=== PATIENT | female | born 1940 | race American Indian/Alaskan Native ===

== ENCOUNTER 2018-03-19 13:23 | Emergency (ER) | payer MEDICARE ==
[2018-03-19] MEDS ORDERED: APRESOLINE IV ONE ×2 (13:47→15:49)
--- NOTE | 2018-03-19 14:28 | Cat Scan Report ---
CT HEAD WITHOUT CONTRAST: HISTORY: Altered mental status. TECHNIQUE: Sequential CT images without contrast. FINDINGS: Images obtained show bilateral prominence of the sulci and ventricles. There are no abnormal intra- or extra-axial blood or fluid collections. There are no focal masses or evidence of mass effect. The tidwell white matter differentiation appears within normal limits. Regions of periventricular decreased attenuation are consistent with microangiopathic ischemic disease. The posterior fossa structures including the fourth ventricle, cerebellum, and brainstem appear normal. IMPRESSION: Evidence of atrophy and microangiopathic ischemic disease. No acute intracranial process noted.
[2018-03-19 15:05] LABS: Basophils # (Auto) 0.1 K/mm3 (0.0-0.1); Basophils % (Auto) 0.7 % (0.0-1.8); Eosinophils # (Auto) 0.5 K/mm3 (0.0-0.4); Eosinophils % (Auto) 5.7 % (0.0-4.3); Hematocrit 34.3 % (30.3-42.9); Hemoglobin 10.9 gm/dl (10.1-14.3); Lymphocytes # (Auto) 1.2 K/mm3 (1.2-5.4); Mean Corpuscular HGB Conc 32 % (30-34); Mean Corpuscular Hemoglobin 28 pg (28-32); Mean Corpuscular Volume 88 fl (79-97); Monocytes # (Auto) 0.5 K/mm3 (0.0-0.8); Platelet Count 127 K/mm3 (140-440); Red Blood Count 3.89 M/mm3 (3.65-5.03); Red Cell Distribution Width 15.3 % (13.2-15.2)
[2018-03-19 15:24] LABS: Albumin 3.9 g/dL (3.9-5); Calcium 9.1 mg/dL (8.4-10.2)
[2018-03-19 17:28] LABS: Bilirubin,Urine NEG (Negative); Blood,Urine NEG (Negative); Color,Urine Yellow (Yellow); Urobilinogen,Urine < 2.0 mg/dL (<2.0)
[2018-03-19] MEDS ORDERED: NORVASC PO ONE (18:02)
[2018-03-19] MEDS ORDERED: APRESOLINE PO ONE (18:02)
[2018-03-19] MEDS ORDERED: COREG PO ONE (18:03)
--- NOTE | 2018-03-19 18:10 | Emergency Department Report ---
ED Altered Mental Status HPI - General Chief Complaint: Altered Mental Status Stated Complaint: AMS Time Seen by Provider: 03/19/18 13:45 Source: patient, EMS Mode of arrival: Stretcher Limitations: No Limitations - History of Present Illness Initial Comments: Ms. Briceno is 77 yo female who presents with altered mental status. She has hx of CVA, HTN, DM. She also has hx of dementia. She requires 24 hour care. Her grandson noticed that she was dazed and drooling. Her daughter is now here at bedside. She appears to be at baseline. Patient appeared "out of it". She did not take her BP meds today. Patient denies any concerns. She feels okay. MD Complaint: altered mental status -: Gradual Severity: mild Consistency of Symptoms: waxing and waning Context: other (hx of CVA and dementia) - Related Data Home Medications Medication Instructions Recorded Confirmed Last Taken Levothyroxine [Synthroid] 25 mcg PO QAM 08/27/14 08/19/17 11/05/14 Rosuvastatin (Nf) [Crestor] 10 mg PO HS 08/27/14 08/19/17 11/04/14 NIFEdipine [NIFEdipine ER] 60 mg PO DAILY 11/05/14 08/19/17 11/05/14 Sertraline [Zoloft] 50 mg PO QDAY 11/05/14 08/19/17 11/05/14 Insulin NPH Hum/Reg Insulin Hm 5 unit SQ QAM 08/19/17 08/19/17 Unknown [HumuLIN 70-30 Vial] Insulin NPH Hum/Reg Insulin Hm 10 unit SQ QHS 08/19/17 08/19/17 Unknown [HumuLIN 70-30 Vial] Terazosin [Hytrin] 5 mg PO QHS 08/19/17 08/19/17 Unknown Previous Rx's Medication Instructions Recorded Last Taken Type Carvedilol [Coreg] 25 mg PO Q12HR #60 tablet 09/01/14 11/05/14 Rx hydrALAZINE [Apresoline TAB] 100 mg PO TID #90 tab 09/01/14 11/05/14 Rx Aspirin [Aspirin BABY CHEW TAB] 81 mg PO QDAY tab.chew 08/21/17 Unknown Rx Ciprofloxacin HCl [Ciprofloxacin 250 mg PO BID #10 tablet 08/21/17 Unknown Rx TAB] Furosemide [Lasix TAB] 40 mg PO QDAY #30 tablet 08/21/17 Unknown Rx Potassium Chloride 10 meq PO QDAY #30 capsule.er 08/21/17 Unknown Rx Allergies Allergy/AdvReac Type Severity Reaction Status Date / Time No Known Allergies Allergy Verified 08/27/14 06:14 ED Review of Systems ROS: Stated complaint: AMS Other details as noted in HPI Comment: Unobtainable due to pts medical conditions ED Past Medical Hx - Past Medical History Hx Hypertension: Yes Hx CVA: Yes (2011) Hx Heart Attack/AMI: Yes Hx Congestive Heart Failure: Yes Hx Diabetes: Yes Additional medical history: bronchitis - Social History Smoking Status: Never Smoker Substance Use Type: None - Medications Home Medications: Home Medications Medication Instructions Recorded Confirmed Last Taken Type Levothyroxine [Synthroid] 25 mcg PO QAM 08/27/14 08/19/17 11/05/14 History Rosuvastatin (Nf) [Crestor] 10 mg PO HS 08/27/14 08/19/17 11/04/14 History Carvedilol [Coreg] 25 mg PO Q12HR #60 tablet 09/01/14 08/19/17 11/05/14 Rx hydrALAZINE [Apresoline TAB] 100 mg PO TID #90 tab 09/01/14 08/19/17 11/05/14 Rx NIFEdipine [NIFEdipine ER] 60 mg PO DAILY 11/05/14 08/19/17 11/05/14 History Sertraline [Zoloft] 50 mg PO QDAY 11/05/14 08/19/17 11/05/14 History Insulin NPH Hum/Reg Insulin Hm 5 unit SQ QAM 08/19/17 08/19/17 Unknown History [HumuLIN 70-30 Vial] Insulin NPH Hum/Reg Insulin Hm 10 unit SQ QHS 08/19/17 08/19/17 Unknown History [HumuLIN 70-30 Vial] Terazosin [Hytrin] 5 mg PO QHS 08/19/17 08/19/17 Unknown History Aspirin [Aspirin BABY CHEW TAB] 81 mg PO QDAY tab.chew 08/21/17 Unknown Rx Ciprofloxacin HCl [Ciprofloxacin 250 mg PO BID #10 tablet 08/21/17 Unknown Rx TAB] Furosemide [Lasix TAB] 40 mg PO QDAY #30 tablet 08/21/17 Unknown Rx Potassium Chloride 10 meq PO QDAY #30 capsule.er 08/21/17 Unknown Rx ED Physical Exam - General Limitations: No Limitations General appearance: alert, in no apparent distress - Head Head exam: Present: atraumatic, normocephalic - Eye Eye exam: Present: normal appearance, PERRL - ENT ENT exam: Present: mucous membranes moist - Neck Neck exam: Present: normal inspection. Absent: tenderness, meningismus - Respiratory Respiratory exam: Present: normal lung sounds bilaterally. Absent: respiratory distress, wheezes, rales, rhonchi - Cardiovascular Cardiovascular Exam: Present: regular rate, normal rhythm, normal heart sounds. Absent: systolic murmur, diastolic murmur, rubs, gallop - GI/Abdominal GI/Abdominal exam: Present: soft, normal bowel sounds. Absent: distended, tenderness, guarding, rebound - Extremities Exam Extremities exam: Present: normal inspection - Neurological Exam Neurological exam: Present: alert. Absent: motor sensory deficit - Psychiatric Psychiatric exam: Present: flat affect - Skin Skin exam: Present: warm, dry, intact, normal color. Absent: rash ED Course Vital Signs 03/19/18 03/19/18 03/19/18 13:18 13:25 13:30 Temperature 97.9 F Pulse Rate 52 L 46 L Respiratory 16 11 L Rate Blood Pressure 192/69 196/69 O2 Sat by Pulse 98 98 97 Oximetry 03/19/18 03/19/18 03/19/18 14:20 14:30 14:46 Temperature Pulse Rate 58 L 59 L 59 L Respiratory 13 14 Rate Blood Pressure 194/72 191/74 191/74 O2 Sat by Pulse 96 92 95 Oximetry 03/19/18 03/19/18 15:00 15:59 Temperature Pulse Rate 61 67 Respiratory 15 Rate Blood Pressure 192/90 185/79 O2 Sat by Pulse 96 Oximetry - Lab Data Result diagrams: 03/19/18 14:53 03/19/18 14:53 Lab Results 03/19/18 03/19/18 03/19/18 Range/Units 14:53 14:53 16:08 WBC 9.5 (4.5-11.0) K/mm3 RBC 3.89 (3.65-5.03) M/mm3 Hgb 10.9 (10.1-14.3) gm/dl Hct 34.3 (30.3-42.9) % MCV 88 (79-97) fl MCH 28 (28-32) pg MCHC 32 (30-34) % RDW 15.3 H (13.2-15.2) % Plt Count 127 L (140-440) K/mm3 Lymph % (Auto) 13.0 L (13.4-35.0) % Howard % (Auto) 5.0 (0.0-7.3) % Eos % (Auto) 5.7 H (0.0-4.3) % Baso % (Auto) 0.7 (0.0-1.8) % Lymph # 1.2 (1.2-5.4) K/mm3 Howard # 0.5 (0.0-0.8) K/mm3 Eos # 0.5 H (0.0-0.4) K/mm3 Baso # 0.1 (0.0-0.1) K/mm3 Seg Neutrophils % 75.6 H (40.0-70.0) % Seg Neutrophils # 7.2 (1.8-7.7) K/mm3 Sodium 139 (137-145) mmol/L Potassium 4.4 (3.6-5.0) mmol/L Chloride 102.7 (98-107) mmol/L Carbon Dioxide 24 (22-30) mmol/L Anion Gap 17 mmol/L BUN 40 H (7-17) mg/dL Creatinine 1.6 H (0.7-1.2) mg/dL Estimated GFR 38 ml/min BUN/Creatinine Ratio 25 % Glucose 206 H (65-100) mg/dL Calcium 9.1 (8.4-10.2) mg/dL Total Bilirubin 0.30 (0.1-1.2) mg/dL AST 26 (5-40) units/L ALT 11 (7-56) units/L Alkaline Phosphatase 56 (35-129) units/L Troponin T 0.094 H (0.00-0.029) ng/mL Total Protein 8.6 H (6.3-8.2) g/dL Albumin 3.9 (3.9-5) g/dL Albumin/Globulin Ratio 0.8 % Urine Color Yellow (Yellow) Urine Turbidity Clear (Clear) Urine pH 5.0 (5.0-7.0) Ur Specific [place] 1.012 (1.003-1.030) Urine Protein 100 mg/dl (Negative) mg/dL Urine Glucose (UA) Neg (Negative) mg/dL Urine Ketones Neg (Negative) mg/dL Urine Blood Neg (Negative) Urine Nitrite Neg (Negative) Urine Bilirubin Neg (Negative) Urine Urobilinogen < 2.0 (<2.0) mg/dL Ur Leukocyte Esterase Neg (Negative) Urine WBC (Auto) 1.0 (0.0-6.0) /HPF Urine RBC (Auto) 2.0 (0.0-6.0) /HPF Interpretation: no acute changes 03/19/18 18:30 EKG obtained at 1338 Sinus bradycardia rate of 55 beats a minute left axis deviation no ST elevation or signs of ischemia EKG unchanged from 08/18/2017 first-degree AV block - Radiology Data Radiology results: report reviewed CT head showed microvascular changes chronic ischemic changes, portable chest x- ray no acute process. - Medical Decision Making Ms. Briceno presents with reported altered mental status, Daughter states she is at baseline. She did have markedly elevated blood pressure without taking her medications today. She has severe blood pressure. She takes Hydralazine 100 mg QID, Nifedipine 60 mg ER, and carvedilol 25 mg. No indication of CVA, UTI or polypharmacy. Patient is taking only 7 medications. I do not see a reversible cause of presentation that requires hospital admission. dc'd home with reassurance. CT head, CXR, EKG labs including CBC chemistry urine obtained. CKD at baseline for patient. I do not suspect ACS without EKG changes Critical care attestation.: If time is entered above; I have spent that time in minutes in the direct care of this critically ill patient, excluding procedure time. ED Disposition Clinical Impression: Hypertensive urgency, Delirium Disposition: DC- TO HOME OR SELFCARE Is pt being admited?: No Does the pt Need Aspirin: No Condition: Stable Instructions: Altered Mental Status (ED) Referrals: PRIMARY CAREMD [Primary Care Provider] - 3-5 Days Time of Disposition: 18:34
--- NOTE | 2018-03-19 18:25 | XRay Report ---
FINAL REPORT EXAM: XR CHEST 1V AP HISTORY: AMS in ct TECHNIQUE: AP portable view of the chest PRIORS: CXR 08/18/2017 FINDINGS: Lines, tubes, and devices: N/A Lungs and pleura: Trachea is normal in position. Perihilar vascular prominence is again noted. This may be baseline for the patient. Cardiomediastinal silhouette: Cardiac silhouette is prominent in view of the projection. Other: Bony structures are intact. IMPRESSION: Perihilar vascular prominence is again noted bilaterally. This may be baseline for the patient.
[2018-03-19] MEDS ORDERED: ZOFRAN IV ONE (19:03)
[2018-03-19 21:11] VITALS: BP 180/80
== END 2018-03-19 20:30 | disposition home or self-care (01) ==
LOC: ED 13:23
DX: I16.0 Hypertensive urgency (principal); R41.0 Disorientation, unspecified; I10 Essential (primary) hypertension; I50.9 Heart failure, unspecified; E11.9 Type 2 diabetes mellitus without complications; I21.9 Acute myocardial infarction, unspecified; Z86.73 Personal history of transient ischemic attack (TIA), and cerebral infarction without residual deficits; Z79.4 Long term (current) use of insulin
CPT/HCPCS: 36415; 70450; 71045; 80053; 81001; 84484; 85025; 93005; 93010; 96374; 96375; 96376; 99285; J0360; J2405

== ENCOUNTER 2019-06-24 12:39 | Emergency (ER) | payer MEDICARE ==
[2019-06-24] MEDS ORDERED: cloNIDine 0.2 MG TAB PO ONE (15:53)
[2019-06-24 16:55] VITALS: BP 210/83
--- NOTE | 2019-06-24 17:29 | Emergency Department Report ---
ED General Adult HPI - General Chief complaint: High BP Stated complaint: HBP Time Seen by Provider: 06/24/19 15:43 Source: patient, family Mode of arrival: Wheelchair Limitations: No Limitations - History of Present Illness Initial comments: 78 yo F presents to ED with elevated blood pressure. Pt has history of hypertension, CVA with left sided deficits. Daughter states she is compliant with her medications. Daughter states pt has been having some nasal congestion over the last few days. States she bought Afrin from the pharmacy on yesterday. Pt used Afrin today. Daughter states pt had a regularly scheduled appointment with her PCP today and her BP was high at the office. [facility] PCP did not make any changes to her medications. Pt went home. At home, daughter checked her BP again and it read "ERROR" so she brought her to the hospital. Pt reports only mild dizziness. Denies MENA, chest pain, SOB, new weakness or numbness. Daughter states pt is at her baseline, no neuro changes. -: This morning Severity scale (0 -10): 0 Consistency: constant Improves with: none Worsens with: none Associated Symptoms: denies: chest pain, headaches, nausea/vomiting, seizure, shortness of breath - Related Data Home Medications Medication Instructions Recorded Confirmed Last Taken Levothyroxine [Synthroid] 25 mcg PO QAM 08/27/14 03/20/18 03/20/18 Sertraline [Zoloft] 50 mg PO QDAY 11/05/14 03/20/18 03/20/18 Terazosin (Nf) [Hytrin (Nf)] 5 mg PO QHS 08/19/17 03/20/18 Unknown Previous Rx's Medication Instructions Recorded Last Taken Type carvediloL [Coreg] 25 mg PO Q12HR #60 tablet 09/01/14 03/20/18 Rx hydrALAZINE [Apresoline TAB] 100 mg PO TID #90 tab 09/01/14 03/20/18 Rx Aspirin [Aspirin BABY CHEW TAB] 81 mg PO QDAY tab.chew 08/21/17 Unknown Rx AtorvaSTATin [Lipitor] 40 mg PO QHS #30 tab 03/27/18 Unknown Rx Clopidogrel [Plavix] 75 mg PO QDAY #30 tablet 03/27/18 Unknown Rx Hypromellose [Isopto Tears 0.5%] 2 drops OU Q4H PRN bottle 03/27/18 Unknown Rx ISOSORBIDE MONOnitrate [Imdur ER] 30 mg PO QDAY #30 tablet 03/27/18 Unknown Rx Polyethylene Glycol 3350 [Miralax 17 gm PO QDAY PRN #30 powd.pack 03/27/18 Unknown Rx 3350] Potassium Chloride [K-Dur] 20 meq PO BID #30 tablet 03/27/18 Unknown Rx amLODIPine 10 mg PO DAILY #30 tablet 03/27/18 Unknown Rx Allergies Allergy/AdvReac Type Severity Reaction Status Date / Time No Known Allergies Allergy Verified 08/27/14 06:14 ED Review of Systems ROS: Stated complaint: HBP Other details as noted in HPI Comment: All other systems reviewed and negative Constitutional: denies: chills, fever ENT: congestion Respiratory: denies: cough, shortness of breath Cardiovascular: denies: chest pain Gastrointestinal: denies: abdominal pain, nausea, vomiting Neurological: denies: headache, weakness, numbness ED Past Medical Hx - Past Medical History Previous Medical History?: Yes Hx Hypertension: Yes Hx CVA: Yes (2011) Hx Heart Attack/AMI: Yes Hx Congestive Heart Failure: Yes Hx Diabetes: Yes Additional medical history: bronchitis - Social History Smoking Status: Never Smoker Substance Use Type: None - Medications Home Medications: Home Medications Medication Instructions Recorded Confirmed Last Taken Type Levothyroxine [Synthroid] 25 mcg PO QAM 08/27/14 03/20/18 03/20/18 History carvediloL [Coreg] 25 mg PO Q12HR #60 tablet 09/01/14 03/20/18 03/20/18 Rx hydrALAZINE [Apresoline TAB] 100 mg PO TID #90 tab 09/01/14 03/20/18 03/20/18 Rx Sertraline [Zoloft] 50 mg PO QDAY 11/05/14 03/20/18 03/20/18 History Terazosin (Nf) [Hytrin (Nf)] 5 mg PO QHS 08/19/17 03/20/18 Unknown History Aspirin [Aspirin BABY CHEW TAB] 81 mg PO QDAY tab.chew 08/21/17 03/20/18 Unknown Rx AtorvaSTATin [Lipitor] 40 mg PO QHS #30 tab 03/27/18 Unknown Rx Clopidogrel [Plavix] 75 mg PO QDAY #30 tablet 03/27/18 Unknown Rx Hypromellose [Isopto Tears 0.5%] 2 drops OU Q4H PRN bottle 03/27/18 Unknown Rx ISOSORBIDE MONOnitrate [Imdur ER] 30 mg PO QDAY #30 tablet 03/27/18 Unknown Rx Polyethylene Glycol 3350 [Miralax 17 gm PO QDAY PRN #30 powd.pack 03/27/18 Unknown Rx 3350] Potassium Chloride [K-Dur] 20 meq PO BID #30 tablet 03/27/18 Unknown Rx amLODIPine 10 mg PO DAILY #30 tablet 03/27/18 Unknown Rx ED Physical Exam - General Limitations: No Limitations General appearance: alert, in no apparent distress - Head Head exam: Present: atraumatic, normocephalic - Eye Eye exam: Present: normal appearance, EOMI - ENT ENT exam: Present: mucous membranes moist - Neck Neck exam: Present: normal inspection - Respiratory Respiratory exam: Present: normal lung sounds bilaterally. Absent: respiratory distress - Cardiovascular Cardiovascular Exam: Present: regular rate, normal rhythm - GI/Abdominal GI/Abdominal exam: Present: soft. Absent: distended, tenderness - Extremities Exam Extremities exam: Present: normal inspection - Neurological Exam Neurological exam: Present: alert, other (at baseline per daughter; baseline left-sided weakness) - Psychiatric Psychiatric exam: Present: normal affect, normal mood - Skin Skin exam: Present: warm, dry, intact, normal color ED Course Vital Signs 06/24/19 06/24/19 06/24/19 12:42 14:58 15:16 Temperature 97.5 F L Pulse Rate 62 62 62 Respiratory 16 16 Rate Blood Pressure 224/83 Blood Pressure 251/96 240/90 [Right] O2 Sat by Pulse 96 98 97 Oximetry 06/24/19 06/24/19 16:04 16:54 Temperature Pulse Rate 62 63 Respiratory Rate Blood Pressure 213/72 Blood Pressure 210/83 [Right] O2 Sat by Pulse Oximetry ED Medical Decision Making - Medical Decision Making 78-year-old female with history of hypertension, presents to ED with elevated blood pressure. It is likely elevated due to patient's Afrin use today. Patient reported mild dizziness, however denies any headache, chest pain, shortness of breath, new neuro deficits. Daughter states patient is her baseline. Patient was seen earlier today at her PCPs office and blood pressure was elevated at that time. Clonidine given here in the ED due to patient's history of CVA in the past. Blood pressure did respond to the clonidine. Daughter instructed to only give patient her hydralazine tonight, and then restart her medications as scheduled in the morning, so as to avoid any hypotensive episodes. Daughter advised to discontinue the Afrin. Return precautions given. - Differential Diagnosis uncontrolled HTN, medication adverse effect Critical care attestation.: If time is entered above; I have spent that time in minutes in the direct care of this critically ill patient, excluding procedure time. ED Disposition Clinical Impression: Uncontrolled hypertension Disposition: DC-01 TO HOME OR SELFCARE Is pt being admited?: No Condition: Stable Instructions: Hypertension (ED) Referrals: PRIMARY CARE, [Primary Care Provider] - 3-5 Days Time of Disposition: 17:31
== END 2019-06-24 17:55 | disposition home or self-care (01) ==
LOC: ED 12:39
DX: I11.0 Hypertensive heart disease with heart failure (principal); I50.9 Heart failure, unspecified; E11.9 Type 2 diabetes mellitus without complications; Z79.899 Other long term (current) drug therapy; Z86.73 Personal history of transient ischemic attack (TIA), and cerebral infarction without residual deficits

== ENCOUNTER 2020-06-11 13:10 | Inpatient (IN) | payer MEDICARE ==
--- NOTE | 2020-06-11 14:15 | Emergency Department Report ---
ED General Adult HPI - General Chief complaint: Dyspnea/Respdistress Stated complaint: TEDDY PUI?: Yes Time Seen by Provider: 06/11/20 13:56 Source: patient, family, EMS ( EMS documentation not available at time of chart dictation ), RN notes reviewed, old records reviewed Mode of arrival: Stretcher Limitations: Physical Limitation, Other (Patient is demented) - History of Present Illness Initial comments: The patient was evaluated in the emergency department for symptoms described in the history of present illness. He/she was evaluated in the context of the global COVID-19 pandemic, which necessitated consideration that the patient might be at risk for infection with the virus that causes COVID-19. Institutional protocols and algorithms that pertain to the evaluation of patients at risk for COVID-19 are in a state of rapid change based on information released by regulatory bodies including the CDC and federal and [facility] organizations. These policies and algorithms were followed during the patient's care in the emergency department. Please note that these policies, procedures and recommendations changed on a rapid basis. Primary CARE doctor: Dr. Sánchez Johnson Nephrology: Dr. Serrato Cardiology: Dr. Gilbert Past medical history: Dementia, stroke with dysarthria, heart failure with preserved ejection fraction, hypertension, renal insufficiency, pulmonary hypertension. The patient is a pleasant 79-year-old female. She is brought to the hospital with her daughter. Her daughter provides most of the history. Complaint is for cough, shortness of breath, lower extremity swelling, malaise and fatigue. No fever, no loss of taste or smell, no nausea, vomiting or diarrhea, no urinary symptoms, no travel, surgery, immobilization, no hematemesis or bright red blood per rectum. Symptoms constant for the past few weeks, getting worse, and do not have relieving factors. Her daughter indicates no changes in medications. Specifically, no exposure to Covid positive individuals. Patient herself is pleasant cooperative, and makes no specific complaints. -: Gradual, week(s) Severity scale (0 -10): 0 Consistency: constant Improves with: rest Worsens with: movement - Related Data Home Medications Medication Instructions Recorded Confirmed Last Taken Levothyroxine [Synthroid] 25 mcg PO QAM 08/27/14 03/20/18 03/20/18 Sertraline [Zoloft] 50 mg PO QDAY 11/05/14 03/20/18 03/20/18 Terazosin (Nf) [Hytrin (Nf)] 5 mg PO QHS 08/19/17 03/20/18 Unknown Previous Rx's Medication Instructions Recorded Last Taken Type carvediloL [Coreg] 25 mg PO Q12HR #60 tablet 09/01/14 03/20/18 Rx hydrALAZINE [Apresoline TAB] 100 mg PO TID #90 tab 09/01/14 03/20/18 Rx Aspirin [Aspirin BABY CHEW TAB] 81 mg PO QDAY tab.chew 08/21/17 Unknown Rx AtorvaSTATin [Lipitor] 40 mg PO QHS #30 tab 03/27/18 Unknown Rx Clopidogrel [Plavix] 75 mg PO QDAY #30 tablet 03/27/18 Unknown Rx Hypromellose [Isopto Tears 0.5%] 2 drops OU Q4H PRN bottle 03/27/18 Unknown Rx ISOSORBIDE MONOnitrate [Imdur ER] 30 mg PO QDAY #30 tablet 03/27/18 Unknown Rx Potassium Chloride [K-Dur] 20 meq PO BID #30 tablet 03/27/18 Unknown Rx amLODIPine 10 mg PO DAILY #30 tablet 03/27/18 Unknown Rx polyethylene glycoL 3350 [Miralax 17 gm PO QDAY PRN #30 powd.pack 03/27/18 Unknown Rx 3350] Allergies Allergy/AdvReac Type Severity Reaction Status Date / Time No Known Allergies Allergy Verified 08/27/14 06:14 ED Review of Systems ROS: Stated complaint: TEDDY Other details as noted in HPI Constitutional: malaise, weakness Eyes: denies: eye discharge ENT: congestion Respiratory: cough, shortness of breath, SOB with exertion, SOB at rest, wheezing Cardiovascular: edema. denies: chest pain Gastrointestinal: denies: nausea, vomiting, hematemesis, melena, hematochezia Genitourinary: denies: dysuria Musculoskeletal: denies: back pain Neurological: weakness Hematological/Lymphatic: denies: easy bleeding ED Past Medical Hx - Past Medical History Hx Hypertension: Yes Hx CVA: Yes (2011) Hx Heart Attack/AMI: Yes Hx Congestive Heart Failure: Yes Hx Diabetes: Yes Additional medical history: bronchitis - Social History Smoking Status: Never Smoker - Medications Home Medications: Home Medications Medication Instructions Recorded Confirmed Last Taken Type Levothyroxine [Synthroid] 25 mcg PO QAM 08/27/14 03/20/18 03/20/18 History carvediloL [Coreg] 25 mg PO Q12HR #60 tablet 09/01/14 03/20/18 03/20/18 Rx hydrALAZINE [Apresoline TAB] 100 mg PO TID #90 tab 09/01/14 03/20/18 03/20/18 Rx Sertraline [Zoloft] 50 mg PO QDAY 11/05/14 03/20/18 03/20/18 History Terazosin (Nf) [Hytrin (Nf)] 5 mg PO QHS 08/19/17 03/20/18 Unknown History Aspirin [Aspirin BABY CHEW TAB] 81 mg PO QDAY tab.chew 08/21/17 03/20/18 Unknown Rx AtorvaSTATin [Lipitor] 40 mg PO QHS #30 tab 03/27/18 Unknown Rx Clopidogrel [Plavix] 75 mg PO QDAY #30 tablet 03/27/18 Unknown Rx Hypromellose [Isopto Tears 0.5%] 2 drops OU Q4H PRN bottle 03/27/18 Unknown Rx ISOSORBIDE MONOnitrate [Imdur ER] 30 mg PO QDAY #30 tablet 03/27/18 Unknown Rx Potassium Chloride [K-Dur] 20 meq PO BID #30 tablet 03/27/18 Unknown Rx amLODIPine 10 mg PO DAILY #30 tablet 03/27/18 Unknown Rx polyethylene glycoL 3350 [Miralax 17 gm PO QDAY PRN #30 powd.pack 03/27/18 Unknown Rx 3350] ED Physical Exam - General Limitations: Physical Limitation, Other (Patient demented) General appearance: in no apparent distress, obese - Head Head exam: Present: atraumatic, normocephalic - Eye Eye exam: Present: normal appearance, EOMI. Absent: nystagmus - ENT ENT exam: Present: normal exam, normal orophraynx, mucous membranes moist, normal external ear exam - Neck Neck exam: Present: normal inspection, full ROM. Absent: tenderness, meningismus - Respiratory Respiratory exam: Present: rales, rhonchi, accessory muscle use. Absent: respiratory distress, wheezes, stridor - Cardiovascular Cardiovascular Exam: Present: regular rate, normal rhythm, normal heart sounds. Absent: bradycardia, tachycardia, irregular rhythm, systolic murmur, diastolic murmur, rubs, gallop - GI/Abdominal GI/Abdominal exam: Present: soft, normal bowel sounds. Absent: distended, tenderness, rigid - Extremities Exam Extremities exam: Present: normal inspection, full ROM, pedal edema (2+ edema in the bilateral lower extremities), other (2+ pulses noted in the bilateral upper and lower extremities. There is no palpable cord. negative Homans sign. Muscular compartments are soft. The pelvis is stable.). Absent: calf tenderness - Back Exam Back exam: Present: normal inspection, full ROM. Absent: tenderness, CVA ten derness (R), CVA tenderness (L), paraspinal tenderness, vertebral tenderness - Neurological Exam Neurological exam: Present: alert (Awake and alert to name. Follows commands. Moves 4 extremities. No obvious facial droop. Chronic dementia.), other (No facial droop. Tongue midline. Extraocular movements intact bilaterally. Facial sensation intact to light touch in V1, V2, V3 distribution bilaterally. 5 and a 5 strength in 4 extremities. Sensation intact to light touch in 4 extremities.) - Psychiatric Psychiatric exam: Present: normal mood - Skin Skin exam: Present: warm, dry, intact, normal color. Absent: rash ED Course Vital Signs 06/11/20 13:46 Temperature 98.6 F Pulse Rate 74 Respiratory 16 Rate Blood Pressure 211/85 [Left] O2 Sat by Pulse 98 Oximetry ED Medical Decision Making - Lab Data Result diagrams: 06/11/20 14:41 06/11/20 14:41 Vital Signs 06/11/20 13:46 Temperature 98.6 F Pulse Rate 74 Respiratory 16 Rate Blood Pressure 211/85 [Left] O2 Sat by Pulse 98 Oximetry Lab Results 06/11/20 06/11/20 06/11/20 Range/Units 14:41 14:41 14:41 WBC 6.7 (4.5-11.0) K/mm3 RBC 3.51 L (3.65-5.03) M/mm3 Hgb 9.9 L (10.1-14.3) gm/dl Hct 32.3 (30.3-42.9) % MCV 92 (79-97) fl MCH 28 (28-32) pg MCHC 31 (30-34) % RDW 17.6 H (13.2-15.2) % Plt Count 138 L (140-440) K/mm3 Lymph % (Auto) 10.3 L (13.4-35.0) % [place] % (Auto) 6.3 (0.0-7.3) % Eos % (Auto) 3.2 (0.0-4.3) % Baso % (Auto) 1.4 (0.0-1.8) % Lymph # (Auto) 0.7 L (1.2-5.4) K/mm3 [place] # (Auto) 0.4 (0.0-0.8) K/mm3 Eos # (Auto) 0.2 (0.0-0.4) K/mm3 Baso # (Auto) 0.1 (0.0-0.1) K/mm3 Seg Neutrophils % 78.8 H (40.0-70.0) % Seg Neutrophils # 5.3 (1.8-7.7) K/mm3 PT 14.7 (12.2-14.9) Sec. INR 1.15 H (0.87-1.13) Sodium 144 (137-145) mmol/L Potassium 4.7 (3.6-5.0) mmol/L Chloride 106.8 (98-107) mmol/L Carbon Dioxide 29 (22-30) mmol/L Anion Gap 13 mmol/L BUN 58 H (7-17) mg/dL Creatinine 2.6 H (0.6-1.2) mg/dL Estimated GFR 22 ml/min BUN/Creatinine Ratio 22 % Glucose 140 H (65-100) mg/dL Calcium 8.8 (8.4-10.2) mg/dL Magnesium 2.20 (1.7-2.3) mg/dL Total Bilirubin 0.20 (0.1-1.2) mg/dL AST 17 (5-40) units/L ALT 8 (7-56) units/L Alkaline Phosphatase 86 (35-129) units/L Total Creatine Kinase 60 (30-135) units/L Troponin T 0.103 H* (0.00-0.029) ng/mL NT-Pro-B Natriuret Pep 8655 H (0-900) pg/mL Total Protein 7.4 (6.3-8.2) g/dL Albumin 3.0 L (3.9-5) g/dL Albumin/Globulin Ratio 0.7 % Triglycerides 89 (2-149) mg/dL Cholesterol 157 (50-199) mg/dL LDL Cholesterol Direct 71 (50-130) mg/dL HDL Cholesterol 75 H (40-59) mg/dL Cholesterol/HDL Ratio 2.09 % - EKG Data -: EKG Interpreted by Me - EKG Data 06/11/20 16:27 EKG #1 shows a sinus rhythm, 68 bpm, with a left axis deviation, poor R wave progression, and a marked first-degree AV block. This EKG is abnormal. The EKG is not a STEMI. Q waves noted in the inferior leads, poor R wave progression. The EKG appears to be unchanged from prior EKG from February 2018. EKG #1 and 2 are not consistent with STEMI. - Radiology Data Radiology results: pending, report reviewed, image reviewed CHEST 1 VIEW 06/11/2020 2:36 PM INDICATION / CLINICAL INFORMATION: Dyspnea. COMPARISON: Chest one view from 03/20/2018. FINDINGS: SUPPORT DEVICES: None. HEART / MEDIASTINUM: Stable. LUNGS / PLEURA: There are generalized bilateral pulmonary opacities without a pleural effusion or pneumothorax. ADDITIONAL FINDINGS: The bones are unchanged. No significant additional findings. IMPRESSION: Nonspecific bilateral pulmonary opacities could represent edema or pneumonia. Continued radiographic follow-up to resolution is recommended. Signer Name: Milton Jonas MD Signed: 06/11/2020 1:54 PM Workstation Name: [id number] - Medical Decision Making Differential diagnosis, including but not limited to: Pneumonia, congestive heart failure, cardiorenal syndrome, fluid overload, renal insufficiency Assessment and plan: 79-year-old female, who as per review of systems with family, has no DVT or pulmonary embolism risk factors, find her to be low risk by Wells criteria, with probable congestive heart failure, and cardiorenal syndrome. Patient has been admitted to this hospital in the past for similar symptoms. Laboratory studies today show chronic elevated troponin, likely a type II troponin leak, morphologically unchanged EKG, chronic renal insufficiency, worse than baseline, x-ray of the chest suggest congestive heart failure, pulmonary vascular congestion, and elevated proBNP. Patient has been staying at home, self isolating, and self quarantining. As per her daughter, no exposure to Covid positive individuals. I think COVID-19 is very unlikely in this patient. However, given current Covid pandemic, based off of hypoxia, and chest x-ray findings, start patient on isolation, initiate high-dose Lasix therapy, aspirin, antibiotic therapy, and steroids. Contacted the patient's primary rn manager, Dr. Gilbert, discussed patient's history, physical, pertinent laboratory studies, his group will be pleased to follow in consultation, and he agrees with the aforementioned plan of care. Discussed this with the patient's daughter, who is amenable to hospitalization. Hospital physician, Dr. Gabriela Matos to admit In the ER, patient appears pleasant, calm and cooperative, and she does not appear to be in significant distress, although she does have some difficulty with her respirations We will support her with medical intervention, and supplemental oxygen. Critical Care Time: Yes Critical care time in (mins) excluding proc time.: 35 Critical care attestation.: If time is entered above; I have spent that time in minutes in the direct care of this critically ill patient, excluding procedure time. ED Disposition Clinical Impression: Pulmonary edema, Hypoxia, CHF (congestive heart failure), Pulmonary hypertension, Acute on chronic renal insufficiency, Hypertension Disposition: OP ADMIT IP TO THIS HOSP Is pt being admited?: Yes Does the pt Need Aspirin: Yes Condition: Fair Instructions: Pulmonary Edema (ED), Hypertension (ED)
--- NOTE | 2020-06-11 14:58 | XRay Report ---
CHEST 1 VIEW 06/11/2020 2:36 PM INDICATION / CLINICAL INFORMATION: Dyspnea. COMPARISON: Chest one view from 03/20/2018. FINDINGS: SUPPORT DEVICES: None. HEART / MEDIASTINUM: Stable. LUNGS / PLEURA: There are generalized bilateral pulmonary opacities without a pleural effusion or pne umothorax. ADDITIONAL FINDINGS: The bones are unchanged. No significant additional findings. IMPRESSION: Nonspecific bilateral pulmonary opacities could represent edema or pneumonia. Continued radiographic follow-up to resolution is recommended. Signer Name: Milton Jonas MD Signed: 06/11/2020 2:54 PM Workstation Name: [id number]
[2020-06-11 15:29] LABS: Basophils # (Auto) 0.1 K/mm3 (0.0-0.1); Basophils % (Auto) 1.4 % (0.0-1.8); Eosinophils # (Auto) 0.2 K/mm3 (0.0-0.4); Eosinophils % (Auto) 3.2 % (0.0-4.3); Hematocrit 32.3 % (30.3-42.9); Hemoglobin 9.9 gm/dl (10.1-14.3); Lymphocytes # (Auto) 0.7 K/mm3 (1.2-5.4); Lymphocytes % (Auto) 10.3 % (13.4-35.0); Mean Corpuscular HGB Conc 31 % (30-34); Mean Corpuscular Volume 92 fl (79-97); Monocytes # (Auto) 0.4 K/mm3 (0.0-0.8); Monocytes % (Auto) 6.3 % (0.0-7.3); Platelet Count 138 K/mm3 (140-440); Red Blood Count 3.51 M/mm3 (3.65-5.03); Red Cell Distribution Width 17.6 % (13.2-15.2)
[2020-06-11 15:35] LABS: Calcium 8.8 mg/dL (8.4-10.2)
[2020-06-11 15:40] LABS: INR 1.15 (0.87-1.13)
[2020-06-11 15:52] LABS: Chol/HDL Ratio 2.09 %
[2020-06-11] MEDS ORDERED: FUROSEMIDE 40 MG/4 ML INJ IV ONE (15:58)
[2020-06-11] MEDS ORDERED: ASPIRIN 81 MG TAB CHEW PO ONE (15:58)
[2020-06-11] MEDS ORDERED: cefTRIAXone/NS 1 GM/50 ML 1 GM/50 ML BAG IV ONE ×2 (15:58→17:37)
[2020-06-11] MEDS ORDERED: dexAMETHasone 4 MG/ML VIAL IV ONE (15:58)
[2020-06-11] MEDS ORDERED: hydrALAZINE 20 MG/1 ML INJ IV ONE (15:59)
[2020-06-11] MEDS ORDERED: AZITHROMYCIN 500 MG in SODIUM CHLORIDE 0.9% 250ML 250 ML IV ONE (17:00)
[2020-06-11] MEDS ORDERED: FUROSEMIDE 40 MG/4 ML INJ ONE (17:37)
[2020-06-11] MEDS ORDERED: dexAMETHasone 4 MG/ML VIAL ONE (17:37)
[2020-06-11] MEDS ORDERED: ASPIRIN 81 MG TAB CHEW ONE (17:37)
[2020-06-11] MEDS ORDERED: cloNIDine TTS 0.3 MG/24 HR PATCH TD SCH (22:00)
--- NOTE | 2020-06-11 23:04 | History and Physical Report ---
History of Present Illness Date of examination: 06/11/20 Date of admission: 06/11/20 16:55 Chief complaint: Shortness of breath for 1 week History of present illness: 79-year-old -[place] female with history of hypertension, hyperlipidemia, coronary artery disease and congestive heart failure brought in by the heart daughter for increasing shortness of breath and orthopnea for 1 week. Daughter provides most of the history. Patient has shortness of breath on minimal exertion and orthopnea. Patient [facility] with [facility] for cardiology problems. No chest pain. Exacerbated by exertion and relieved with rest. No fever or chills. No exposure to Covid virus. - Past Medical History --Hypertension: Yes --CVA: Yes (2011) --Heart Attack/AMI: Yes --Congestive Heart Failure: Yes --Diabetes: Yes Additional medical history: bronchitis - Social History Smoking Status: Never Smoker --Surgical history unknown -- Family history Htn - Medications Home Medications: Home Medications Medication Instructions Recorded Confirmed Last Taken Type Levothyroxine [Synthroid] 25 mcg PO QAM 08/27/14 03/20/18 03/20/18 History carvediloL [Coreg] 25 mg PO Q12HR #60 tablet 09/01/14 03/20/18 03/20/18 Rx hydrALAZINE [Apresoline TAB] 100 mg PO TID #90 tab 09/01/14 03/20/18 03/20/18 Rx Sertraline [Zoloft] 50 mg PO QDAY 11/05/14 03/20/18 03/20/18 History Terazosin (Nf) [Hytrin (Nf)] 5 mg PO QHS 08/19/17 03/20/18 Unknown History Aspirin [Aspirin BABY CHEW TAB] 81 mg PO QDAY tab.chew 08/21/17 03/20/18 Unkno wn Rx AtorvaSTATin [Lipitor] 40 mg PO QHS #30 tab 03/27/18 Unknown Rx Clopidogrel [Plavix] 75 mg PO QDAY #30 tablet 03/27/18 Unknown Rx Hypromellose [Isopto Tears 0.5%] 2 drops OU Q4H PRN bottle 03/27/18 Unknown Rx ISOSORBIDE MONOnitrate [Imdur ER] 30 mg PO QDAY #30 tablet 03/27/18 Unknown Rx Potassium Chloride [K-Dur] 20 meq PO BID #30 tablet 03/27/18 Unknown Rx amLODIPine 10 mg PO DAILY #30 tablet 03/27/18 Unknown Rx polyethylene glycoL 3350 [Miralax 17 gm PO QDAY PRN #30 powd.pack 03/27/18 Unknown Rx 3350] Review of Systems ROS: Stated complaint: TEDDY Other details as noted in HPI Constitutional: malaise, weakness Eyes: denies: eye discharge ENT: congestion Respiratory: cough, shortness of breath, SOB with exertion, SOB at rest, wheezing Cardiovascular: edema. denies: chest pain Gastrointestinal: denies: nausea, vomiting, hematemesis, melena, hematochezia Genitourinary: denies: dysuria Musculoskeletal: denies: back pain Neurological: weakness Hematological/Lymphatic: denies: easy bleeding Medications and Allergies Allergies Allergy/AdvReac Type Severity Reaction Status Date / Time No Known Allergies Allergy Verified 08/27/14 06:14 Home Medications Medication Instructions Recorded Confirmed Last Taken Type Levothyroxine [Synthroid] 25 mcg PO QAM 08/27/14 06/11/20 03/20/18 History hydrALAZINE [Apresoline TAB] 100 mg PO TID #90 tab 09/01/14 06/11/20 03/20/18 Rx Sertraline [Zoloft] 50 mg PO QDAY 11/05/14 06/11/20 03/20/18 History Terazosin (Nf) [Hytrin (Nf)] 5 mg PO QHS 08/19/17 06/11/20 Unknown History Aspirin [Aspirin BABY CHEW TAB] 81 mg PO QDAY tab.chew 08/21/17 06/11/20 Unknown Rx AtorvaSTATin [Lipitor] 40 mg PO QHS #30 tab 03/27/18 06/11/20 Unknown Rx Clopidogrel [Plavix] 75 mg PO QDAY #30 tablet 03/27/18 06/11/20 Unknown Rx Hypromellose [Isopto Tears 0.5%] 2 drops OU Q4H PRN bottle 03/27/18 06/11/20 Unknown Rx ISOSORBIDE MONOnitrate [Imdur ER] 30 mg PO QDAY #30 tablet 03/27/18 06/11/20 Unknown Rx amLODIPine 10 mg PO DAILY #30 tablet 03/27/18 06/11/20 Unknown Rx Ergocalciferol (Vitamin D2) 50,000 unit PO QDAY 06/11/20 06/11/20 Unknown History [Vitamin D2] Ferrous Sulfate [Feosol] 325 mg PO QDAY 06/11/20 06/11/20 Unknown History carvediloL [Coreg] 6.25 mg PO Q12HR 06/11/20 06/11/20 Unknown History Active Meds: Active Medications Clonidine HCl (Catapres-Tts Patch) 0.3 mg TD Farr JULIETTE Last Admin: 06/11/20 22:28 Dose: 0.3 mg Documented by: Labetalol HCl (Labetalol) 20 mg IV Q3H PRN PRN Reason: Blood Pressure Exam - Constitutional Vitals: Temp Pulse Resp BP Pulse Ox 97.4 F L 57 L 16 195/88 90 06/11/20 21:47 06/11/20 20:20 06/11/20 21:47 06/11/20 21:47 06/11/20 20:20 General appearance: Present: no acute distress, well-nourished - EENT Eyes: Present: PERRL ENT: hearing intact, clear oral mucosa - Neck Neck: Present: supple, normal ROM - Respiratory Respiratory effort: normal Respiratory: bilateral: CTA - Cardiovascular Heart rate: 78 Rhythm: regular Heart Sounds: Present: S1 & S2. Absent: rub, click - Extremities Extremities: pulses symmetrical, No edema Peripheral Pulses: within normal limits - Abdominal General gastrointestinal: Present: soft, non-tender, non-distended, normal bowel sounds Female genitourinary: Present: normal - Integumentary Integumentary: Present: clear, warm, dry - Musculoskeletal Musculoskeletal: gait normal, strength equal bilaterally - Psychiatric Psychiatric: appropriate mood/affect, intact judgment & insight - Neurologic Neurologic: CNII-XII intact, moves all extremities HEART Score - HEART Score History: Moderately suspicious Age: > 65 Risk factors: > 3 risk factors or hx of atherosclerotic disease Troponin: Troponin T 0.103 ng/mL (0.00-0.029) H* 06/11/20 14:41 Troponin: < normal limit - Critical Actions Critical Actions: 4-6 pts:12-16.6% risk of adverse cardiac event. Should be admitted Results - Labs CBC & Chem 7: 06/12/20 02:35 06/12/20 02:35 Labs: Laboratory Last Values WBC 6.7 K/mm3 (4.5-11.0) 06/11/20 14:41 RBC 3.51 M/mm3 (3.65-5.03) L 06/11/20 14:41 Hgb 9.9 gm/dl (10.1-14.3) L 06/11/20 14:41 Hct 32.3 % (30.3-42.9) 06/11/20 14:41 MCV 92 fl (79-97) 06/11/20 14:41 MCH 28 pg (28-32) 06/11/20 14:41 MCHC 31 % (30-34) 06/11/20 14:41 RDW 17.6 % (13.2-15.2) H 06/11/20 14:41 Plt Count 138 K/mm3 (140-440) L 06/11/20 14:41 Lymph % (Auto) 10.3 % (13.4-35.0) L 06/11/20 14:41 [place] % (Auto) 6.3 % (0.0-7.3) 06/11/20 14:41 Eos % (Auto) 3.2 % (0.0-4.3) 06/11/20 14:41 Baso % (Auto) 1.4 % (0.0-1.8) 06/11/20 14:41 Lymph # (Auto) 0.7 K/mm3 (1.2-5.4) L 06/11/20 14:41 [place] # (Auto) 0.4 K/mm3 (0.0-0.8) 06/11/20 14:41 Eos # (Auto) 0.2 K/mm3 (0.0-0.4) 06/11/20 14:41 Baso # (Auto) 0.1 K/mm3 (0.0-0.1) 06/11/20 14:41 Seg Neutrophils % 78.8 % (40.0-70.0) H 06/11/20 14:41 Seg Neutrophils # 5.3 K/mm3 (1.8-7.7) 06/11/20 14:41 PT 14.7 Sec. (12.2-14.9) 06/11/20 14:41 INR 1.15 (0.87-1.13) H 06/11/20 14:41 Sodium 144 mmol/L (137-145) 06/11/20 14:41 Potassium 4.7 mmol/L (3.6-5.0) 06/11/20 14:41 Chloride 106.8 mmol/L (98-107) 06/11/20 14:41 Carbon Dioxide 29 mmol/L (22-30) 06/11/20 14:41 Anion Gap 13 mmol/L 06/11/20 14:41 BUN 58 mg/dL (7-17) H 06/11/20 14:41 Creatinine 2.6 mg/dL (0.6-1.2) H 06/11/20 14:41 Estimated GFR 22 ml/min 06/11/20 14:41 BUN/Creatinine Ratio 22 % 06/11/20 14:41 Glucose 140 mg/dL (65-100) H 06/11/20 14:41 POC Glucose 140 mg/dL (70-105) H 06/11/20 21:46 Lactic Acid 0.50 mmol/L (0.7-2.0) L 06/11/20 16:11 Calcium 8.8 mg/dL (8.4-10.2) 06/11/20 14:41 Magnesium 2.20 mg/dL (1.7-2.3) 06/11/20 14:41 Total Bilirubin 0.20 mg/dL (0.1-1.2) 06/11/20 14:41 AST 17 units/L (5-40) 06/11/20 14:41 ALT 8 units/L (7-56) 06/11/20 14:41 Alkaline Phosphatase 86 units/L (35-129) 06/11/20 14:41 Total Creatine Kinase 60 units/L (30-135) 06/11/20 14:41 Troponin T 0.103 ng/mL (0.00-0.029) H* 06/11/20 14:41 NT-Pro-B Natriuret Pep 8655 pg/mL (0-900) H 06/11/20 14:41 Total Protein 7.4 g/dL (6.3-8.2) 06/11/20 14:41 Albumin 3.0 g/dL (3.9-5) L 06/11/20 14:41 Albumin/Globulin Ratio 0.7 % 06/11/20 14:41 Triglycerides 89 mg/dL (2-149) 06/11/20 14:41 Cholesterol 157 mg/dL (50-199) 06/11/20 14:41 LDL Cholesterol Direct 71 mg/dL (50-130) 06/11/20 14:41 HDL Cholesterol 75 mg/dL (40-59) H 06/11/20 14:41 Cholesterol/HDL Ratio 2.09 % 06/11/20 14:41 Short CBC 06/11/20 06/12/20 Range/Units 14:41 02:35 WBC 6.7 4.5 (4.5-11.0) K/mm3 Hgb 9.9 L 10.7 (10.1-14.3) gm/dl Hct 32.3 34.0 (30.3-42.9) % Plt Count 138 L 156 (140-440) K/mm3 BMP 06/11/20 06/12/20 14:41 02:35 Sodium 144 143 Potassium 4.7 4.9 Chloride 106.8 104.0 Carbon Dioxide 29 25 BUN 58 H 58 H Creatinine 2.6 H 2.5 H Glucose 140 H 214 H Calcium 8.8 9.1 Cardiac Enzymes 06/11/20 06/12/20 06/12/20 Range/Units 14:41 02:35 05:43 Total Creatine Kinase 60 (30-135) units/L Troponin T 0.103 H* 0.111 H* 0.105 H* (0.00-0.029) ng/mL Liver Function 06/11/20 06/12/20 Range/Units 14:41 02:35 Total Bilirubin 0.20 0.30 (0.1-1.2) mg/dL AST 17 20 (5-40) units/L ALT 8 9 (7-56) units/L Alkaline Phosphatase 86 97 (35-129) units/L Albumin 3.0 L 3.2 L (3.9-5) g/dL Microbiology: Microbiology 06/11/20 16:11 Peripheral/Venous Blood Culture - Preliminary Culture in Progress 06/11/20 16:11 Peripheral/Venous Blood Culture - Preliminary Culture in Progress - Imaging and Cardiology EKG: report reviewed (Sinus rhythm no acute ST-T wave changes) Imaging and Cardiology: chest x-ray Bilateral pulmonary opacities could represent edema or pneumonia Lopez/IV: IV Catheter Type [Right INT / Saline Lock Forearm] Assessment and Plan Advance Directives: Yes (Full code) VTE prophylaxis?: Chemical Plan of care discussed with patient/family: Yes - Patient Problems (1) Acute exacerbation of CHF (congestive heart failure) Current Visit: Yes Status: Acute Qualifiers: Heart failure type: combined systolic and diastolic Qualified Code(s): I50.43 - Acute on chronic combined systolic (congestive) and diastolic (congestive) heart failure Plan to address problem: Patient's history consistent with CHF BNP is elevated in the mid 8000s IV Lasix 40 mg every 12 Echocardiogram for ejection fraction and valvular function Cardiology consult requested Daily weight Daily intake output (2) Elevated troponin Current Visit: Yes Status: Acute Plan to address problem: Possible NSTEMI type II Will defer to cardiology regarding stress test versus left heart catheterization IV heparin was not started (3) HTN (hypertension) Current Visit: Yes Status: Chronic Qualifiers: Hypertension type: essential hypertension Plan to address problem: Continue antihypertensives and adjust medications as necessary (4) Coronary artery disease Current Visit: Yes Status: Chronic Qualifiers: Coronary Disease-Associated Artery/Lesion type: [place] artery [place] vs. transplanted heart: [place] heart Plan to address problem: Continue isosorbide mono nitrate and aspirin (5) CKD (chronic kidney disease) Current Visit: Yes Status: Chronic Qualifiers: Chronic kidney disease stage: stage 4 (severe) Qualified Code(s): N18.4 - Chronic kidney disease, stage 4 (severe) Plan to address problem: Nephrology consult requested (6) DVT prophylaxis Current Visit: Yes Status: Acute Plan to address problem: On heparin and GI prophylaxis
[2020-06-11] MEDS ORDERED: HYPROMELLOSE 0.5% OPHTH SOLN 15 ML OU PRN (23:06)
[2020-06-11] MEDS ORDERED: HYDROmorphone 1 MG/1 ML INJ IV PRN (23:07)
[2020-06-11] MEDS ORDERED: ONDANSETRON 4 MG/2 ML INJ IV PRN (23:07)
[2020-06-11] MEDS ORDERED: ACETAMINOPHEN 325 MG TAB PO PRN (23:07)
[2020-06-11] MEDS: carvediloL 6.25 MG TAB PO SCH (23:59)
[2020-06-12 03:23] LABS: Hemoglobin 10.7 gm/dl (10.1-14.3); Mean Corpuscular HGB Conc 32 % (30-34); Mean Corpuscular Volume 89 fl (79-97); Platelet Count 156 K/mm3 (140-440); Red Blood Count 3.81 M/mm3 (3.65-5.03); Red Cell Distribution Width 17.5 % (13.2-15.2)
[2020-06-12 03:41] LABS: Albumin 3.2 g/dL (3.9-5); Calcium 9.1 mg/dL (8.4-10.2)
[2020-06-12] MEDS ORDERED: NITROGLYCERIN 0.4 MG TAB SUBL SL PRN (04:00)
[2020-06-12] MEDS: LEVOTHYROXINE 25 MCG TAB PO SCH (05:52)
[2020-06-12] MEDS ORDERED: FUROSEMIDE 40 MG/4 ML INJ IV SCH (06:00)
[2020-06-12 06:40] LABS: Anisocytosis 1+; Basophils % (Manual) 0 % (0.0-1.8); Eosinophils % (Manual) 0 % (0.0-4.3); Target Cells Few; Total Cells Counted 100
[2020-06-12 06:41] LABS: Hypochromasia Few; Platelet Estimate Consistent w Auto
[2020-06-12] MEDS ORDERED: hydrALAZINE 100 MG TAB PO SCH (08:00)
[2020-06-12] MEDS: amLODIPine 10 MG TAB PO SCH ×2 (08:37→18:16)
[2020-06-12] MEDS: ASPIRIN 81 MG TAB CHEW PO SCH ×2 (08:38→18:08)
[2020-06-12] MEDS: SERTRALINE 50 MG TAB PO SCH ×2 (08:38→18:15)
[2020-06-12] MEDS: carvediloL 6.25 MG TAB PO SCH ×2 (08:38→18:09)
[2020-06-12] MEDS: FERROUS SULFATE 325 MG TAB PO SCH ×2 (08:38→18:15)
[2020-06-12] MEDS: POTASSIUM CHLORIDE ER 20 MEQ TAB PO SCH ×2 (08:39→18:16)
[2020-06-12] MEDS: CLOPIDOGREL 75 MG TAB PO SCH ×2 (08:39→18:15)
[2020-06-12] MEDS ORDERED: PRAZOSIN 1 MG CAP PO SCH (10:00)
[2020-06-12] MEDS ORDERED: ERGOCALCIFEROL (VIT D2) 50,000 UNIT CAP PO SCH (10:00)
--- NOTE | 2020-06-12 10:00 | Consultation ---
History of Present Illness Consult date: 06/12/20 Consult reason: congestive heart failure History of present illness: This is a 79-year old history of chronic kidney disease, hypertension and prior CVA, who was brought to this hospital with shortness of breath, hypoxic respiratory failure and severe, uncontrolled hypertension. Systolic BP as high as 221. Laboratory studies shows a creatinine of 2.6 and chronically elevated troponin measurements. Chest x-ray reports bilateral pulmonary opacities versus interstitial edema. COVID 19 test result is pending. Patient is known to [facility] and is followed on a routine basis. She has a cardiac history of heart failure with preserved ejection fraction and pulmonary hypertension. Her latest echocardiogram done 2 years ago, showed moderate pulmonary hypertension, RVSP 50 mmHg. Normal left ventricular systolic function, ejection fraction 55-60%. Past History Past Medical History: heart failure, hypertension, renal failure, stroke Medications and Allergies Allergies Allergy/AdvReac Type Severity Reaction Status Date / Time No Known Allergies Allergy Verified 08/27/14 06:14 Home Medications Medication Instructions Recorded Confirmed Last Taken Type Levothyroxine [Synthroid] 25 mcg PO QAM 08/27/14 06/11/20 03/20/18 History hydrALAZINE [Apresoline TAB] 100 mg PO TID #90 tab 09/01/14 06/11/20 03/20/18 Rx Sertraline [Zoloft] 50 mg PO QDAY 11/05/14 06/11/20 03/20/18 History Terazosin (Nf) [Hytrin (Nf)] 5 mg PO QHS 08/19/17 06/11/20 Unknown History Aspirin [Aspirin BABY CHEW TAB] 81 mg PO QDAY tab.chew 08/21/17 06/11/20 Unknown Rx AtorvaSTATin [Lipitor] 40 mg PO QHS #30 tab 03/27/18 06/11/20 Unknown Rx Clopidogrel [Plavix] 75 mg PO QDAY #30 tablet 03/27/18 06/11/20 Unknown Rx Hypromellose [Isopto Tears 0.5%] 2 drops OU Q4H PRN bottle 03/27/18 06/11/20 Unknown Rx ISOSORBIDE MONOnitrate [Imdur ER] 30 mg PO QDAY #30 tablet 03/27/18 06/11/20 Unknown Rx amLODIPine 10 mg PO DAILY #30 tablet 03/27/18 06/11/20 Unknown Rx Ergocalciferol (Vitamin D2) 50,000 unit PO QDAY 06/11/20 06/11/20 Unknown History [Vitamin D2] Ferrous Sulfate [Feosol] 325 mg PO QDAY 06/11/20 06/11/20 Unknown History carvediloL [Coreg] 6.25 mg PO Q12HR 06/11/20 06/11/20 Unknown History Active Meds: Active Medications Acetaminophen (Tylenol) 650 mg PO Q4H PRN PRN Reason: Pain MILD(1-3)/Fever >100.5/MENA Amlodipine Besylate (Amlodipine) 10 mg PO DAILY [facility] Last Admin: 06/12/20 08:37 Dose: 10 mg Documented by: Artificial Tears (Isopto Tears 0.5%) 2 drops OU Q4H PRN PRN Reason: Dry Eye(s) Aspirin (Baby Aspirin) 81 mg PO QDAY [facility] Last Admin: 06/12/20 08:38 Dose: 81 mg Documented by: Atorvastatin Calcium (Lipitor) 40 mg PO QHS [facility] Carvedilol (Coreg) 6.25 mg PO Q12HR [facility] Last Admin: 06/12/20 08:38 Dose: 6.25 mg Documented by: Clonidine HCl (Catapres-Tts Patch) 0.3 mg TD Farr [facility] Last Admin: 06/11/20 22:28 Dose: 0.3 mg Documented by: Clopidogrel Bisulfate (Plavix) 75 mg PO QDAY [facility] Last Admin: 06/12/20 08:39 Dose: 75 mg Documented by: Ergocalciferol (Vitamin D2) 50,000 unit PO QDAY [facility] Ferrous Sulfate (Feosol) 325 mg PO QDAY [facility] Last Admin: 06/12/20 08:38 Dose: 325 mg Documented by: Furosemide (Lasix) 40 mg IV 0600,1800 [facility] Last Admin: 06/12/20 05:52 Dose: 40 mg Documented by: Hydralazine HCl (Apresoline) 100 mg PO TID [facility] Last Admin: 06/12/20 08:38 Dose: 100 mg Documented by: Hydromorphone HCl (Dilaudid) 0.5 mg IV Q3H PRN PRN Reason: Pain , Severe (7-10) Isosorbide Mononitrate (Imdur) 30 mg PO QDAY [facility] Last Admin: 06/12/20 08:38 Dose: 30 mg Documented by: Labetalol HCl (Labetalol) 20 mg IV Q3H PRN PRN Reason: Blood Pressure Last Admin: 06/12/20 04:18 Dose: 20 mg Documented by: Levothyroxine Sodium (Synthroid) 25 mcg PO QAM@0600 [facility] Last Admin: 06/12/20 05:52 Dose: 25 mcg Documented by: Nitroglycerin (Nitrostat) 0.4 mg SL .Q5MIN PRN PRN Reason: Chest Pain Last Admin: 06/12/20 04:39 Dose: 0.4 mg Documented by: Ondansetron HCl (Zofran) 4 mg IV Q8H PRN PRN Reason: Nausea And Vomiting Oxycodone/Acetaminophen (Percocet 5/325) 1 tab PO Q6H PRN PRN Reason: Pain, Moderate (4-6) Potassium Chloride (K-Dur) 20 meq PO Q12HR [facility] Last Admin: 06/12/20 08:39 Dose: 20 meq Documented by: Prazosin HCl (Prazosin) 2 mg PO BID [facility] Sertraline HCl (Zoloft) 50 mg PO QDAY [facility] Last Admin: 06/12/20 08:38 Dose: 50 mg Documented by: Sodium Chloride (Sodium Chloride Flush Syringe 10 Ml) 10 ml IV BID [facility] Last Admin: 06/12/20 08:39 Dose: 10 ml Documented by: Sodium Chloride (Sodium Chloride Flush Syringe 10 Ml) 10 ml IV PRN PRN PRN Reason: LINE FLUSH Review of Systems Cardiovascular: edema, shortness of breath, no chest pain, no orthopnea, no palpitations, no rapid/irregular heart beat Respiratory: no cough, no wheezing Physical Examination Vital Signs Pulse Resp BP Pulse Ox 71 17 203/78 96 06/11/20 13:45 06/11/20 13:45 06/11/20 13:45 06/11/20 13:45 General appearance: no acute distress HEENT: Positive: PERRL Cardiac: Positive: Reg Rate and Rhythm Lungs: Positive: Decreased Breath Sounds Neuro: Positive: Weakness Extremities: Present: +1 Edema Results 06/12/20 02:35 06/12/20 02:35 Cardiac Enzymes 06/11/20 06/12/20 Range/Units 14:41 02:35 AST 17 20 (5-40) units/L Coagulation 06/11/20 Range/Units 14:41 PT 14.7 (12.2-14.9) Sec. INR 1.15 H (0.87-1.13) Lipids 06/11/20 Range/Units 14:41 Triglycerides 89 (2-149) mg/dL Cholesterol 157 (50-199) mg/dL HDL Cholesterol 75 H (40-59) mg/dL Cholesterol/HDL Ratio 2.09 % CBC 06/11/20 06/12/20 Range/Units 14:41 02:35 WBC 6.7 4.5 (4.5-11.0) K/mm3 RBC 3.51 L 3.81 (3.65-5.03) M/mm3 Hgb 9.9 L 10.7 (10.1-14.3) gm/dl Hct 32.3 34.0 (30.3-42.9) % Plt Count 138 L 156 (140-440) K/mm3 Lymph # (Auto) 0.7 L (1.2-5.4) K/mm3 Garza # (Auto) 0.4 (0.0-0.8) K/mm3 Eos # (Auto) 0.2 (0.0-0.4) K/mm3 Baso # (Auto) 0.1 (0.0-0.1) K/mm3 Comprehensive Metabolic Panel 06/11/20 06/12/20 Range/Units 14:41 02:35 Sodium 144 143 (137-145) mmol/L Potassium 4.7 4.9 (3.6-5.0) mmol/L Chloride 106.8 104.0 (98-107) mmol/L Carbon Dioxide 29 25 (22-30) mmol/L BUN 58 H 58 H (7-17) mg/dL Creatinine 2.6 H 2.5 H (0.6-1.2) mg/dL Glucose 140 H 214 H (65-100) mg/dL Calcium 8.8 9.1 (8.4-10.2) mg/dL AST 17 20 (5-40) units/L ALT 8 9 (7-56) units/L Alkaline Phosphatase 86 97 (35-129) units/L Total Protein 7.4 8.3 H (6.3-8.2) g/dL Albumin 3.0 L 3.2 L (3.9-5) g/dL Assessment and Plan Volume overload Heart failure with a preserved ejection fraction Pulmonary hypertension, moderate Chronic renal disease Hypertension Prior CVA
--- NOTE | 2020-06-12 11:38 | Progress Note ---
Assessment and Plan Assessment and plan: --COVID-19 test negative --Persistent bradycardia; Hold AV yoav blocking agents Rhythm strip shows first-degree AV block Intermittently second-degree type I AV block Cardiology following, heart rate in 50s Closely monitor -- Acute on chronic diastolic CHF (congestive heart failure) Current Visit: Yes Status: Acute Plan to address problem: IV diuretics, beta-blockers, input output monitoring heart rate ranges between. Low-sodium diet, fluid restriction Echocardiogram for LV function ejection fraction Cardiology following --Nonspecific elevated troponin; NSTEMI probably type II Current Visit: Yes Status: Acute Plan to address problem: Possible NSTEMI type II, due to CHF and chronic kidney disease Follow echocardiogram, cardiology evaluation recommendation Possible stress test versus heart cath if needed -- HTN (hypertension) Current Visit: Yes Status: Chronic Plan to address problem: Moderate control ,continue current antihypertensives And as needed hydralazine --History of coronary artery disease Current Visit: Yes Status: Chronic Continue isosorbide mono nitrate and aspirin Cardiology following CKD (chronic kidney disease) Current Visit: Yes Status: Chronic Plan to address problem: Nephrology consult requested Monitor renal function, avoid nephrotoxins -- DVT prophylaxis Current Visit: Yes Status: Acute Plan to address problem: On heparin and GI prophylaxis Closely monitor the patient and adjust management as needed Plan of care reviewed with the patient and the nurse Cardiology evaluation and recommendations noted and appreciated History Interval history: I have seen and examined the patient at the bedside this morning Patient's chart and medications reviewed Patient feels slightly better And remains bradycardic heart rate in 50s Vital signs reviewed Hospitalist Physical - Constitutional Vitals: Temp Pulse Resp BP Pulse Ox 97.4 F L 57 L 20 188/81 100 06/12/20 04:11 06/12/20 10:40 06/12/20 08:20 06/12/20 10:40 06/12/20 08:20 General appearance: Present: no acute distress, well-nourished - EENT Eyes: Present: PERRL, EOM intact - Neck Neck: Present: supple, normal ROM - Respiratory Respiratory effort: normal Respiratory: bilateral: diminished, negative: rales, rhonchi, wheezing - Cardiovascular Rhythm: regular Heart Sounds: Present: S1 & S2 (Bradycardia) - Extremities Extremities: no ischemia, No edema - Abdominal General gastrointestinal: soft, non-tender, non-distended, normal bowel sounds - Integumentary Integumentary: Present: clear, warm - Psychiatric Psychiatric: other (Confused at times) - Neurologic Neurologic: moves all extremities HEART Score - HEART Score Age: > 65 Risk factors: > 3 risk factors or hx of atherosclerotic disease Troponin: Troponin T 0.105 ng/mL (0.00-0.029) H* 06/12/20 05:43 Troponin: < normal limit - Critical Actions Critical Actions: 4-6 pts:12-16.6% risk of adverse cardiac event. Should be a dmitted Results - Labs CBC & Chem 7: 06/12/20 02:35 06/13/20 05:19 Labs: Laboratory Last Values WBC 4.5 K/mm3 (4.5-11.0) 06/12/20 02:35 RBC 3.81 M/mm3 (3.65-5.03) 06/12/20 02:35 Hgb 10.7 gm/dl (10.1-14.3) 06/12/20 02:35 Hct 34.0 % (30.3-42.9) 06/12/20 02:35 MCV 89 fl (79-97) 06/12/20 02:35 MCH 28 pg (28-32) 06/12/20 02:35 MCHC 32 % (30-34) 06/12/20 02:35 RDW 17.5 % (13.2-15.2) H 06/12/20 02:35 Plt Count 156 K/mm3 (140-440) 06/12/20 02:35 Lymph % (Auto) 10.3 % (13.4-35.0) L 06/11/20 14:41 [place] % (Auto) 6.3 % (0.0-7.3) 06/11/20 14:41 Eos % (Auto) 3.2 % (0.0-4.3) 06/11/20 14:41 Baso % (Auto) 1.4 % (0.0-1.8) 06/11/20 14:41 Lymph # (Auto) 0.7 K/mm3 (1.2-5.4) L 06/11/20 14:41 [place] # (Auto) 0.4 K/mm3 (0.0-0.8) 06/11/20 14:41 Eos # (Auto) 0.2 K/mm3 (0.0-0.4) 06/11/20 14:41 Baso # (Auto) 0.1 K/mm3 (0.0-0.1) 06/11/20 14:41 Add Manual Diff Complete 06/12/20 02:35 Total Counted 100 06/12/20 02:35 Seg Neutrophils % Sales Office Administrator 06/12/20 02:35 Seg Neuts % (Manual) 92.0 % (40.0-70.0) H 06/12/20 02:35 Band Neutrophils % 0 % 06/12/20 02:35 Lymphocytes % (Manual) 6.0 % (13.4-35.0) L 06/12/20 02:35 Reactive Lymphs % (Man) 0 % 06/12/20 02:35 Monocytes % (Manual) 2.0 % (0.0-7.3) 06/12/20 02:35 Eosinophils % (Manual) 0 % (0.0-4.3) 06/12/20 02:35 Basophils % (Manual) 0 % (0.0-1.8) 06/12/20 02:35 Metamyelocytes % 0 % 06/12/20 02:35 Myelocytes % 0 % 06/12/20 02:35 Promyelocytes % 0 % 06/12/20 02:35 Blast Cells % 0 % 06/12/20 02:35 Nucleated RBC % Not Reportable 06/12/20 02:35 Seg Neutrophils # 5.3 K/mm3 (1.8-7.7) 06/11/20 14:41 Seg Neutrophils # Man 4.1 K/mm3 (1.8-7.7) 06/12/20 02:35 Band Neutrophils # 0.0 K/mm3 06/12/20 02:35 Lymphocytes # (Manual) 0.3 K/mm3 (1.2-5.4) L 06/12/20 02:35 Abs React Lymphs (Man) 0.0 K/mm3 06/12/20 02:35 Monocytes # (Manual) 0.1 K/mm3 (0.0-0.8) 06/12/20 02:35 Eosinophils # (Manual) 0.0 K/mm3 (0.0-0.4) 06/12/20 02:35 Basophils # (Manual) 0.0 K/mm3 (0.0-0.1) 06/12/20 02:35 Metamyelocytes # 0.0 K/mm3 06/12/20 02:35 Myelocytes # 0.0 K/mm3 06/12/20 02:35 Promyelocytes # 0.0 K/mm3 06/12/20 02:35 Blast Cells # 0.0 K/mm3 06/12/20 02:35 WBC Morphology Not Reportable 06/12/20 02:35 Hypersegmented Neuts Not Reportable 06/12/20 02:35 Hyposegmented Neuts Not Reportable 06/12/20 02:35 Hypogranular Neuts Not Reportable 06/12/20 02:35 Smudge Cells Not Reportable 06/12/20 02:35 Toxic Granulation Not Reportable 06/12/20 02:35 Toxic Vacuolation Not Reportable 06/12/20 02:35 Dohle Bodies Not Reportable 06/12/20 02:35 Pelger-Huet Anomaly Not Reportable 06/12/20 02:35 Chanda Rods Not Reportable 06/12/20 02:35 Platelet Estimate Consistent w auto 06/12/20 02:35 Clumped Platelets Not Reportable 06/12/20 02:35 Plt Clumps, EDTA Not Reportable 06/12/20 02:35 Large Platelets Not Reportable 06/12/20 02:35 Giant Platelets Not Reportable 06/12/20 02:35 Platelet Satelliting Not Reportable 06/12/20 02:35 Plt Morphology Comment Not Reportable 06/12/20 02:35 RBC Morphology Not Reportable 06/12/20 02:35 Dimorphic RBCs Not Reportable 06/12/20 02:35 Polychromasia Not Reportable 06/12/20 02:35 Hypochromasia Few 06/12/20 02:35 Poikilocytosis Not Reportable 06/12/20 02:35 Anisocytosis 1+ 06/12/20 02:35 Microcytosis Not Reportable 06/12/20 02:35 Macrocytosis Not Reportable 06/12/20 02:35 Spherocytes Not Reportable 06/12/20 02:35 Pappenheimer Bodies Not Reportable 06/12/20 02:35 Sickle Cells Not Reportable 06/12/20 02:35 Target Cells Few 06/12/20 02:35 Tear Drop Cells Not Reportable 06/12/20 02:35 Ovalocytes Not Reportable 06/12/20 02:35 Helmet Cells Not Reportable 06/12/20 02:35 [place] Bodies Not Reportable 06/12/20 02:35 [place] Rings Not Reportable 06/12/20 02:35 [place] Cells Not Reportable 06/12/20 02:35 Bite Cells Not Reportable 06/12/20 02:35 Crenated Cell Not Reportable 06/12/20 02:35 Elliptocytes Not Reportable 06/12/20 02:35 Acanthocytes (Spur) Not Reportable 06/12/20 02:35 Rouleaux Not Reportable 06/12/20 02:35 Hemoglobin C Crystals Not Reportable 06/12/20 02:35 Schistocytes Not Reportable 06/12/20 02:35 Malaria parasites Not Reportable 06/12/20 02:35 Sulaiman Bodies Not Reportable 06/12/20 02:35 Hem Pathologist Commnt No 06/12/20 02:35 PT 14.7 Sec. (12.2-14.9) 06/11/20 14:41 INR 1.15 (0.87-1.13) H 06/11/20 14:41 Sodium 143 mmol/L (137-145) 06/12/20 02:35 Potassium 4.9 mmol/L (3.6-5.0) 06/12/20 02:35 Chloride 104.0 mmol/L (98-107) 06/12/20 02:35 Carbon Dioxide 25 mmol/L (22-30) 06/12/20 02:35 Anion Gap 19 mmol/L 06/12/20 02:35 BUN 58 mg/dL (7-17) H 06/12/20 02:35 Creatinine 2.5 mg/dL (0.6-1.2) H 06/12/20 02:35 Estimated GFR 23 ml/min 06/12/20 02:35 BUN/Creatinine Ratio 23 % 06/12/20 02:35 Glucose 214 mg/dL (65-100) H 06/12/20 02:35 POC Glucose 140 mg/dL (70-105) H 06/11/20 21:46 Hemoglobin A1c 6.0 % (4-6) 06/12/20 02:35 Lactic Acid 0.50 mmol/L (0.7-2.0) L 06/11/20 16:11 Calcium 9.1 mg/dL (8.4-10.2) 06/12/20 02:35 Magnesium 2.20 mg/dL (1.7-2.3) 06/11/20 14:41 Total Bilirubin 0.30 mg/dL (0.1-1.2) 06/12/20 02:35 AST 20 units/L (5-40) 06/12/20 02:35 ALT 9 units/L (7-56) 06/12/20 02:35 Alkaline Phosphatase 97 units/L (35-129) 06/12/20 02:35 Total Creatine Kinase 60 units/L (30-135) 06/11/20 14:41 Troponin T 0.105 ng/mL (0.00-0.029) H* 06/12/20 05:43 NT-Pro-B Natriuret Pep 8655 pg/mL (0-900) H 06/11/20 14:41 Total Protein 8.3 g/dL (6.3-8.2) H 06/12/20 02:35 Albumin 3.2 g/dL (3.9-5) L 06/12/20 02:35 Albumin/Globulin Ratio 0.6 % 06/12/20 02:35 Triglycerides 89 mg/dL (2-149) 06/11/20 14:41 Cholesterol 157 mg/dL (50-199) 06/11/20 14:41 LDL Cholesterol Direct 71 mg/dL (50-130) 06/11/20 14:41 HDL Cholesterol 75 mg/dL (40-59) H 06/11/20 14:41 Cholesterol/HDL Ratio 2.09 % 06/11/20 14:41 Microbiology: Microbiology 06/11/20 16:11 Peripheral/Venous Blood Culture - Preliminary Culture in Progress 06/11/20 16:11 Peripheral/Venous Blood Culture - Preliminary Culture in Progress Lopez/IV: Voiding Method External Female Catheter IV Catheter Type [Right INT / Saline Lock Forearm] Active Medications - Current Medications Current Medications: Generic Name Dose Route Start Last Admin Trade Name Freq PRN Reason Stop Dose Admin Acetaminophen 650 mg 06/11/20 23:07 Tylenol PO Q4H PRN Pain MILD(1-3)/Fever >100.5/MENA Amlodipine Besylate 10 mg 06/12/20 10:00 06/12/20 08:37 Amlodipine PO 10 mg DAILY [facility] Administration Artificial Tears 2 drops 06/11/20 23:06 Isopto Tears 0.5% OU Q4H PRN Dry Eye(s) Aspirin 81 mg 06/12/20 10:00 06/12/20 08:38 Baby Aspirin PO 81 mg QDAY [facility] Administration Atorvastatin Calcium 40 mg 06/12/20 22:00 Lipitor PO QHS [facility] Carvedilol 6.25 mg 06/11/20 23:45 06/12/20 08:38 Coreg PO 6.25 mg Q12HR [facility] Administration Clonidine HCl 0.3 mg 06/11/20 22:00 06/11/20 22:28 Catapres-Tts Patch TD 0.3 mg Farr [facility] Administration Clopidogrel Bisulfate 75 mg 06/12/20 10:00 06/12/20 08:39 Plavix PO 75 mg QDAY [facility] Administration Ergocalciferol 50,000 unit 06/12/20 10:00 Vitamin D2 PO QDAY [facility] Ferrous Sulfate 325 mg 06/12/20 10:00 06/12/20 08:38 Feosol PO 325 mg QDAY [facility] Administration Furosemide 40 mg 06/12/20 06:00 06/12/20 05:52 Lasix IV 40 mg 0600,1800 [facility] Administration Hydralazine HCl 100 mg 06/12/20 08:00 06/12/20 08:38 Apresoline PO 100 mg TID [facility] Administration Hydromorphone HCl 0.5 mg 06/11/20 23:07 Dilaudid IV Q3H PRN Pain , Severe (7-10) Isosorbide Mononitrate 30 mg 06/12/20 10:00 06/12/20 08:38 Imdur PO 30 mg QDAY [facility] Administration Labetalol HCl 20 mg 06/11/20 21:17 06/12/20 10:40 Labetalol IV 20 mg Q3H PRN Administration Blood Pressure Levothyroxine Sodium 25 mcg 06/12/20 06:00 06/12/20 05:52 Synthroid PO 25 mcg QAM@0600 [facility] Administration Nitroglycerin 0.4 mg 06/12/20 04:00 06/12/20 04:39 Nitrostat SL 0.4 mg .Q5MIN PRN Administration Chest Pain Ondansetron HCl 4 mg 06/11/20 23:07 Zofran IV Q8H PRN Nausea And Vomiting Oxycodone/Acetaminophen 1 tab 06/11/20 23:07 Percocet 5/325 PO Q6H PRN Pain, Moderate (4-6) Potassium Chloride 20 meq 06/12/20 10:00 06/12/20 08:39 K-Dur PO 20 meq Q12HR [facility] Administration Prazosin HCl 2 mg 06/12/20 10:00 Prazosin PO BID [facility] Sertraline HCl 50 mg 06/12/20 10:00 06/12/20 08:38 Zoloft PO 50 mg QDAY [facility] Administration Sodium Chloride 10 ml 06/11/20 23:45 06/12/20 08:39 Sodium Chloride Flush Syringe 10 Ml IV 10 ml BID [facility] Administration Sodium Chloride 10 ml 06/11/20 23:07 Sodium Chloride Flush Syringe 10 Ml IV PRN PRN LINE FLUSH
[2020-06-12] MEDS: NIFEdipine XL 60 MG TAB PO SCH ×2 (12:14→21:20)
[2020-06-12] MEDS: DOXAZOSIN 1 MG TAB PO SCH ×2 (12:22→21:56)
--- NOTE | 2020-06-12 12:47 | Consultation ---
History of Present Illness - Reason for Consult Consult date: 06/12/20 chronic renal failure - History of Present Illness This is a 79 year old female who presented to the hospital for management of shortness of breath for 1 week. Patient has altered mental status and does not communicate. Information is being obtained from the chart and staff. Patient has history of Hypertension, CVA, CAD, CHF and Hyperlipidemia. Patient's serum creatinine noted to be elevated at 2.6 on admission. Review of medical records shows patient's baseline serum creatinine is 2.2-2.6 in 2018. We are being consulted for management of this patient's CKD. Past History Past Medical History: heart failure, hypertension, renal failure, stroke Medications and Allergies Allergies Allergy/AdvReac Type Severity Reaction Status Date / Time No Known Allergies Allergy Verified 08/27/14 06:14 Home Medications Medication Instructions Recorded Confirmed Last Taken Type Levothyroxine [Synthroid] 25 mcg PO QAM 08/27/14 06/11/20 03/20/18 History hydrALAZINE [Apresoline TAB] 100 mg PO TID #90 tab 09/01/14 06/11/20 03/20/18 Rx Sertraline [Zoloft] 50 mg PO QDAY 11/05/14 06/11/20 03/20/18 History Terazosin (Nf) [Hytrin (Nf)] 5 mg PO QHS 08/19/17 06/11/20 Unknown History Aspirin [Aspirin BABY CHEW TAB] 81 mg PO QDAY tab.chew 08/21/17 06/11/20 Unknown Rx AtorvaSTATin [Lipitor] 40 mg PO QHS #30 tab 03/27/18 06/11/20 Unknown Rx Clopidogrel [Plavix] 75 mg PO QDAY #30 tablet 03/27/18 06/11/20 Unknown Rx Hypromellose [Isopto Tears 0.5%] 2 drops OU Q4H PRN bottle 03/27/18 06/11/20 Unknown Rx ISOSORBIDE MONOnitrate [Imdur ER] 30 mg PO QDAY #30 tablet 03/27/18 06/11/20 Unknown Rx amLODIPine 10 mg PO DAILY #30 tablet 03/27/18 06/11/20 Unknown Rx Ergocalciferol (Vitamin D2) 50,000 unit PO QDAY 06/11/20 06/11/20 Unknown History [Vitamin D2] Ferrous Sulfate [Feosol] 325 mg PO QDAY 06/11/20 06/11/20 Unknown History carvediloL [Coreg] 6.25 mg PO Q12HR 06/11/20 06/11/20 Unknown History Active Meds: Active Medications Acetaminophen (Tylenol) 650 mg PO Q4H PRN PRN Reason: Pain MILD(1-3)/Fever >100.5/MENA Artificial Tears (Isopto Tears 0.5%) 2 drops OU Q4H PRN PRN Reason: Dry Eye(s) Aspirin (Baby Aspirin) 81 mg PO QDAY [facility] Last Admin: 06/12/20 08:38 Dose: 81 mg Documented by: Atorvastatin Calcium (Lipitor) 40 mg PO QHS [facility] Carvedilol (Coreg) 6.25 mg PO Q12HR [facility] Last Admin: 06/12/20 08:38 Dose: 6.25 mg Documented by: Clonidine HCl (Catapres-Tts Patch) 0.3 mg TD Farr [facility] Last Admin: 06/11/20 22:28 Dose: 0.3 mg Documented by: Clopidogrel Bisulfate (Plavix) 75 mg PO QDAY [facility] Last Admin: 06/12/20 08:39 Dose: 75 mg Documented by: Doxazosin Mesylate (Cardura) 2 mg PO BID [facility] Last Admin: 06/12/20 12:22 Dose: 2 mg Documented by: Ergocalciferol (Vitamin D2) 50,000 unit PO QDAY [facility] Last Admin: 06/12/20 12:09 Dose: 50,000 unit Documented by: Ferrous Sulfate (Feosol) 325 mg PO QDAY [facility] Last Admin: 06/12/20 08:38 Dose: 325 mg Documented by: Furosemide (Lasix) 60 mg IV 0600,1800 [facility] Hydromorphone HCl (Dilaudid) 0.5 mg IV Q3H PRN PRN Reason: Pain , Severe (7-10) Isosorbide Mononitrate (Imdur) 30 mg PO QDAY [facility] Last Admin: 06/12/20 08:38 Dose: 30 mg Documented by: Labetalol HCl (Labetalol) 20 mg IV Q3H PRN PRN Reason: Blood Pressure Last Admin: 06/12/20 10:40 Dose: 20 mg Documented by: Levothyroxine Sodium (Synthroid) 25 mcg PO QAM@0600 [facility] Last Admin: 06/12/20 05:52 Dose: 25 mcg Documented by: Nifedipine (Procardia Xl) 60 mg PO Q12HR [facility] Last Admin: 06/12/20 12:14 Dose: 60 mg Documented by: Nitroglycerin (Nitrostat) 0.4 mg SL .Q5MIN PRN PRN Reason: Chest Pain Last Admin: 06/12/20 04:39 Dose: 0.4 mg Documented by: Ondansetron HCl (Zofran) 4 mg IV Q8H PRN PRN Reason: Nausea And Vomiting Oxycodone/Acetaminophen (Percocet 5/325) 1 tab PO Q6H PRN PRN Reason: Pain, Moderate (4-6) Potassium Chloride (K-Dur) 20 meq PO Q12HR [facility] Last Admin: 06/12/20 08:39 Dose: 20 meq Documented by: Sertraline HCl (Zoloft) 50 mg PO QDAY [facility] Last Admin: 06/12/20 08:38 Dose: 50 mg Documented by: Sodium Chloride (Sodium Chloride Flush Syringe 10 Ml) 10 ml IV BID [facility] Last Admin: 06/12/20 08:39 Dose: 10 ml Documented by: Sodium Chloride (Sodium Chloride Flush Syringe 10 Ml) 10 ml IV PRN PRN PRN Reason: LINE FLUSH Review of Systems ROS unobtainable: due to mental status Exam - Vital Signs Vital signs: Vital Signs Pulse Resp BP Pulse Ox 71 17 203/78 96 06/11/20 13:45 06/11/20 13:45 06/11/20 13:45 06/11/20 13:45 - General Appearance General appearance: other (Non-communicative) EENT: ATNC, hearing intact Neck: Present: neck supple Respiratory: Decreased Breath Sounds Heart: S1S2 Gastrointestinal: Present: normoactive bowel sounds Integumentary: warm and dry Neurologic: confused, other (Non-communicative at present) Musculoskeletal: Present: joint swelling, other (has 1+ edema to BLE) Results - Lab Results 06/12/20 02:35 06/12/20 02:35 Most recent lab results Calcium 9.1 mg/dL (8.4-10.2) 06/12/20 02:35 Magnesium 2.20 mg/dL (1.7-2.3) 11/22/20 14:41 Assessment and Plan CKD (chronic kidney disease) -Renal labs reviewed. Serum creatinine 2.5 today, yesterday's was 2.6 -Review of medical records shows baseline serum creatinine in 2018 was 2.2.-2.6. -No IVF given CHF -On Lasix 60 mg IV BID, monitor renal function on Lasix -Obtain renal ultrasound -Obtain urine lytes and protein labs -Obtain daily weights -Monitor I/O's daily -Avoid nephrotoxic agents -Continue to monitor renal function closely Acute exacerbation of CHF -On IV Lasix 60 mg every 12 hours -Echocardiogram-pending -Cardiology onboard Hypertension -Continue antihypertensives and adjust medications as necessary -Monitor blood pressures
[2020-06-12 13:59] LABS: Bacteria,Urine 1+ /HPF (Negative); Bilirubin,Urine NEG (Negative); Blood,Urine NEG (Negative); Color,Urine Straw (Yellow); Urobilinogen,Urine < 2.0 mg/dL (<2.0)
[2020-06-12 15:06] LABS: Creatinine,Urine 22.7 mg/dL (0.1-20.0); Protein/Creatinine Ratio,Urine 6.3
[2020-06-12] MEDS ORDERED: FUROSEMIDE 20 MG/2 ML INJ IV SCH (18:00)
--- NOTE | 2020-06-12 18:11 | Event Note ---
Date: 06/12/20 Were called to see patient because of intermittent bradycardia seen on telemetry monitoring. Patient has no symptoms. Review of the telemetry strips show mostly a sinus rhythm with first-degree AV block and cycles of second-degree Mobitz type I Wenckebach AV block. We will hold carvedilol, hold labetalol, and check thyroid function test. Continue telemetry monitoring.
[2020-06-12] MEDS: FUROSEMIDE 100 MG/10 ML INJ IV SCH (18:14)
[2020-06-12] MEDS ORDERED: NON-FORMULARY EACH (Terazosin (Nf) 5 MG) PO SCH (22:00)
[2020-06-13] MEDS ORDERED: DEXTROSE 50% IN WATER (25GM) 50 ML SYRINGE IV PRN (05:23)
[2020-06-13] MEDS: LEVOTHYROXINE 25 MCG TAB PO SCH (05:50)
[2020-06-13] MEDS: FUROSEMIDE 100 MG/10 ML INJ IV SCH ×2 (05:50→21:02)
[2020-06-13 06:27] LABS: Calcium 8.6 mg/dL (8.4-10.2)
--- NOTE | 2020-06-13 07:58 | Progress Note ---
Assessment and Plan CKD (chronic kidney disease) -increased creatinine since yesterday, likely due to diuresis, no UOP recorded -Review of medical records shows baseline serum creatinine in 2018 was 2.2.-2.6. -No IVF given CHF -Obtain renal ultrasound-pending -proteinuria noted, will check paraprotein work up -Obtain daily weights -Monitor I/O's daily -Avoid nephrotoxic agents -Continue to monitor renal function closely Acute exacerbation of CHF -On IV Lasix 60 mg every 12 hours -Echocardiogram-pending -Cardiology onboard Hypertension -Continue antihypertensives and adjust medications as necessary -Monitor blood pressures Subjective Date of service: 06/13/20 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 Interval history: had bradycardia episode last night but was asymptomatic Objective - Vital Signs Vital signs: Vital Signs - 12hr 06/12/20 06/12/20 06/13/20 21:40 21:50 04:25 Temperature 98.8 F 97.8 F Pulse Rate 58 L 69 Respiratory 16 16 16 Rate Blood Pressure 145/51 165/63 Blood Pressure 145/51 [Left] O2 Sat by Pulse 96 94 Oximetry - Lab 06/12/20 02:35 06/13/20 05:19 Most recent lab results Calcium 8.6 mg/dL (8.4-10.2) 06/13/20 05:19 Phosphorus 3.60 mg/dL (2.5-4.5) 06/13/20 05:19 Magnesium 2.20 mg/dL (1.7-2.3) 06/12/20 22:19 Urine Creatinine 22.7 mg/dL (0.1-20.0) H 06/12/20 Unknown Urine Sodium 121 mmol/L 06/12/20 Unknown Urine Total Protein 143 mg/dL (5-11.8) H 06/12/20 Unknown Medications & Allergies - Medications Allergies/Adverse Reactions: Allergies No Known Allergies Allergy (Verified 08/27/14 06:14) Home Medications: Home Medications Medication Instructions Recorded Confirmed Last Taken Type Levothyroxine [Synthroid] 25 mcg PO QAM 08/27/14 06/11/20 03/20/18 History hydrALAZINE [Apresoline TAB] 100 mg PO TID #90 tab 09/01/14 06/11/20 03/20/18 Rx Sertraline [Zoloft] 50 mg PO QDAY 11/05/14 06/11/20 03/20/18 History Terazosin (Nf) [Hytrin (Nf)] 5 mg PO QHS 08/19/17 06/11/20 Unknown History Aspirin [Aspirin BABY CHEW TAB] 81 mg PO QDAY tab.chew 08/21/17 06/11/20 Unknown Rx AtorvaSTATin [Lipitor] 40 mg PO QHS #30 tab 03/27/18 06/11/20 Unknown Rx Clopidogrel [Plavix] 75 mg PO QDAY #30 tablet 03/27/18 06/11/20 Unknown Rx Hypromellose [Isopto Tears 0.5%] 2 drops OU Q4H PRN bottle 03/27/18 06/11/20 Unknown Rx ISOSORBIDE MONOnitrate [Imdur ER] 30 mg PO QDAY #30 tablet 03/27/18 06/11/20 Unknown Rx amLODIPine 10 mg PO DAILY #30 tablet 03/27/18 06/11/20 Unknown Rx Ergocalciferol (Vitamin D2) 50,000 unit PO QDAY 06/11/20 06/11/20 Unknown History [Vitamin D2] Ferrous Sulfate [Feosol] 325 mg PO QDAY 06/11/20 06/11/20 Unknown History carvediloL [Coreg] 6.25 mg PO Q12HR 06/11/20 06/11/20 Unknown History Active Medications: Generic Name Dose Route Start Last Admin Trade Name Freq PRN Reason Stop Dose Admin Acetaminophen 650 mg 06/11/20 23:07 Tylenol PO Q4H PRN Pain MILD(1-3)/Fever >100.5/MENA Artificial Tears 2 drops 06/11/20 23:06 Isopto Tears 0.5% OU Q4H PRN Dry Eye(s) Aspirin 81 mg 06/12/20 10:00 06/12/20 18:08 Baby Aspirin PO Not Given QDAY JULIETTE Atorvastatin Calcium 40 mg 06/12/20 22:00 06/12/20 21:20 Lipitor PO 40 mg QHS JULIETTE Administration Clonidine HCl 0.3 mg 06/11/20 22:00 06/11/20 22:28 Catapres-Tts Patch TD 0.3 mg Farr JULIETTE Administration Clopidogrel Bisulfate 75 mg 06/12/20 10:00 06/12/20 18:15 Plavix PO Not Given QDAY JULIETTE Dextrose 50 ml 06/13/20 05:23 D50w (25gm) Syringe IV Q30MIN PRN Hypoglycemia Protocol Doxazosin Mesylate 2 mg 06/12/20 12:00 06/12/20 21:56 Cardura PO 2 mg BID [facility] Administration Ergocalciferol 50,000 unit 06/19/20 10:00 Vitamin D2 PO Mo [facility] Ferrous Sulfate 325 mg 06/12/20 10:00 06/12/20 18:15 Feosol PO Not Given QDAY [facility] Furosemide 60 mg 06/12/20 18:00 06/13/20 05:50 Lasix IV 60 mg 0600,1800 [facility] Administration Hydromorphone HCl 0.5 mg 06/11/20 23:07 Dilaudid IV Q3H PRN Pain , Severe (7-10) Insulin Human Lispro 0 unit 06/13/20 07:30 Humalog SUB-Q ACHS [facility] Protocol Isosorbide Mononitrate 30 mg 06/12/20 10:00 06/12/20 18:15 Imdur PO Not Given QDAY [facility] Levothyroxine Sodium 25 mcg 06/12/20 06:00 06/13/20 05:50 Synthroid PO 25 mcg QAM@0600 [facility] Administration Nifedipine 60 mg 06/12/20 12:00 06/12/20 21:20 Procardia Xl PO 60 mg Q12HR [facility] Administration Nitroglycerin 0.4 mg 06/12/20 04:00 06/12/20 04:39 Nitrostat SL 0.4 mg .Q5MIN PRN Administration Chest Pain Ondansetron HCl 4 mg 06/11/20 23:07 Zofran IV Q8H PRN Nausea And Vomiting Oxycodone/Acetaminophen 1 tab 06/11/20 23:07 Percocet 5/325 PO Q6H PRN Pain, Moderate (4-6) Sertraline HCl 50 mg 06/12/20 10:00 06/12/20 18:15 Zoloft PO Not Given QDAY [facility] Sodium Chloride 10 ml 06/11/20 23:45 06/12/20 21:56 Sodium Chloride Flush Syringe 10 Ml IV 10 ml BID [facility]ETTE Administration Sodium Chloride 10 ml 06/11/20 23:07 Sodium Chloride Flush Syringe 10 Ml IV PRN PRN LINE FLUSH
--- NOTE | 2020-06-13 09:19 | Progress Note ---
Assessment and Plan Assessment and plan: --COVID-19 test negative -- Acute on chronic diastolic CHF (congestive heart failure) Current Visit: Yes Status: Acute Plan to address problem: Bilateral edema on chest x-ray due to acute on chronic diastolic CHF Continue IV diuretics, beta-blockers, input output monitoring Low-sodium diet, fluid restriction Echocardiogram for LV function ejection fraction Cardiology following --Nonspecific elevated troponin; Current Visit: Yes Status: Acute Plan to address problem: Due to NSTEMI type II, in the setting of chronic kidney disease Follow echocardiogram, cardiology evaluation recommendation Possible stress test versus heart cath if needed -- HTN (hypertension) Current Visit: Yes Status: Chronic Plan to address problem: Moderate control ,continue current antihypertensives And as needed hydralazine --History of coronary artery disease Current Visit: Yes Status: Chronic Continue isosorbide mono nitrate and aspirin Cardiology following Acute on CKD 4 (chronic kidney disease) Current Visit: Yes Status: Chronic Plan to address problem: Due to vasomotor nephropathy,nephrology following Monitor renal function, avoid nephrotoxins -- DVT prophylaxis Current Visit: Yes Status: Acute Plan to address problem: On heparin and GI prophylaxis Closely monitor the patient and adjust management as needed Plan of care reviewed with the patient and the nurse Cardiology consult noted and appreciated Brief history 79-year-old -[place] female with history of hypertension, hyperlipidemia, coronary artery disease and congestive heart failure Was admitted through emergency room with worsening shortness of breath and acute exacerbation of chronic diastolic congestive heart failure , uncontrolled blood pressures as well as bradycardia .patient was noted to have positive troponins non-ST elevation NH probably type II . Cardiology was consulted medications optimized , patient has generalized weakness and bradycardia , PT OT evaluating the patient . COVID-19 test is negative, Possible discharge when medically stable and cleared by cardiology History Interval history: I have seen and examined the patient at the bedside Patient's chart and medications reviewed Patient is slightly confused, remains bradycardic Heart rate in 50s and 60s, cardiology following Vital signs noted Hospitalist Physical - Constitutional Vitals: Temp Pulse Resp BP Pulse Ox 97.8 F 69 16 165/63 94 06/13/20 04:25 06/13/20 04:25 06/13/20 04:25 06/13/20 04:25 06/13/20 04:25 General appearance: Present: no acute distress, well-nourished - EENT Eyes: Present: PERRL, EOM intact - Neck Neck: Present: supple, normal ROM - Respiratory Respiratory effort: normal Respiratory: bilateral: diminished, negative: rales, rhonchi, wheezing - Cardiovascular Rhythm: regular Heart Sounds: Present: S1 & S2 (Bradycardia) - Extremities Extremities: no ischemia, No edema - Abdominal General gastrointestinal: soft, non-tender, non-distended, normal bowel sounds - Integumentary Integumentary: Present: clear, warm - Psychiatric Psychiatric: cooperative, other (Confused at times) - Neurologic Neurologic: moves all extremities HEART Score - HEART Score Age: > 65 Risk factors: > 3 risk factors or hx of atherosclerotic disease Troponin: Troponin T 0.125 ng/mL (0.00-0.029) H* 06/12/20 14:48 Troponin: < normal limit - Critical Actions Critical Actions: 4-6 pts:12-16.6% risk of adverse cardiac event. Should be admitted Results - Labs CBC & Chem 7: 06/12/20 02:35 06/13/20 05:19 Labs: Laboratory Last Values WBC 4.5 K/mm3 (4.5-11.0) 06/12/20 02:35 RBC 3.81 M/mm3 (3.65-5.03) 06/12/20 02:35 Hgb 10.7 gm/dl (10.1-14.3) 06/12/20 02:35 Hct 34.0 % (30.3-42.9) 06/12/20 02:35 MCV 89 fl (79-97) 06/12/20 02:35 MCH 28 pg (28-32) 06/12/20 02:35 MCHC 32 % (30-34) 06/12/20 02:35 RDW 17.5 % (13.2-15.2) H 06/12/20 02:35 Plt Count 156 K/mm3 (140-440) 06/12/20 02:35 Lymph % (Auto) 10.3 % (13.4-35.0) L 06/11/20 14:41 [place] % (Auto) 6.3 % (0.0-7.3) 06/11/20 14:41 Eos % (Auto) 3.2 % (0.0-4.3) 06/11/20 14:41 Baso % (Auto) 1.4 % (0.0-1.8) 06/11/20 14:41 Lymph # (Auto) 0.7 K/mm3 (1.2-5.4) L 06/11/20 14:41 [place] # (Auto) 0.4 K/mm3 (0.0-0.8) 06/11/20 14:41 Eos # (Auto) 0.2 K/mm3 (0.0-0.4) 06/11/20 14:41 Baso # (Auto) 0.1 K/mm3 (0.0-0.1) 06/11/20 14:41 Add Manual Diff Complete 06/12/20 02:35 Total Counted 100 06/12/20 02:35 Seg Neutrophils % Screw Supervisor 06/12/20 02:35 Seg Neuts % (Manual) 92.0 % (40.0-70.0) H 06/12/20 02:35 Band Neutrophils % 0 % 06/12/20 02:35 Lymphocytes % (Manual) 6.0 % (13.4-35.0) L 06/12/20 02:35 Reactive Lymphs % (Man) 0 % 06/12/20 02:35 Monocytes % (Manual) 2.0 % (0.0-7.3) 06/12/20 02:35 Eosinophils % (Manual) 0 % (0.0-4.3) 06/12/20 02:35 Basophils % (Manual) 0 % (0.0-1.8) 06/12/20 02:35 Metamyelocytes % 0 % 06/12/20 02:35 Myelocytes % 0 % 06/12/20 02:35 Promyelocytes % 0 % 06/12/20 02:35 Blast Cells % 0 % 06/12/20 02:35 Nucleated RBC % Not Reportable 06/12/20 02:35 Seg Neutrophils # 5.3 K/mm3 (1.8-7.7) 06/11/20 14:41 Seg Neutrophils # Man 4.1 K/mm3 (1.8-7.7) 06/12/20 02:35 Band Neutrophils # 0.0 K/mm3 06/12/20 02:35 Lymphocytes # (Manual) 0.3 K/mm3 (1.2-5.4) L 06/12/20 02:35 Abs React Lymphs (Man) 0.0 K/mm3 06/12/20 02:35 Monocytes # (Manual) 0.1 K/mm3 (0.0-0.8) 06/12/20 02:35 Eosinophils # (Manual) 0.0 K/mm3 (0.0-0.4) 06/12/20 02:35 Basophils # (Manual) 0.0 K/mm3 (0.0-0.1) 06/12/20 02:35 Metamyelocytes # 0.0 K/mm3 06/12/20 02:35 Myelocytes # 0.0 K/mm3 06/12/20 02:35 Promyelocytes # 0.0 K/mm3 06/12/20 02:35 Blast Cells # 0.0 K/mm3 06/12/20 02:35 WBC Morphology Not Reportable 06/12/20 02:35 Hypersegmented Neuts Not Reportable 06/12/20 02:35 Hyposegmented Neuts Not Reportable 06/12/20 02:35 Hypogranular Neuts Not Reportable 06/12/20 02:35 Smudge Cells Not Reportable 06/12/20 02:35 Toxic Granulation Not Reportable 06/12/20 02:35 Toxic Vacuolation Not Reportable 06/12/20 02:35 Dohle Bodies Not Reportable 06/12/20 02:35 Pelger-Huet Anomaly Not Reportable 06/12/20 02:35 Chanda Rods Not Reportable 06/12/20 02:35 Platelet Estimate Consistent w auto 06/12/20 02:35 Clumped Platelets Not Reportable 06/12/20 02:35 Plt Clumps, EDTA Not Reportable 06/12/20 02:35 Large Platelets Not Reportable 06/12/20 02:35 Giant Platelets Not Reportable 06/12/20 02:35 Platelet Satelliting Not Reportable 06/12/20 02:35 Plt Morphology Comment Not Reportable 06/12/20 02:35 RBC Morphology Not Reportable 06/12/20 02:35 Dimorphic RBCs Not Reportable 06/12/20 02:35 Polychromasia Not Reportable 06/12/20 02:35 Hypochromasia Few 06/12/20 02:35 Poikilocytosis Not Reportable 06/12/20 02:35 Anisocytosis 1+ 06/12/20 02:35 Microcytosis Not Reportable 06/12/20 02:35 Macrocytosis Not Reportable 06/12/20 02:35 Spherocytes Not Reportable 06/12/20 02:35 Pappenheimer Bodies Not Reportable 06/12/20 02:35 Sickle Cells Not Reportable 06/12/20 02:35 Target Cells Few 06/12/20 02:35 Tear Drop Cells Not Reportable 06/12/20 02:35 Ovalocytes Not Reportable 06/12/20 02:35 Helmet Cells Not Reportable 06/12/20 02:35 [place] Bodies Not Reportable 06/12/20 02:35 [place] Rings Not Reportable 06/12/20 02:35 Bacilio Cells Not Reportable 06/12/20 02:35 Bite Cells Not Reportable 06/12/20 02:35 Crenated Cell Not Reportable 06/12/20 02:35 Elliptocytes Not Reportable 06/12/20 02:35 Acanthocytes (Spur) Not Reportable 06/12/20 02:35 Rouleaux Not Reportable 06/12/20 02:35 Hemoglobin C Crystals Not Reportable 06/12/20 02:35 Schistocytes Not Reportable 06/12/20 02:35 Malaria parasites Not Reportable 06/12/20 02:35 Sulaiman Bodies Not Reportable 06/12/20 02:35 Hem Pathologist Commnt No 06/12/20 02:35 PT 14.7 Sec. (12.2-14.9) 06/11/20 14:41 INR 1.15 (0.87-1.13) H 06/11/20 14:41 Sodium 141 mmol/L (137-145) 06/13/20 05:19 Potassium 5.2 mmol/L (3.6-5.0) H 06/13/20 05:19 Chloride 102.5 mmol/L (98-107) 06/13/20 05:19 Carbon Dioxide 27 mmol/L (22-30) 06/13/20 05:19 Anion Gap 17 mmol/L 06/13/20 05:19 BUN 66 mg/dL (7-17) H 06/13/20 05:19 Creatinine 2.8 mg/dL (0.6-1.2) H 06/13/20 05:19 Estimated GFR 20 ml/min 06/13/20 05:19 BUN/Creatinine Ratio 24 % 06/13/20 05:19 Glucose 162 mg/dL (65-100) H 06/13/20 05:19 POC Glucose 132 mg/dL (70-105) H 06/13/20 07:47 Hemoglobin A1c 6.0 % (4-6) 06/12/20 02:35 Lactic Acid 0.50 mmol/L (0.7-2.0) L 06/11/20 16:11 Calcium 8.6 mg/dL (8.4-10.2) 06/13/20 05:19 Phosphorus 3.60 mg/dL (2.5-4.5) 06/13/20 05:19 Magnesium 2.20 mg/dL (1.7-2.3) 06/12/20 22:19 Total Bilirubin 0.30 mg/dL (0.1-1.2) 06/12/20 02:35 AST 20 units/L (5-40) 06/12/20 02:35 ALT 9 units/L (7-56) 06/12/20 02:35 Alkaline Phosphatase 97 units/L (35-129) 06/12/20 02:35 Total Creatine Kinase 60 units/L (30-135) 06/11/20 14:41 Troponin T 0.125 ng/mL (0.00-0.029) H* 06/12/20 14:48 NT-Pro-B Natriuret Pep 8655 pg/mL (0-900) H 06/11/20 14:41 Total Protein 8.3 g/dL (6.3-8.2) H 06/12/20 02:35 Albumin 3.2 g/dL (3.9-5) L 06/12/20 02:35 Albumin/Globulin Ratio 0.6 % 06/12/20 02:35 Triglycerides 89 mg/dL (2-149) 06/11/20 14:41 Cholesterol 157 mg/dL (50-199) 06/11/20 14:41 LDL Cholesterol Direct 71 mg/dL (50-130) 06/11/20 14:41 HDL Cholesterol 75 mg/dL (40-59) H 06/11/20 14:41 Cholesterol/HDL Ratio 2.09 % 06/11/20 14:41 TSH 3.490 mlU/mL (0.270-4.200) 06/12/20 14:48 Urine Color Straw (Yellow) 06/12/20 12:47 Urine Turbidity Clear (Clear) 06/12/20 12:47 Urine pH 6.0 (5.0-7.0) 06/12/20 12:47 Ur Specific [place] 1.009 (1.003-1.030) 06/12/20 12:47 Urine Protein 100 mg/dl mg/dL (Negative) 06/12/20 12:47 Urine Glucose (UA) Neg mg/dL (Negative) 06/12/20 12:47 Urine Ketones Neg mg/dL (Negative) 06/12/20 12:47 Urine Blood Neg (Negative) 06/12/20 12:47 Urine Nitrite Neg (Negative) 06/12/20 12:47 Urine Bilirubin Neg (Negative) 06/12/20 12:47 Urine Urobilinogen < 2.0 mg/dL (<2.0) 06/12/20 12:47 Ur Leukocyte Esterase Neg (Negative) 06/12/20 12:47 Urine WBC (Auto) 3.0 /HPF (0.0-6.0) 06/12/20 12:47 Urine RBC (Auto) 2.0 /HPF (0.0-6.0) 06/12/20 12:47 U Epithel Cells (Auto) 2.0 /HPF (0-13.0) 06/12/20 12:47 Urine Bacteria (Auto) 1+ /HPF (Negative) 06/12/20 12:47 Urine Eosinophils None seen (None Seen) 06/12/20 Unknown Urine Creatinine 22.7 mg/dL (0.1-20.0) H 06/12/20 Unknown Protein/Creatinin Ratio 6.30 06/12/20 Unknown Urine Sodium 121 mmol/L 06/12/20 Unknown Urine Total Protein 143 mg/dL (5-11.8) H 06/12/20 Unknown Coronavirus (PCR) Negative (Negative) 06/12/20 Unknown Microbiology: Microbiology 06/11/20 16:11 Peripheral/Venous Blood Culture - Preliminary NO GROWTH AFTER 24 HOURS 06/11/20 16:11 Peripheral/Venous Blood Culture - Preliminary NO GROWTH AFTER 24 HOURS Lopez/IV: Voiding Method External Female Catheter IV Catheter Type [Right INT / Saline Lock Forearm] Active Medications - Current Medications Current Medications: Generic Name Dose Route Start Last Admin Trade Name Freq PRN Reason Stop Dose Admin Acetaminophen 650 mg 06/11/20 23:07 Tylenol PO Q4H PRN Pain MILD(1-3)/Fever >100.5/MENA Artificial Tears 2 drops 06/11/20 23:06 Isopto Tears 0.5% OU Q4H PRN Dry Eye(s) Aspirin 81 mg 06/12/20 10:00 06/12/20 18:08 Baby Aspirin PO Not Given QDAY [facility] Atorvastatin Calcium 40 mg 06/12/20 22:00 06/12/20 21:20 Lipitor PO 40 mg QHS JULIETTE Administration Clonidine HCl 0.3 mg 06/11/20 22:00 06/11/20 22:28 Catapres-Tts Patch TD 0.3 mg Farr [facility] Administration Clopidogrel Bisulfate 75 mg 06/12/20 10:00 06/12/20 18:15 Plavix PO Not Given QDAY [facility] Dextrose 50 ml 06/13/20 05:23 D50w (25gm) Syringe IV Q30MIN PRN Hypoglycemia Protocol Doxazosin Mesylate 2 mg 06/12/20 12:00 06/12/20 21:56 Cardura PO 2 mg BID [facility] Administration Ergocalciferol 50,000 unit 06/19/20 10:00 Vitamin D2 PO Mo [facility] Ferrous Sulfate 325 mg 06/12/20 10:00 06/12/20 18:15 Feosol PO Not Given QDAY [facility] Furosemide 60 mg 06/12/20 18:00 06/13/20 05:50 Lasix IV 60 mg 0600,1800 [facility] Administration Hydromorphone HCl 0.5 mg 06/11/20 23:07 Dilaudid IV Q3H PRN Pain , Severe (7-10) Insulin Human Lispro 0 unit 06/13/20 07:30 Humalog SUB-Q ACHS [facility] Protocol Isosorbide Mononitrate 30 mg 06/12/20 10:00 06/12/20 18:15 Imdur PO Not Given QDAY [facility] Levothyroxine Sodium 25 mcg 06/12/20 06:00 06/13/20 05:50 Synthroid PO 25 mcg QAM@0600 [facility] Administration Nifedipine 60 mg 06/12/20 12:00 06/12/20 21:20 Procardia Xl PO 60 mg Q12HR JULIETTE Administration Nitroglycerin 0.4 mg 06/12/20 04:00 06/12/20 04:39 Nitrostat SL 0.4 mg .Q5MIN PRN Administration Chest Pain Ondansetron HCl 4 mg 06/11/20 23:07 Zofran IV Q8H PRN Nausea And Vomiting Oxycodone/Acetaminophen 1 tab 06/11/20 23:07 Percocet 5/325 PO Q6H PRN Pain, Moderate (4-6) Sertraline HCl 50 mg 06/12/20 10:00 06/12/20 18:15 Zoloft PO Not Given QDAY JULIETTE Sodium Chloride 10 ml 06/11/20 23:45 06/12/20 21:56 Sodium Chloride Flush Syringe 10 Ml IV 10 ml BID JULIETTE Administration Sodium Chloride 10 ml 06/11/20 23:07 Sodium Chloride Flush Syringe 10 Ml IV PRN PRN LINE FLUSH Nutrition/Malnutrition Assess - Dietary Evaluation Nutrition/Malnutrition Findings: Nutrition Notes Start: 06/12/20 14:11 Freq: Status: Active Protocol: Document 06/12/20 14:11 LM (Rec: 06/12/20 14:27 LM [id number]) Nutrition Notes Need for Assessment generated from: MD Order,sales relationship manager,MST Initial or Follow up Assessment Current Diagnosis CKD(stage I-IV),Coronary Artery Disease,Diabetes, Hypertension,Heart Failure, Hyperlipidemia Current Diet pureed with thin liq Labs/Tests BUN 58 Cr 2.5 BG 214 Pertinent Medications K-dur Feosol Lasix Height 5 ft Weight 61.4 kg [place] Body Weight (kg) 45.45 BMI 26.4 Weight Status Overweight Subjective/Other Information MD consult for malutrition and ONS. RN screen for MST and difficulty chewing. Pt is noncommunicative. Pt started on pureed diet per [employer] recommendations. Burn Absent Trauma Absent Difficulty In Swallowing Minimum of two criteria No physical signs of malnutrition #1 Nutrition Diagnosis Predicted suboptimal energy intake Etiology AMS As Evidenced by Signs and Symptoms Pt requiring pureed diet Is patient on ventilator? No Is Patient Ambulatory and/or Out of Bed No REE-([facility]-confined to bed) [phone] Calculation Used for Recommendations [facility] Additional Notes Protein: 49-55g (0.8-0.9g/kg) Fluid: 1ml/kcal Nutrition Intervention Change Diet Order: Continue pureed Add Supplement/Snack (indicate name/kcal Nepro daily /protein ) Provides kCal: 425 Provides Protein (gm) 19 Goal #1 Meet at least 75% of energy and protein needs Anticipated Discharge Needs: unable to determine at this time Follow-Up By: 06/14/20 Additional Comments F/U for PO/ONS intakes
[2020-06-13] MEDS: CLOPIDOGREL 75 MG TAB PO SCH (09:33)
[2020-06-13] MEDS: ASPIRIN 81 MG TAB CHEW PO SCH (09:33)
[2020-06-13] MEDS: NIFEdipine XL 60 MG TAB PO SCH ×2 (09:33→21:03)
[2020-06-13] MEDS: INSULIN LISPRO 100 UNIT/ML VIAL 3 mL SUB-Q SCH ×4 (09:33→22:25)
[2020-06-13] MEDS: SERTRALINE 50 MG TAB PO SCH (09:33)
[2020-06-13] MEDS: FERROUS SULFATE 325 MG TAB PO SCH (09:33)
[2020-06-13] MEDS: DOXAZOSIN 1 MG TAB PO SCH ×2 (09:38→21:03)
--- NOTE | 2020-06-13 10:03 | Progress Note ---
Assessment and Plan Volume overload Heart failure with a preserved ejection fraction COVID 19 test is negative Intermittent bradycardia seen on telemetry monitoring 06/12 telemetry strips show mostly a sinus rhythm with first-degree AV block and cycles of second-degree Mobitz type I Wenckebach AV block. Carvedilol, Norvasc and Labetalol were discontinued TSH is 3.4 Pulmonary hypertension, moderate Chronic renal disease Hypertension Prior CVA Subjective Date of service: 06/13/20 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 Interval history: Patient is resting in bed comfortably. No distress noted. Sinus rhythm with first degree AV block on telemetry. Objective Vital Signs Temp Pulse Resp BP BP Pulse Ox 06/13/20 04:25 97.8 F 69 16 165/63 94 06/12/20 21:50 98.8 F 58 L 16 145/51 96 06/12/20 21:40 16 145/51 06/12/20 16:00 100 06/12/20 14:10 98.4 F 58 L 20 139/62 100 06/12/20 12:22 180/80 06/12/20 10:40 57 L 188/81 - Physical Examination General: No Apparent Distress HEENT: Positive: PERRL Neck: Positive: neck supple Cardiac: Positive: Reg Rate and Rhythm Lungs: Positive: Decreased Breath Sounds Neuro: Positive: Weakness Extremities: Present: +1 Edema - Labs and Meds Comprehensive Metabolic Panel 06/12/20 06/13/20 Range/Units 22:19 05:19 Sodium 141 (137-145) mmol/L Potassium 5.4 H 5.2 H (3.6-5.0) mmol/L Chloride 102.5 (98-107) mmol/L Carbon Dioxide 27 (22-30) mmol/L BUN 66 H (7-17) mg/dL Creatinine 2.8 H (0.6-1.2) mg/dL Glucose 162 H (65-100) mg/dL Calcium 8.6 (8.4-10.2) mg/dL
--- NOTE | 2020-06-13 11:32 | Ultrasound Report ---
ULTRASOUND RENAL INDICATION / CLINICAL INFORMATION: renal failure. COMPARISON: None available. FINDINGS: RIGHT KIDNEY: Length = 9.5 cm. [normal > 9 cm] - Parenchymal Thickness = 1.1 cm. [normal > 1.5 cm] - Echogenicity: Increased - Hydronephrosis: None. - Cyst or mass: No significant abnormality. - Stones: None seen. LEFT KIDNEY: Length = 10.0 cm. [normal > 9 cm] - Parenchymal Thickness = 1.0 cm. [normal > 1.5 cm] - Echogenicity: Increased - Hydronephrosis: None. - Cyst or mass: No significant abnormality. - Stones: None seen. URINARY BLADDER: No significant abnormality. FREE FLUID: None. ADDITIONAL FINDINGS: None. IMPRESSION: Echogenic kidneys consistent with nonspecific renal parenchymal disease. No obstructive uropathy. Signer Name: Vinay Brennan Jr, MD Signed: 06/13/2020 11:27 AM Workstation Name: [id number]
[2020-06-14] MEDS: LEVOTHYROXINE 25 MCG TAB PO SCH (06:35)
[2020-06-14] MEDS: FUROSEMIDE 100 MG/10 ML INJ IV SCH (06:35)
[2020-06-14] MEDS ORDERED: cloNIDine 0.2 MG TAB PO STA (06:52)
[2020-06-14 06:53] LABS: BUN/Creatinine Ratio 23; Blood Urea Nitrogen 67 mg/dL (7-17); Calcium 9.6 mg/dL (8.4-10.2); Hemolysis Index 1
[2020-06-14] MEDS: INSULIN LISPRO 100 UNIT/ML VIAL 3 mL SUB-Q SCH ×4 (08:12→22:16)
--- NOTE | 2020-06-14 10:01 | Progress Note ---
Assessment and Plan CKD (chronic kidney disease) -Renal labs reviewed. Serum creatinine 2.9 today, yesterday's was 2.8 -Review of medical records shows baseline serum creatinine in 2018 was 2.2.-2.6. -Rising serum creatinine likely due to diuresis with Lasix -On Lasix 60 mg IV BID, will decrease to 20 mg IV BID today -Renal ultrasound-No obstruction noted -Urine lytes- shows 6 grams of protein -UPEP and SPEP- pending -Obtain daily weights -Monitor I/O's daily -Avoid nephrotoxic agents -Continue to monitor renal function closely Acute exacerbation of CHF -On IV Lasix -Echocardiogram-EF 55-60% -Cardiology onboard Hypertension -Continue antihypertensives and adjust medications as necessary -Monitor blood pressures Subjective Date of service: 06/14/20 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 Non-communicative. Objective - Vital Signs Vital signs: Vital Signs - 12hr 06/14/20 06/14/20 04:59 07:02 Temperature 97.6 F Pulse Rate 72 72 Respiratory 20 Rate Blood Pressure 203/85 203/85 O2 Sat by Pulse 99 Oximetry - General Appearance General appearance: chronically ill EENT: ATNC Neck: no JVD, supple, other (has enlarged tongue with protrusion) Respiratory: Present: Decreased Breath Sounds Cardiology: S1S2 Gastrointestinal: normoactive bowel sounds Integumentary: warm and dry Neurologic: other (Resting. Opens eyes to verbal stimuli. Does not follow commands.) Musculoskeletal: joint swelling - Lab 06/12/20 02:35 06/14/20 05:48 Most recent lab results Calcium 9.6 mg/dL (8.4-10.2) 06/14/20 05:48 Phosphorus 3.60 mg/dL (2.5-4.5) 06/13/20 05:19 Magnesium 2.20 mg/dL (1.7-2.3) 06/12/20 22:19 Urine Creatinine 22.7 mg/dL (0.1-20.0) H 06/12/20 Unknown Urine Sodium 121 mmol/L 06/12/20 Unknown Urine Total Protein 143 mg/dL (5-11.8) H 06/12/20 Unknown Medications & Allergies - Medications Allergies/Adverse Reactions: Allergies No Known Allergies Allergy (Verified 02/07/15 06:14) Home Medications: Home Medications Medication Instructions Recorded Confirmed Last Taken Type Levothyroxine [Synthroid] 25 mcg PO QAM 08/27/14 06/11/20 03/20/18 History hydrALAZINE [Apresoline TAB] 100 mg PO TID #90 tab 09/01/14 06/11/20 03/20/18 Rx Sertraline [Zoloft] 50 mg PO QDAY 11/05/14 06/11/20 03/20/18 History Terazosin (Nf) [Hytrin (Nf)] 5 mg PO QHS 08/19/17 06/11/20 Unknown History Aspirin [Aspirin BABY CHEW TAB] 81 mg PO QDAY tab.chew 08/21/17 06/11/20 Unknown Rx AtorvaSTATin [Lipitor] 40 mg PO QHS #30 tab 03/27/18 06/11/20 Unknown Rx Clopidogrel [Plavix] 75 mg PO QDAY #30 tablet 03/27/18 06/11/20 Unknown Rx Hypromellose [Isopto Tears 0.5%] 2 drops OU Q4H PRN bottle 03/27/18 06/11/20 Unknown Rx ISOSORBIDE MONOnitrate [Imdur ER] 30 mg PO QDAY #30 tablet 03/27/18 06/11/20 Unknown Rx amLODIPine 10 mg PO DAILY #30 tablet 03/27/18 06/11/20 Unknown Rx Ergocalciferol (Vitamin D2) 50,000 unit PO QDAY 06/11/20 06/11/20 Unknown History [Vitamin D2] Ferrous Sulfate [Feosol] 325 mg PO QDAY 06/11/20 06/11/20 Unknown History carvediloL [Coreg] 6.25 mg PO Q12HR 06/11/20 06/11/20 Unknown History Active Medications: Generic Name Dose Route Start Last Admin Trade Name Freq PRN Reason Stop Dose Admin Acetaminophen 650 mg 06/11/20 23:07 Tylenol PO Q4H PRN Pain MILD(1-3)/Fever >100.5/MENA Artificial Tears 2 drops 06/11/20 23:06 Isopto Tears 0.5% OU Q4H PRN Dry Eye(s) Aspirin 81 mg 06/12/20 10:00 06/13/20 09:33 Baby Aspirin PO 81 mg QDAY JULIETTE Administration Atorvastatin Calcium 40 mg 06/12/20 22:00 06/13/20 21:03 Lipitor PO 40 mg QHS JULIETTE Administration Clonidine HCl 0.3 mg 06/11/20 22:00 06/11/20 22:28 Catapres-Tts Patch TD 0.3 mg Farr JULIETTE Administration Clopidogrel Bisulfate 75 mg 06/12/20 10:00 06/13/20 09:33 Plavix PO 75 mg QDAY JULIETTE Administration Dextrose 50 ml 06/13/20 05:23 D50w (25gm) Syringe IV Q30MIN PRN Hypoglycemia Protocol Doxazosin Mesylate 2 mg 06/12/20 12:00 06/13/20 21:03 Cardura PO 2 mg BID [facility] Administration Ergocalciferol 50,000 unit 06/19/20 10:00 Vitamin D2 PO Mo [facility] Ferrous Sulfate 325 mg 06/12/20 10:00 06/13/20 09:33 Feosol PO 325 mg QDAY [facility] Administration Furosemide 60 mg 06/12/20 18:00 06/14/20 06:35 Lasix IV 60 mg 0600,1800 [facility] Administration Hydromorphone HCl 0.5 mg 06/11/20 23:07 Dilaudid IV Q3H PRN Pain , Severe (7-10) Insulin Human Lispro 0 unit 06/13/20 07:30 06/14/20 08:12 Humalog SUB-Q Not Given ACHS [facility] Protocol Isosorbide Mononitrate 30 mg 06/12/20 10:00 06/13/20 09:33 Imdur PO 30 mg QDAY [facility] Administration Levothyroxine Sodium 25 mcg 06/12/20 06:00 06/14/20 06:35 Synthroid PO 25 mcg QAM@0600 [facility] Administration Nifedipine 60 mg 06/12/20 12:00 06/13/20 21:03 Procardia Xl PO 60 mg Q12HR [facility] Administration Nitroglycerin 0.4 mg 06/12/20 04:00 06/12/20 04:39 Nitrostat SL 0.4 mg .Q5MIN PRN Administration Chest Pain Ondansetron HCl 4 mg 06/11/20 23:07 Zofran IV Q8H PRN Nausea And Vomiting Oxycodone/Acetaminophen 1 tab 06/11/20 23:07 Percocet 5/325 PO Q6H PRN Pain, Moderate (4-6) Sertraline HCl 50 mg 06/12/20 10:00 06/13/20 09:33 Zoloft PO 50 mg QDAY JULIETTE Administration Sodium Chloride 10 ml 06/11/20 23:45 06/13/20 21:03 Sodium Chloride Flush Syringe 10 Ml IV Not Given BID JULIETTE Sodium Chloride 10 ml 06/11/20 23:07 Sodium Chloride Flush Syringe 10 Ml IV PRN PRN LINE FLUSH
[2020-06-14] MEDS: FERROUS SULFATE 325 MG TAB PO SCH (11:13)
[2020-06-14] MEDS: DOXAZOSIN 1 MG TAB PO SCH ×2 (11:13→22:40)
[2020-06-14] MEDS: NIFEdipine XL 60 MG TAB PO SCH (11:13)
[2020-06-14] MEDS: ASPIRIN 81 MG TAB CHEW PO SCH (11:13)
[2020-06-14] MEDS: SERTRALINE 50 MG TAB PO SCH (11:14)
[2020-06-14] MEDS: CLOPIDOGREL 75 MG TAB PO SCH (11:14)
--- NOTE | 2020-06-14 11:53 | Progress Note ---
Assessment and Plan Assessment and plan: -- Acute on chronic diastolic CHF (congestive heart failure) Bilateral edema on chest x-ray due to acute on chronic diastolic CHF Continue IV diuretics, beta-blockers, input output monitoring Low-sodium diet, fluid restriction Echocardiogram for LV function ejection fraction Cardiology following --Nonspecific elevated troponin; Due to NSTEMI type II, in the setting of chronic kidney disease Possible stress test versus heart cath if needed -- HTN (hypertension) Moderate control ,continue current antihypertensives And as needed hydralazine --History of coronary artery disease Continue isosorbide mono nitrate and aspirin Cardiology following 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 Echocardiogram revealed EF of 55 to 60%. Continue IV Lasix per nephrology and cardiology. Baseline creatinine in 2018 was 2.22.6. Renal ultrasound revealed no obstruction. UPEP and SPEP pending. Patient still exhibiting accelerated hypertension. Increase Procardia to 90 mg twice daily. History Interval history: No new issues overnight. Hospitalist Physical - Constitutional Vitals: Temp Pulse Resp BP Pulse Ox 97.6 F 59 L 20 187/70 99 06/14/20 04:59 06/14/20 11:13 06/14/20 04:59 06/14/20 11:13 06/14/20 04:59 General appearance: Present: no acute distress, well-nourished - EENT Eyes: Present: PERRL, EOM intact ENT: hearing intact, clear oral mucosa, dentition normal - Neck Neck: Present: supple, normal ROM - Respiratory Respiratory effort: normal Respiratory: bilateral: CTA - Cardiovascular Rhythm: regular Heart Sounds: Present: S1 & S2. Absent: gallop, rub - Extremities Extremities: no ischemia, No edema, Full ROM - Abdominal General gastrointestinal: soft, non-tender, non-distended, normal bowel sounds - Integumentary Integumentary: Present: clear, warm, dry - Neurologic Neurologic: CNII-XII intact, moves all extremities HEART Score - HEART Score Age: > 65 Risk factors: > 3 risk factors or hx of atherosclerotic disease Troponin: Troponin T 0.125 ng/mL (0.00-0.029) H* 06/12/20 14:48 Troponin: < normal limit - Critical Actions Critical Actions: 4-6 pts:12-16.6% risk of adverse cardiac event. Should be admitted Results - Labs CBC & Chem 7: 06/12/20 02:35 06/14/20 05:48 Labs: Laboratory Last Values WBC 4.5 K/mm3 (4.5-11.0) 06/12/20 02:35 RBC 3.81 M/mm3 (3.65-5.03) 06/12/20 02:35 Hgb 10.7 gm/dl (10.1-14.3) 06/12/20 02:35 Hct 34.0 % (30.3-42.9) 06/12/20 02:35 MCV 89 fl (79-97) 06/12/20 02:35 MCH 28 pg (28-32) 06/12/20 02:35 MCHC 32 % (30-34) 06/12/20 02:35 RDW 17.5 % (13.2-15.2) H 06/12/20 02:35 Plt Count 156 K/mm3 (140-440) 06/12/20 02:35 Lymph % (Auto) 10.3 % (13.4-35.0) L 06/11/20 14:41 Haakon % (Auto) 6.3 % (0.0-7.3) 06/11/20 14:41 Eos % (Auto) 3.2 % (0.0-4.3) 06/11/20 14:41 Baso % (Auto) 1.4 % (0.0-1.8) 06/11/20 14:41 Lymph # (Auto) 0.7 K/mm3 (1.2-5.4) L 06/11/20 14:41 Haakon # (Auto) 0.4 K/mm3 (0.0-0.8) 06/11/20 14:41 Eos # (Auto) 0.2 K/mm3 (0.0-0.4) 06/11/20 14:41 Baso # (Auto) 0.1 K/mm3 (0.0-0.1) 06/11/20 14:41 Add Manual Diff Complete 06/12/20 02:35 Total Counted 100 06/12/20 02:35 Seg Neutrophils % Laser Beam Color Scanner Operator 06/12/20 02:35 Seg Neuts % (Manual) 92.0 % (40.0-70.0) H 06/12/20 02:35 Band Neutrophils % 0 % 06/12/20 02:35 Lymphocytes % (Manual) 6.0 % (13.4-35.0) L 06/12/20 02:35 Reactive Lymphs % (Man) 0 % 06/12/20 02:35 Monocytes % (Manual) 2.0 % (0.0-7.3) 06/12/20 02:35 Eosinophils % (Manual) 0 % (0.0-4.3) 06/12/20 02:35 Basophils % (Manual) 0 % (0.0-1.8) 06/12/20 02:35 Metamyelocytes % 0 % 06/12/20 02:35 Myelocytes % 0 % 06/12/20 02:35 Promyelocytes % 0 % 06/12/20 02:35 Blast Cells % 0 % 06/12/20 02:35 Nucleated RBC % Not Reportable 06/12/20 02:35 Seg Neutrophils # 5.3 K/mm3 (1.8-7.7) 06/11/20 14:41 Seg Neutrophils # Man 4.1 K/mm3 (1.8-7.7) 06/12/20 02:35 Band Neutrophils # 0.0 K/mm3 06/12/20 02:35 Lymphocytes # (Manual) 0.3 K/mm3 (1.2-5.4) L 06/12/20 02:35 Abs React Lymphs (Man) 0.0 K/mm3 06/12/20 02:35 Monocytes # (Manual) 0.1 K/mm3 (0.0-0.8) 06/12/20 02:35 Eosinophils # (Manual) 0.0 K/mm3 (0.0-0.4) 06/12/20 02:35 Basophils # (Manual) 0.0 K/mm3 (0.0-0.1) 06/12/20 02:35 Metamyelocytes # 0.0 K/mm3 06/12/20 02:35 Myelocytes # 0.0 K/mm3 06/12/20 02:35 Promyelocytes # 0.0 K/mm3 06/12/20 02:35 Blast Cells # 0.0 K/mm3 06/12/20 02:35 WBC Morphology Not Reportable 06/12/20 02:35 Hypersegmented Neuts Not Reportable 06/12/20 02:35 Hyposegmented Neuts Not Reportable 06/12/20 02:35 Hypogranular Neuts Not Reportable 06/12/20 02:35 Smudge Cells Not Reportable 06/12/20 02:35 Toxic Granulation Not Reportable 06/12/20 02:35 Toxic Vacuolation Not Reportable 06/12/20 02:35 Dohle Bodies Not Reportable 06/12/20 02:35 Pelger-Huet Anomaly Not Reportable 06/12/20 02:35 Chanda Rods Not Reportable 06/12/20 02:35 Platelet Estimate Consistent w auto 06/12/20 02:35 Clumped Platelets Not Reportable 06/12/20 02:35 Plt Clumps, EDTA Not Reportable 06/12/20 02:35 Large Platelets Not Reportable 06/12/20 02:35 Giant Platelets Not Reportable 06/12/20 02:35 Platelet Satelliting Not Reportable 06/12/20 02:35 Plt Morphology Comment Not Reportable 06/12/20 02:35 RBC Morphology Not Reportable 06/12/20 02:35 Dimorphic RBCs Not Reportable 06/12/20 02:35 Polychromasia Not Reportable 06/12/20 02:35 Hypochromasia Few 06/12/20 02:35 Poikilocytosis Not Reportable 06/12/20 02:35 Anisocytosis 1+ 06/12/20 02:35 Microcytosis Not Reportable 06/12/20 02:35 Macrocytosis Not Reportable 06/12/20 02:35 Spherocytes Not Reportable 06/12/20 02:35 Pappenheimer Bodies Not Reportable 06/12/20 02:35 Sickle Cells Not Reportable 06/12/20 02:35 Target Cells Few 06/12/20 02:35 Tear Drop Cells Not Reportable 06/12/20 02:35 Ovalocytes Not Reportable 06/12/20 02:35 Helmet Cells Not Reportable 06/12/20 02:35 Phipps-[place] Bodies Not Reportable 06/12/20 02:35 [place] Rings Not Reportable 06/12/20 02:35 Bacilio Cells Not Reportable 06/12/20 02:35 Bite Cells Not Reportable 06/12/20 02:35 Crenated Cell Not Reportable 06/12/20 02:35 Elliptocytes Not Reportable 06/12/20 02:35 Acanthocytes (Spur) Not Reportable 06/12/20 02:35 Rouleaux Not Reportable 06/12/20 02:35 Hemoglobin C Crystals Not Reportable 06/12/20 02:35 Schistocytes Not Reportable 06/12/20 02:35 Malaria parasites Not Reportable 06/12/20 02:35 Sulaiman Bodies Not Reportable 06/12/20 02:35 Hem Pathologist Commnt No 06/12/20 02:35 PT 14.7 Sec. (12.2-14.9) 06/11/20 14:41 INR 1.15 (0.87-1.13) H 06/11/20 14:41 Sodium 142 mmol/L (137-145) 06/14/20 05:48 Potassium 5.5 mmol/L (3.6-5.0) H 06/14/20 05:48 Chloride TNR 06/14/20 05:48 Carbon Dioxide 32 mmol/L (22-30) H 06/14/20 05:48 Anion Gap 16 mmol/L 06/14/20 05:48 BUN 67 mg/dL (7-17) H 06/14/20 05:48 Creatinine 2.9 mg/dL (0.6-1.2) H 06/14/20 05:48 Estimated GFR 19 ml/min 06/14/20 05:48 BUN/Creatinine Ratio 23 % 06/14/20 05:48 Glucose 149 mg/dL (65-100) H 06/14/20 05:48 POC Glucose 105 mg/dL (70-105) 06/14/20 10:44 Hemoglobin A1c 6.0 % (4-6) 06/12/20 02:35 Lactic Acid 0.50 mmol/L (0.7-2.0) L 06/11/20 16:11 Calcium 9.6 mg/dL (8.4-10.2) 06/14/20 05:48 Phosphorus 3.60 mg/dL (2.5-4.5) 06/13/20 05:19 Magnesium 2.20 mg/dL (1.7-2.3) 06/12/20 22:19 Total Bilirubin 0.30 mg/dL (0.1-1.2) 06/12/20 02:35 AST 20 units/L (5-40) 06/12/20 02:35 ALT 9 units/L (7-56) 06/12/20 02:35 Alkaline Phosphatase 97 units/L (35-129) 06/12/20 02:35 Total Creatine Kinase 60 units/L (30-135) 06/11/20 14:41 Troponin T 0.125 ng/mL (0.00-0.029) H* 06/12/20 14:48 NT-Pro-B Natriuret Pep 8655 pg/mL (0-900) H 06/11/20 14:41 Total Protein 8.3 g/dL (6.3-8.2) H 06/12/20 02:35 Albumin 3.2 g/dL (3.9-5) L 06/12/20 02:35 Albumin/Globulin Ratio 0.6 % 06/12/20 02:35 Triglycerides 89 mg/dL (2-149) 06/11/20 14:41 Cholesterol 157 mg/dL (50-199) 06/11/20 14:41 LDL Cholesterol Direct 71 mg/dL (50-130) 06/11/20 14:41 HDL Cholesterol 75 mg/dL (40-59) H 06/11/20 14:41 Cholesterol/HDL Ratio 2.09 % 06/11/20 14:41 TSH 3.490 mlU/mL (0.270-4.200) 06/12/20 14:48 Urine Color Straw (Yellow) 06/12/20 12:47 Urine Turbidity Clear (Clear) 06/12/20 12:47 Urine pH 6.0 (5.0-7.0) 06/12/20 12:47 Ur Specific [place] 1.009 (1.003-1.030) 06/12/20 12:47 Urine Protein 100 mg/dl mg/dL (Negative) 06/12/20 12:47 Urine Glucose (UA) Neg mg/dL (Negative) 06/12/20 12:47 Urine Ketones Neg mg/dL (Negative) 06/12/20 12:47 Urine Blood Neg (Negative) 06/12/20 12:47 Urine Nitrite Neg (Negative) 06/12/20 12:47 Urine Bilirubin Neg (Negative) 06/12/20 12:47 Urine Urobilinogen < 2.0 mg/dL (<2.0) 06/12/20 12:47 Ur Leukocyte Esterase Neg (Negative) 06/12/20 12:47 Urine WBC (Auto) 3.0 /HPF (0.0-6.0) 06/12/20 12:47 Urine RBC (Auto) 2.0 /HPF (0.0-6.0) 06/12/20 12:47 U Epithel Cells (Auto) 2.0 /HPF (0-13.0) 06/12/20 12:47 Urine Bacteria (Auto) 1+ /HPF (Negative) 06/12/20 12:47 Urine Eosinophils None seen (None Seen) 06/12/20 Unknown Urine Creatinine 22.7 mg/dL (0.1-20.0) H 06/12/20 Unknown Protein/Creatinin Ratio 6.30 06/12/20 Unknown Urine Sodium 121 mmol/L 06/12/20 Unknown Urine Total Protein 143 mg/dL (5-11.8) H 06/12/20 Unknown Coronavirus (PCR) Negative (Negative) 06/12/20 Unknown Microbiology: Microbiology 06/12/20 12:47 Urine,Catheterized - Straight Catheter Urine Culture - Final 06/11/20 16:11 Peripheral/Venous Blood Culture - Preliminary NO GROWTH AFTER 48 HOURS 06/11/20 16:11 Peripheral/Venous Blood Culture - Preliminary NO GROWTH AFTER 48 HOURS - Diagnostic Impressions Diagnostic Impressions: Echocardiogram 06/11/20 23:10 Transthoracic Echocardiogram Indication: CHF BP: 165/63 HR: 60 Conclusions *Global left ventricular systolic function is normal. *The estimated ejection fraction is 55-60%. *Mild to moderate concentric left ventricular hypertrophy is observed. *The left and right atria are both moderately dilated. *There is mild to moderate mitral regurgitation. *There is mild tricuspid regurgitation. *There is evidence of moderate pulmonary hypertension. *The right ventricular systolic pressure is calculated at 51 mmHg. *A left pleural effusion is present. *There is no significant pericardial effusion. Findings Left Ventricle: The left ventricular chamber size is normal. Mild to moderate concentric left ventricular hypertrophy is observed. Global left ventricular systolic function is normal. The estimated ejection fraction is 55-60%. Left Atrium: The left atrium is moderately dilated. Right Ventricle: The right ventricle is mildly dilated. The right ventricular global systolic function is mildly reduced. Right Atrium: The right atrium is moderately dilated. Aortic Valve: The aortic valve is trileaflet. The aortic valve leaflets are moderately thickened. There is trace of aortic regurgitation. There is no evidence of aortic stenosis. Mitral Valve: The mitral valve leaflets are moderately thickened. There is mild to moderate mitral regurgitation. There is no evidence of mitral stenosis. Tricuspid Valve: There is mild tricuspid regurgitation. The right ventricular systolic pressure is calculated at 51 mmHg. There is evidence of moderate pulmonary hypertension. Pulmonic Valve: There is trace pulmonic regurgitation. Pericardium: There is no pericardial effusion. A left pleural effusion is present. Aorta: There is no dilatation of the ascending aorta. There is no dilatation of the aortic root. Venous: The inferior vena cava appears normal in size. Measurements Chambers 2D Name Value Normal Range IVSd (2D) 1.07 cm (0.6 - 1.1) LVPWd (2D) 1.19 cm (0.6 - 1.1) LVIDd (2D) 4.34 cm (3.7 - 5.6) LVIDs (2D) 2.93 cm (2 - 3.8) LV FS (2D) 32.56 % - EF Teichholz (2D) 61.19 % - Ao root diameter (2D) 3.19 cm (2 - 3.7) Volumes/Mass Name Value Normal Range LA ESV SP 4CH (A/L) 58.57 ml - LA ESV SP 2CH (A/L) 86.64 ml - LA ESV BP (A/L) 74.92 ml - LA ESV BP (A/L) index 47.42 ml/m2 - LA ESV SP 4CH (MOD) 50.65 ml - LA ESV SP 2CH (MOD) 79.23 ml - LA ESV BP (MOD) 66.45 ml - LA ESV BP (MOD) index 42.06 ml/m2 - Diastolic/Systolic Function Name Value Normal Range MV E-wave Vmax 1.34 m/sec - MV deceleration time 244.33 msec - MV A-wave Vmax 0.98 m/sec - MV E:A ratio 1.36 ratio - Aortic Valve Name Value Normal Range AV Vmax 1.46 m/sec - AV VTI 38.18 cm - AV peak gradient 8.5 mmHg - AV mean gradient 4.47 mmHg - LVOT diameter 1.93 cm - LVOT Vmax 0.97 m/sec - LVOT VTI 27.7 cm - LVOT peak gradient 3.73 mmHg - LVOT mean gradient 2.13 mmHg - SV LVOT 80.99 ml - KENYA (continuity Vmax) 1.94 cm2 - KENYA (continuity VTI) 2.12 cm2 - Ascending Ao 2.04 cm - Tricuspid Valve Name Value Normal Range TR Vmax 3.3 m/sec - TR peak gradient 43 mmHg - RAP 8 mmHg - RVSP 51 mmHg - Pulmonic Valve/Qp:Qs Name Value Normal Range PV Vmax 1.02 m/sec - PV peak gradient 4.14 mmHg - CA end-diastolic Vmax 0.74 m/sec - PV acceleration time 68.51 msec - Lopez/IV: Voiding Method External Female Catheter IV Catheter Type [Right INT / Saline Lock Forearm] Active Medications - Current Medications Current Medications: Generic Name Dose Route Start Last Admin Trade Name Freq PRN Reason Stop Dose Admin Acetaminophen 650 mg 06/11/20 23:07 Tylenol PO Q4H PRN Pain MILD(1-3)/Fever >100.5/MENA Artificial Tears 2 drops 06/11/20 23:06 Isopto Tears 0.5% OU Q4H PRN Dry Eye(s) Aspirin 81 mg 06/12/20 10:00 06/14/20 11:13 Baby Aspirin PO 81 mg QDAY JULIETTE Administration Atorvastatin Calcium 40 mg 06/12/20 22:00 06/13/20 21:03 Lipitor PO 40 mg QHS JULIETTE Administration Clonidine HCl 0.3 mg 06/11/20 22:00 06/11/20 22:28 Catapres-Tts Patch TD 0.3 mg Farr JULIETTE Administration Clopidogrel Bisulfate 75 mg 06/12/20 10:00 06/14/20 11:14 Plavix PO 75 mg QDAY JULIETTE Administration Dextrose 50 ml 06/13/20 05:23 D50w (25gm) Syringe IV Q30MIN PRN Hypoglycemia Protocol Doxazosin Mesylate 2 mg 06/12/20 12:00 06/14/20 11:13 Cardura PO 2 mg BID JULIETTE Administration Ergocalciferol 50,000 unit 06/19/20 10:00 Vitamin D2 PO Mo JULIETTE Ferrous Sulfate 325 mg 06/12/20 10:00 06/14/20 11:13 Feosol PO 325 mg QDAY JULIETTE Administration Furosemide 20 mg 06/14/20 12:38 Lasix IV 0600,1800 [facility] Hydromorphone HCl 0.5 mg 06/11/20 23:07 Dilaudid IV Q3H PRN Pain , Severe (7-10) Insulin Human Lispro 0 unit 06/13/20 07:30 06/14/20 11:23 Humalog SUB-Q Not Given ACHS [facility] Protocol Isosorbide Mononitrate 30 mg 06/12/20 10:00 06/14/20 11:13 Imdur PO 30 mg QDAY JULIETTE Administration Levothyroxine Sodium 25 mcg 06/12/20 06:00 06/14/20 06:35 Synthroid PO 25 mcg QAM@0600 JULIETTE Administration Nifedipine 60 mg 06/12/20 12:00 06/14/20 11:13 Procardia Xl PO 60 mg Q12HR JULIETTE Administration Nitroglycerin 0.4 mg 06/12/20 04:00 06/12/20 04:39 Nitrostat SL 0.4 mg .Q5MIN PRN Administration Chest Pain Ondansetron HCl 4 mg 06/11/20 23:07 Zofran IV Q8H PRN Nausea And Vomiting Oxycodone/Acetaminophen 1 tab 06/11/20 23:07 Percocet 5/325 PO Q6H PRN Pain, Moderate (4-6) Sertraline HCl 50 mg 06/12/20 10:00 06/14/20 11:14 Zoloft PO 50 mg QDAY JULIETTE Administration Sodium Chloride 10 ml 06/11/20 23:45 06/14/20 11:14 Sodium Chloride Flush Syringe 10 Ml IV 10 ml BID JULIETTE Administration Sodium Chloride 10 ml 06/11/20 23:07 Sodium Chloride Flush Syringe 10 Ml IV PRN PRN LINE FLUSH Nutrition/Malnutrition Assess - Dietary Evaluation Nutrition/Malnutrition Findings: Nutrition Notes Start: 06/12/20 14:11 Freq: Status: Active Protocol: Document 06/12/20 14:11 LM (Rec: 06/12/20 14:27 LM [id number]) Nutrition Notes Need for Assessment generated from: MD Order,top cleaner,MST Initial or Follow up Assessment Current Diagnosis CKD(stage I-IV),Coronary Artery Disease,Diabetes, Hypertension,Heart Failure, Hyperlipidemia Current Diet pureed with thin liq Labs/Tests BUN 58 Cr 2.5 BG 214 Pertinent Medications K-dur Feosol Lasix Height 5 ft Weight 61.4 kg [place] Body Weight (kg) 45.45 BMI 26.4 Weight Status Overweight Subjective/Other Information MD consult for malutrition and ONS. RN screen for MST and difficulty chewing. Pt is noncommunicative. Pt started on pureed diet per POLITICAL WORKER recommendations. Burn Absent Trauma Absent Difficulty In Swallowing Minimum of two criteria No physical signs of malnutrition #1 Nutrition Diagnosis Predicted suboptimal energy intake Etiology AMS As Evidenced by Signs and Symptoms Pt requiring pureed diet Is patient on ventilator? No Is Patient Ambulatory and/or Out of Bed No REE-([facility]-confined to bed) [phone] Calculation Used for Recommendations [facility] Additional Notes Protein: 49-55g (0.8-0.9g/kg) Fluid: 1ml/kcal Nutrition Intervention Change Diet Order: Continue pureed Add Supplement/Snack (indicate name/kcal Nepro daily /protein ) Provides kCal: 425 Provides Protein (gm) 19 Goal #1 Meet at least 75% of energy and protein needs Anticipated Discharge Needs: unable to determine at this time Follow-Up By: 06/14/20 Additional Comments F/U for PO/ONS intakes
[2020-06-14] MEDS ORDERED: NIFEdipine XL 60 MG TAB PO SCH (11:54)
--- NOTE | 2020-06-14 12:19 | Progress Note ---
Assessment and Plan - Patient Problems (1) Uncontrolled hypertension Current Visit: Yes Status: Acute Plan to address problem: Patient's blood pressure remains elevated despite high-dose nifedipine XL and doxazosin. We will add valsartan 160 mg daily, and watch her renal status on this medication. Subjective Date of service: 06/14/20 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 Interval history: Patient appears frail, elderly and has multiple comorbidities. She is admitted with COPD exacerbation, but currently there is no acute respiratory distress. Despite high-dose Procardia XL and doxazosin, she continues to have elevated blood pressures of up to 180 systolic. Echocardiogram on this presentation shows normal left ventricular systolic function with ejection fraction 55 to 60%. There is evidence of cor pulmonale on the echocardiogram. Objective Vital Signs Temp Pulse Resp BP Pulse Ox 06/14/20 11:13 59 L 187/70 06/14/20 07:02 72 203/85 06/14/20 04:59 97.6 F 72 20 203/85 99 06/13/20 21:52 97.6 F 73 20 156/61 99 06/13/20 16:09 98.0 F 69 18 183/69 100 - Physical Examination General: No Apparent Distress, Cachectic, Other (Frail, elderly, chronically ill-appearing) HEENT: Positive: PERRL Neck: Positive: neck supple Cardiac: Positive: Reg Rate and Rhythm Lungs: Positive: Decreased Breath Sounds Neuro: Positive: Weakness Extremities: Present: +1 Edema - Labs and Meds Comprehensive Metabolic Panel 06/14/20 Range/Units 05:48 Sodium 142 (137-145) mmol/L Potassium 5.5 H (3.6-5.0) mmol/L Chloride TNR Carbon Dioxide 32 H (22-30) mmol/L BUN 67 H (7-17) mg/dL Creatinine 2.9 H (0.6-1.2) mg/dL Glucose 149 H (65-100) mg/dL Calcium 9.6 (8.4-10.2) mg/dL - Imaging and Cardiology EKG: report reviewed (Sinus rhythm no acute ST-T wave changes)
[2020-06-14] MEDS: VALSARTAN 160MG TAB PO SCH (13:03)
[2020-06-14] MEDS: FUROSEMIDE 20 MG/2 ML INJ IV SCH ×2 (13:03→17:50)
[2020-06-14] MEDS: NIFEdipine XL 90 MG TAB PO SCH (22:15)
[2020-06-15] MEDS: FUROSEMIDE 20 MG/2 ML INJ IV SCH ×2 (06:14→17:10)
[2020-06-15] MEDS: LEVOTHYROXINE 25 MCG TAB PO SCH (06:14)
[2020-06-15 06:46] LABS: Calcium 9.2 mg/dL (8.4-10.2)
[2020-06-15] MEDS: INSULIN LISPRO 100 UNIT/ML VIAL 3 mL SUB-Q SCH ×4 (07:30→22:00)
--- NOTE | 2020-06-15 08:01 | Progress Note ---
Assessment and Plan CKD (chronic kidney disease) -cont to have stable Creatinine, no UP+OP recorded -Review of medical records shows baseline serum creatinine in 2018 was 2.2.-2.6. -Rising serum creatinine likely due to diuresis with Lasix -Renal ultrasound-No obstruction noted -Urine lytes- shows 6 grams of protein -UPEP and SPEP- pending -Obtain daily weights -Monitor I/O's daily -Avoid nephrotoxic agents -Continue to monitor renal function closely Acute exacerbation of CHF -On IV Lasix -Echocardiogram-EF 55-60% -Cardiology onboard Hypertension -Continue antihypertensives and adjust medications as necessary -Monitor blood pressures Subjective Date of service: 06/15/20 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 Interval history: no overnight events reported Objective - Vital Signs Vital signs: Vital Signs - 12hr 06/14/20 06/14/20 06/15/20 22:20 22:40 03:00 Temperature 97.2 F L Pulse Rate 65 66 Respiratory 16 16 Rate Respiratory Rate [Bilateral Lower] Blood Pressure 181/81 181/81 O2 Sat by Pulse 98 Oximetry 06/15/20 06/15/20 06/15/20 04:00 06:53 06:55 Temperature 97.6 F 98.4 F Pulse Rate 72 Respiratory 18 18 Rate Respiratory 18 Rate [Bilateral Lower] Blood Pressure 165/66 O2 Sat by Pulse 98 Oximetry - Lab 06/12/20 02:35 06/15/20 05:23 Most recent lab results Calcium 9.2 mg/dL (8.4-10.2) 06/15/20 05:23 Phosphorus 3.60 mg/dL (2.5-4.5) 06/13/20 05:19 Magnesium 2.20 mg/dL (1.7-2.3) 06/12/20 22:19 Urine Creatinine 22.7 mg/dL (0.1-20.0) H 06/12/20 Unknown Urine Sodium 121 mmol/L 06/12/20 Unknown Urine Total Protein 143 mg/dL (5-11.8) H 06/12/20 Unknown Medications & Allergies - Medications Allergies/Adverse Reactions: Allergies No Known Allergies Allergy (Verified 08/27/14 06:14) Home Medications: Home Medications Medication Instructions Recorded Confirmed Last Taken Type Levothyroxine [Synthroid] 25 mcg PO QAM 08/27/14 06/11/20 03/20/18 History hydrALAZINE [Apresoline TAB] 100 mg PO TID #90 tab 09/01/14 06/11/20 03/20/18 Rx Sertraline [Zoloft] 50 mg PO QDAY 11/05/14 06/11/20 03/20/18 History Terazosin (Nf) [Hytrin (Nf)] 5 mg PO QHS 08/19/17 06/11/20 Unknown History Aspirin [Aspirin BABY CHEW TAB] 81 mg PO QDAY tab.chew 08/21/17 06/11/20 Unknown Rx AtorvaSTATin [Lipitor] 40 mg PO QHS #30 tab 03/27/18 06/11/20 Unknown Rx Clopidogrel [Plavix] 75 mg PO QDAY #30 tablet 03/27/18 06/11/20 Unknown Rx Hypromellose [Isopto Tears 0.5%] 2 drops OU Q4H PRN bottle 03/27/18 06/11/20 Un known Rx ISOSORBIDE MONOnitrate [Imdur ER] 30 mg PO QDAY #30 tablet 03/27/18 06/11/20 Unknown Rx amLODIPine 10 mg PO DAILY #30 tablet 03/27/18 06/11/20 Unknown Rx Ergocalciferol (Vitamin D2) 50,000 unit PO QDAY 06/11/20 06/11/20 Unknown History [Vitamin D2] Ferrous Sulfate [Feosol] 325 mg PO QDAY 06/11/20 06/11/20 Unknown History carvediloL [Coreg] 6.25 mg PO Q12HR 06/11/20 06/11/20 Unknown History Active Medications: Generic Name Dose Route Start Last Admin Trade Name Freq PRN Reason Stop Dose Admin Acetaminophen 650 mg 06/11/20 23:07 Tylenol PO Q4H PRN Pain MILD(1-3)/Fever >100.5/MENA Artificial Tears 2 drops 06/11/20 23:06 Isopto Tears 0.5% OU Q4H PRN Dry Eye(s) Aspirin 81 mg 06/12/20 10:00 06/14/20 11:13 Baby Aspirin PO 81 mg QDAY JULIETTE Administration Atorvastatin Calcium 40 mg 06/12/20 22:00 06/14/20 22:15 Lipitor PO 40 mg QHS JULIETTE Administration Clonidine HCl 0.3 mg 06/11/20 22:00 06/11/20 22:28 Catapres-Tts Patch TD 0.3 mg Farr JULIETTE Administration Clopidogrel Bisulfate 75 mg 06/12/20 10:00 06/14/20 11:14 Plavix PO 75 mg QDAY JULIETTE Administration Dextrose 50 ml 06/13/20 05:23 D50w (25gm) Syringe IV Q30MIN PRN Hypoglycemia Protocol Doxazosin Mesylate 2 mg 06/12/20 12:00 06/14/20 22:40 Cardura PO 2 mg BID JULIETTE Administration Ergocalciferol 50,000 unit 06/19/20 10:00 Vitamin D2 PO Mo [facility] Ferrous Sulfate 325 mg 06/12/20 10:00 06/14/20 11:13 Feosol PO 325 mg QDAY [facility] Administration Furosemide 20 mg 06/14/20 12:38 06/15/20 06:14 Lasix IV 20 mg 0600,1800 [facility] Administration Hydromorphone HCl 0.5 mg 06/11/20 23:07 Dilaudid IV Q3H PRN Pain , Severe (7-10) Insulin Human Lispro 0 unit 06/13/20 07:30 06/14/20 22:16 Humalog SUB-Q Not Given ACHS [facility] Protocol Isosorbide Mononitrate 30 mg 06/12/20 10:00 06/14/20 11:13 Imdur PO 30 mg QDAY [facility] Administration Levothyroxine Sodium 25 mcg 06/12/20 06:00 06/15/20 06:14 Synthroid PO 25 mcg QAM@0600 JULIETTE Administration Nifedipine 90 mg 06/14/20 22:00 06/14/20 22:15 Procardia Xl PO 90 mg Q12HR [facility] Administration Nitroglycerin 0.4 mg 06/12/20 04:00 06/12/20 04:39 Nitrostat SL 0.4 mg .Q5MIN PRN Administration Chest Pain Ondansetron HCl 4 mg 06/11/20 23:07 Zofran IV Q8H PRN Nausea And Vomiting Oxycodone/Acetaminophen 1 tab 06/11/20 23:07 Percocet 5/325 PO Q6H PRN Pain, Moderate (4-6) Sertraline HCl 50 mg 06/12/20 10:00 06/14/20 11:14 Zoloft PO 50 mg QDAY [facility] Administration Sodium Chloride 10 ml 06/11/20 23:45 06/14/20 22:16 Sodium Chloride Flush Syringe 10 Ml IV 10 ml BID JULIETTE Administration Sodium Chloride 10 ml 06/11/20 23:07 Sodium Chloride Flush Syringe 10 Ml IV PRN PRN LINE FLUSH Valsartan 160 mg 06/14/20 13:00 06/14/20 13:03 Diovan PO 160 mg DAILY JULIETTE Administration
[2020-06-15] MEDS: SERTRALINE 50 MG TAB PO SCH (10:42)
[2020-06-15] MEDS: VALSARTAN 160MG TAB PO SCH (10:42)
[2020-06-15] MEDS: CLOPIDOGREL 75 MG TAB PO SCH (10:43)
[2020-06-15] MEDS: ASPIRIN 81 MG TAB CHEW PO SCH (10:43)
[2020-06-15] MEDS: FERROUS SULFATE 325 MG TAB PO SCH (10:43)
[2020-06-15] MEDS: NIFEdipine XL 90 MG TAB PO SCH ×2 (10:43→21:20)
[2020-06-15] MEDS: DOXAZOSIN 1 MG TAB PO SCH ×2 (10:45→21:20)
--- NOTE | 2020-06-15 10:59 | Progress Note ---
Assessment and Plan Assessment and plan: -- Acute on chronic diastolic CHF (congestive heart failure) Bilateral edema on chest x-ray due to acute on chronic diastolic CHF Continue IV diuretics, beta-blockers, input output monitoring Low-sodium diet, fluid restriction Echocardiogram for LV function ejection fraction Cardiology following --Nonspecific elevated troponin; Due to NSTEMI type II, in the setting of chronic kidney disease Possible stress test versus heart cath if needed -- HTN (hypertension) Moderate control ,continue current antihypertensives And as needed hydralazine --History of coronary artery disease Continue isosorbide mono nitrate and aspirin Cardiology following 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 Echocardiogram revealed EF of 55 to 60%. Continue IV Lasix per nephrology and cardiology. Baseline creatinine in 2018 was 2.22.6. Renal ultrasound revealed no obstruction. UPEP and SPEP pending. Patient still exhibiting accelerated hypertension. Increase Procardia to 90 mg twice daily. 06/15/2020. Patient's blood pressure is better controlled with current medications. Recheck chest x-ray today and follow-up BnP. History Interval history: No new issues overnight. Hospitalist Physical - Constitutional Vitals: Temp Pulse Resp BP Pulse Ox 98.4 F 72 18 165/66 98 06/15/20 06:55 06/15/20 06:53 06/15/20 06:55 06/15/20 06:53 06/15/20 06:53 General appearance: Present: no acute distress, well-nourished - EENT Eyes: Present: PERRL, EOM intact ENT: hearing intact, clear oral mucosa, dentition normal - Neck Neck: Present: supple, normal ROM - Respiratory Respiratory effort: normal Respiratory: bilateral: CTA - Cardiovascular Rhythm: regular Heart Sounds: Present: S1 & S2. Absent: gallop, rub - Extremities Extremities: no ischemia, No edema, Full ROM - Abdominal General gastrointestinal: soft, non-tender, non-distended, normal bowel sounds - Integumentary Integumentary: Present: clear, warm, dry - Neurologic Neurologic: CNII-XII intact, moves all extremities HEART Score - HEART Score Age: > 65 Risk factors: > 3 risk factors or hx of atherosclerotic disease Troponin: Troponin T 0.125 ng/mL (0.00-0.029) H* 06/12/20 14:48 Troponin: < normal limit - Critical Actions Critical Actions: 4-6 pts:12-16.6% risk of adverse cardiac event. Should be admitted Results - Labs CBC & Chem 7: 06/12/20 02:35 06/15/20 05:23 Labs: Laboratory Last Values WBC 4.5 K/mm3 (4.5-11.0) 06/12/20 02:35 RBC 3.81 M/mm3 (3.65-5.03) 06/12/20 02:35 Hgb 10.7 gm/dl (10.1-14.3) 06/12/20 02:35 Hct 34.0 % (30.3-42.9) 06/12/20 02:35 MCV 89 fl (79-97) 06/12/20 02:35 MCH 28 pg (28-32) 06/12/20 02:35 MCHC 32 % (30-34) 06/12/20 02:35 RDW 17.5 % (13.2-15.2) H 06/12/20 02:35 Plt Count 156 K/mm3 (140-440) 06/12/20 02:35 Lymph % (Auto) 10.3 % (13.4-35.0) L 06/11/20 14:41 [place] % (Auto) 6.3 % (0.0-7.3) 06/11/20 14:41 Eos % (Auto) 3.2 % (0.0-4.3) 06/11/20 14:41 Baso % (Auto) 1.4 % (0.0-1.8) 06/11/20 14:41 Lymph # (Auto) 0.7 K/mm3 (1.2-5.4) L 06/11/20 14:41 [place] # (Auto) 0.4 K/mm3 (0.0-0.8) 06/11/20 14:41 Eos # (Auto) 0.2 K/mm3 (0.0-0.4) 06/11/20 14:41 Baso # (Auto) 0.1 K/mm3 (0.0-0.1) 06/11/20 14:41 Add Manual Diff Complete 06/12/20 02:35 Total Counted 100 06/12/20 02:35 Seg Neutrophils % Aircraft Engine Technician 06/12/20 02:35 Seg Neuts % (Manual) 92.0 % (40.0-70.0) H 06/12/20 02:35 Band Neutrophils % 0 % 06/12/20 02:35 Lymphocytes % (Manual) 6.0 % (13.4-35.0) L 06/12/20 02:35 Reactive Lymphs % (Man) 0 % 06/12/20 02:35 Monocytes % (Manual) 2.0 % (0.0-7.3) 06/12/20 02:35 Eosinophils % (Manual) 0 % (0.0-4.3) 06/12/20 02:35 Basophils % (Manual) 0 % (0.0-1.8) 06/12/20 02:35 Metamyelocytes % 0 % 06/12/20 02:35 Myelocytes % 0 % 06/12/20 02:35 Promyelocytes % 0 % 06/12/20 02:35 Blast Cells % 0 % 06/12/20 02:35 Nucleated RBC % Not Reportable 06/12/20 02:35 Seg Neutrophils # 5.3 K/mm3 (1.8-7.7) 06/11/20 14:41 Seg Neutrophils # Man 4.1 K/mm3 (1.8-7.7) 06/12/20 02:35 Band Neutrophils # 0.0 K/mm3 06/12/20 02:35 Lymphocytes # (Manual) 0.3 K/mm3 (1.2-5.4) L 06/12/20 02:35 Abs React Lymphs (Man) 0.0 K/mm3 06/12/20 02:35 Monocytes # (Manual) 0.1 K/mm3 (0.0-0.8) 06/12/20 02:35 Eosinophils # (Manual) 0.0 K/mm3 (0.0-0.4) 06/12/20 02:35 Basophils # (Manual) 0.0 K/mm3 (0.0-0.1) 06/12/20 02:35 Metamyelocytes # 0.0 K/mm3 06/12/20 02:35 Myelocytes # 0.0 K/mm3 06/12/20 02:35 Promyelocytes # 0.0 K/mm3 06/12/20 02:35 Blast Cells # 0.0 K/mm3 06/12/20 02:35 WBC Morphology Not Reportable 06/12/20 02:35 Hypersegmented Neuts Not Reportable 06/12/20 02:35 Hyposegmented Neuts Not Reportable 06/12/20 02:35 Hypogranular Neuts Not Reportable 06/12/20 02:35 Smudge Cells Not Reportable 06/12/20 02:35 Toxic Granulation Not Reportable 06/12/20 02:35 Toxic Vacuolation Not Reportable 06/12/20 02:35 Dohle Bodies Not Reportable 06/12/20 02:35 Pelger-Huet Anomaly Not Reportable 06/12/20 02:35 Chanda Rods Not Reportable 06/12/20 02:35 Platelet Estimate Consistent w auto 06/12/20 02:35 Clumped Platelets Not Reportable 06/12/20 02:35 Plt Clumps, EDTA Not Reportable 06/12/20 02:35 Large Platelets Not Reportable 06/12/20 02:35 Giant Platelets Not Reportable 06/12/20 02:35 Platelet Satelliting Not Reportable 06/12/20 02:35 Plt Morphology Comment Not Reportable 06/12/20 02:35 RBC Morphology Not Reportable 06/12/20 02:35 Dimorphic RBCs Not Reportable 06/12/20 02:35 Polychromasia Not Reportable 06/12/20 02:35 Hypochromasia Few 06/12/20 02:35 Poikilocytosis Not Reportable 06/12/20 02:35 Anisocytosis 1+ 06/12/20 02:35 Microcytosis Not Reportable 06/12/20 02:35 Macrocytosis Not Reportable 06/12/20 02:35 Spherocytes Not Reportable 06/12/20 02:35 Pappenheimer Bodies Not Reportable 06/12/20 02:35 Sickle Cells Not Reportable 06/12/20 02:35 Target Cells Few 06/12/20 02:35 Tear Drop Cells Not Reportable 06/12/20 02:35 Ovalocytes Not Reportable 06/12/20 02:35 Helmet Cells Not Reportable 06/12/20 02:35 Phipps-Wise Bodies Not Reportable 06/12/20 02:35 [place] Rings Not Reportable 06/12/20 02:35 [place] Cells Not Reportable 06/12/20 02:35 Bite Cells Not Reportable 06/12/20 02:35 Crenated Cell Not Reportable 06/12/20 02:35 Elliptocytes Not Reportable 06/12/20 02:35 Acanthocytes (Spur) Not Reportable 06/12/20 02:35 Rouleaux Not Reportable 06/12/20 02:35 Hemoglobin C Crystals Not Reportable 06/12/20 02:35 Schistocytes Not Reportable 06/12/20 02:35 Malaria parasites Not Reportable 06/12/20 02:35 Sulaiman Bodies Not Reportable 06/12/20 02:35 Hem Pathologist Commnt No 06/12/20 02:35 PT 14.7 Sec. (12.2-14.9) 06/11/20 14:41 INR 1.15 (0.87-1.13) H 06/11/20 14:41 Sodium 144 mmol/L (137-145) 06/15/20 05:23 Potassium 4.7 mmol/L (3.6-5.0) 06/15/20 05:23 Chloride 103.2 mmol/L (98-107) 06/15/20 05:23 Carbon Dioxide 27 mmol/L (22-30) 06/15/20 05:23 Anion Gap 19 mmol/L 06/15/20 05:23 BUN 65 mg/dL (7-17) H 06/15/20 05:23 Creatinine 2.8 mg/dL (0.6-1.2) H 06/15/20 05:23 Estimated GFR 20 ml/min 06/15/20 05:23 BUN/Creatinine Ratio 23 % 06/15/20 05:23 Glucose 104 mg/dL (65-100) H 06/15/20 05:23 POC Glucose 121 mg/dL (70-105) H 06/14/20 21:22 Hemoglobin A1c 6.0 % (4-6) 06/12/20 02:35 Lactic Acid 0.50 mmol/L (0.7-2.0) L 06/11/20 16:11 Calcium 9.2 mg/dL (8.4-10.2) 06/15/20 05:23 Phosphorus 3.60 mg/dL (2.5-4.5) 06/13/20 05:19 Magnesium 2.20 mg/dL (1.7-2.3) 06/12/20 22:19 Total Bilirubin 0.30 mg/dL (0.1-1.2) 06/12/20 02:35 AST 20 units/L (5-40) 06/12/20 02:35 ALT 9 units/L (7-56) 06/12/20 02:35 Alkaline Phosphatase 97 units/L (35-129) 06/12/20 02:35 Total Creatine Kinase 60 units/L (30-135) 06/11/20 14:41 Troponin T 0.125 ng/mL (0.00-0.029) H* 06/12/20 14:48 NT-Pro-B Natriuret Pep 8655 pg/mL (0-900) H 06/11/20 14:41 Total Protein 8.3 g/dL (6.3-8.2) H 06/12/20 02:35 Albumin 3.2 g/dL (3.9-5) L 06/12/20 02:35 Albumin/Globulin Ratio 0.6 % 06/12/20 02:35 Triglycerides 89 mg/dL (2-149) 06/11/20 14:41 Cholesterol 157 mg/dL (50-199) 06/11/20 14:41 LDL Cholesterol Direct 71 mg/dL (50-130) 06/11/20 14:41 HDL Cholesterol 75 mg/dL (40-59) H 06/11/20 14:41 Cholesterol/HDL Ratio 2.09 % 06/11/20 14:41 TSH 3.490 mlU/mL (0.270-4.200) 06/12/20 14:48 Urine Color Straw (Yellow) 06/12/20 12:47 Urine Turbidity Clear (Clear) 06/12/20 12:47 Urine pH 6.0 (5.0-7.0) 06/12/20 12:47 Ur Specific [place] 1.009 (1.003-1.030) 06/12/20 12:47 Urine Protein 100 mg/dl mg/dL (Negative) 06/12/20 12:47 Urine Glucose (UA) Neg mg/dL (Negative) 06/12/20 12:47 Urine Ketones Neg mg/dL (Negative) 06/12/20 12:47 Urine Blood Neg (Negative) 06/12/20 12:47 Urine Nitrite Neg (Negative) 06/12/20 12:47 Urine Bilirubin Neg (Negative) 06/12/20 12:47 Urine Urobilinogen < 2.0 mg/dL (<2.0) 06/12/20 12:47 Ur Leukocyte Esterase Neg (Negative) 06/12/20 12:47 Urine WBC (Auto) 3.0 /HPF (0.0-6.0) 06/12/20 12:47 Urine RBC (Auto) 2.0 /HPF (0.0-6.0) 06/12/20 12:47 U Epithel Cells (Auto) 2.0 /HPF (0-13.0) 06/12/20 12:47 Urine Bacteria (Auto) 1+ /HPF (Negative) 06/12/20 12:47 Urine Eosinophils None seen (None Seen) 06/12/20 Unknown Urine Creatinine 22.7 mg/dL (0.1-20.0) H 06/12/20 Unknown Protein/Creatinin Ratio 6.30 06/12/20 Unknown Urine Sodium 121 mmol/L 06/12/20 Unknown Urine Total Protein 143 mg/dL (5-11.8) H 06/12/20 Unknown Coronavirus (PCR) Negative (Negative) 06/12/20 Unknown Microbiology: Microbiology 06/11/20 16:11 Peripheral/Venous Blood Culture - Preliminary NO GROWTH AFTER 72 HOURS 06/11/20 16:11 Peripheral/Venous Blood Culture - Preliminary NO GROWTH AFTER 72 HOURS 06/12/20 12:47 Urine,Catheterized - Straight Catheter Urine Culture - Final - Diagnostic Impressions Diagnostic Impressions: Echocardiogram 06/11/20 23:10 Transthoracic Echocardiogram Indication: CHF BP: 165/63 HR: 60 Conclusions *Global left ventricular systolic function is normal. *The estimated ejection fraction is 55-60%. *Mild to moderate concentric left ventricular hypertrophy is observed. *The left and right atria are both moderately dilated. *There is mild to moderate mitral regurgitation. *There is mild tricuspid regurgitation. *There is evidence of moderate pulmonary hypertension. *The right ventricular systolic pressure is calculated at 51 mmHg. *A left pleural effusion is present. *There is no significant pericardial effusion. Findings Left Ventricle: The left ventricular chamber size is normal. Mild to moderate concentric left ventricular hypertrophy is observed. Global left ventricular systolic function is normal. The estimated ejection fraction is 55-60%. Left Atrium: The left atrium is moderately dilated. Right Ventricle: The right ventricle is mildly dilated. The right ventricular global systolic function is mildly reduced. Right Atrium: The right atrium is moderately dilated. Aortic Valve: The aortic valve is trileaflet. The aortic valve leaflets are moderately thickened. There is trace of aortic regurgitation. There is no evidence of aortic stenosis. Mitral Valve: The mitral valve leaflets are moderately thickened. There is mild to moderate mitral regurgitation. There is no evidence of mitral stenosis. Tricuspid Valve: There is mild tricuspid regurgitation. The right ventricular systolic pressure is calculated at 51 mmHg. There is evidence of moderate pulmonary hypertension. Pulmonic Valve: There is trace pulmonic regurgitation. Pericardium: There is no pericardial effusion. A left pleural effusion is present. Aorta: There is no dilatation of the ascending aorta. There is no dilatation of the aortic root. Venous: The inferior vena cava appears normal in size. Measurements Chambers 2D Name Value Normal Range IVSd (2D) 1.07 cm (0.6 - 1.1) LVPWd (2D) 1.19 cm (0.6 - 1.1) LVIDd (2D) 4.34 cm (3.7 - 5.6) LVIDs (2D) 2.93 cm (2 - 3.8) LV FS (2D) 32.56 % - EF Teichholz (2D) 61.19 % - Ao root diameter (2D) 3.19 cm (2 - 3.7) Volumes/Mass Name Value Normal Range LA ESV SP 4CH (A/L) 58.57 ml - LA ESV SP 2CH (A/L) 86.64 ml - LA ESV BP (A/L) 74.92 ml - LA ESV BP (A/L) index 47.42 ml/m2 - LA ESV SP 4CH (MOD) 50.65 ml - LA ESV SP 2CH (MOD) 79.23 ml - LA ESV BP (MOD) 66.45 ml - LA ESV BP (MOD) index 42.06 ml/m2 - Diastolic/Systolic Function Name Value Normal Range MV E-wave Vmax 1.34 m/sec - MV deceleration time 244.33 msec - MV A-wave Vmax 0.98 m/sec - MV E:A ratio 1.36 ratio - Aortic Valve Name Value Normal Range AV Vmax 1.46 m/sec - AV VTI 38.18 cm - AV peak gradient 8.5 mmHg - AV mean gradient 4.47 mmHg - LVOT diameter 1.93 cm - LVOT Vmax 0.97 m/sec - LVOT VTI 27.7 cm - LVOT peak gradient 3.73 mmHg - LVOT mean gradient 2.13 mmHg - SV LVOT 80.99 ml - KENYA (continuity Vmax) 1.94 cm2 - KENYA (continuity VTI) 2.12 cm2 - Ascending Ao 2.04 cm - Tricuspid Valve Name Value Normal Range TR Vmax 3.3 m/sec - TR peak gradient 43 mmHg - RAP 8 mmHg - RVSP 51 mmHg - Pulmonic Valve/Qp:Qs Name Value Normal Range PV Vmax 1.02 m/sec - PV peak gradient 4.14 mmHg - IN end-diastolic Vmax 0.74 m/sec - PV acceleration time 68.51 msec - Lopez/IV: Voiding Method Incontinent IV Catheter Type [Right INT / Saline Lock Forearm] Active Medications - Current Medications Current Medications: Generic Name Dose Route Start Last Admin Trade Name Mannyq PRN Reason Stop Dose Admin Acetaminophen 650 mg 06/11/20 23:07 Tylenol PO Q4H PRN Pain MILD(1-3)/Fever >100.5/MENA Artificial Tears 2 drops 06/11/20 23:06 Isopto Tears 0.5% OU Q4H PRN Dry Eye(s) Aspirin 81 mg 06/12/20 10:00 06/15/20 10:43 Baby Aspirin PO 81 mg QDAY JULIETTE Administration Atorvastatin Calcium 40 mg 06/12/20 22:00 06/14/20 22:15 Lipitor PO 40 mg QHS JULIETTE Administration Clonidine HCl 0.3 mg 06/11/20 22:00 06/11/20 22:28 Catapres-Tts Patch TD 0.3 mg Farr JULIETTE Administration Clopidogrel Bisulfate 75 mg 06/12/20 10:00 06/15/20 10:43 Plavix PO 75 mg QDAY JULIETTE Administration Dextrose 50 ml 06/13/20 05:23 D50w (25gm) Syringe IV Q30MIN PRN Hypoglycemia Protocol Doxazosin Mesylate 2 mg 06/12/20 12:00 06/15/20 10:45 Cardura PO 2 mg BID JULIETTE Administration Ergocalciferol 50,000 unit 06/19/20 10:00 Vitamin D2 PO Mo JULIETTE Ferrous Sulfate 325 mg 06/12/20 10:00 06/15/20 10:43 Feosol PO 325 mg QDAY JULIETTE Administration Furosemide 20 mg 06/14/20 12:38 06/15/20 06:14 Lasix IV 20 mg 0600,1800 JULIETTE Administration Hydromorphone HCl 0.5 mg 06/11/20 23:07 Dilaudid IV Q3H PRN Pain , Severe (7-10) Insulin Human Lispro 0 unit 06/13/20 07:30 06/15/20 07:30 Humalog SUB-Q Not Given ACHS [facility] Protocol Isosorbide Mononitrate 30 mg 06/12/20 10:00 06/15/20 10:43 Imdur PO 30 mg QDAY [facility] Administration Levothyroxine Sodium 25 mcg 06/12/20 06:00 06/15/20 06:14 Synthroid PO 25 mcg QAM@0600 [facility] Administration Nifedipine 90 mg 06/14/20 22:00 06/15/20 10:43 Procardia Xl PO 90 mg Q12HR [facility] Administration Nitroglycerin 0.4 mg 06/12/20 04:00 06/12/20 04:39 Nitrostat SL 0.4 mg .Q5MIN PRN Administration Chest Pain Ondansetron HCl 4 mg 06/11/20 23:07 Zofran IV Q8H PRN Nausea And Vomiting Oxycodone/Acetaminophen 1 tab 06/11/20 23:07 Percocet 5/325 PO Q6H PRN Pain, Moderate (4-6) Sertraline HCl 50 mg 06/12/20 10:00 06/15/20 10:42 Zoloft PO 50 mg QDAY JULIETTE Administration Sodium Chloride 10 ml 06/11/20 23:45 06/15/20 10:44 Sodium Chloride Flush Syringe 10 Ml IV 10 ml BID JULIETTE Administration Sodium Chloride 10 ml 06/11/20 23:07 Sodium Chloride Flush Syringe 10 Ml IV PRN PRN LINE FLUSH Valsartan 160 mg 06/14/20 13:00 06/15/20 10:42 Diovan PO 160 mg DAILY JULIETTE Administration Nutrition/Malnutrition Assess - Dietary Evaluation Nutrition/Malnutrition Findings: Nutrition Notes Start: 06/12/20 14:11 Freq: Status: Active Protocol: Document 06/14/20 14:50 LM (Rec: 06/14/20 14:52 LM [id number]) Nutrition Notes Initial or Follow up Brief Note Current Diagnosis CKD(stage I-IV),Coronary Artery Disease,Diabetes, Hypertension,Heart Failure, Hyperlipidemia Current Diet pureed with thin liq Labs/Tests Reviewed Pertinent Medications NS at 125ml/hr Height 5 ft Weight 61.4 kg [place] Body Weight (kg) 45.45 BMI 26.4 Weight Status Overweight Subjective/Other Information 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 Pt with no intakes in chart. Nutrition Intervention Follow-Up By: 06/16/20 Additional Comments F/U for PO/ONS intakes
--- NOTE | 2020-06-15 11:32 | Progress Note ---
Subjective Date of service: 06/15/20 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 Interval history: Assessment and Plan - Patient Problems (1) Uncontrolled hypertension Current Visit: Yes Status: Acute Plan to address problem: BP improved, add hydralazine Subjective Date of service: 06/14/20 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 Interval history: Patient appears frail, elderly and has multiple comorbidities. She is admitted with COPD exacerbation, but currently there is no acute respiratory distress. Will cont to adjust BP meds. Objective Vital Signs Temp Pulse Pulse Resp Resp BP Pulse Ox 06/15/20 06:55 98.4 F 18 06/15/20 06:53 97.6 F 72 18 165/66 98 06/15/20 04:00 18 06/15/20 03:00 16 06/14/20 22:40 66 181/81 06/14/20 22:20 97.2 F L 65 16 181/81 98 06/14/20 16:35 98.6 F 58 L 18 146/65 94 06/14/20 15:00 59 L 59 L 06/14/20 13:03 63 199/86 06/14/20 11:32 98.0 F 63 16 199/86 96 - Physical Examination General: No Apparent Distress, Cachectic, Other (Frail, elderly, chronically ill-appearing) HEENT: Positive: PERRL Neck: Positive: neck supple Cardiac: Positive: Reg Rate and Rhythm, S1/S2 Lungs: Positive: Normal Exam Neuro: Positive: Weakness Extremities: Present: +1 Edema - Labs and Meds Comprehensive Metabolic Panel 06/15/20 Range/Units 05:23 Sodium 144 (137-145) mmol/L Potassium 4.7 (3.6-5.0) mmol/L Chloride 103.2 (98-107) mmol/L Carbon Dioxide 27 (22-30) mmol/L BUN 65 H (7-17) mg/dL Creatinine 2.8 H (0.6-1.2) mg/dL Glucose 104 H (65-100) mg/dL Calcium 9.2 (8.4-10.2) mg/dL - Imaging and Cardiology EKG: report reviewed (Sinus rhythm no acute ST-T wave changes)
--- NOTE | 2020-06-15 11:59 | XRay Report ---
XR chest 1V ap INDICATION / CLINICAL INFORMATION: volume overload. COMPARISON: 06/11/2020. FINDINGS: SUPPORT DEVICES: None. HEART /PULMONARY VASCULATURE: Unchanged LUNGS / PLEURA: Stable bilateral pulmonary opacities. No pleural effusion or pneumothorax. ADDITIONAL FINDINGS: No significant additional findings. IMPRESSION: Stable appearance of the chest with bilateral pulmonary opacities. Signer Name: Jayant Pimentel MD Signed: 06/15/2020 11:55 AM Workstation Name: [id number]
[2020-06-15] MEDS: hydrALAZINE 25 MG TAB PO SCH ×2 (14:00→21:20)
[2020-06-16] MEDS: hydrALAZINE 25 MG TAB PO SCH ×3 (05:31→21:05)
[2020-06-16] MEDS: LEVOTHYROXINE 25 MCG TAB PO SCH (05:31)
[2020-06-16] MEDS: FUROSEMIDE 20 MG/2 ML INJ IV SCH ×2 (05:31→17:58)
[2020-06-16 06:39] LABS: Basophils # (Auto) 0.1 K/mm3 (0.0-0.1); Basophils % (Auto) 1.3 % (0.0-1.8); Eosinophils # (Auto) 0.2 K/mm3 (0.0-0.4); Eosinophils % (Auto) 4.2 % (0.0-4.3); Hematocrit 29.7 % (30.3-42.9); Hemoglobin 9.4 gm/dl (10.1-14.3); Lymphocytes # (Auto) 1.1 K/mm3 (1.2-5.4); Lymphocytes % (Auto) 23.5 % (13.4-35.0); Mean Corpuscular HGB Conc 32 % (30-34); Mean Corpuscular Volume 89 fl (79-97); Monocytes # (Auto) 0.7 K/mm3 (0.0-0.8); Monocytes % (Auto) 15.1 % (0.0-7.3); Platelet Count 145 K/mm3 (140-440); Red Blood Count 3.34 M/mm3 (3.65-5.03); Red Cell Distribution Width 17.3 % (13.2-15.2)
[2020-06-16 06:52] LABS: Calcium 8.9 mg/dL (8.4-10.2)
[2020-06-16] MEDS: INSULIN LISPRO 100 UNIT/ML VIAL 3 mL SUB-Q SCH ×4 (07:30→23:21)
--- NOTE | 2020-06-16 09:19 | Progress Note ---
Assessment and Plan Assessment and plan: -- Acute on chronic diastolic CHF (congestive heart failure) Bilateral edema on chest x-ray due to acute on chronic diastolic CHF Continue IV diuretics, beta-blockers, input output monitoring Low-sodium diet, fluid restriction Echocardiogram for LV function ejection fraction Cardiology following --Nonspecific elevated troponin; Due to NSTEMI type II, in the setting of chronic kidney disease Possible stress test versus heart cath if needed -- HTN (hypertension) Moderate control ,continue current antihypertensives And as needed hydralazine --History of coronary artery disease Continue isosorbide mono nitrate and aspirin Cardiology following 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 Echocardiogram revealed EF of 55 to 60%. Continue IV Lasix per nephrology and cardiology. Baseline creatinine in 2018 was 2.22.6. Renal ultrasound revealed no obstruction. UPEP and SPEP pending. Patient still exhibiting accelerated hypertension. Increase Procardia to 90 mg twice daily. 06/15/2020. Patient's blood pressure is better controlled with current medications. Recheck chest x-ray today and follow-up BnP. 06/16/2020. Patient's blood pressure still extremely labile. Patient currently with clonidine, Cardura, Procardia, isosorbide and hydralazine. Increase hydralazine to 75 mg 3 times daily. BNP greater than 13,000 and chest x-ray suggestive of heart failure. Defer to cardiology. Await PT recommendations for placement. History Interval history: No new issues overnight. Hospitalist Physical - Constitutional Vitals: Temp Pulse Resp BP Pulse Ox 98.9 F 65 20 198/78 99 06/16/20 06:43 06/16/20 06:43 06/16/20 06:43 06/16/20 06:43 06/16/20 06:43 General appearance: Present: no acute distress, well-nourished - EENT Eyes: Present: PERRL, EOM intact ENT: hearing intact, clear oral mucosa, dentition normal - Neck Neck: Present: supple, normal ROM - Respiratory Respiratory effort: normal Respiratory: bilateral: CTA - Cardiovascular Rhythm: regular Heart Sounds: Present: S1 & S2. Absent: gallop, rub - Extremities Extremities: no ischemia, No edema, Full ROM - Abdominal General gastrointestinal: soft, non-tender, non-distended, normal bowel sounds - Integumentary Integumentary: Present: clear, warm, dry - Neurologic Neurologic: CNII-XII intact, moves all extremities HEART Score - HEART Score Age: > 65 Risk factors: > 3 risk factors or hx of atherosclerotic disease Troponin: Troponin T 0.125 ng/mL (0.00-0.029) H* 06/12/20 14:48 Troponin: < normal limit - Critical Actions Critical Actions: 4-6 pts:12-16.6% risk of adverse cardiac event. Should be admitted Results - Labs CBC & Chem 7: 06/16/20 04:40 06/16/20 04:40 Labs: Laboratory Last Values WBC 4.9 K/mm3 (4.5-11.0) 06/16/20 04:40 RBC 3.34 M/mm3 (3.65-5.03) L 06/16/20 04:40 Hgb 9.4 gm/dl (10.1-14.3) L 06/16/20 04:40 Hct 29.7 % (30.3-42.9) L 06/16/20 04:40 MCV 89 fl (79-97) 06/16/20 04:40 MCH 28 pg (28-32) 06/16/20 04:40 MCHC 32 % (30-34) 06/16/20 04:40 RDW 17.3 % (13.2-15.2) H 06/16/20 04:40 Plt Count 145 K/mm3 (140-440) 06/16/20 04:40 Lymph % (Auto) 23.5 % (13.4-35.0) 06/16/20 04:40 [place] % (Auto) 15.1 % (0.0-7.3) H 06/16/20 04:40 Eos % (Auto) 4.2 % (0.0-4.3) 06/16/20 04:40 Baso % (Auto) 1.3 % (0.0-1.8) 06/16/20 04:40 Lymph # (Auto) 1.1 K/mm3 (1.2-5.4) L 06/16/20 04:40 [place] # (Auto) 0.7 K/mm3 (0.0-0.8) 06/16/20 04:40 Eos # (Auto) 0.2 K/mm3 (0.0-0.4) 06/16/20 04:40 Baso # (Auto) 0.1 K/mm3 (0.0-0.1) 06/16/20 04:40 Add Manual Diff Complete 06/12/20 02:35 Total Counted 100 06/12/20 02:35 Seg Neutrophils % 55.9 % (40.0-70.0) 06/16/20 04:40 Seg Neuts % (Manual) 92.0 % (40.0-70.0) H 06/12/20 02:35 Band Neutrophils % 0 % 06/12/20 02:35 Lymphocytes % (Manual) 6.0 % (13.4-35.0) L 06/12/20 02:35 Reactive Lymphs % (Man) 0 % 06/12/20 02:35 Monocytes % (Manual) 2.0 % (0.0-7.3) 06/12/20 02:35 Eosinophils % (Manual) 0 % (0.0-4.3) 06/12/20 02:35 Basophils % (Manual) 0 % (0.0-1.8) 06/12/20 02:35 Metamyelocytes % 0 % 06/12/20 02:35 Myelocytes % 0 % 06/12/20 02:35 Promyelocytes % 0 % 06/12/20 02:35 Blast Cells % 0 % 06/12/20 02:35 Nucleated RBC % Not Reportable 06/12/20 02:35 Seg Neutrophils # 2.7 K/mm3 (1.8-7.7) 06/16/20 04:40 Seg Neutrophils # Man 4.1 K/mm3 (1.8-7.7) 06/12/20 02:35 Band Neutrophils # 0.0 K/mm3 06/12/20 02:35 Lymphocytes # (Manual) 0.3 K/mm3 (1.2-5.4) L 06/12/20 02:35 Abs React Lymphs (Man) 0.0 K/mm3 06/12/20 02:35 Monocytes # (Manual) 0.1 K/mm3 (0.0-0.8) 06/12/20 02:35 Eosinophils # (Manual) 0.0 K/mm3 (0.0-0.4) 06/12/20 02:35 Basophils # (Manual) 0.0 K/mm3 (0.0-0.1) 06/12/20 02:35 Metamyelocytes # 0.0 K/mm3 06/12/20 02:35 Myelocytes # 0.0 K/mm3 06/12/20 02:35 Promyelocytes # 0.0 K/mm3 06/12/20 02:35 Blast Cells # 0.0 K/mm3 06/12/20 02:35 WBC Morphology Not Reportable 06/12/20 02:35 Hypersegmented Neuts Not Reportable 06/12/20 02:35 Hyposegmented Neuts Not Reportable 06/12/20 02:35 Hypogranular Neuts Not Reportable 06/12/20 02:35 Smudge Cells Not Reportable 06/12/20 02:35 Toxic Granulation Not Reportable 06/12/20 02:35 Toxic Vacuolation Not Reportable 06/12/20 02:35 Dohle Bodies Not Reportable 06/12/20 02:35 Pelger-Huet Anomaly Not Reportable 06/12/20 02:35 Chanda Rods Not Reportable 06/12/20 02:35 Platelet Estimate Consistent w auto 06/12/20 02:35 Clumped Platelets Not Reportable 06/12/20 02:35 Plt Clumps, EDTA Not Reportable 06/12/20 02:35 Large Platelets Not Reportable 06/12/20 02:35 Giant Platelets Not Reportable 06/12/20 02:35 Platelet Satelliting Not Reportable 06/12/20 02:35 Plt Morphology Comment Not Reportable 06/12/20 02:35 RBC Morphology Not Reportable 06/12/20 02:35 Dimorphic RBCs Not Reportable 06/12/20 02:35 Polychromasia Not Reportable 06/12/20 02:35 Hypochromasia Few 06/12/20 02:35 Poikilocytosis Not Reportable 06/12/20 02:35 Anisocytosis 1+ 06/12/20 02:35 Microcytosis Not Reportable 06/12/20 02:35 Macrocytosis Not Reportable 06/12/20 02:35 Spherocytes Not Reportable 06/12/20 02:35 Pappenheimer Bodies Not Reportable 06/12/20 02:35 Sickle Cells Not Reportable 06/12/20 02:35 Target Cells Few 06/12/20 02:35 Tear Drop Cells Not Reportable 06/12/20 02:35 Ovalocytes Not Reportable 06/12/20 02:35 Helmet Cells Not Reportable 06/12/20 02:35 Phipps-[place] Bodies Not Reportable 06/12/20 02:35 [place] Rings Not Reportable 06/12/20 02:35 Bacilio Cells Not Reportable 06/12/20 02:35 Bite Cells Not Reportable 06/12/20 02:35 Crenated Cell Not Reportable 06/12/20 02:35 Elliptocytes Not Reportable 06/12/20 02:35 Acanthocytes (Spur) Not Reportable 06/12/20 02:35 Rouleaux Not Reportable 06/12/20 02:35 Hemoglobin C Crystals Not Reportable 06/12/20 02:35 Schistocytes Not Reportable 06/12/20 02:35 Malaria parasites Not Reportable 06/12/20 02:35 Sulaiman Bodies Not Reportable 06/12/20 02:35 Hem Pathologist Commnt No 06/12/20 02:35 PT 14.7 Sec. (12.2-14.9) 06/11/20 14:41 INR 1.15 (0.87-1.13) H 06/11/20 14:41 Sodium 142 mmol/L (137-145) 06/16/20 04:40 Potassium 4.6 mmol/L (3.6-5.0) 06/16/20 04:40 Chloride 101.1 mmol/L (98-107) 06/16/20 04:40 Carbon Dioxide 34 mmol/L (22-30) H D 06/16/20 04:40 Anion Gap 12 mmol/L 06/16/20 04:40 BUN 66 mg/dL (7-17) H 06/16/20 04:40 Creatinine 3.0 mg/dL (0.6-1.2) H 06/16/20 04:40 Estimated GFR 18 ml/min 06/16/20 04:40 BUN/Creatinine Ratio 22 % 06/16/20 04:40 Glucose 95 mg/dL (65-100) 06/16/20 04:40 POC Glucose 112 mg/dL (70-105) H 06/15/20 22:28 Hemoglobin A1c 6.0 % (4-6) 06/12/20 02:35 Lactic Acid 0.50 mmol/L (0.7-2.0) L 06/11/20 16:11 Calcium 8.9 mg/dL (8.4-10.2) 06/16/20 04:40 Phosphorus 3.60 mg/dL (2.5-4.5) 06/13/20 05:19 Magnesium 2.20 mg/dL (1.7-2.3) 06/12/20 22:19 Total Bilirubin 0.30 mg/dL (0.1-1.2) 06/12/20 02:35 AST 20 units/L (5-40) 06/12/20 02:35 ALT 9 units/L (7-56) 06/12/20 02:35 Alkaline Phosphatase 97 units/L (35-129) 06/12/20 02:35 Total Creatine Kinase 60 units/L (30-135) 06/11/20 14:41 Troponin T 0.125 ng/mL (0.00-0.029) H* 06/12/20 14:48 NT-Pro-B Natriuret Pep 93720 pg/mL (0-900) H 06/15/20 05:23 Total Protein 8.3 g/dL (6.3-8.2) H 06/12/20 02:35 Albumin 3.2 g/dL (3.9-5) L 06/12/20 02:35 Albumin/Globulin Ratio 0.6 % 06/12/20 02:35 Triglycerides 89 mg/dL (2-149) 06/11/20 14:41 Cholesterol 157 mg/dL (50-199) 06/11/20 14:41 LDL Cholesterol Direct 71 mg/dL (50-130) 06/11/20 14:41 HDL Cholesterol 75 mg/dL (40-59) H 06/11/20 14:41 Cholesterol/HDL Ratio 2.09 % 06/11/20 14:41 TSH 3.490 mlU/mL (0.270-4.200) 06/12/20 14:48 Urine Color Straw (Yellow) 06/12/20 12:47 Urine Turbidity Clear (Clear) 06/12/20 12:47 Urine pH 6.0 (5.0-7.0) 06/12/20 12:47 Ur Specific [place] 1.009 (1.003-1.030) 06/12/20 12:47 Urine Protein 100 mg/dl mg/dL (Negative) 06/12/20 12:47 Urine Glucose (UA) Neg mg/dL (Negative) 06/12/20 12:47 Urine Ketones Neg mg/dL (Negative) 06/12/20 12:47 Urine Blood Neg (Negative) 06/12/20 12:47 Urine Nitrite Neg (Negative) 06/12/20 12:47 Urine Bilirubin Neg (Negative) 06/12/20 12:47 Urine Urobilinogen < 2.0 mg/dL (<2.0) 06/12/20 12:47 Ur Leukocyte Esterase Neg (Negative) 06/12/20 12:47 Urine WBC (Auto) 3.0 /HPF (0.0-6.0) 06/12/20 12:47 Urine RBC (Auto) 2.0 /HPF (0.0-6.0) 06/12/20 12:47 U Epithel Cells (Auto) 2.0 /HPF (0-13.0) 06/12/20 12:47 Urine Bacteria (Auto) 1+ /HPF (Negative) 06/12/20 12:47 Urine Eosinophils None seen (None Seen) 06/12/20 Unknown Urine Creatinine 22.7 mg/dL (0.1-20.0) H 06/12/20 Unknown Protein/Creatinin Ratio 6.30 06/12/20 Unknown Urine Sodium 121 mmol/L 06/12/20 Unknown Urine Total Protein 143 mg/dL (5-11.8) H 06/12/20 Unknown Coronavirus (PCR) Negative (Negative) 06/12/20 Unknown Microbiology: Microbiology 06/11/20 16:11 Peripheral/Venous Blood Culture - Preliminary NO GROWTH AFTER 4 DAYS 06/11/20 16:11 Peripheral/Venous Blood Culture - Preliminary NO GROWTH AFTER 4 DAYS - Diagnostic Impressions Diagnostic Impressions: Echocardiogram 06/11/20 23:10 Transthoracic Echocardiogram Indication: CHF BP: 165/63 HR: 60 Conclusions *Global left ventricular systolic function is normal. *The estimated ejection fraction is 55-60%. *Mild to moderate concentric left ventricular hypertrophy is observed. *The left and right atria are both moderately dilated. *There is mild to moderate mitral regurgitation. *There is mild tricuspid regurgitation. *There is evidence of moderate pulmonary hypertension. *The right ventricular systolic pressure is calculated at 51 mmHg. *A left pleural effusion is present. *There is no significant pericardial effusion. Findings Left Ventricle: The left ventricular chamber size is normal. Mild to moderate concentric left ventricular hypertrophy is observed. Global left ventricular systolic function is normal. The estimated ejection fraction is 55-60%. Left Atrium: The left atrium is moderately dilated. Right Ventricle: The right ventricle is mildly dilated. The right ventricular global systolic function is mildly reduced. Right Atrium: The right atrium is moderately dilated. Aortic Valve: The aortic valve is trileaflet. The aortic valve leaflets are moderately thickened. There is trace of aortic regurgitation. There is no evidence of aortic stenosis. Mitral Valve: The mitral valve leaflets are moderately thickened. There is mild to moderate mitral regurgitation. There is no evidence of mitral stenosis. Tricuspid Valve: There is mild tricuspid regurgitation. The right ventricular systolic pressure is calculated at 51 mmHg. There is evidence of moderate pulmonary hypertension. Pulmonic Valve: There is trace pulmonic regurgitation. Pericardium: There is no pericardial effusion. A left pleural effusion is present. Aorta: There is no dilatation of the ascending aorta. There is no dilatation of the aortic root. Venous: The inferior vena cava appears normal in size. Measurements Chambers 2D Name Value Normal Range IVSd (2D) 1.07 cm (0.6 - 1.1) LVPWd (2D) 1.19 cm (0.6 - 1.1) LVIDd (2D) 4.34 cm (3.7 - 5.6) LVIDs (2D) 2.93 cm (2 - 3.8) LV FS (2D) 32.56 % - EF Teichholz (2D) 61.19 % - Ao root diameter (2D) 3.19 cm (2 - 3.7) Volumes/Mass Name Value Normal Range LA ESV SP 4CH (A/L) 58.57 ml - LA ESV SP 2CH (A/L) 86.64 ml - LA ESV BP (A/L) 74.92 ml - LA ESV BP (A/L) index 47.42 ml/m2 - LA ESV SP 4CH (MOD) 50.65 ml - LA ESV SP 2CH (MOD) 79.23 ml - LA ESV BP (MOD) 66.45 ml - LA ESV BP (MOD) index 42.06 ml/m2 - Diastolic/Systolic Function Name Value Normal Range MV E-wave Vmax 1.34 m/sec - MV deceleration time 244.33 msec - MV A-wave Vmax 0.98 m/sec - MV E:A ratio 1.36 ratio - Aortic Valve Name Value Normal Range AV Vmax 1.46 m/sec - AV VTI 38.18 cm - AV peak gradient 8.5 mmHg - AV mean gradient 4.47 mmHg - LVOT diameter 1.93 cm - LVOT Vmax 0.97 m/sec - LVOT VTI 27.7 cm - LVOT peak gradient 3.73 mmHg - LVOT mean gradient 2.13 mmHg - SV LVOT 80.99 ml - KENYA (continuity Vmax) 1.94 cm2 - KENYA (continuity VTI) 2.12 cm2 - Ascending Ao 2.04 cm - Tricuspid Valve Name Value Normal Range TR Vmax 3.3 m/sec - TR peak gradient 43 mmHg - RAP 8 mmHg - RVSP 51 mmHg - Pulmonic Valve/Qp:Qs Name Value Normal Range PV Vmax 1.02 m/sec - PV peak gradient 4.14 mmHg - CO end-diastolic Vmax 0.74 m/sec - PV acceleration time 68.51 msec - Lopez/IV: Voiding Method Incontinent IV Catheter Type [Right INT / Saline Lock Forearm] Active Medications - Current Medications Current Medications: Generic Name Dose Route Start Last Admin Trade Name Freq PRN Reason Stop Dose Admin Acetaminophen 650 mg 06/11/20 23:07 Tylenol PO Q4H PRN Pain MILD(1-3)/Fever >100.5/MENA Artificial Tears 2 drops 06/11/20 23:06 Isopto Tears 0.5% OU Q4H PRN Dry Eye(s) Aspirin 81 mg 06/12/20 10:00 06/15/20 10:43 Baby Aspirin PO 81 mg QDAY JULIETTE Administration Atorvastatin Calcium 40 mg 06/12/20 22:00 06/15/20 21:20 Lipitor PO 40 mg QHS JULIETTE Administration Clonidine HCl 0.3 mg 06/11/20 22:00 06/11/20 22:28 Catapres-Tts Patch TD 0.3 mg Farr JULIETTE Administration Clopidogrel Bisulfate 75 mg 06/12/20 10:00 06/15/20 10:43 Plavix PO 75 mg QDAY JULIETTE Administration Dextrose 50 ml 06/13/20 05:23 D50w (25gm) Syringe IV Q30MIN PRN Hypoglycemia Protocol Doxazosin Mesylate 2 mg 06/12/20 12:00 06/15/20 21:20 Cardura PO 2 mg BID JULIETTE Administration Ergocalciferol 50,000 unit 06/19/20 10:00 Vitamin D2 PO Mo JULIETTE Ferrous Sulfate 325 mg 06/12/20 10:00 06/15/20 10:43 Feosol PO 325 mg QDAY [facility] Administration Furosemide 20 mg 06/14/20 12:38 06/16/20 05:31 Lasix IV 20 mg 0600,1800 JULIETTE Administration Hydralazine HCl 25 mg 06/15/20 14:00 06/16/20 05:31 Apresoline PO 25 mg Q8HR [facility] Administration Hydromorphone HCl 0.5 mg 06/11/20 23:07 Dilaudid IV Q3H PRN Pain , Severe (7-10) Insulin Human Lispro 0 unit 06/13/20 07:30 06/15/20 22:00 Humalog SUB-Q Not Given ACHS [facility] Protocol Isosorbide Mononitrate 30 mg 06/12/20 10:00 06/15/20 10:43 Imdur PO 30 mg QDAY [facility] Administration Levothyroxine Sodium 25 mcg 06/12/20 06:00 06/16/20 05:31 Synthroid PO 25 mcg QAM@0600 [facility] Administration Nifedipine 90 mg 06/14/20 22:00 06/15/20 21:20 Procardia Xl PO 90 mg Q12HR JULIETTE Administration Nitroglycerin 0.4 mg 06/12/20 04:00 06/12/20 04:39 Nitrostat SL 0.4 mg .Q5MIN PRN Administration Chest Pain Ondansetron HCl 4 mg 06/11/20 23:07 Zofran IV Q8H PRN Nausea And Vomiting Oxycodone/Acetaminophen 1 tab 06/11/20 23:07 Percocet 5/325 PO Q6H PRN Pain, Moderate (4-6) Sertraline HCl 50 mg 06/12/20 10:00 06/15/20 10:42 Zoloft PO 50 mg QDAY JULIETTE Administration Sodium Chloride 10 ml 06/11/20 23:45 06/15/20 21:21 Sodium Chloride Flush Syringe 10 Ml IV 10 ml BID JULIETTE Administration Sodium Chloride 10 ml 06/11/20 23:07 Sodium Chloride Flush Syringe 10 Ml IV PRN PRN LINE FLUSH Valsartan 160 mg 06/14/20 13:00 06/15/20 10:42 Diovan PO 160 mg DAILY JULIETTE Administration Nutrition/Malnutrition Assess - Dietary Evaluation Nutrition/Malnutrition Findings: Nutrition Notes Start: 06/12/20 14:11 Freq: Status: Active Protocol: Document 06/14/20 14:50 LM (Rec: 06/14/20 14:52 LM [email or web address]) Nutrition Notes Initial or Follow up Brief Note Current Diagnosis CKD(stage I-IV),Coronary Artery Disease,Diabetes, Hypertension,Heart Failure, Hyperlipidemia Current Diet pureed with thin liq Labs/Tests Reviewed Pertinent Medications NS at 125ml/hr Height 5 ft Weight 61.4 kg Alvin Body Weight (kg) 45.45 BMI 26.4 Weight Status Overweight Subjective/Other Information Unable to reach pt salesforce consultant. Pt with no intakes in chart. Nutrition Intervention Follow-Up By: 06/16/20 Additional Comments F/U for PO/ONS intakes
[2020-06-16] MEDS: FERROUS SULFATE 325 MG TAB PO SCH (10:07)
[2020-06-16] MEDS: ASPIRIN 81 MG TAB CHEW PO SCH (10:07)
[2020-06-16] MEDS: NIFEdipine XL 90 MG TAB PO SCH ×2 (10:07→21:07)
[2020-06-16] MEDS: CLOPIDOGREL 75 MG TAB PO SCH (10:07)
[2020-06-16] MEDS: SERTRALINE 50 MG TAB PO SCH (10:07)
[2020-06-16] MEDS: VALSARTAN 160MG TAB PO SCH (10:08)
[2020-06-16] MEDS: DOXAZOSIN 1 MG TAB PO SCH ×2 (10:09→21:06)
--- NOTE | 2020-06-16 11:17 | Progress Note ---
Subjective Date of service: 06/16/20 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 Interval history: Subjective Date of service: 06/16/20 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 Interval history: Assessment and Plan - Patient Problems (1) Uncontrolled hypertension Current Visit: Yes Status: Acute Plan to address problem: BP improved but still elevated, increase nitrates and hydralazine BMP stable, still on valsartan started 2 days ago. Subjective Date of service: 06/16/20 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 Interval history: Patient appears frail, elderly and has multiple comorbidities. She is admitted with COPD exacerbation, but currently there is no acute respiratory distress. Will cont to adjust BP meds. Objective Vital Signs Temp Pulse Resp BP Pulse Ox 06/16/20 06:43 98.9 F 65 20 198/78 99 06/15/20 22:30 97.7 F 63 16 121/49 96 06/15/20 21:24 68 187/82 100 06/15/20 16:50 97.4 F L 72 17 129/64 100 - Physical Examination General: No Apparent Distress, Cachectic, Other (Frail, elderly, chronically ill-appearing) HEENT: Positive: PERRL Neck: Positive: neck supple Neuro: Positive: Weakness Extremities: Present: +1 Edema - Labs and Meds CBC 06/16/20 Range/Units 04:40 WBC 4.9 (4.5-11.0) K/mm3 RBC 3.34 L (3.65-5.03) M/mm3 Hgb 9.4 L (10.1-14.3) gm/dl Hct 29.7 L (30.3-42.9) % Plt Count 145 (140-440) K/mm3 Lymph # (Auto) 1.1 L (1.2-5.4) K/mm3 [place] # (Auto) 0.7 (0.0-0.8) K/mm3 Eos # (Auto) 0.2 (0.0-0.4) K/mm3 Baso # (Auto) 0.1 (0.0-0.1) K/mm3 Comprehensive Metabolic Panel 06/16/20 Range/Units 04:40 Sodium 142 (137-145) mmol/L Potassium 4.6 (3.6-5.0) mmol/L Chloride 101.1 (98-107) mmol/L Carbon Dioxide 34 H D (22-30) mmol/L BUN 66 H (7-17) mg/dL Creatinine 3.0 H (0.6-1.2) mg/dL Glucose 95 (65-100) mg/dL Calcium 8.9 (8.4-10.2) mg/dL - Imaging and Cardiology EKG: report reviewed (Sinus rhythm no acute ST-T wave changes)
--- NOTE | 2020-06-16 13:57 | Progress Note ---
Assessment and Plan CKD (chronic kidney disease) -Renal labs reviewed. Serum creatinine 3.0 today, yesterday's was 2.8 -Review of medical records shows baseline serum creatinine in 2018 was 2.2.-2.6. -Rising serum creatinine likely due to diuresis with Lasix and now on Diovan -On Lasix 20 mg IV BID, decreased from 60 mg dose. -Now on Diovan 160 mg po daily, may need to decrease dose if serum creatinine continues to rise -Renal ultrasound-No obstruction noted -Urine lytes- shows 6 grams of protein -UPEP and SPEP- pending -Obtain daily weights -Monitor I/O's daily -Avoid nephrotoxic agents -Continue to monitor renal function closely Acute exacerbation of CHF -On IV Lasix -On Diovan -Echocardiogram-EF 55-60% -Cardiology onboard Hypertension -Continue antihypertensives and adjust medications as necessary -Monitor blood pressures Subjective Date of service: 06/16/20 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 Non-communicative. No family at bedside. Objective - Vital Signs Vital signs: Vital Signs - 12hr 06/16/20 06:43 Temperature 98.9 F Pulse Rate 65 Respiratory 20 Rate Blood Pressure 198/78 O2 Sat by Pulse 99 Oximetry - General Appearance General appearance: chronically ill, fatigue EENT: ATNC Neck: no JVD, supple Respiratory: Present: Decreased Breath Sounds Cardiology: S1S2 Gastrointestinal: normoactive bowel sounds Integumentary: warm and dry Neurologic: confused Musculoskeletal: joint swelling - Lab 06/16/20 04:40 06/16/20 04:40 Most recent lab results Calcium 8.9 mg/dL (8.4-10.2) 06/16/20 04:40 Phosphorus 3.60 mg/dL (2.5-4.5) 06/13/20 05:19 Magnesium 2.20 mg/dL (1.7-2.3) 06/12/20 22:19 Urine Creatinine 22.7 mg/dL (0.1-20.0) H 06/12/20 Unknown Urine Sodium 121 mmol/L 06/12/20 Unknown Urine Total Protein 143 mg/dL (5-11.8) H 06/12/20 Unknown Medications & Allergies - Medications Allergies/Adverse Reactions: Allergies No Known Allergies Allergy (Verified 08/27/14 06:14) Home Medications: Home Medications Medication Instructions Recorded Confirmed Last Taken Type Levothyroxine [Synthroid] 25 mcg PO QAM 08/27/14 06/11/20 03/20/18 History hydrALAZINE [Apresoline TAB] 100 mg PO TID #90 tab 09/01/14 06/11/20 03/20/18 Rx Sertraline [Zoloft] 50 mg PO QDAY 11/05/14 06/11/20 03/20/18 History Terazosin (Nf) [Hytrin (Nf)] 5 mg PO QHS 08/19/17 06/11/20 Unknown History Aspirin [Aspirin BABY CHEW TAB] 81 mg PO QDAY tab.chew 08/21/17 06/11/20 Unknown Rx AtorvaSTATin [Lipitor] 40 mg PO QHS #30 tab 03/27/18 06/11/20 Unknown Rx Clopidogrel [Plavix] 75 mg PO QDAY #30 tablet 03/27/18 06/11/20 Unknown Rx Hypromellose [Isopto Tears 0.5%] 2 drops OU Q4H PRN bottle 03/27/18 06/11/20 Unknown Rx ISOSORBIDE MONOnitrate [Imdur ER] 30 mg PO QDAY #30 tablet 03/27/18 06/11/20 Unknown Rx amLODIPine 10 mg PO DAILY #30 tablet 03/27/18 06/11/20 Unknown Rx Ergocalciferol (Vitamin D2) 50,000 unit PO QDAY 06/11/20 06/11/20 Unknown History [Vitamin D2] Ferrous Sulfate [Feosol] 325 mg PO QDAY 06/11/20 06/11/20 Unknown History carvediloL [Coreg] 6.25 mg PO Q12HR 06/11/20 06/11/20 Unknown History Active Medications: Generic Name Dose Route Start Last Admin Trade Name Freq PRN Reason Stop Dose Admin Acetaminophen 650 mg 06/11/20 23:07 Tylenol PO Q4H PRN Pain MILD(1-3)/Fever >100.5/MENA Artificial Tears 2 drops 06/11/20 23:06 Isopto Tears 0.5% OU Q4H PRN Dry Eye(s) Aspirin 81 mg 06/12/20 10:00 06/16/20 10:07 Baby Aspirin PO 81 mg QDAY JULIETTE Administration Atorvastatin Calcium 40 mg 06/12/20 22:00 06/15/20 21:20 Lipitor PO 40 mg QHS JULIETTE Administration Clonidine HCl 0.3 mg 06/11/20 22:00 06/11/20 22:28 Catapres-Tts Patch TD 0.3 mg Farr JULIETTE Administration Clopidogrel Bisulfate 75 mg 06/12/20 10:00 06/16/20 10:07 Plavix PO 75 mg QDAY JULIETTE Administration Dextrose 50 ml 06/13/20 05:23 D50w (25gm) Syringe IV Q30MIN PRN Hypoglycemia Protocol Doxazosin Mesylate 2 mg 06/12/20 12:00 06/16/20 10:09 Cardura PO 2 mg BID JULIETTE Administration Ergocalciferol 50,000 unit 06/19/20 10:00 Vitamin D2 PO Mo [facility] Ferrous Sulfate 325 mg 06/12/20 10:00 06/16/20 10:07 Feosol PO 325 mg QDAY JULIETTE Administration Furosemide 20 mg 06/14/20 12:38 06/16/20 05:31 Lasix IV 20 mg 0600,1800 JULIETTE Administration Hydralazine HCl 50 mg 06/16/20 14:00 06/16/20 13:36 Apresoline PO 50 mg Q8HR JULIETTE Administration Hydromorphone HCl 0.5 mg 06/11/20 23:07 Dilaudid IV Q3H PRN Pain , Severe (7-10) Insulin Human Lispro 0 unit 06/13/20 07:30 06/16/20 11:30 Humalog SUB-Q Not Given ACHS [facility] Protocol Isosorbide Mononitrate 60 mg 06/16/20 12:00 06/16/20 12:00 Imdur PO 60 mg QDAY JULIETTE Administration Levothyroxine Sodium 25 mcg 06/12/20 06:00 06/16/20 05:31 Synthroid PO 25 mcg QAM@0600 JULIETTE Administration Nifedipine 90 mg 06/14/20 22:00 06/16/20 10:07 Procardia Xl PO 90 mg Q12HR JULIETTE Administration Nitroglycerin 0.4 mg 06/12/20 04:00 06/12/20 04:39 Nitrostat SL 0.4 mg .Q5MIN PRN Administration Chest Pain Ondansetron HCl 4 mg 06/11/20 23:07 Zofran IV Q8H PRN Nausea And Vomiting Oxycodone/Acetaminophen 1 tab 06/11/20 23:07 Percocet 5/325 PO Q6H PRN Pain, Moderate (4-6) Sertraline HCl 50 mg 06/12/20 10:00 06/16/20 10:07 Zoloft PO 50 mg QDAY JULIETTE Administration Sodium Chloride 10 ml 06/11/20 23:45 06/16/20 10:10 Sodium Chloride Flush Syringe 10 Ml IV 10 ml BID JULIETTE Administration Sodium Chloride 10 ml 06/11/20 23:07 Sodium Chloride Flush Syringe 10 Ml IV PRN PRN LINE FLUSH Valsartan 160 mg 06/14/20 13:00 06/16/20 10:08 Diovan PO 160 mg DAILY JULIETTE Administration
[2020-06-17] MEDS: hydrALAZINE 25 MG TAB PO SCH (05:45)
[2020-06-17] MEDS: LEVOTHYROXINE 25 MCG TAB PO SCH (05:45)
[2020-06-17] MEDS: FUROSEMIDE 20 MG/2 ML INJ IV SCH ×2 (05:45→18:44)
[2020-06-17 06:37] LABS: Calcium 8.7 mg/dL (8.4-10.2)
[2020-06-17 07:23] LABS: Albumin 3.3 g/dL (3.8-4.8); Gamma Globulin 2.1 g/dL (0.8-1.7)
[2020-06-17] MEDS: INSULIN LISPRO 100 UNIT/ML VIAL 3 mL SUB-Q SCH ×4 (07:30→22:00)
[2020-06-17] MEDS ORDERED: hydrALAZINE 25 MG TAB PO SCH (08:45)
--- NOTE | 2020-06-17 08:47 | Progress Note ---
Assessment and Plan Assessment and plan: -- Acute on chronic diastolic CHF (congestive heart failure) Bilateral edema on chest x-ray due to acute on chronic diastolic CHF Continue IV diuretics, beta-blockers, input output monitoring Low-sodium diet, fluid restriction Echocardiogram for LV function ejection fraction Cardiology following --Nonspecific elevated troponin; Due to NSTEMI type II, in the setting of chronic kidney disease Possible stress test versus heart cath if needed -- HTN (hypertension) Moderate control ,continue current antihypertensives And as needed hydralazine --History of coronary artery disease Continue isosorbide mono nitrate and aspirin Cardiology following 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 Echocardiogram revealed EF of 55 to 60%. Continue IV Lasix per nephrology and cardiology. Baseline creatinine in 2018 was 2.22.6. Renal ultrasound revealed no obstruction. UPEP and SPEP pending. Patient still exhibiting accelerated hypertension. Increase Procardia to 90 mg twice daily. 06/15/2020. Patient's blood pressure is better controlled with current medications. Recheck chest x-ray today and follow-up BnP. 06/16/2020. Patient's blood pressure still extremely labile. Patient currently with clonidine, Cardura, Procardia, isosorbide and hydralazine. Increase hydralazine to 75 mg 3 times daily. BNP greater than 13,000 and chest x-ray suggestive of heart failure. Defer to cardiology. Await PT recommendations for placement. 06/17/2020. Patient still with accelerated hypertension. Increase hydralazine to 100 mg 3 times daily. Continue isosorbide, clonidine, Cardura, valsartan and Procardia as well. Serum creatinine remains stable at 2.9. History Interval history: No new issues overnight. Hospitalist Physical - Constitutional Vitals: Temp Pulse Resp BP Pulse Ox 98.2 F 67 18 216/84 94 06/17/20 06:07 06/17/20 06:07 06/17/20 06:07 06/17/20 06:07 06/17/20 06:07 General appearance: Present: no acute distress, well-nourished - EENT Eyes: Present: PERRL, EOM intact ENT: hearing intact, clear oral mucosa, dentition normal - Neck Neck: Present: supple, normal ROM - Respiratory Respiratory effort: normal Respiratory: bilateral: CTA - Cardiovascular Rhythm: regular Heart Sounds: Present: S1 & S2. Absent: gallop, rub - Extremities Extremities: no ischemia, No edema, Full ROM - Abdominal General gastrointestinal: soft, non-tender, non-distended, normal bowel sounds - Integumentary Integumentary: Present: clear, warm, dry - Neurologic Neurologic: CNII-XII intact, moves all extremities HEART Score - HEART Score Age: > 65 Risk factors: > 3 risk factors or hx of atherosclerotic disease Troponin: Troponin T 0.125 ng/mL (0.00-0.029) H* 06/12/20 14:48 Troponin: < normal limit - Critical Actions Critical Actions: 4-6 pts:12-16.6% risk of adverse cardiac event. Should be admitted Results - Labs CBC & Chem 7: 06/16/20 04:40 06/17/20 05:11 Labs: Laboratory Last Values WBC 4.9 K/mm3 (4.5-11.0) 06/16/20 04:40 RBC 3.34 M/mm3 (3.65-5.03) L 06/16/20 04:40 Hgb 9.4 gm/dl (10.1-14.3) L 06/16/20 04:40 Hct 29.7 % (30.3-42.9) L 06/16/20 04:40 MCV 89 fl (79-97) 06/16/20 04:40 MCH 28 pg (28-32) 06/16/20 04:40 MCHC 32 % (30-34) 06/16/20 04:40 RDW 17.3 % (13.2-15.2) H 06/16/20 04:40 Plt Count 145 K/mm3 (140-440) 06/16/20 04:40 Lymph % (Auto) 23.5 % (13.4-35.0) 06/16/20 04:40 [place] % (Auto) 15.1 % (0.0-7.3) H 06/16/20 04:40 Eos % (Auto) 4.2 % (0.0-4.3) 06/16/20 04:40 Baso % (Auto) 1.3 % (0.0-1.8) 06/16/20 04:40 Lymph # (Auto) 1.1 K/mm3 (1.2-5.4) L 06/16/20 04:40 [place] # (Auto) 0.7 K/mm3 (0.0-0.8) 06/16/20 04:40 Eos # (Auto) 0.2 K/mm3 (0.0-0.4) 06/16/20 04:40 Baso # (Auto) 0.1 K/mm3 (0.0-0.1) 06/16/20 04:40 Add Manual Diff Complete 06/12/20 02:35 Total Counted 100 06/12/20 02:35 Seg Neutrophils % 55.9 % (40.0-70.0) 06/16/20 04:40 Seg Neuts % (Manual) 92.0 % (40.0-70.0) H 06/12/20 02:35 Band Neutrophils % 0 % 06/12/20 02:35 Lymphocytes % (Manual) 6.0 % (13.4-35.0) L 06/12/20 02:35 Reactive Lymphs % (Man) 0 % 06/12/20 02:35 Monocytes % (Manual) 2.0 % (0.0-7.3) 06/12/20 02:35 Eosinophils % (Manual) 0 % (0.0-4.3) 06/12/20 02:35 Basophils % (Manual) 0 % (0.0-1.8) 06/12/20 02:35 Metamyelocytes % 0 % 06/12/20 02:35 Myelocytes % 0 % 06/12/20 02:35 Promyelocytes % 0 % 06/12/20 02:35 Blast Cells % 0 % 06/12/20 02:35 Nucleated RBC % Not Reportable 06/12/20 02:35 Seg Neutrophils # 2.7 K/mm3 (1.8-7.7) 06/16/20 04:40 Seg Neutrophils # Man 4.1 K/mm3 (1.8-7.7) 06/12/20 02:35 Band Neutrophils # 0.0 K/mm3 06/12/20 02:35 Lymphocytes # (Manual) 0.3 K/mm3 (1.2-5.4) L 06/12/20 02:35 Abs React Lymphs (Man) 0.0 K/mm3 06/12/20 02:35 Monocytes # (Manual) 0.1 K/mm3 (0.0-0.8) 06/12/20 02:35 Eosinophils # (Manual) 0.0 K/mm3 (0.0-0.4) 06/12/20 02:35 Basophils # (Manual) 0.0 K/mm3 (0.0-0.1) 06/12/20 02:35 Metamyelocytes # 0.0 K/mm3 06/12/20 02:35 Myelocytes # 0.0 K/mm3 06/12/20 02:35 Promyelocytes # 0.0 K/mm3 06/12/20 02:35 Blast Cells # 0.0 K/mm3 06/12/20 02:35 WBC Morphology Not Reportable 06/12/20 02:35 Hypersegmented Neuts Not Reportable 06/12/20 02:35 Hyposegmented Neuts Not Reportable 06/12/20 02:35 Hypogranular Neuts Not Reportable 06/12/20 02:35 Smudge Cells Not Reportable 06/12/20 02:35 Toxic Granulation Not Reportable 06/12/20 02:35 Toxic Vacuolation Not Reportable 06/12/20 02:35 Dohle Bodies Not Reportable 06/12/20 02:35 Pelger-Huet Anomaly Not Reportable 06/12/20 02:35 Chanda Rods Not Reportable 06/12/20 02:35 Platelet Estimate Consistent w auto 06/12/20 02:35 Clumped Platelets Not Reportable 06/12/20 02:35 Plt Clumps, EDTA Not Reportable 06/12/20 02:35 Large Platelets Not Reportable 06/12/20 02:35 Giant Platelets Not Reportable 06/12/20 02:35 Platelet Satelliting Not Reportable 06/12/20 02:35 Plt Morphology Comment Not Reportable 06/12/20 02:35 RBC Morphology Not Reportable 06/12/20 02:35 Dimorphic RBCs Not Reportable 06/12/20 02:35 Polychromasia Not Reportable 06/12/20 02:35 Hypochromasia Few 06/12/20 02:35 Poikilocytosis Not Reportable 06/12/20 02:35 Anisocytosis 1+ 06/12/20 02:35 Microcytosis Not Reportable 06/12/20 02:35 Macrocytosis Not Reportable 06/12/20 02:35 Spherocytes Not Reportable 06/12/20 02:35 Pappenheimer Bodies Not Reportable 06/12/20 02:35 Sickle Cells Not Reportable 06/12/20 02:35 Target Cells Few 06/12/20 02:35 Tear Drop Cells Not Reportable 06/12/20 02:35 Ovalocytes Not Reportable 06/12/20 02:35 Helmet Cells Not Reportable 06/12/20 02:35 Phipps-Frankston Bodies Not Reportable 06/12/20 02:35 Greig Rings Not Reportable 06/12/20 02:35 Bacilio Cells Not Reportable 06/12/20 02:35 Bite Cells Not Reportable 06/12/20 02:35 Crenated Cell Not Reportable 06/12/20 02:35 Elliptocytes Not Reportable 06/12/20 02:35 Acanthocytes (Spur) Not Reportable 06/12/20 02:35 Rouleaux Not Reportable 06/12/20 02:35 Hemoglobin C Crystals Not Reportable 06/12/20 02:35 Schistocytes Not Reportable 06/12/20 02:35 Malaria parasites Not Reportable 06/12/20 02:35 Sulaiman Bodies Not Reportable 06/12/20 02:35 Hem Pathologist Commnt No 06/12/20 02:35 PT 14.7 Sec. (12.2-14.9) 06/11/20 14:41 INR 1.15 (0.87-1.13) H 06/11/20 14:41 Sodium 144 mmol/L (137-145) 06/17/20 05:11 Potassium 3.7 mmol/L (3.6-5.0) 06/17/20 05:11 Chloride 102.7 mmol/L (98-107) 06/17/20 05:11 Carbon Dioxide 34 mmol/L (22-30) H 06/17/20 05:11 Anion Gap 11 mmol/L 06/17/20 05:11 BUN 64 mg/dL (7-17) H 06/17/20 05:11 Creatinine 2.9 mg/dL (0.6-1.2) H 06/17/20 05:11 Estimated GFR 19 ml/min 06/17/20 05:11 BUN/Creatinine Ratio 22 % 06/17/20 05:11 Glucose 79 mg/dL (65-100) 06/17/20 05:11 POC Glucose 65 mg/dL (70-105) L 06/17/20 07:47 Hemoglobin A1c 6.0 % (4-6) 06/12/20 02:35 Lactic Acid 0.50 mmol/L (0.7-2.0) L 06/11/20 16:11 Calcium 8.7 mg/dL (8.4-10.2) 06/17/20 05:11 Phosphorus 3.60 mg/dL (2.5-4.5) 06/13/20 05:19 Magnesium 2.20 mg/dL (1.7-2.3) 06/12/20 22:19 Total Bilirubin 0.30 mg/dL (0.1-1.2) 06/12/20 02:35 AST 20 units/L (5-40) 06/12/20 02:35 ALT 9 units/L (7-56) 06/12/20 02:35 Alkaline Phosphatase 97 units/L (35-129) 06/12/20 02:35 Total Creatine Kinase 60 units/L (30-135) 06/11/20 14:41 Troponin T 0.125 ng/mL (0.00-0.029) H* 06/12/20 14:48 NT-Pro-B Natriuret Pep 68565 pg/mL (0-900) H 06/15/20 05:23 Serum Total Protein 7.2 g/dL (6.1-8.1) 06/13/20 09:41 Total Protein 8.3 g/dL (6.3-8.2) H 06/12/20 02:35 Albumin 3.3 g/dL (3.8-4.8) L 06/13/20 09:41 Albumin/Globulin Ratio 0.6 % 06/12/20 02:35 Ngpef-9-Hgsmuzelz 0.3 g/dL (0.2-0.3) 06/13/20 09:41 Tmswu-1-Dqkmxcdiv 0.7 g/dL (0.5-0.9) 06/13/20 09:41 Beta Globulins 0.5 g/dL (0.2-0.5) 06/13/20 09:41 Gamma Globulins 2.1 g/dL (0.8-1.7) H 06/13/20 09:41 Abnorm Protein Band 1 see below 06/13/20 09:41 PEP Interpretation see below H 06/13/20 09:41 Triglycerides 89 mg/dL (2-149) 06/11/20 14:41 Cholesterol 157 mg/dL (50-199) 06/11/20 14:41 LDL Cholesterol Direct 71 mg/dL (50-130) 06/11/20 14:41 HDL Cholesterol 75 mg/dL (40-59) H 06/11/20 14:41 Cholesterol/HDL Ratio 2.09 % 06/11/20 14:41 TSH 3.490 mlU/mL (0.270-4.200) 06/12/20 14:48 Urine Color Straw (Yellow) 06/12/20 12:47 Urine Turbidity Clear (Clear) 06/12/20 12:47 Urine pH 6.0 (5.0-7.0) 06/12/20 12:47 Ur Specific [place] 1.009 (1.003-1.030) 06/12/20 12:47 Urine Protein 100 mg/dl mg/dL (Negative) 06/12/20 12:47 Urine Glucose (UA) Neg mg/dL (Negative) 06/12/20 12:47 Urine Ketones Neg mg/dL (Negative) 06/12/20 12:47 Urine Blood Neg (Negative) 06/12/20 12:47 Urine Nitrite Neg (Negative) 06/12/20 12:47 Urine Bilirubin Neg (Negative) 06/12/20 12:47 Urine Urobilinogen < 2.0 mg/dL (<2.0) 06/12/20 12:47 Ur Leukocyte Esterase Neg (Negative) 06/12/20 12:47 Urine WBC (Auto) 3.0 /HPF (0.0-6.0) 06/12/20 12:47 Urine RBC (Auto) 2.0 /HPF (0.0-6.0) 06/12/20 12:47 U Epithel Cells (Auto) 2.0 /HPF (0-13.0) 06/12/20 12:47 Urine Bacteria (Auto) 1+ /HPF (Negative) 06/12/20 12:47 Urine Eosinophils None seen (None Seen) 06/12/20 Unknown Urine Creatinine 22.7 mg/dL (0.1-20.0) H 06/12/20 Unknown Protein/Creatinin Ratio 6.30 06/12/20 Unknown Urine Sodium 121 mmol/L 06/12/20 Unknown Urine Total Protein 143 mg/dL (5-11.8) H 06/12/20 Unknown Coronavirus (PCR) Negative (Negative) 06/12/20 Unknown Microbiology: Microbiology 06/11/20 16:11 Peripheral/Venous Blood Culture - Final NO GROWTH AFTER 5 DAYS 06/11/20 16:11 Peripheral/Venous Blood Culture - Final NO GROWTH AFTER 5 DAYS - Diagnostic Impressions Diagnostic Impressions: Echocardiogram 06/11/20 23:10 Transthoracic Echocardiogram Indication: CHF BP: 165/63 HR: 60 Conclusions *Global left ventricular systolic function is normal. *The estimated ejection fraction is 55-60%. *Mild to moderate concentric left ventricular hypertrophy is observed. *The left and right atria are both moderately dilated. *There is mild to moderate mitral regurgitation. *There is mild tricuspid regurgitation. *There is evidence of moderate pulmonary hypertension. *The right ventricular systolic pressure is calculated at 51 mmHg. *A left pleural effusion is present. *There is no significant pericardial effusion. Findings Left Ventricle: The left ventricular chamber size is normal. Mild to moderate concentric left ventricular hypertrophy is observed. Global left ventricular systolic function is normal. The estimated ejection fraction is 55-60%. Left Atrium: The left atrium is moderately dilated. Right Ventricle: The right ventricle is mildly dilated. The right ventricular global systolic function is mildly reduced. Right Atrium: The right atrium is moderately dilated. Aortic Valve: The aortic valve is trileaflet. The aortic valve leaflets are moderately thickened. There is trace of aortic regurgitation. There is no evidence of aortic stenosis. Mitral Valve: The mitral valve leaflets are moderately thickened. There is mild to moderate mitral regurgitation. There is no evidence of mitral stenosis. Tricuspid Valve: There is mild tricuspid regurgitation. The right ventricular systolic pressure is calculated at 51 mmHg. There is evidence of moderate pulmonary hypertension. Pulmonic Valve: There is trace pulmonic regurgitation. Pericardium: There is no pericardial effusion. A left pleural effusion is present. Aorta: There is no dilatation of the ascending aorta. There is no dilatation of the aortic root. Venous: The inferior vena cava appears normal in size. Measurements Chambers 2D Name Value Normal Range IVSd (2D) 1.07 cm (0.6 - 1.1) LVPWd (2D) 1.19 cm (0.6 - 1.1) LVIDd (2D) 4.34 cm (3.7 - 5.6) LVIDs (2D) 2.93 cm (2 - 3.8) LV FS (2D) 32.56 % - EF Teichholz (2D) 61.19 % - Ao root diameter (2D) 3.19 cm (2 - 3.7) Volumes/Mass Name Value Normal Range LA ESV SP 4CH (A/L) 58.57 ml - LA ESV SP 2CH (A/L) 86.64 ml - LA ESV BP (A/L) 74.92 ml - LA ESV BP (A/L) index 47.42 ml/m2 - LA ESV SP 4CH (MOD) 50.65 ml - LA ESV SP 2CH (MOD) 79.23 ml - LA ESV BP (MOD) 66.45 ml - LA ESV BP (MOD) index 42.06 ml/m2 - Diastolic/Systolic Function Name Value Normal Range MV E-wave Vmax 1.34 m/sec - MV deceleration time 244.33 msec - MV A-wave Vmax 0.98 m/sec - MV E:A ratio 1.36 ratio - Aortic Valve Name Value Normal Range AV Vmax 1.46 m/sec - AV VTI 38.18 cm - AV peak gradient 8.5 mmHg - AV mean gradient 4.47 mmHg - LVOT diameter 1.93 cm - LVOT Vmax 0.97 m/sec - LVOT VTI 27.7 cm - LVOT peak gradient 3.73 mmHg - LVOT mean gradient 2.13 mmHg - SV LVOT 80.99 ml - KENYA (continuity Vmax) 1.94 cm2 - KENYA (continuity VTI) 2.12 cm2 - Ascending Ao 2.04 cm - Tricuspid Valve Name Value Normal Range TR Vmax 3.3 m/sec - TR peak gradient 43 mmHg - RAP 8 mmHg - RVSP 51 mmHg - Pulmonic Valve/Qp:Qs Name Value Normal Range PV Vmax 1.02 m/sec - PV peak gradient 4.14 mmHg - ND end-diastolic Vmax 0.74 m/sec - PV acceleration time 68.51 msec - Lopez/IV: Voiding Method Incontinent IV Catheter Type [Right INT / Saline Lock Forearm] Active Medications - Current Medications Current Medications: Generic Name Dose Route Start Last Admin Trade Name Freq PRN Reason Stop Dose Admin Acetaminophen 650 mg 06/11/20 23:07 Tylenol PO Q4H PRN Pain MILD(1-3)/Fever >100.5/MENA Artificial Tears 2 drops 06/11/20 23:06 Isopto Tears 0.5% OU Q4H PRN Dry Eye(s) Aspirin 81 mg 06/12/20 10:00 06/16/20 10:07 Baby Aspirin PO 81 mg QDAY JULIETTE Administration Atorvastatin Calcium 40 mg 06/12/20 22:00 06/16/20 21:06 Lipitor PO 40 mg QHS JULIETTE Administration Clonidine HCl 0.3 mg 06/11/20 22:00 06/11/20 22:28 Catapres-Tts Patch TD 0.3 mg Farr JULIETTE Administration Clopidogrel Bisulfate 75 mg 06/12/20 10:00 06/16/20 10:07 Plavix PO 75 mg QDAY JULIETTE Administration Dextrose 50 ml 06/13/20 05:23 D50w (25gm) Syringe IV Q30MIN PRN Hypoglycemia Protocol Doxazosin Mesylate 2 mg 06/12/20 12:00 06/16/20 21:06 Cardura PO 2 mg BID JULIETTE Administration Ergocalciferol 50,000 unit 06/19/20 10:00 Vitamin D2 PO Mo JULIETTE Ferrous Sulfate 325 mg 06/12/20 10:00 06/16/20 10:07 Feosol PO 325 mg QDAY JULIETTE Administration Furosemide 20 mg 06/14/20 12:38 06/17/20 05:45 Lasix IV 20 mg 0600,1800 JULIETTE Administration Hydralazine HCl 50 mg 06/16/20 14:00 06/17/20 05:45 Apresoline PO 50 mg Q8HR JULIETTE Administration Hydromorphone HCl 0.5 mg 06/11/20 23:07 Dilaudid IV Q3H PRN Pain , Severe (7-10) Insulin Human Lispro 0 unit 06/13/20 07:30 06/17/20 07:30 Humalog SUB-Q Not Given ACHS [facility] Protocol Isosorbide Mononitrate 60 mg 06/16/20 12:00 06/16/20 12:00 Imdur PO 60 mg QDAY JULIETTE Administration Levothyroxine Sodium 25 mcg 06/12/20 06:00 06/17/20 05:45 Synthroid PO 25 mcg QAM@0600 JULIETTE Administration Nifedipine 90 mg 06/14/20 22:00 06/16/20 21:07 Procardia Xl PO 90 mg Q12HR JULIETTE Administration Nitroglycerin 0.4 mg 06/12/20 04:00 06/12/20 04:39 Nitrostat SL 0.4 mg .Q5MIN PRN Administration Chest Pain Ondansetron HCl 4 mg 06/11/20 23:07 Zofran IV Q8H PRN Nausea And Vomiting Oxycodone/Acetaminophen 1 tab 06/11/20 23:07 Percocet 5/325 PO Q6H PRN Pain, Moderate (4-6) Sertraline HCl 50 mg 06/12/20 10:00 06/16/20 10:07 Zoloft PO 50 mg QDAY JULIETTE Administration Sodium Chloride 10 ml 06/11/20 23:45 06/16/20 21:08 Sodium Chloride Flush Syringe 10 Ml IV 10 ml BID JULIETTE Administration Sodium Chloride 10 ml 06/11/20 23:07 Sodium Chloride Flush Syringe 10 Ml IV PRN PRN LINE FLUSH Valsartan 160 mg 06/14/20 13:00 06/16/20 10:08 Diovan PO 160 mg DAILY JULIETTE Administration Nutrition/Malnutrition Assess - Dietary Evaluation Nutrition/Malnutrition Findings: Nutrition Notes Start: 06/12/20 14:11 Freq: Status: Active Protocol: Document 06/16/20 11:08 (Rec: 06/16/20 11:26 [email or web address]) Nutrition Notes Initial or Follow up Reassessment Current Diagnosis CKD(stage I-IV),Coronary Artery Disease,Diabetes, Hypertension,Heart Failure, Hyperlipidemia Current Diet Pureed with thin liquids Labs/Tests Reviewed Pertinent Medications Sonia Feoskarlee Height 5 ft Weight 61.4 kg [place] Body Weight (kg) 45.45 BMI 26.4 Weight Status Overweight Subjective/Other Information FU for intakes. Per RN, pt ate 100% of breakfast and ONS. Pt with bilateral pulmonary edema, bilateral 1+ pitting on bilateral LE and stage 3 pressure ulcer on sacrum. Percent of energy/protein needs met: 100%/100% Burn Absent Trauma Absent Difficulty In Swallowing Minimum of two criteria No physical signs of malnutrition Fluid Accumulation Mild (non-severe) #2 Nutrition Diagnosis Increased nutrient needs ( specify in comment below) Comments: protein Etiology wound healing As Evidenced by Signs and Symptoms stage 3 pressure ulcer on sacrum #1 As Evidenced by Signs and Symptoms pt eating 100% of meals Diagnosis Progress(for reassessment Resolved documentation) Is patient on ventilator? No Is Patient Ambulatory and/or Out of Bed No REE-([place]-confined to bed) [phone] Calculation Used for Recommendations [facility] Additional Notes Protein: 55-77g (0.9-1.25g/kg) Fluid: 1 ml/kcal Nutrition Intervention Change Diet Order: Continue pureed Add Supplement/Snack (indicate name/kcal Nepro daily /protein ) Provides kCal: 425 Provides Protein (gm) 19 Goal #1 Meet at least 75% of energy and protein needs Follow-Up By: 06/22/20 Additional Comments FU for PO and ONS intakes
--- NOTE | 2020-06-17 08:54 | Progress Note ---
Assessment and Plan Volume overload - resolved Heart failure with a preserved ejection fraction COVID 19 test is negative Intermittent bradycardia seen on telemetry monitoring telemetry strips show mostly a sinus rhythm with first-degree AV block and cycles of second-degree Mobitz type I Wenckebach AV block and type II. Carvedilol, and Labetalol were discontinued TSH is 3.4 Pulmonary hypertension, moderate Chronic renal disease Hypertension Prior CVA Recommendations: Discontinue clonidine due to bradycardia Start minoxidil for blood pressure control Subjective Date of service: 06/17/20 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 Interval history: Patient is lying in bed, no distress Tele is showing episodes of second degree type I and type II AV block Objective Vital Signs Temp Pulse Pulse Resp BP BP Pulse Ox 06/17/20 06:07 98.2 F 67 18 216/84 94 06/17/20 05:45 67 216/84 06/16/20 23:39 98.1 F 56 L 20 219/83 97 06/16/20 22:00 62 06/16/20 21:06 62 218/98 06/16/20 21:05 62 218/98 06/16/20 21:00 61 218/98 97 06/16/20 17:09 97.8 F 60 20 122/51 97 06/16/20 15:37 59 L 122/45 98 - Physical Examination General: No Apparent Distress, Cachectic, Other (Frail, elderly, chronically ill-appearing) HEENT: Positive: PERRL Neck: Positive: neck supple Cardiac: Positive: Reg Rate and Rhythm Lungs: Positive: Normal Exam Neuro: Positive: Weakness Extremities: Present: +1 Edema - Labs and Meds Comprehensive Metabolic Panel 06/13/20 06/17/20 Range/Units 09:41 05:11 Sodium 144 (137-145) mmol/L Potassium 3.7 (3.6-5.0) mmol/L Chloride 102.7 (98-107) mmol/L Carbon Dioxide 34 H (22-30) mmol/L BUN 64 H (7-17) mg/dL Creatinine 2.9 H (0.6-1.2) mg/dL Glucose 79 (65-100) mg/dL Calcium 8.7 (8.4-10.2) mg/dL Albumin 3.3 L (3.8-4.8) g/dL - Imaging and Cardiology EKG: report reviewed (Sinus rhythm no acute ST-T wave changes)
[2020-06-17] MEDS: ASPIRIN 81 MG TAB CHEW PO SCH (09:59)
[2020-06-17] MEDS: SERTRALINE 50 MG TAB PO SCH (09:59)
[2020-06-17] MEDS: FERROUS SULFATE 325 MG TAB PO SCH (09:59)
[2020-06-17] MEDS: VALSARTAN 160MG TAB PO SCH (10:00)
[2020-06-17] MEDS: NIFEdipine XL 90 MG TAB PO SCH ×2 (10:01→22:39)
[2020-06-17] MEDS: DOXAZOSIN 1 MG TAB PO SCH ×2 (10:01→22:36)
[2020-06-17] MEDS: MINOXIDIL 2.5 MG TAB PO SCH ×2 (10:01→22:38)
[2020-06-17] MEDS: CLOPIDOGREL 75 MG TAB PO SCH (10:01)
--- NOTE | 2020-06-17 12:17 | Progress Note ---
Assessment and Plan CKD (chronic kidney disease) -Renal labs reviewed. Serum creatinine 2.9 today -Review of medical records shows baseline serum creatinine in 2018 was 2.2.-2.6. -Rising serum creatinine likely due to diuresis with Lasix and now on Diovan -On Lasix 20 mg IV BID, decreased from 60 mg dose. -Hold diovan due to high Cr. -Renal ultrasound-No obstruction noted -Urine lytes- shows 6 grams of protein -UPEP and SPEP- pending -Obtain daily weights -Monitor I/O's daily -Avoid nephrotoxic agents -Continue to monitor renal function closely Acute exacerbation of CHF -On IV Lasix -On Diovan -Echocardiogram-EF 55-60% -Cardiology onboard Hypertension -Continue antihypertensives and adjust medications as necessary -Monitor blood pressures Anemia: -Monitor Hg Subjective Date of service: 06/17/20 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 Interval history: Making urine. Objective - Exam Narrative Exam: General appearance: chronically ill, fatigue EENT: ATNC Neck: no JVD, supple Respiratory: Present: Decreased Breath Sounds Cardiology: S1S2 Gastrointestinal: normoactive bowel sounds Integumentary: warm and dry Neurologic: confused Musculoskeletal: joint swelling - Vital Signs Vital signs: Vital Signs - 12hr 06/17/20 06/17/20 06/17/20 05:45 06:07 10:00 Temperature 98.2 F Pulse Rate 67 67 Respiratory 18 Rate Blood Pressure 216/84 216/84 188/80 O2 Sat by Pulse 94 Oximetry - Lab 06/16/20 04:40 06/17/20 05:11 Most recent lab results Calcium 8.7 mg/dL (8.4-10.2) 06/17/20 05:11 Phosphorus 3.60 mg/dL (2.5-4.5) 06/13/20 05:19 Magnesium 2.20 mg/dL (1.7-2.3) 06/12/20 22:19 Urine Creatinine 22.7 mg/dL (0.1-20.0) H 06/12/20 Unknown Urine Sodium 121 mmol/L 06/12/20 Unknown Urine Total Protein 143 mg/dL (5-11.8) H 06/12/20 Unknown Medications & Allergies - Medications Allergies/Adverse Reactions: Allergies No Known Allergies Allergy (Verified 08/27/14 06:14) Home Medications: Home Medications Medication Instructions Recorded Confirmed Last Taken Type Levothyroxine [Synthroid] 25 mcg PO QAM 08/27/14 06/11/20 03/20/18 History hydrALAZINE [Apresoline TAB] 100 mg PO TID #90 tab 09/01/14 06/11/20 03/20/18 Rx Sertraline [Zoloft] 50 mg PO QDAY 11/05/14 06/11/20 03/20/18 History Terazosin (Nf) [Hytrin (Nf)] 5 mg PO QHS 08/19/17 06/11/20 Unknown History Aspirin [Aspirin BABY CHEW TAB] 81 mg PO QDAY tab.chew 08/21/17 06/11/20 Unknown Rx AtorvaSTATin [Lipitor] 40 mg PO QHS #30 tab 03/27/18 06/11/20 Unknown Rx Clopidogrel [Plavix] 75 mg PO QDAY #30 tablet 03/27/18 06/11/20 Unknown Rx Hypromellose [Isopto Tears 0.5%] 2 drops OU Q4H PRN bottle 03/27/18 06/11/20 Unknown Rx ISOSORBIDE MONOnitrate [Imdur ER] 30 mg PO QDAY #30 tablet 03/27/18 06/11/20 Unknown Rx amLODIPine 10 mg PO DAILY #30 tablet 03/27/18 06/11/20 Unknown Rx Ergocalciferol (Vitamin D2) 50,000 unit PO QDAY 06/11/20 06/11/20 Unknown History [Vitamin D2] Ferrous Sulfate [Feosol] 325 mg PO QDAY 06/11/20 06/11/20 Unknown History carvediloL [Coreg] 6.25 mg PO Q12HR 06/11/20 06/11/20 Unknown History Active Medications: Generic Name Dose Route Start Last Admin Trade Name Freq PRN Reason Stop Dose Admin Acetaminophen 650 mg 06/11/20 23:07 Tylenol PO Q4H PRN Pain MILD(1-3)/Fever >100.5/MENA Artificial Tears 2 drops 06/11/20 23:06 Isopto Tears 0.5% OU Q4H PRN Dry Eye(s) Aspirin 81 mg 06/12/20 10:00 06/17/20 09:59 Baby Aspirin PO 81 mg QDAY JULIETTE Administration Atorvastatin Calcium 40 mg 06/12/20 22:00 06/16/20 21:06 Lipitor PO 40 mg QHS JULIETTE Administration Clopidogrel Bisulfate 75 mg 06/12/20 10:00 06/17/20 10:01 Plavix PO 75 mg QDAY [facility] Administration Dextrose 50 ml 06/13/20 05:23 D50w (25gm) Syringe IV Q30MIN PRN Hypoglycemia Protocol Doxazosin Mesylate 2 mg 06/12/20 12:00 06/17/20 10:01 Cardura PO 2 mg BID JULIETTE Administration Ergocalciferol 50,000 unit 06/19/20 10:00 Vitamin D2 PO Mo JULIETTE Ferrous Sulfate 325 mg 06/12/20 10:00 06/17/20 09:59 Feosol PO 325 mg QDAY [facility] Administration Furosemide 20 mg 06/14/20 12:38 06/17/20 05:45 Lasix IV 20 mg 0600,1800 [facility] Administration Hydralazine HCl 100 mg 06/17/20 14:00 Apresoline PO Q8HR [facility] Hydromorphone HCl 0.5 mg 06/11/20 23:07 Dilaudid IV Q3H PRN Pain , Severe (7-10) Insulin Human Lispro 0 unit 06/13/20 07:30 06/17/20 07:30 Humalog SUB-Q Not Given ACHS [facility] Protocol Isosorbide Mononitrate 60 mg 06/16/20 12:00 06/17/20 10:01 Imdur PO 60 mg QDAY [facility] Administration Levothyroxine Sodium 25 mcg 06/12/20 06:00 06/17/20 05:45 Synthroid PO 25 mcg QAM@0600 [facility] Administration Minoxidil 2.5 mg 06/17/20 10:00 06/17/20 10:01 Loniten PO 2.5 mg Q12HR JULIETTE Administration Nifedipine 90 mg 06/14/20 22:00 06/17/20 10:01 Procardia Xl PO 90 mg Q12HR [facility] Administration Nitroglycerin 0.4 mg 06/12/20 04:00 06/12/20 04:39 Nitrostat SL 0.4 mg .Q5MIN PRN Administration Chest Pain Ondansetron HCl 4 mg 06/11/20 23:07 Zofran IV Q8H PRN Nausea And Vomiting Oxycodone/Acetaminophen 1 tab 06/11/20 23:07 Percocet 5/325 PO Q6H PRN Pain, Moderate (4-6) Sertraline HCl 50 mg 06/12/20 10:00 06/17/20 09:59 Zoloft PO 50 mg QDAY JULIETTE Administration Sodium Chloride 10 ml 06/11/20 23:45 06/17/20 10:02 Sodium Chloride Flush Syringe 10 Ml IV 10 ml BID JULIETTE Administration Sodium Chloride 10 ml 06/11/20 23:07 Sodium Chloride Flush Syringe 10 Ml IV PRN PRN LINE FLUSH Valsartan 160 mg 06/14/20 13:00 06/17/20 10:00 Diovan PO 160 mg DAILY JUILETTE Administration
[2020-06-17] MEDS: hydrALAZINE 100 MG TAB PO SCH ×2 (13:30→22:35)
[2020-06-18] MEDS: hydrALAZINE 100 MG TAB PO SCH ×3 (06:20→23:59)
[2020-06-18] MEDS: LEVOTHYROXINE 25 MCG TAB PO SCH (06:20)
[2020-06-18] MEDS: FUROSEMIDE 20 MG/2 ML INJ IV SCH ×2 (06:20→17:59)
[2020-06-18 06:40] LABS: Calcium 8.3 mg/dL (8.4-10.2)
[2020-06-18] MEDS: INSULIN LISPRO 100 UNIT/ML VIAL 3 mL SUB-Q SCH ×3 (07:30→16:30)
--- NOTE | 2020-06-18 09:06 | Progress Note ---
Assessment and Plan Volume overload - resolved Heart failure with a preserved ejection fraction COVID 19 test is negative Intermittent bradycardia seen on telemetry monitoring telemetry strips show mostly a sinus rhythm with first-degree AV block and cycles of second-degree Mobitz type I Wenckebach AV block. Carvedilol, clonidine and Labetalol were discontinued TSH is 3.4 Pulmonary hypertension, moderate Chronic renal disease Hypertension Prior CVA Recommendations: BP doing better on minoxidil Avoid clonidine, beta yuniel or non-dihydropyridine calcium channel blockers Subjective Date of service: 06/18/20 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 Interval history: No cardiac events overnight Tele showing first degree AV block with episodes of Wenckebach Objective Vital Signs Temp Pulse Resp BP Pulse Ox 06/18/20 05:28 98.2 F 65 18 153/50 95 06/17/20 23:24 98.6 F 66 20 172/61 94 06/17/20 22:36 67 154/63 06/17/20 16:19 98.5 F 63 18 140/50 96 06/17/20 13:15 98.8 F 61 18 143/55 100 06/17/20 10:00 188/80 - Physical Examination General: No Apparent Distress, Cachectic, Other (Frail, elderly, chronically ill-appearing) HEENT: Positive: PERRL Neck: Positive: neck supple Cardiac: Positive: Reg Rate and Rhythm Lungs: Positive: Normal Exam Neuro: Positive: Weakness Extremities: Present: +1 Edema - Labs and Meds Comprehensive Metabolic Panel 06/18/20 Range/Units 04:28 Sodium 143 (137-145) mmol/L Potassium 3.6 (3.6-5.0) mmol/L Chloride 102.6 (98-107) mmol/L Carbon Dioxide 32 H (22-30) mmol/L BUN 65 H (7-17) mg/dL Creatinine 3.2 H (0.6-1.2) mg/dL Glucose 109 H (65-100) mg/dL Calcium 8.3 L (8.4-10.2) mg/dL - Imaging and Cardiology EKG: report reviewed (Sinus rhythm no acute ST-T wave changes)
[2020-06-18] MEDS: DOXAZOSIN 1 MG TAB PO SCH (09:25)
[2020-06-18] MEDS: ASPIRIN 81 MG TAB CHEW PO SCH (09:25)
[2020-06-18] MEDS: FERROUS SULFATE 325 MG TAB PO SCH (09:25)
[2020-06-18] MEDS: CLOPIDOGREL 75 MG TAB PO SCH (09:26)
[2020-06-18] MEDS: NIFEdipine XL 90 MG TAB PO SCH (09:26)
[2020-06-18] MEDS: SERTRALINE 50 MG TAB PO SCH (09:26)
--- NOTE | 2020-06-18 09:46 | Progress Note ---
Assessment and Plan Assessment and plan: -- Acute on chronic diastolic CHF (congestive heart failure) Bilateral edema on chest x-ray due to acute on chronic diastolic CHF Continue IV diuretics, beta-blockers, input output monitoring Low-sodium diet, fluid restriction Echocardiogram for LV function ejection fraction Cardiology following --Nonspecific elevated troponin; Due to NSTEMI type II, in the setting of chronic kidney disease Possible stress test versus heart cath if needed -- HTN (hypertension) Moderate control ,continue current antihypertensives And as needed hydralazine --History of coronary artery disease Continue isosorbide mono nitrate and aspirin Cardiology following 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 Echocardiogram revealed EF of 55 to 60%. Continue IV Lasix per nephrology and cardiology. Baseline creatinine in 2018 was 2.22.6. Renal ultrasound revealed no obstruction. UPEP and SPEP pending. Patient still exhibiting accelerated hypertension. Increase Procardia to 90 mg twice daily. 06/15/2020. Patient's blood pressure is better controlled with current medications. Recheck chest x-ray today and follow-up BnP. 06/16/2020. Patient's blood pressure still extremely labile. Patient currently with clonidine, Cardura, Procardia, isosorbide and hydralazine. Increase hydralazine to 75 mg 3 times daily. BNP greater than 13,000 and chest x-ray suggestive of heart failure. Defer to cardiology. Await PT recommendations for placement. 06/17/2020. Patient still with accelerated hypertension. Increase hydralazine to 100 mg 3 times daily. Continue isosorbide, clonidine, Cardura, valsartan and Procardia as well. Serum creatinine remains stable at 2.9. 06/18/2020. Patient's blood pressure much better controlled. Continue current regimen of hydralazine, isosorbide, clonidine, Cardura and Procardia. Diovan held due to increased creatinine. Renal ultrasound revealed no evidence of obstruction. BNP greater than 13,000 and chest x-ray suggestive of heart failure. History Interval history: No new issues overnight. Hospitalist Physical - Constitutional Vitals: Temp Pulse Resp BP Pulse Ox 98.2 F 64 18 150/50 95 06/18/20 05:28 06/18/20 09:25 06/18/20 05:28 06/18/20 09:25 06/18/20 05:28 General appearance: Present: no acute distress, well-nourished - EENT Eyes: Present: PERRL, EOM intact ENT: hearing intact, clear oral mucosa, dentition normal - Neck Neck: Present: supple, normal ROM - Respiratory Respiratory effort: normal Respiratory: bilateral: CTA - Cardiovascular Rhythm: regular Heart Sounds: Present: S1 & S2. Absent: gallop, rub - Extremities Extremities: no ischemia, No edema, Full ROM - Abdominal General gastrointestinal: soft, non-tender, non-distended, normal bowel sounds - Integumentary Integumentary: Present: clear, warm, dry - Neurologic Neurologic: CNII-XII intact, moves all extremities HEART Score - HEART Score Age: > 65 Risk factors: > 3 risk factors or hx of atherosclerotic disease Troponin: Troponin T 0.125 ng/mL (0.00-0.029) H* 06/12/20 14:48 Troponin: < normal limit - Critical Actions Critical Actions: 4-6 pts:12-16.6% risk of adverse cardiac event. Should be admitted Results - Labs CBC & Chem 7: 06/16/20 04:40 06/18/20 04:28 Labs: Laboratory Last Values WBC 4.9 K/mm3 (4.5-11.0) 06/16/20 04:40 RBC 3.34 M/mm3 (3.65-5.03) L 06/16/20 04:40 Hgb 9.4 gm/dl (10.1-14.3) L 06/16/20 04:40 Hct 29.7 % (30.3-42.9) L 06/16/20 04:40 MCV 89 fl (79-97) 06/16/20 04:40 MCH 28 pg (28-32) 06/16/20 04:40 MCHC 32 % (30-34) 06/16/20 04:40 RDW 17.3 % (13.2-15.2) H 06/16/20 04:40 Plt Count 145 K/mm3 (140-440) 06/16/20 04:40 Lymph % (Auto) 23.5 % (13.4-35.0) 06/16/20 04:40 [place] % (Auto) 15.1 % (0.0-7.3) H 06/16/20 04:40 Eos % (Auto) 4.2 % (0.0-4.3) 06/16/20 04:40 Baso % (Auto) 1.3 % (0.0-1.8) 06/16/20 04:40 Lymph # (Auto) 1.1 K/mm3 (1.2-5.4) L 06/16/20 04:40 [place] # (Auto) 0.7 K/mm3 (0.0-0.8) 06/16/20 04:40 Eos # (Auto) 0.2 K/mm3 (0.0-0.4) 06/16/20 04:40 Baso # (Auto) 0.1 K/mm3 (0.0-0.1) 06/16/20 04:40 Add Manual Diff Complete 06/12/20 02:35 Total Counted 100 06/12/20 02:35 Seg Neutrophils % 55.9 % (40.0-70.0) 06/16/20 04:40 Seg Neuts % (Manual) 92.0 % (40.0-70.0) H 06/12/20 02:35 Band Neutrophils % 0 % 06/12/20 02:35 Lymphocytes % (Manual) 6.0 % (13.4-35.0) L 06/12/20 02:35 Reactive Lymphs % (Man) 0 % 06/12/20 02:35 Monocytes % (Manual) 2.0 % (0.0-7.3) 06/12/20 02:35 Eosinophils % (Manual) 0 % (0.0-4.3) 06/12/20 02:35 Basophils % (Manual) 0 % (0.0-1.8) 06/12/20 02:35 Metamyelocytes % 0 % 06/12/20 02:35 Myelocytes % 0 % 06/12/20 02:35 Promyelocytes % 0 % 06/12/20 02:35 Blast Cells % 0 % 06/12/20 02:35 Nucleated RBC % Not Reportable 06/12/20 02:35 Seg Neutrophils # 2.7 K/mm3 (1.8-7.7) 06/16/20 04:40 Seg Neutrophils # Man 4.1 K/mm3 (1.8-7.7) 06/12/20 02:35 Band Neutrophils # 0.0 K/mm3 06/12/20 02:35 Lymphocytes # (Manual) 0.3 K/mm3 (1.2-5.4) L 06/12/20 02:35 Abs React Lymphs (Man) 0.0 K/mm3 06/12/20 02:35 Monocytes # (Manual) 0.1 K/mm3 (0.0-0.8) 06/12/20 02:35 Eosinophils # (Manual) 0.0 K/mm3 (0.0-0.4) 06/12/20 02:35 Basophils # (Manual) 0.0 K/mm3 (0.0-0.1) 06/12/20 02:35 Metamyelocytes # 0.0 K/mm3 06/12/20 02:35 Myelocytes # 0.0 K/mm3 06/12/20 02:35 Promyelocytes # 0.0 K/mm3 06/12/20 02:35 Blast Cells # 0.0 K/mm3 06/12/20 02:35 WBC Morphology Not Reportable 06/12/20 02:35 Hypersegmented Neuts Not Reportable 06/12/20 02:35 Hyposegmented Neuts Not Reportable 06/12/20 02:35 Hypogranular Neuts Not Reportable 06/12/20 02:35 Smudge Cells Not Reportable 06/12/20 02:35 Toxic Granulation Not Reportable 06/12/20 02:35 Toxic Vacuolation Not Reportable 06/12/20 02:35 Dohle Bodies Not Reportable 06/12/20 02:35 Pelger-Huet Anomaly Not Reportable 06/12/20 02:35 Chanda Rods Not Reportable 06/12/20 02:35 Platelet Estimate Consistent w auto 06/12/20 02:35 Clumped Platelets Not Reportable 06/12/20 02:35 Plt Clumps, EDTA Not Reportable 06/12/20 02:35 Large Platelets Not Reportable 06/12/20 02:35 Giant Platelets Not Reportable 06/12/20 02:35 Platelet Satelliting Not Reportable 06/12/20 02:35 Plt Morphology Comment Not Reportable 06/12/20 02:35 RBC Morphology Not Reportable 06/12/20 02:35 Dimorphic RBCs Not Reportable 06/12/20 02:35 Polychromasia Not Reportable 06/12/20 02:35 Hypochromasia Few 06/12/20 02:35 Poikilocytosis Not Reportable 06/12/20 02:35 Anisocytosis 1+ 06/12/20 02:35 Microcytosis Not Reportable 06/12/20 02:35 Macrocytosis Not Reportable 06/12/20 02:35 Spherocytes Not Reportable 06/12/20 02:35 Pappenheimer Bodies Not Reportable 06/12/20 02:35 Sickle Cells Not Reportable 06/12/20 02:35 Target Cells Few 06/12/20 02:35 Tear Drop Cells Not Reportable 06/12/20 02:35 Ovalocytes Not Reportable 06/12/20 02:35 Helmet Cells Not Reportable 06/12/20 02:35 [place] Bodies Not Reportable 06/12/20 02:35 Mckenzie Rings Not Reportable 06/12/20 02:35 Bacilio Cells Not Reportable 06/12/20 02:35 Bite Cells Not Reportable 06/12/20 02:35 Crenated Cell Not Reportable 06/12/20 02:35 Elliptocytes Not Reportable 06/12/20 02:35 Acanthocytes (Spur) Not Reportable 06/12/20 02:35 Rouleaux Not Reportable 06/12/20 02:35 Hemoglobin C Crystals Not Reportable 06/12/20 02:35 Schistocytes Not Reportable 06/12/20 02:35 Malaria parasites Not Reportable 06/12/20 02:35 Sulaiman Bodies Not Reportable 06/12/20 02:35 Hem Pathologist Commnt No 06/12/20 02:35 PT 14.7 Sec. (12.2-14.9) 06/11/20 14:41 INR 1.15 (0.87-1.13) H 06/11/20 14:41 Sodium 143 mmol/L (137-145) 06/18/20 04:28 Potassium 3.6 mmol/L (3.6-5.0) 06/18/20 04:28 Chloride 102.6 mmol/L (98-107) 06/18/20 04:28 Carbon Dioxide 32 mmol/L (22-30) H 06/18/20 04:28 Anion Gap 12 mmol/L 06/18/20 04:28 BUN 65 mg/dL (7-17) H 06/18/20 04:28 Creatinine 3.2 mg/dL (0.6-1.2) H 06/18/20 04:28 Estimated GFR 17 ml/min 06/18/20 04:28 BUN/Creatinine Ratio 20 % 06/18/20 04:28 Glucose 109 mg/dL (65-100) H 06/18/20 04:28 POC Glucose 110 mg/dL (70-105) H 06/18/20 07:42 Hemoglobin A1c 6.0 % (4-6) 06/12/20 02:35 Lactic Acid 0.50 mmol/L (0.7-2.0) L 06/11/20 16:11 Calcium 8.3 mg/dL (8.4-10.2) L 06/18/20 04:28 Phosphorus 3.60 mg/dL (2.5-4.5) 06/13/20 05:19 Magnesium 2.20 mg/dL (1.7-2.3) 06/12/20 22:19 Total Bilirubin 0.30 mg/dL (0.1-1.2) 06/12/20 02:35 AST 20 units/L (5-40) 06/12/20 02:35 ALT 9 units/L (7-56) 06/12/20 02:35 Alkaline Phosphatase 97 units/L (35-129) 06/12/20 02:35 Total Creatine Kinase 60 units/L (30-135) 06/11/20 14:41 Troponin T 0.125 ng/mL (0.00-0.029) H* 06/12/20 14:48 NT-Pro-B Natriuret Pep 78252 pg/mL (0-900) H 06/15/20 05:23 Serum Total Protein 7.2 g/dL (6.1-8.1) 06/13/20 09:41 Total Protein 8.3 g/dL (6.3-8.2) H 06/12/20 02:35 Albumin 3.3 g/dL (3.8-4.8) L 06/13/20 09:41 Albumin/Globulin Ratio 0.6 % 06/12/20 02:35 Jwcrs-2-Mrdjtgrrm 0.3 g/dL (0.2-0.3) 06/13/20 09:41 Lcflh-6-Cugxomvrd 0.7 g/dL (0.5-0.9) 06/13/20 09:41 Beta Globulins 0.5 g/dL (0.2-0.5) 06/13/20 09:41 Gamma Globulins 2.1 g/dL (0.8-1.7) H 06/13/20 09:41 Abnorm Protein Band 1 see below 06/13/20 09:41 PEP Interpretation see below H 06/13/20 09:41 Triglycerides 89 mg/dL (2-149) 06/11/20 14:41 Cholesterol 157 mg/dL (50-199) 06/11/20 14:41 LDL Cholesterol Direct 71 mg/dL (50-130) 06/11/20 14:41 HDL Cholesterol 75 mg/dL (40-59) H 06/11/20 14:41 Cholesterol/HDL Ratio 2.09 % 06/11/20 14:41 TSH 3.490 mlU/mL (0.270-4.200) 06/12/20 14:48 Urine Color Straw (Yellow) 06/12/20 12:47 Urine Turbidity Clear (Clear) 06/12/20 12:47 Urine pH 6.0 (5.0-7.0) 06/12/20 12:47 Ur Specific [place] 1.009 (1.003-1.030) 06/12/20 12:47 Urine Protein 100 mg/dl mg/dL (Negative) 06/12/20 12:47 Urine Glucose (UA) Neg mg/dL (Negative) 06/12/20 12:47 Urine Ketones Neg mg/dL (Negative) 06/12/20 12:47 Urine Blood Neg (Negative) 06/12/20 12:47 Urine Nitrite Neg (Negative) 06/12/20 12:47 Urine Bilirubin Neg (Negative) 06/12/20 12:47 Urine Urobilinogen < 2.0 mg/dL (<2.0) 06/12/20 12:47 Ur Leukocyte Esterase Neg (Negative) 06/12/20 12:47 Urine WBC (Auto) 3.0 /HPF (0.0-6.0) 06/12/20 12:47 Urine RBC (Auto) 2.0 /HPF (0.0-6.0) 06/12/20 12:47 U Epithel Cells (Auto) 2.0 /HPF (0-13.0) 06/12/20 12:47 Urine Bacteria (Auto) 1+ /HPF (Negative) 06/12/20 12:47 Urine Eosinophils None seen (None Seen) 06/12/20 Unknown Urine Creatinine 22.7 mg/dL (0.1-20.0) H 06/12/20 Unknown Protein/Creatinin Ratio 6.30 06/12/20 Unknown Urine Sodium 121 mmol/L 06/12/20 Unknown Urine Total Protein 143 mg/dL (5-11.8) H 06/12/20 Unknown Coronavirus (PCR) Negative (Negative) 06/12/20 Unknown - Diagnostic Impressions Diagnostic Impressions: Echocardiogram 06/11/20 23:10 Transthoracic Echocardiogram Indication: CHF BP: 165/63 HR: 60 Conclusions *Global left ventricular systolic function is normal. *The estimated ejection fraction is 55-60%. *Mild to moderate concentric left ventricular hypertrophy is observed. *The left and right atria are both moderately dilated. *There is mild to moderate mitral regurgitation. *There is mild tricuspid regurgitation. *There is evidence of moderate pulmonary hypertension. *The right ventricular systolic pressure is calculated at 51 mmHg. *A left pleural effusion is present. *There is no significant pericardial effusion. Findings Left Ventricle: The left ventricular chamber size is normal. Mild to moderate concentric left ventricular hypertrophy is observed. Global left ventricular systolic function is normal. The estimated ejection fraction is 55-60%. Left Atrium: The left atrium is moderately dilated. Right Ventricle: The right ventricle is mildly dilated. The right ventricular global systolic function is mildly reduced. Right Atrium: The right atrium is moderately dilated. Aortic Valve: The aortic valve is trileaflet. The aortic valve leaflets are moderately thickened. There is trace of aortic regurgitation. There is no evidence of aortic stenosis. Mitral Valve: The mitral valve leaflets are moderately thickened. There is mild to moderate mitral regurgitation. There is no evidence of mitral stenosis. Tricuspid Valve: There is mild tricuspid regurgitation. The right ventricular systolic pressure is calculated at 51 mmHg. There is evidence of moderate pulmonary hypertension. Pulmonic Valve: There is trace pulmonic regurgitation. Pericardium: There is no pericardial effusion. A left pleural effusion is present. Aorta: There is no dilatation of the ascending aorta. There is no dilatation of the aortic root. Venous: The inferior vena cava appears normal in size. Measurements Chambers 2D Name Value Normal Range IVSd (2D) 1.07 cm (0.6 - 1.1) LVPWd (2D) 1.19 cm (0.6 - 1.1) LVIDd (2D) 4.34 cm (3.7 - 5.6) LVIDs (2D) 2.93 cm (2 - 3.8) LV FS (2D) 32.56 % - EF Teichholz (2D) 61.19 % - Ao root diameter (2D) 3.19 cm (2 - 3.7) Volumes/Mass Name Value Normal Range LA ESV SP 4CH (A/L) 58.57 ml - LA ESV SP 2CH (A/L) 86.64 ml - LA ESV BP (A/L) 74.92 ml - LA ESV BP (A/L) index 47.42 ml/m2 - LA ESV SP 4CH (MOD) 50.65 ml - LA ESV SP 2CH (MOD) 79.23 ml - LA ESV BP (MOD) 66.45 ml - LA ESV BP (MOD) index 42.06 ml/m2 - Diastolic/Systolic Function Name Value Normal Range MV E-wave Vmax 1.34 m/sec - MV deceleration time 244.33 msec - MV A-wave Vmax 0.98 m/sec - MV E:A ratio 1.36 ratio - Aortic Valve Name Value Normal Range AV Vmax 1.46 m/sec - AV VTI 38.18 cm - AV peak gradient 8.5 mmHg - AV mean gradient 4.47 mmHg - LVOT diameter 1.93 cm - LVOT Vmax 0.97 m/sec - LVOT VTI 27.7 cm - LVOT peak gradient 3.73 mmHg - LVOT mean gradient 2.13 mmHg - SV LVOT 80.99 ml - KENYA (continuity Vmax) 1.94 cm2 - KENYA (continuity VTI) 2.12 cm2 - Ascending Ao 2.04 cm - Tricuspid Valve Name Value Normal Range TR Vmax 3.3 m/sec - TR peak gradient 43 mmHg - RAP 8 mmHg - RVSP 51 mmHg - Pulmonic Valve/Qp:Qs Name Value Normal Range PV Vmax 1.02 m/sec - PV peak gradient 4.14 mmHg - NH end-diastolic Vmax 0.74 m/sec - PV acceleration time 68.51 msec - Lopez/IV: Voiding Method Incontinent IV Catheter Type [Right INT / Saline Lock Forearm] Active Medications - Current Medications Current Medications: Generic Name Dose Route Start Last Admin Trade Name Freq PRN Reason Stop Dose Admin Acetaminophen 650 mg 06/11/20 23:07 Tylenol PO Q4H PRN Pain MILD(1-3)/Fever >100.5/MENA Artificial Tears 2 drops 06/11/20 23:06 Isopto Tears 0.5% OU Q4H PRN Dry Eye(s) Aspirin 81 mg 06/12/20 10:00 06/18/20 09:25 Baby Aspirin PO 81 mg QDAY JULIETTE Administration Atorvastatin Calcium 40 mg 06/12/20 22:00 06/17/20 22:38 Lipitor PO 40 mg QHS JULIETTE Administration Clopidogrel Bisulfate 75 mg 06/12/20 10:00 06/18/20 09:26 Plavix PO 75 mg QDAY JULIETTE Administration Dextrose 50 ml 06/13/20 05:23 D50w (25gm) Syringe IV Q30MIN PRN Hypoglycemia Protocol Doxazosin Mesylate 2 mg 06/12/20 12:00 06/18/20 09:25 Cardura PO 2 mg BID JULIETTE Administration Ergocalciferol 50,000 unit 06/19/20 10:00 Vitamin D2 PO Mo JULIETTE Ferrous Sulfate 325 mg 06/12/20 10:00 06/18/20 09:25 Feosol PO 325 mg QDAY JULIETTE Administration Furosemide 20 mg 06/14/20 12:38 06/18/20 06:20 Lasix IV 20 mg 0600,1800 JULIETTE Administration Hydralazine HCl 100 mg 06/17/20 14:00 06/18/20 06:20 Apresoline PO 100 mg Q8HR JULIETTE Administration Hydromorphone HCl 0.5 mg 06/11/20 23:07 Dilaudid IV Q3H PRN Pain , Severe (7-10) Insulin Human Lispro 0 unit 06/13/20 07:30 06/18/20 07:30 Humalog SUB-Q Not Given ACHS [facility] Protocol Isosorbide Mononitrate 60 mg 06/16/20 12:00 06/18/20 09:26 Imdur PO 60 mg QDAY JULIETTE Administration Levothyroxine Sodium 25 mcg 06/12/20 06:00 06/18/20 06:20 Synthroid PO 25 mcg QAM@0600 JULIETTE Administration Minoxidil 2.5 mg 06/17/20 10:00 06/17/20 22:38 Loniten PO 2.5 mg Q12HR JULIETTE Administration Nifedipine 90 mg 06/14/20 22:00 06/18/20 09:26 Procardia Xl PO 90 mg Q12HR JULIETTE Administration Nitroglycerin 0.4 mg 06/12/20 04:00 06/12/20 04:39 Nitrostat SL 0.4 mg .Q5MIN PRN Administration Chest Pain Ondansetron HCl 4 mg 06/11/20 23:07 Zofran IV Q8H PRN Nausea And Vomiting Oxycodone/Acetaminophen 1 tab 06/11/20 23:07 Percocet 5/325 PO Q6H PRN Pain, Moderate (4-6) Sertraline HCl 50 mg 06/12/20 10:00 06/18/20 09:26 Zoloft PO 50 mg QDAY JULIETTE Administration Sodium Chloride 10 ml 06/11/20 23:45 06/17/20 22:40 Sodium Chloride Flush Syringe 10 Ml IV 10 ml BID JULIETTE Administration Sodium Chloride 10 ml 06/11/20 23:07 Sodium Chloride Flush Syringe 10 Ml IV PRN PRN LINE FLUSH Nutrition/Malnutrition Assess - Dietary Evaluation Nutrition/Malnutrition Findings: Nutrition Notes Start: 06/12/20 14:11 Freq: Status: Active Protocol: Document 06/16/20 11:08 (Rec: 06/16/20 11:26 [id number]) Nutrition Notes Initial or Follow up Reassessment Current Diagnosis CKD(stage I-IV),Coronary Artery Disease,Diabetes, Hypertension,Heart Failure, Hyperlipidemia Current Diet Pureed with thin liquids Labs/Tests Reviewed Pertinent Medications Sonia Fe[place]lee Height 5 ft Weight 61.4 kg [place] Body Weight (kg) 45.45 BMI 26.4 Weight Status Overweight Subjective/Other Information FU for intakes. Per RN, pt ate 100% of breakfast and ONS. Pt with bilateral pulmonary edema, bilateral 1+ pitting on bilateral LE and stage 3 pressure ulcer on sacrum. Percent of energy/protein needs met: 100%/100% Burn Absent Trauma Absent Difficulty In Swallowing Minimum of two criteria No physical signs of malnutrition Fluid Accumulation Mild (non-severe) #2 Nutrition Diagnosis Increased nutrient needs ( specify in comment below) Comments: protein Etiology wound healing As Evidenced by Signs and Symptoms stage 3 pressure ulcer on sacrum #1 As Evidenced by Signs and Symptoms pt eating 100% of meals Diagnosis Progress(for reassessment Resolved documentation) Is patient on ventilator? No Is Patient Ambulatory and/or Out of Bed No REE-([place] Jeor-confined to bed) [phone] Calculation [facility] Additional Notes Protein: 55-77g (0.9-1.25g/kg) Fluid: 1 ml/kcal Nutrition Intervention Change Diet Order: Continue pureed Add Supplement/Snack (indicate name/kcal Nepro daily /protein ) Provides kCal: 425 Provides Protein (gm) 19 Goal #1 Meet at least 75% of energy and protein needs Follow-Up By: 06/22/20 Additional Comments FU for PO and ONS intakes
[2020-06-18] MEDS: MINOXIDIL 2.5 MG TAB PO SCH (11:52)
--- NOTE | 2020-06-18 12:59 | Progress Note ---
Assessment and Plan CKD (chronic kidney disease) -Renal labs reviewed. Serum creatinine 3.2 today, monitor. -Review of medical records shows baseline serum creatinine in 2018 was 2.2.-2.6. -Rising serum creatinine likely due to diuresis with Lasix and now on Diovan -On Lasix 20 mg IV BID, decreased from 60 mg dose. -Hold diovan due to high Cr. -Renal ultrasound-No obstruction noted -Urine lytes- shows 6 grams of protein -UPEP and SPEP- pending -Obtain daily weights -Monitor I/O's daily -Avoid nephrotoxic agents -Continue to monitor renal function closely Acute exacerbation of CHF -On IV Lasix -On Diovan -Echocardiogram-EF 55-60% -Cardiology onboard Hypertension -Continue antihypertensives and adjust medications as necessary -Monitor blood pressures Anemia: -Monitor Hg Subjective Date of service: 06/18/20 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 Interval history: Making urine. Objective - Exam Narrative Exam: General appearance: chronically ill, fatigue EENT: ATNC Neck: no JVD, supple Respiratory: Present: Decreased Breath Sounds Cardiology: S1S2 Gastrointestinal: normoactive bowel sounds Integumentary: warm and dry Neurologic: confused Musculoskeletal: joint swelling - Vital Signs Vital signs: Vital Signs - 12hr 06/18/20 06/18/20 05:28 09:25 Temperature 98.2 F Pulse Rate 65 64 Respiratory 18 Rate Blood Pressure 153/50 150/50 O2 Sat by Pulse 95 Oximetry - Lab 06/16/20 04:40 06/18/20 04:28 Most recent lab results Calcium 8.3 mg/dL (8.4-10.2) L 06/18/20 04:28 Phosphorus 3.60 mg/dL (2.5-4.5) 06/13/20 05:19 Magnesium 2.20 mg/dL (1.7-2.3) 06/12/20 22:19 Urine Creatinine 22.7 mg/dL (0.1-20.0) H 06/12/20 Unknown Urine Sodium 121 mmol/L 06/12/20 Unknown Urine Total Protein 143 mg/dL (5-11.8) H 06/12/20 Unknown Medications & Allergies - Medications Allergies/Adverse Reactions: Allergies No Known Allergies Allergy (Verified 08/27/14 06:14) Home Medications: Home Medications Medication Instructions Recorded Confirmed Last Taken Type Levothyroxine [Synthroid] 25 mcg PO QAM 08/27/14 06/11/20 03/20/18 History hydrALAZINE [Apresoline TAB] 100 mg PO TID #90 tab 09/01/14 06/11/20 03/20/18 Rx Sertraline [Zoloft] 50 mg PO QDAY 11/05/14 06/11/20 03/20/18 History Terazosin (Nf) [Hytrin (Nf)] 5 mg PO QHS 08/19/17 06/11/20 Unknown History Aspirin [Aspirin BABY CHEW TAB] 81 mg PO QDAY tab.chew 08/21/17 06/11/20 Unknown Rx AtorvaSTATin [Lipitor] 40 mg PO QHS #30 tab 03/27/18 06/11/20 Unknown Rx Clopidogrel [Plavix] 75 mg PO QDAY #30 tablet 03/27/18 06/11/20 Unknown Rx Hypromellose [Isopto Tears 0.5%] 2 drops OU Q4H PRN bottle 03/27/18 06/11/20 Unknown Rx ISOSORBIDE MONOnitrate [Imdur ER] 30 mg PO QDAY #30 tablet 03/27/18 06/11/20 Unknown Rx amLODIPine 10 mg PO DAILY #30 tablet 03/27/18 06/11/20 Unknown Rx Ergocalciferol (Vitamin D2) 50,000 unit PO QDAY 06/11/20 06/11/20 Unknown History [Vitamin D2] Ferrous Sulfate [Feosol] 325 mg PO QDAY 06/11/20 06/11/20 Unknown History carvediloL [Coreg] 6.25 mg PO Q12HR 06/11/20 06/11/20 Unknown History Active Medications: Generic Name Dose Route Start Last Admin Trade Name Freq PRN Reason Stop Dose Admin Acetaminophen 650 mg 06/11/20 23:07 Tylenol PO Q4H PRN Pain MILD(1-3)/Fever >100.5/MENA Artificial Tears 2 drops 06/11/20 23:06 Isopto Tears 0.5% OU Q4H PRN Dry Eye(s) Aspirin 81 mg 06/12/20 10:00 06/18/20 09:25 Baby Aspirin PO 81 mg QDAY JULIETTE Administration Atorvastatin Calcium 40 mg 06/12/20 22:00 06/17/20 22:38 Lipitor PO 40 mg QHS JULIETTE Administration Clopidogrel Bisulfate 75 mg 06/12/20 10:00 06/18/20 09:26 Plavix PO 75 mg QDAY [facility] Administration Dextrose 50 ml 06/13/20 05:23 D50w (25gm) Syringe IV Q30MIN PRN Hypoglycemia Protocol Doxazosin Mesylate 2 mg 06/12/20 12:00 06/18/20 09:25 Cardura PO 2 mg BID JULIETTE Administration Ergocalciferol 50,000 unit 06/19/20 10:00 Vitamin D2 PO Mo [facility] Ferrous Sulfate 325 mg 06/12/20 10:00 06/18/20 09:25 Feosol PO 325 mg QDAY [facility] Administration Furosemide 20 mg 06/14/20 12:38 06/18/20 06:20 Lasix IV 20 mg 0600,1800 [facility] Administration Hydralazine HCl 100 mg 06/17/20 14:00 06/18/20 06:20 Apresoline PO 100 mg Q8HR JULIETTE Administration Hydromorphone HCl 0.5 mg 06/11/20 23:07 Dilaudid IV Q3H PRN Pain , Severe (7-10) Insulin Human Lispro 0 unit 06/13/20 07:30 06/18/20 07:30 Humalog SUB-Q Not Given ACHS [facility] Protocol Isosorbide Mononitrate 60 mg 06/16/20 12:00 06/18/20 09:26 Imdur PO 60 mg QDAY [facility] Administration Levothyroxine Sodium 25 mcg 06/12/20 06:00 06/18/20 06:20 Synthroid PO 25 mcg QAM@0600 [facility] Administration Minoxidil 2.5 mg 06/17/20 10:00 06/18/20 11:52 Loniten PO 2.5 mg Q12HR JULIETTE Administration Nifedipine 90 mg 06/14/20 22:00 06/18/20 09:26 Procardia Xl PO 90 mg Q12HR [facility] Administration Nitroglycerin 0.4 mg 06/12/20 04:00 06/12/20 04:39 Nitrostat SL 0.4 mg .Q5MIN PRN Administration Chest Pain Ondansetron HCl 4 mg 06/11/20 23:07 Zofran IV Q8H PRN Nausea And Vomiting Oxycodone/Acetaminophen 1 tab 06/11/20 23:07 Percocet 5/325 PO Q6H PRN Pain, Moderate (4-6) Sertraline HCl 50 mg 06/12/20 10:00 06/18/20 09:26 Zoloft PO 50 mg QDAY JUL[facility] Administration Sodium Chloride 10 ml 06/11/20 23:45 06/18/20 11:51 Sodium Chloride Flush Syringe 10 Ml IV 10 ml BID JUL[facility]ETTE Administration Sodium Chloride 10 ml 06/11/20 23:07 Sodium Chloride Flush Syringe 10 Ml IV PRN PRN LINE FLUSH
[2020-06-19] MEDS: DOXAZOSIN 1 MG TAB PO SCH ×3 (00:13→23:38)
[2020-06-19] MEDS: MINOXIDIL 2.5 MG TAB PO SCH ×3 (00:14→23:37)
[2020-06-19] MEDS: NIFEdipine XL 90 MG TAB PO SCH ×3 (00:14→23:37)
[2020-06-19] MEDS: INSULIN LISPRO 100 UNIT/ML VIAL 3 mL SUB-Q SCH ×5 (00:28→23:36)
[2020-06-19 05:11] LABS: Calcium 8.4 mg/dL (8.4-10.2)
[2020-06-19] MEDS: LEVOTHYROXINE 25 MCG TAB PO SCH (05:24)
[2020-06-19] MEDS: FUROSEMIDE 20 MG/2 ML INJ IV SCH ×2 (05:24→18:23)
[2020-06-19] MEDS: hydrALAZINE 100 MG TAB PO SCH ×2 (05:24→13:47)
--- NOTE | 2020-06-19 09:04 | Progress Note ---
Assessment and Plan Volume overload resolved Heart failure with a preserved ejection fraction COVID 19 test is negative Echo this presentation: normal left ventricular systolic function with ejection fraction 55 to 60%. There is evidence of cor pulmonale Intermittent bradycardia seen on telemetry monitoring 06/12 telemetry strips show mostly a sinus rhythm with first-degree AV block and cycles of second-degree Mobitz type I Wenckebach AV block. Carvedilol, Norvasc, Clonidine and Labetalol were discontinued TSH is 3.4 Cor-pulmonale Chronic renal disease Hypertension Prior CVA Continue current medical therapy. Otherwise, conservative cardiac management. Subjective Date of service: 06/19/20 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 Interval history: Patient is resting in bed comfortably. No distress noted. Blood pressure is now controlled, 131/55. Sinus rhythm with first degree AV block on telemetry. Objective Vital Signs Temp Pulse Resp BP BP Pulse Ox 06/19/20 07:00 80 06/19/20 03:53 97.7 F 98 H 18 131/55 98 06/19/20 00:13 73 115/43 06/18/20 23:11 97.2 F L 78 18 115/56 95 06/18/20 22:50 73 115/43 06/18/20 14:54 98.6 F 73 18 101/40 90 06/18/20 11:53 98.8 F 68 16 106/44 98 06/18/20 09:25 64 150/50 - Physical Examination General: No Apparent Distress, Cachectic, Other (Frail, elderly, chronically ill-appearing) HEENT: Positive: PERRL Neck: Positive: neck supple Cardiac: Positive: Reg Rate and Rhythm Lungs: Positive: Decreased Breath Sounds Neuro: Positive: Weakness Extremities: Absent: edema - Labs and Meds Comprehensive Metabolic Panel 06/19/20 Range/Units 04:17 Sodium 144 (137-145) mmol/L Potassium 4.1 (3.6-5.0) mmol/L Chloride 102.4 (98-107) mmol/L Carbon Dioxide 29 (22-30) mmol/L BUN 74 H (7-17) mg/dL Creatinine 3.5 H (0.6-1.2) mg/dL Glucose 156 H (65-100) mg/dL Calcium 8.4 (8.4-10.2) mg/dL
[2020-06-19] MEDS: FERROUS SULFATE 325 MG TAB PO SCH (09:25)
[2020-06-19] MEDS: SERTRALINE 50 MG TAB PO SCH (09:25)
[2020-06-19] MEDS: ASPIRIN 81 MG TAB CHEW PO SCH (09:25)
[2020-06-19] MEDS: ERGOCALCIFEROL (VIT D2) 50,000 UNIT CAP PO SCH (09:25)
[2020-06-19] MEDS: CLOPIDOGREL 75 MG TAB PO SCH (09:28)
--- NOTE | 2020-06-19 09:42 | Progress Note ---
Assessment and Plan Assessment and plan: -- Acute on chronic diastolic CHF (congestive heart failure) Bilateral edema on chest x-ray due to acute on chronic diastolic CHF Continue IV diuretics, beta-blockers, input output monitoring Low-sodium diet, fluid restriction Echocardiogram for LV function ejection fraction Cardiology following --Nonspecific elevated troponin; Due to NSTEMI type II, in the setting of chronic kidney disease Possible stress test versus heart cath if needed -- HTN (hypertension) Moderate control ,continue current antihypertensives And as needed hydralazine --History of coronary artery disease Continue isosorbide mono nitrate and aspirin Cardiology following 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 Echocardiogram revealed EF of 55 to 60%. Continue IV Lasix per nephrology and cardiology. Baseline creatinine in 2018 was 2.22.6. Renal ultrasound revealed no obstruction. UPEP and SPEP pending. Patient still exhibiting accelerated hypertension. Increase Procardia to 90 mg twice daily. 06/15/2020. Patient's blood pressure is better controlled with current medications. Recheck chest x-ray today and follow-up BnP. 06/16/2020. Patient's blood pressure still extremely labile. Patient currently with clonidine, Cardura, Procardia, isosorbide and hydralazine. Increase hydralazine to 75 mg 3 times daily. BNP greater than 13,000 and chest x-ray suggestive of heart failure. Defer to cardiology. Await PT recommendations for placement. 06/17/2020. Patient still with accelerated hypertension. Increase hydralazine to 100 mg 3 times daily. Continue isosorbide, clonidine, Cardura, valsartan and Procardia as well. Serum creatinine remains stable at 2.9. 06/18/2020. Patient's blood pressure much better controlled. Continue current regimen of hydralazine, isosorbide, clonidine, Cardura and Procardia. Diovan held due to increased creatinine. Renal ultrasound revealed no evidence of obstruction. BNP greater than 13,000 and chest x-ray suggestive of heart failure. 06/19/2020. Patient's blood pressure much better controlled. Continue current regimen of hydralazine, isosorbide, clonidine, Cardura and Procardia. Creatinine elevated at 3.5. Continue Lasix 20 mg IV twice daily for heart failure. Follow-up UPEP and SPEP. Continue daily weights, monitor I/O's daily, avoid nephrotoxic agents and follow-up BMP in a.m. History Interval history: No new issues overnight. Hospitalist Physical - Constitutional Vitals: Temp Pulse Resp BP Pulse Ox 97.7 F 80 18 131/55 98 06/19/20 03:53 06/19/20 07:00 06/19/20 03:53 06/19/20 03:53 06/19/20 03:53 General appearance: Present: no acute distress, well-nourished - EENT Eyes: Present: PERRL, EOM intact ENT: hearing intact, clear oral mucosa, dentition normal - Neck Neck: Present: supple, normal ROM - Respiratory Respiratory effort: normal Respiratory: bilateral: CTA - Cardiovascular Rhythm: regular Heart Sounds: Present: S1 & S2. Absent: gallop, rub - Extremities Extremities: no ischemia, No edema, Full ROM - Abdominal General gastrointestinal: soft, non-tender, non-distended, normal bowel sounds - Integumentary Integumentary: Present: clear, warm, dry - Neurologic Neurologic: CNII-XII intact, moves all extremities HEART Score - HEART Score Age: > 65 Risk factors: > 3 risk factors or hx of atherosclerotic disease Troponin: Troponin T 0.125 ng/mL (0.00-0.029) H* 06/12/20 14:48 Troponin: < normal limit - Critical Actions Critical Actions: 4-6 pts:12-16.6% risk of adverse cardiac event. Should be admitted Results - Labs CBC & Chem 7: 06/16/20 04:40 06/19/20 04:17 Labs: Laboratory Last Values WBC 4.9 K/mm3 (4.5-11.0) 06/16/20 04:40 RBC 3.34 M/mm3 (3.65-5.03) L 06/16/20 04:40 Hgb 9.4 gm/dl (10.1-14.3) L 06/16/20 04:40 Hct 29.7 % (30.3-42.9) L 06/16/20 04:40 MCV 89 fl (79-97) 06/16/20 04:40 MCH 28 pg (28-32) 06/16/20 04:40 MCHC 32 % (30-34) 06/16/20 04:40 RDW 17.3 % (13.2-15.2) H 06/16/20 04:40 Plt Count 145 K/mm3 (140-440) 06/16/20 04:40 Lymph % (Auto) 23.5 % (13.4-35.0) 06/16/20 04:40 [place] % (Auto) 15.1 % (0.0-7.3) H 06/16/20 04:40 Eos % (Auto) 4.2 % (0.0-4.3) 06/16/20 04:40 Baso % (Auto) 1.3 % (0.0-1.8) 06/16/20 04:40 Lymph # (Auto) 1.1 K/mm3 (1.2-5.4) L 06/16/20 04:40 [place] # (Auto) 0.7 K/mm3 (0.0-0.8) 06/16/20 04:40 Eos # (Auto) 0.2 K/mm3 (0.0-0.4) 06/16/20 04:40 Baso # (Auto) 0.1 K/mm3 (0.0-0.1) 06/16/20 04:40 Add Manual Diff Complete 06/12/20 02:35 Total Counted 100 06/12/20 02:35 Seg Neutrophils % 55.9 % (40.0-70.0) 06/16/20 04:40 Seg Neuts % (Manual) 92.0 % (40.0-70.0) H 06/12/20 02:35 Band Neutrophils % 0 % 06/12/20 02:35 Lymphocytes % (Manual) 6.0 % (13.4-35.0) L 06/12/20 02:35 Reactive Lymphs % (Man) 0 % 06/12/20 02:35 Monocytes % (Manual) 2.0 % (0.0-7.3) 06/12/20 02:35 Eosinophils % (Manual) 0 % (0.0-4.3) 06/12/20 02:35 Basophils % (Manual) 0 % (0.0-1.8) 06/12/20 02:35 Metamyelocytes % 0 % 06/12/20 02:35 Myelocytes % 0 % 06/12/20 02:35 Promyelocytes % 0 % 06/12/20 02:35 Blast Cells % 0 % 06/12/20 02:35 Nucleated RBC % Not Reportable 06/12/20 02:35 Seg Neutrophils # 2.7 K/mm3 (1.8-7.7) 06/16/20 04:40 Seg Neutrophils # Man 4.1 K/mm3 (1.8-7.7) 06/12/20 02:35 Band Neutrophils # 0.0 K/mm3 06/12/20 02:35 Lymphocytes # (Manual) 0.3 K/mm3 (1.2-5.4) L 06/12/20 02:35 Abs React Lymphs (Man) 0.0 K/mm3 06/12/20 02:35 Monocytes # (Manual) 0.1 K/mm3 (0.0-0.8) 06/12/20 02:35 Eosinophils # (Manual) 0.0 K/mm3 (0.0-0.4) 06/12/20 02:35 Basophils # (Manual) 0.0 K/mm3 (0.0-0.1) 06/12/20 02:35 Metamyelocytes # 0.0 K/mm3 06/12/20 02:35 Myelocytes # 0.0 K/mm3 06/12/20 02:35 Promyelocytes # 0.0 K/mm3 06/12/20 02:35 Blast Cells # 0.0 K/mm3 06/12/20 02:35 WBC Morphology Not Reportable 06/12/20 02:35 Hypersegmented Neuts Not Reportable 06/12/20 02:35 Hyposegmented Neuts Not Reportable 06/12/20 02:35 Hypogranular Neuts Not Reportable 06/12/20 02:35 Smudge Cells Not Reportable 06/12/20 02:35 Toxic Granulation Not Reportable 06/12/20 02:35 Toxic Vacuolation Not Reportable 06/12/20 02:35 Dohle Bodies Not Reportable 06/12/20 02:35 Pelger-Huet Anomaly Not Reportable 06/12/20 02:35 Chanda Rods Not Reportable 06/12/20 02:35 Platelet Estimate Consistent w auto 06/12/20 02:35 Clumped Platelets Not Reportable 06/12/20 02:35 Plt Clumps, EDTA Not Reportable 06/12/20 02:35 Large Platelets Not Reportable 06/12/20 02:35 Giant Platelets Not Reportable 06/12/20 02:35 Platelet Satelliting Not Reportable 06/12/20 02:35 Plt Morphology Comment Not Reportable 06/12/20 02:35 RBC Morphology Not Reportable 06/12/20 02:35 Dimorphic RBCs Not Reportable 06/12/20 02:35 Polychromasia Not Reportable 06/12/20 02:35 Hypochromasia Few 06/12/20 02:35 Poikilocytosis Not Reportable 06/12/20 02:35 Anisocytosis 1+ 06/12/20 02:35 Microcytosis Not Reportable 06/12/20 02:35 Macrocytosis Not Reportable 06/12/20 02:35 Spherocytes Not Reportable 06/12/20 02:35 Pappenheimer Bodies Not Reportable 06/12/20 02:35 Sickle Cells Not Reportable 06/12/20 02:35 Target Cells Few 06/12/20 02:35 Tear Drop Cells Not Reportable 06/12/20 02:35 Ovalocytes Not Reportable 06/12/20 02:35 Helmet Cells Not Reportable 06/12/20 02:35 [place] Bodies Not Reportable 06/12/20 02:[address] [place] [address] Rings Not Reportable 06/12/20 02:35 Bacilio Cells Not Reportable 06/12/20 02:35 Bite Cells Not Reportable 06/12/20 02:35 Crenated Cell Not Reportable 06/12/20 02:35 Elliptocytes Not Reportable 06/12/20 02:35 Acanthocytes (Spur) Not Reportable 06/12/20 02:35 Rouleaux Not Reportable 06/12/20 02:35 Hemoglobin C Crystals Not Reportable 06/12/20 02:35 Schistocytes Not Reportable 06/12/20 02:35 Malaria parasites Not Reportable 06/12/20 02:35 Sulaiman Bodies Not Reportable 06/12/20 02:35 Hem Pathologist Commnt No 06/12/20 02:35 PT 14.7 Sec. (12.2-14.9) 06/11/20 14:41 INR 1.15 (0.87-1.13) H 06/11/20 14:41 Sodium 144 mmol/L (137-145) 06/19/20 04:17 Potassium 4.1 mmol/L (3.6-5.0) 06/19/20 04:17 Chloride 102.4 mmol/L (98-107) 06/19/20 04:17 Carbon Dioxide 29 mmol/L (22-30) 06/19/20 04:17 Anion Gap 17 mmol/L 06/19/20 04:17 BUN 74 mg/dL (7-17) H 06/19/20 04:17 Creatinine 3.5 mg/dL (0.6-1.2) H 06/19/20 04:17 Estimated GFR 15 ml/min 06/19/20 04:17 BUN/Creatinine Ratio 21 % 06/19/20 04:17 Glucose 156 mg/dL (65-100) H 06/19/20 04:17 POC Glucose 156 mg/dL (70-105) H 06/19/20 08:04 Hemoglobin A1c 6.0 % (4-6) 06/12/20 02:35 Lactic Acid 0.50 mmol/L (0.7-2.0) L 06/11/20 16:11 Calcium 8.4 mg/dL (8.4-10.2) 06/19/20 04:17 Phosphorus 3.60 mg/dL (2.5-4.5) 06/13/20 05:19 Magnesium 2.20 mg/dL (1.7-2.3) 06/12/20 22:19 Total Bilirubin 0.30 mg/dL (0.1-1.2) 06/12/20 02:35 AST 20 units/L (5-40) 06/12/20 02:35 ALT 9 units/L (7-56) 06/12/20 02:35 Alkaline Phosphatase 97 units/L (35-129) 06/12/20 02:35 Total Creatine Kinase 60 units/L (30-135) 06/11/20 14:41 Troponin T 0.125 ng/mL (0.00-0.029) H* 06/12/20 14:48 NT-Pro-B Natriuret Pep 15957 pg/mL (0-900) H 06/15/20 05:23 Serum Total Protein 7.2 g/dL (6.1-8.1) 06/13/20 09:41 Total Protein 8.3 g/dL (6.3-8.2) H 06/12/20 02:35 Albumin 3.3 g/dL (3.8-4.8) L 06/13/20 09:41 Albumin/Globulin Ratio 0.6 % 06/12/20 02:35 Tdxxt-0-Uruiteuoa 0.3 g/dL (0.2-0.3) 06/13/20 09:41 Aecya-0-Pffgtttnm 0.7 g/dL (0.5-0.9) 06/13/20 09:41 Beta Globulins 0.5 g/dL (0.2-0.5) 06/13/20 09:41 Gamma Globulins 2.1 g/dL (0.8-1.7) H 06/13/20 09:41 Abnorm Protein Band 1 see below 06/13/20 09:41 PEP Interpretation see below H 06/13/20 09:41 Triglycerides 89 mg/dL (2-149) 06/11/20 14:41 Cholesterol 157 mg/dL (50-199) 06/11/20 14:41 LDL Cholesterol Direct 71 mg/dL (50-130) 06/11/20 14:41 HDL Cholesterol 75 mg/dL (40-59) H 06/11/20 14:41 Cholesterol/HDL Ratio 2.09 % 06/11/20 14:41 TSH 3.490 mlU/mL (0.270-4.200) 06/12/20 14:48 Urine Color Straw (Yellow) 06/12/20 12:47 Urine Turbidity Clear (Clear) 06/12/20 12:47 Urine pH 6.0 (5.0-7.0) 06/12/20 12:47 Ur Specific [place] 1.009 (1.003-1.030) 06/12/20 12:47 Urine Protein 100 mg/dl mg/dL (Negative) 06/12/20 12:47 Urine Glucose (UA) Neg mg/dL (Negative) 06/12/20 12:47 Urine Ketones Neg mg/dL (Negative) 06/12/20 12:47 Urine Blood Neg (Negative) 06/12/20 12:47 Urine Nitrite Neg (Negative) 06/12/20 12:47 Urine Bilirubin Neg (Negative) 06/12/20 12:47 Urine Urobilinogen < 2.0 mg/dL (<2.0) 06/12/20 12:47 Ur Leukocyte Esterase Neg (Negative) 06/12/20 12:47 Urine WBC (Auto) 3.0 /HPF (0.0-6.0) 06/12/20 12:47 Urine RBC (Auto) 2.0 /HPF (0.0-6.0) 06/12/20 12:47 U Epithel Cells (Auto) 2.0 /HPF (0-13.0) 06/12/20 12:47 Urine Bacteria (Auto) 1+ /HPF (Negative) 06/12/20 12:47 Urine Eosinophils None seen (None Seen) 06/12/20 Unknown Urine Creatinine 22.7 mg/dL (0.1-20.0) H 06/12/20 Unknown Protein/Creatinin Ratio 6.30 06/12/20 Unknown Urine Sodium 121 mmol/L 06/12/20 Unknown Urine Total Protein 143 mg/dL (5-11.8) H 06/12/20 Unknown Coronavirus (PCR) Negative (Negative) 06/12/20 Unknown - Diagnostic Impressions Diagnostic Impressions: Echocardiogram 06/11/20 23:10 Transthoracic Echocardiogram Indication: CHF BP: 165/63 HR: 60 Conclusions *Global left ventricular systolic function is normal. *The estimated ejection fraction is 55-60%. *Mild to moderate concentric left ventricular hypertrophy is observed. *The left and right atria are both moderately dilated. *There is mild to moderate mitral regurgitation. *There is mild tricuspid regurgitation. *There is evidence of moderate pulmonary hypertension. *The right ventricular systolic pressure is calculated at 51 mmHg. *A left pleural effusion is present. *There is no significant pericardial effusion. Findings Left Ventricle: The left ventricular chamber size is normal. Mild to moderate concentric left ventricular hypertrophy is observed. Global left ventricular systolic function is normal. The estimated ejection fraction is 55-60%. Left Atrium: The left atrium is moderately dilated. Right Ventricle: The right ventricle is mildly dilated. The right ventricular global systolic function is mildly reduced. Right Atrium: The right atrium is moderately dilated. Aortic Valve: The aortic valve is trileaflet. The aortic valve leaflets are moderately thickened. There is trace of aortic regurgitation. There is no evidence of aortic stenosis. Mitral Valve: The mitral valve leaflets are moderately thickened. There is mild to moderate mitral regurgitation. There is no evidence of mitral stenosis. Tricuspid Valve: There is mild tricuspid regurgitation. The right ventricular systolic pressure is calculated at 51 mmHg. There is evidence of moderate pulmonary hypertension. Pulmonic Valve: There is trace pulmonic regurgitation. Pericardium: There is no pericardial effusion. A left pleural effusion is present. Aorta: There is no dilatation of the ascending aorta. There is no dilatation of the aortic root. Venous: The inferior vena cava appears normal in size. Measurements Chambers 2D Name Value Normal Range IVSd (2D) 1.07 cm (0.6 - 1.1) LVPWd (2D) 1.19 cm (0.6 - 1.1) LVIDd (2D) 4.34 cm (3.7 - 5.6) LVIDs (2D) 2.93 cm (2 - 3.8) LV FS (2D) 32.56 % - EF Teichholz (2D) 61.19 % - Ao root diameter (2D) 3.19 cm (2 - 3.7) Volumes/Mass Name Value Normal Range LA ESV SP 4CH (A/L) 58.57 ml - LA ESV SP 2CH (A/L) 86.64 ml - LA ESV BP (A/L) 74.92 ml - LA ESV BP (A/L) index 47.42 ml/m2 - LA ESV SP 4CH (MOD) 50.65 ml - LA ESV SP 2CH (MOD) 79.23 ml - LA ESV BP (MOD) 66.45 ml - LA ESV BP (MOD) index 42.06 ml/m2 - Diastolic/Systolic Function Name Value Normal Range MV E-wave Vmax 1.34 m/sec - MV deceleration time 244.33 msec - MV A-wave Vmax 0.98 m/sec - MV E:A ratio 1.36 ratio - Aortic Valve Name Value Normal Range AV Vmax 1.46 m/sec - AV VTI 38.18 cm - AV peak gradient 8.5 mmHg - AV mean gradient 4.47 mmHg - LVOT diameter 1.93 cm - LVOT Vmax 0.97 m/sec - LVOT VTI 27.7 cm - LVOT peak gradient 3.73 mmHg - LVOT mean gradient 2.13 mmHg - SV LVOT 80.99 ml - KENYA (continuity Vmax) 1.94 cm2 - KENYA (continuity VTI) 2.12 cm2 - Ascending Ao 2.04 cm - Tricuspid Valve Name Value Normal Range TR Vmax 3.3 m/sec - TR peak gradient 43 mmHg - RAP 8 mmHg - RVSP 51 mmHg - Pulmonic Valve/Qp:Qs Name Value Normal Range PV Vmax 1.02 m/sec - PV peak gradient 4.14 mmHg - RI end-diastolic Vmax 0.74 m/sec - PV acceleration time 68.51 msec - Lopez/IV: Voiding Method Incontinent IV Catheter Type [Right INT / Saline Lock Forearm] Active Medications - Current Medications Current Medications: Generic Name Dose Route Start Last Admin Trade Name Freq PRN Reason Stop Dose Admin Acetaminophen 650 mg 06/11/20 23:07 Tylenol PO Q4H PRN Pain MILD(1-3)/Fever >100.5/MENA Artificial Tears 2 drops 06/11/20 23:06 Isopto Tears 0.5% OU Q4H PRN Dry Eye(s) Aspirin 81 mg 06/12/20 10:00 06/19/20 09:25 Baby Aspirin PO 81 mg QDAY JULIETTE Administration Atorvastatin Calcium 40 mg 06/12/20 22:00 06/18/20 22:54 Lipitor PO 40 mg QHS JULIETTE Administration Clopidogrel Bisulfate 75 mg 06/12/20 10:00 06/19/20 09:28 Plavix PO 75 mg QDAY JULIETTE Administration Dextrose 50 ml 06/13/20 05:23 D50w (25gm) Syringe IV Q30MIN PRN Hypoglycemia Protocol Doxazosin Mesylate 2 mg 06/12/20 12:00 06/19/20 09:24 Cardura PO 2 mg BID JULIETTE Administration Ergocalciferol 50,000 unit 06/19/20 10:00 06/19/20 09:25 Vitamin D2 PO 50,000 unit Mo JULIETTE Administration Ferrous Sulfate 325 mg 06/12/20 10:00 06/19/20 09:25 Feosol PO 325 mg QDAY JULIETTE Administration Furosemide 20 mg 06/14/20 12:38 06/19/20 05:24 Lasix IV 20 mg 0600,1800 JULIETTE Administration Hydralazine HCl 100 mg 06/17/20 14:00 06/19/20 05:24 Apresoline PO 100 mg Q8HR JULIETTE Administration Hydromorphone HCl 0.5 mg 06/11/20 23:07 Dilaudid IV Q3H PRN Pain , Severe (7-10) Insulin Human Lispro 0 unit 06/13/20 07:30 06/19/20 09:24 [facility]alog SUB[facility]Q [facility] Protocol Isosorbide Mononitrate 60 mg 06/16/20 12:00 06/19/20 09:25 Imdur PO 60 mg QDAY JULIETTE Administration Levothyroxine Sodium 25 mcg 06/12/20 06:00 06/19/20 05:24 Synthroid PO 25 mcg QAM@0600 JULIETTE Administration Minoxidil 2.5 mg 06/17/20 10:00 06/19/20 09:25 Loniten PO 2.5 mg Q12HR JULIETTE Administration Nifedipine 90 mg 06/14/20 22:00 06/19/20 09:25 Procardia Xl PO 90 mg Q12HR JULIETTE Administration Nitroglycerin 0.4 mg 06/12/20 04:00 06/12/20 04:39 Nitrostat SL 0.4 mg .Q5MIN PRN Administration Chest Pain Ondansetron HCl 4 mg 06/11/20 23:07 Zofran IV Q8H PRN Nausea And Vomiting Oxycodone/Acetaminophen 1 tab 06/11/20 23:07 Percocet 5/325 PO Q6H PRN Pain, Moderate (4-6) Sertraline HCl 50 mg 06/12/20 10:00 06/19/20 09:25 Zoloft PO 50 mg QDAY JULIETTE Administration Sodium Chloride 10 ml 06/11/20 23:45 06/19/20 09:25 Sodium Chloride Flush Syringe 10 Ml IV 10 ml BID JULIETTE Administration Sodium Chloride 10 ml 06/11/20 23:07 Sodium Chloride Flush Syringe 10 Ml IV PRN PRN LINE FLUSH Nutrition/Malnutrition Assess - Dietary Evaluation Nutrition/Malnutrition Findings: Nutrition Notes Start: 06/12/20 14:11 Freq: Status: Active Protocol: Document 06/16/20 11:08 ARIC (Rec: 06/16/20 11:26 ARIC [email or web address]) Nutrition Notes Initial or Follow up Reassessment Current Diagnosis CKD(stage I-IV),Coronary Artery Disease,Diabetes, Hypertension,Heart Failure, Hyperlipidemia Current Diet Pureed with thin liquids Labs/Tests Reviewed Pertinent Medications Sonia [place] Height 5 ft Weight 61.4 kg [place] Body Weight (kg) 45.45 BMI 26.4 Weight Status Overweight Subjective/Other Information FU for intakes. Per RN, pt ate 100% of breakfast and ONS. Pt with bilateral pulmonary edema, bilateral 1+ pitting on bilateral LE and stage 3 pressure ulcer on sacrum. Percent of energy/protein needs met: 100%/100% Burn Absent Trauma Absent Difficulty In Swallowing Minimum of two criteria No physical signs of malnutrition Fluid Accumulation Mild (non-severe) #2 Nutrition Diagnosis Increased nutrient needs ( specify in comment below) Comments: protein Etiology wound healing As Evidenced by Signs and Symptoms stage 3 pressure ulcer on sacrum #1 As Evidenced by Signs and Symptoms pt eating 100% of meals Diagnosis Progress(for reassessment Resolved documentation) Is patient on ventilator? No Is Patient Ambulatory and/or Out of Bed No REE-([facility]-confined to bed) [phone] Calculation Used for Recommendations [facility] Additional Notes Protein: 55-77g (0.9-1.25g/kg) Fluid: 1 ml/kcal Nutrition Intervention Change Diet Order: Continue pureed Add Supplement/Snack (indicate name/kcal Nepro daily /protein ) Provides kCal: 425 Provides Protein (gm) 19 Goal #1 Meet at least 75% of energy and protein needs Follow-Up By: 06/22/20 Additional Comments FU for PO and ONS intakes
--- NOTE | 2020-06-19 12:34 | Progress Note ---
Assessment and Plan CKD (chronic kidney disease) -Renal labs reviewed. Serum creatinine 3.5 today, yesterday's was 3.2 -Review of medical records shows baseline serum creatinine in 2018 was 2.2.-2.6. -Rising serum creatinine likely due to diuresis with Lasix and Diovan -On Lasix 20 mg IV BID, decreased from 60 mg dose -Diovan now on hold -Renal ultrasound-No obstruction noted -Urine lytes- shows 6 grams of protein -UPEP and SPEP- pending -Obtain daily weights -Monitor I/O's daily -Avoid nephrotoxic agents -Continue to monitor renal function closely -No acute indication for SIDE [employer] Acute exacerbation of CHF -On IV Lasix -Echocardiogram-EF 55-60% -Cardiology onboard Hypertension -Continue antihypertensives and adjust medications as necessary -Monitor blood pressures Subjective Date of service: 06/19/20 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 Non-communicative. No family at bedside. Objective - Vital Signs Vital signs: Vital Signs - 12hr 06/19/20 06/19/20 06/19/20 03:32 03:53 07:00 Temperature 97.7 F Pulse Rate 83 98 H 80 Respiratory 18 Rate Blood Pressure 131/45 Blood Pressure 131/55 [Left] O2 Sat by Pulse 96 98 Oximetry 06/19/20 06/19/20 09:29 12:05 Temperature 97.2 F L Pulse Rate 67 Respiratory 22 Rate Blood Pressure 112/44 103/42 Blood Pressure [Left] O2 Sat by Pulse 98 Oximetry - General Appearance General appearance: chronically ill, other (Has tongue protrusion ) EENT: ATNC Neck: no JVD Respiratory: Present: Decreased Breath Sounds Cardiology: S1S2 Gastrointestinal: normoactive bowel sounds Integumentary: warm and dry Neurologic: other (Does not follow commands) Musculoskeletal: joint swelling - Lab 06/16/20 04:40 06/19/20 04:17 Most recent lab results Calcium 8.4 mg/dL (8.4-10.2) 06/19/20 04:17 Phosphorus 3.60 mg/dL (2.5-4.5) 06/13/20 05:19 Magnesium 2.20 mg/dL (1.7-2.3) 06/12/20 22:19 Urine Creatinine 22.7 mg/dL (0.1-20.0) H 06/12/20 Unknown Urine Sodium 121 mmol/L 06/12/20 Unknown Urine Total Protein 143 mg/dL (5-11.8) H 06/12/20 Unknown Medications & Allergies - Medications Allergies/Adverse Reactions: Allergies No Known Allergies Allergy (Verified 08/27/14 06:14) Home Medications: Home Medications Medication Instructions Recorded Confirmed Last Taken Type Levothyroxine [Synthroid] 25 mcg PO QAM 08/27/14 06/11/20 03/20/18 History hydrALAZINE [Apresoline TAB] 100 mg PO TID #90 tab 09/01/14 06/11/20 03/20/18 Rx Sertraline [Zoloft] 50 mg PO QDAY 11/05/14 06/11/20 03/20/18 History Terazosin (Nf) [Hytrin (Nf)] 5 mg PO QHS 08/19/17 06/11/20 Unknown History Aspirin [Aspirin BABY CHEW TAB] 81 mg PO QDAY tab.chew 08/21/17 06/11/20 Unknown Rx AtorvaSTATin [Lipitor] 40 mg PO QHS #30 tab 03/27/18 06/11/20 Unknown Rx Clopidogrel [Plavix] 75 mg PO QDAY #30 tablet 03/27/18 06/11/20 Unknown Rx Hypromellose [Isopto Tears 0.5%] 2 drops OU Q4H PRN bottle 03/27/18 06/11/20 Unknown Rx ISOSORBIDE MONOnitrate [Imdur ER] 30 mg PO QDAY #30 tablet 03/27/18 06/11/20 Unknown Rx amLODIPine 10 mg PO DAILY #30 tablet 03/27/18 06/11/20 Unknown Rx Ergocalciferol (Vitamin D2) 50,000 unit PO QDAY 06/11/20 06/11/20 Unknown History [Vitamin D2] Ferrous Sulfate [Feosol] 325 mg PO QDAY 06/11/20 06/11/20 Unknown History carvediloL [Coreg] 6.25 mg PO Q12HR 06/11/20 06/11/20 Unknown History Active Medications: Generic Name Dose Route Start Last Admin Trade Name Freq PRN Reason Stop Dose Admin Acetaminophen 650 mg 06/11/20 23:07 Tylenol PO Q4H PRN Pain MILD(1-3)/Fever >100.5/MENA Artificial Tears 2 drops 06/11/20 23:06 Isopto Tears 0.5% OU Q4H PRN Dry Eye(s) Aspirin 81 mg 06/12/20 10:00 06/19/20 09:25 Baby Aspirin PO 81 mg QDAY JULIETTE Administration Atorvastatin Calcium 40 mg 06/12/20 22:00 06/18/20 22:54 Lipitor PO 40 mg QHS JULIETTE Administration Clopidogrel Bisulfate 75 mg 06/12/20 10:00 06/19/20 09:28 Plavix PO 75 mg QDAY JULIETTE Administration Dextrose 50 ml 06/13/20 05:23 D50w (25gm) Syringe IV Q30MIN PRN Hypoglycemia Protocol Doxazosin Mesylate 2 mg 06/12/20 12:00 06/19/20 09:24 Cardura PO 2 mg BID JULIETTE Administration Ergocalciferol 50,000 unit 06/19/20 10:00 06/19/20 09:25 Vitamin D2 PO 50,000 unit Mo JULIETTE Administration Ferrous Sulfate 325 mg 06/12/20 10:00 06/19/20 09:25 Feosol PO 325 mg QDAY JULIETTE Administration Furosemide 20 mg 06/14/20 12:38 06/19/20 05:24 Lasix IV 20 mg 0600,1800 JULIETTE Administration Hydralazine HCl 100 mg 06/17/20 14:00 06/19/20 05:24 Apresoline PO 100 mg Q8HR JULIETTE Administration Hydromorphone HCl 0.5 mg 06/11/20 23:07 Dilaudid IV Q3H PRN Pain , Severe (7-10) Insulin Human Lispro 0 unit 06/13/20 07:30 06/19/20 12:06 Humalog SUB-Q Not Given ACHS COUNTS INCLUDE 234 BEDS AT [facility] Protocol Isosorbide Mononitrate 60 mg 06/16/20 12:00 06/19/20 09:25 Imdur PO 60 mg QDAY JULIETTE Administration Levothyroxine Sodium 25 mcg 06/12/20 06:00 06/19/20 05:24 Synthroid PO 25 mcg QAM@0600 JULIETTE Administration Minoxidil 2.5 mg 06/17/20 10:00 06/19/20 09:25 Loniten PO 2.5 mg Q12HR JULIETTE Administration Nifedipine 90 mg 06/14/20 22:00 06/19/20 09:25 Procardia Xl PO 90 mg Q12HR JULIETTE Administration Nitroglycerin 0.4 mg 06/12/20 04:00 06/12/20 04:39 Nitrostat SL 0.4 mg .Q5MIN PRN Administration Chest Pain Ondansetron HCl 4 mg 06/11/20 23:07 Zofran IV Q8H PRN Nausea And Vomiting Oxycodone/Acetaminophen 1 tab 06/11/20 23:07 Percocet 5/325 PO Q6H PRN Pain, Moderate (4-6) Sertraline HCl 50 mg 06/12/20 10:00 06/19/20 09:25 Zoloft PO 50 mg QDAY JULIETTE Administration Sodium Chloride 10 ml 06/11/20 23:45 06/19/20 09:25 Sodium Chloride Flush Syringe 10 Ml IV 10 ml BID JULIETTE Administration Sodium Chloride 10 ml 06/11/20 23:07 Sodium Chloride Flush Syringe 10 Ml IV PRN PRN LINE FLUSH
[2020-06-19] MEDS: oxyCODONE /ACETAMINOPHEN 5-325MG TAB PO PRN (23:37)
[2020-06-20] MEDS: hydrALAZINE 100 MG TAB PO SCH ×4 (01:34→22:00)
[2020-06-20] MEDS: LEVOTHYROXINE 25 MCG TAB PO SCH (06:25)
[2020-06-20] MEDS: FUROSEMIDE 20 MG/2 ML INJ IV SCH (06:26)
--- NOTE | 2020-06-20 08:35 | Progress Note ---
Assessment and Plan CKD (chronic kidney disease) -labs are pending, no UOP recorded -Review of medical records shows baseline serum creatinine in 2018 was 2.2.-2.6. -Rising serum creatinine likely due to diuresis with Lasix and Diovan -On Lasix 20 mg IV BID -Diovan now on hold -Renal ultrasound-No obstruction noted -Urine lytes- shows 6 grams of protein -UPEP and SPEP- pending -Obtain daily weights -Monitor I/O's daily -Avoid nephrotoxic agents -Continue to monitor renal function closely -No acute indication for IMM[employer]RATION [employer] Acute exacerbation of CHF -On IV Lasix -Echocardiogram-EF 55-60% -Cardiology onboard Hypertension -Continue antihypertensives and adjust medications as necessary -Monitor blood pressures Subjective Date of service: 06/20/20 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 Interval history: no overnight events reported Objective - Vital Signs Vital signs: Vital Signs - 12hr 06/19/20 06/20/20 20:51 03:58 Temperature 98.5 F 98.7 F Pulse Rate 77 77 Respiratory 16 16 Rate Blood Pressure 128/48 121/39 O2 Sat by Pulse 97 97 Oximetry - Lab 06/16/20 04:40 06/19/20 04:17 Most recent lab results Calcium 8.4 mg/dL (8.4-10.2) 06/19/20 04:17 Phosphorus 3.60 mg/dL (2.5-4.5) 06/13/20 05:19 Magnesium 2.20 mg/dL (1.7-2.3) 06/12/20 22:19 Urine Creatinine 22.7 mg/dL (0.1-20.0) H 06/12/20 Unknown Urine Sodium 121 mmol/L 06/12/20 Unknown Urine Total Protein 143 mg/dL (5-11.8) H 06/12/20 Unknown Medications & Allergies - Medications Allergies/Adverse Reactions: Allergies No Known Allergies Allergy (Verified 08/27/14 06:14) Home Medications: Home Medications Medication Instructions Recorded Confirmed Last Taken Type Levothyroxine [Synthroid] 25 mcg PO QAM 08/27/14 06/11/20 03/20/18 History hydrALAZINE [Apresoline TAB] 100 mg PO TID #90 tab 09/01/14 06/11/20 03/20/18 Rx Sertraline [Zoloft] 50 mg PO QDAY 11/05/14 06/11/20 03/20/18 History Terazosin (Nf) [Hytrin (Nf)] 5 mg PO QHS 08/19/17 06/11/20 Unknown History Aspirin [Aspirin BABY CHEW TAB] 81 mg PO QDAY tab.chew 08/21/17 06/11/20 Unknown Rx AtorvaSTATin [Lipitor] 40 mg PO QHS #30 tab 03/27/18 06/11/20 Unknown Rx Clopidogrel [Plavix] 75 mg PO QDAY #30 tablet 03/27/18 06/11/20 Unknown Rx Hypromellose [Isopto Tears 0.5%] 2 drops OU Q4H PRN bottle 03/27/18 06/11/20 Unknown Rx ISOSORBIDE MONOnitrate [Imdur ER] 30 mg PO QDAY #30 tablet 03/27/18 06/11/20 Unknown Rx amLODIPine 10 mg PO DAILY #30 tablet 03/27/18 06/11/20 Unknown Rx Ergocalciferol (Vitamin D2) 50,000 unit PO QDAY 06/11/20 06/11/20 Unknown History [Vitamin D2] Ferrous Sulfate [Feosol] 325 mg PO QDAY 06/11/20 06/11/20 Unknown History carvediloL [Coreg] 6.25 mg PO Q12HR 06/11/20 06/11/20 Unknown History Active Medications: Generic Name Dose Route Start Last Admin Trade Name Freq PRN Reason Stop Dose Admin Acetaminophen 650 mg 06/11/20 23:07 Tylenol PO Q4H PRN Pain MILD(1-3)/Fever >100.5/MENA Artificial Tears 2 drops 06/11/20 23:06 Isopto Tears 0.5% OU Q4H PRN Dry Eye(s) Aspirin 81 mg 06/12/20 10:00 06/19/20 09:25 Baby Aspirin PO 81 mg QDAY JULIETTE Administration Atorvastatin Calcium 40 mg 06/12/20 22:00 06/19/20 23:38 Lipitor PO 40 mg QHS JULIETTE Administration Clopidogrel Bisulfate 75 mg 06/12/20 10:00 06/19/20 09:28 Plavix PO 75 mg QDAY JULIETTE Administration Dextrose 50 ml 06/13/20 05:23 D50w (25gm) Syringe IV Q30MIN PRN Hypoglycemia Protocol Doxazosin Mesylate 2 mg 06/12/20 12:00 06/19/20 23:38 Cardura PO Not Given BID [facility] Ergocalciferol 50,000 unit 06/19/20 10:00 06/19/20 09:25 Vitamin D2 PO 50,000 unit Mo [facility] Administration Ferrous Sulfate 325 mg 06/12/20 10:00 06/19/20 09:25 Feosol PO 325 mg QDAY [facility] Administration Furosemide 20 mg 06/14/20 12:38 06/20/20 06:26 Lasix IV Not Given 0600,1800 [facility] Hydralazine HCl 100 mg 06/17/20 14:00 06/20/20 06:26 Apresoline PO Not Given Q8HR [facility] Hydromorphone HCl 0.5 mg 06/11/20 23:07 Dilaudid IV Q3H PRN Pain , Severe (7-10) Insulin Human Lispro 0 unit 06/13/20 07:30 06/19/20 23:36 Humalog SUB-Q 2 unit ACHS [facility] Administration Protocol Isosorbide Mononitrate 60 mg 06/16/20 12:00 06/19/20 09:25 Imdur PO 60 mg QDAY [facility] Administration Levothyroxine Sodium 25 mcg 06/12/20 06:00 06/20/20 06:25 Synthroid PO 25 mcg QAM@0600 [facility] Administration Minoxidil 2.5 mg 06/17/20 10:00 06/19/20 23:37 Loniten PO 2.5 mg Q12HR [facility] Administration Nifedipine 90 mg 06/14/20 22:00 06/19/20 23:37 Procardia Xl PO 90 mg Q12HR [facility] Administration Nitroglycerin 0.4 mg 06/12/20 04:00 06/12/20 04:39 Nitrostat SL 0.4 mg .Q5MIN PRN Administration Chest Pain Ondansetron HCl 4 mg 06/11/20 23:07 Zofran IV Q8H PRN Nausea And Vomiting Oxycodone/Acetaminophen 1 tab 06/11/20 23:07 06/19/20 23:37 Percocet 5/325 PO 1 tab Q6H PRN Administration Pain, Moderate (4-6) Sertraline HCl 50 mg 06/12/20 10:00 06/19/20 09:25 Zoloft PO 50 mg QDAY JULIETTE Administration Sodium Chloride 10 ml 06/11/20 23:45 06/19/20 23:38 Sodium Chloride Flush Syringe 10 Ml IV 10 ml BID JULIETTE Administration Sodium Chloride 10 ml 06/11/20 23:07 Sodium Chloride Flush Syringe 10 Ml IV PRN PRN LINE FLUSH
[2020-06-20] MEDS: INSULIN LISPRO 100 UNIT/ML VIAL 3 mL SUB-Q SCH ×4 (09:01→22:43)
[2020-06-20 09:37] LABS: Calcium 8.5 mg/dL (8.4-10.2)
--- NOTE | 2020-06-20 09:42 | Progress Note ---
Assessment and Plan Volume overload -resolved Heart failure with a preserved ejection fraction COVID 19 test is negative Echo this presentation: normal left ventricular systolic function with ejection fraction 55 to 60%. There is evidence of cor pulmonale Intermittent bradycardia seen on telemetry monitoring 06/12 telemetry strips show mostly a sinus rhythm with first-degree AV block and cycles of second-degree Mobitz type I Wenckebach AV block. Carvedilol, Norvasc, Clonidine and Labetalol were discontinued TSH is 3.4 Cor-pulmonale Chronic renal disease Hypertension Prior CVA Continue current medical therapy. Otherwise, conservative cardiac management. 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 No cardiac complaints. Blood pressure is controlled. Sinus rhythm with first degree AV block on telemetry. Objective Vital Signs Temp Pulse Resp BP Pulse Ox 06/20/20 03:58 98.7 F 77 16 121/39 97 06/19/20 20:51 98.5 F 77 16 128/48 97 06/19/20 18:07 97.4 F L 77 22 137/53 92 06/19/20 15:00 75 06/19/20 12:05 97.2 F L 67 22 103/42 98 - Physical Examination General: No Apparent Distress, Cachectic, Other (Frail, elderly, chronically ill-appearing) HEENT: Positive: PERRL Neck: Positive: neck supple Cardiac: Positive: Reg Rate and Rhythm Lungs: Positive: Decreased Breath Sounds Neuro: Positive: Weakness Extremities: Absent: edema - Labs and Meds Comprehensive Metabolic Panel 06/20/20 Range/Units 06:31 Sodium 142 (137-145) mmol/L Potassium 4.2 (3.6-5.0) mmol/L Chloride 101.4 (98-107) mmol/L Carbon Dioxide 34 H (22-30) mmol/L BUN 86 H (7-17) mg/dL Creatinine 4.6 H (0.6-1.2) mg/dL Glucose 131 H (65-100) mg/dL Calcium 8.5 (8.4-10.2) mg/dL
[2020-06-20] MEDS: CLOPIDOGREL 75 MG TAB PO SCH (10:59)
[2020-06-20] MEDS: NIFEdipine XL 90 MG TAB PO SCH ×2 (10:59→21:54)
[2020-06-20] MEDS: SERTRALINE 50 MG TAB PO SCH (10:59)
[2020-06-20] MEDS: FERROUS SULFATE 325 MG TAB PO SCH (10:59)
[2020-06-20] MEDS: ASPIRIN 81 MG TAB CHEW PO SCH (10:59)
[2020-06-20] MEDS: MINOXIDIL 2.5 MG TAB PO SCH ×2 (10:59→21:54)
[2020-06-20] MEDS: DOXAZOSIN 1 MG TAB PO SCH ×2 (11:00→21:54)
--- NOTE | 2020-06-20 11:54 | Progress Note ---
Assessment and Plan Assessment and plan: -- Acute on chronic diastolic CHF (congestive heart failure) Bilateral edema on chest x-ray due to acute on chronic diastolic CHF Continue beta-blockers. Hold Lasix due to bump in creatinine Low-sodium diet, fluid restriction Echocardiogram for LV function ejection fraction-EF 55 to 60% Cardiology following --Nonspecific elevated troponin; Due to NSTEMI type II, in the setting of chronic kidney disease Possible stress test versus heart cath if needed -- HTN (hypertension) Moderate control ,continue current antihypertensives And as needed hydralazine --History of coronary artery disease Continue isosorbide mono nitrate and aspirin Cardiology following Acute kidney injury on CKD 4 (chronic kidney disease) Due to vasomotor nephropathy Hold Lasix. Start gentle Nephrology following Monitor renal function, avoid nephrotoxins -- DVT prophylaxis On heparin and GI prophylaxis Closely monitor the patient and adjust management as needed Plan of care reviewed with the patient and the nurse Cardiology consult noted and appreciated 06/14/2020. Echocardiogram revealed EF of 55 to 60%. Continue IV Lasix per nephrology and cardiology. Baseline creatinine in 2018 was 2.22.6. Renal ultrasound revealed no obstruction. UPEP and SPEP pending. Patient still exhibiting accelerated hypertension. Increase Procardia to 90 mg twice daily. 06/15/2020. Patient's blood pressure is better controlled with current medications. Recheck chest x-ray today and follow-up BnP. 06/16/2020. Patient's blood pressure still extremely labile. Patient currently with clonidine, Cardura, Procardia, isosorbide and hydralazine. Increase hydralazine to 75 mg 3 times daily. BNP greater than 13,000 and chest x-ray suggestive of heart failure. Defer to cardiology. Await PT recommendations for placement. 06/17/2020. Patient still with accelerated hypertension. Increase hydralazine to 100 mg 3 times daily. Continue isosorbide, clonidine, Cardura, valsartan and Procardia as well. Serum creatinine remains stable at 2.9. 06/18/2020. Patient's blood pressure much better controlled. Continue current regimen of hydralazine, isosorbide, clonidine, Cardura and Procardia. Diovan held due to increased creatinine. Renal ultrasound revealed no evidence of obstruction. BNP greater than 13,000 and chest x-ray suggestive of heart failure. 06/19/2020. Patient's blood pressure much better controlled. Continue current regimen of hydralazine, isosorbide, clonidine, Cardura and Procardia. Creatinine elevated at 3.5. Continue Lasix 20 mg IV twice daily for heart failure. Follow-up UPEP and SPEP. Continue daily weights, monitor I/O's daily, avoid nephrotoxic agents and follow-up BMP in a.m. 06/20/2020. Renal function continues to worsen. Creatinine 4.6 this morning. Hold Lasix for now. Started on gentle IV hydration. Nephrology is following. Avoid nephrotoxic medications. Cardiology recommendations appreciated History Interval history: No acute issues overnight Hospitalist Physical - Physical exam Narrative exam: VITAL SIGNS: Reviewed. GENERAL: Awake and alert on response to questions intermittently HEAD: No signs of head trauma. EYES: Pupils are equal. Extraocular motions intact. EARS: Hearing grossly intact. MOUTH: Oropharynx is normal. NECK: No adenopathy, no JVD. CHEST: Chest with diminished breath sounds bilaterally. No wheezes, rales, or rhonchi. CARDIAC: Regular rate and rhythm. S1 and S2, without murmurs, gallops, or rubs. VASCULAR: No Edema. Peripheral pulses normal and equal in all extremities. ABDOMEN: Soft, non tender and non distended. No rebound or guarding, and no masses palpated. Bowel Sounds normal. MUSCULOSKELETAL: Good range of motion of all major joints. Extremities without clubbing, cyanosis or edema. NEUROLOGIC EXAM: Alert and oriented in person. No focal neurologic deficits PSYCHIATRIC: Stable mood SKIN: No obvious lesions - Constitutional Vitals: Temp Pulse Resp BP Pulse Ox 98.7 F 77 16 121/39 97 06/20/20 03:58 06/20/20 03:58 06/20/20 03:58 06/20/20 03:58 06/20/20 03:58 HEART Score - HEART Score Age: > 65 Risk factors: > 3 risk factors or hx of atherosclerotic disease Troponin: Troponin T 0.125 ng/mL (0.00-0.029) H* 06/12/20 14:48 Troponin: < normal limit - Critical Actions Critical Actions: 4-6 pts:12-16.6% risk of adverse cardiac event. Should be admitted Results - Labs CBC & Chem 7: 06/16/20 04:40 06/20/20 06:31 Labs: Laboratory Last Values WBC 4.9 K/mm3 (4.5-11.0) 06/16/20 04:40 RBC 3.34 M/mm3 (3.65-5.03) L 06/16/20 04:40 Hgb 9.4 gm/dl (10.1-14.3) L 06/16/20 04:40 Hct 29.7 % (30.3-42.9) L 06/16/20 04:40 MCV 89 fl (79-97) 06/16/20 04:40 MCH 28 pg (28-32) 06/16/20 04:40 MCHC 32 % (30-34) 06/16/20 04:40 RDW 17.3 % (13.2-15.2) H 06/16/20 04:40 Plt Count 145 K/mm3 (140-440) 06/16/20 04:40 Lymph % (Auto) 23.5 % (13.4-35.0) 06/16/20 04:40 [place] % (Auto) 15.1 % (0.0-7.3) H 06/16/20 04:40 Eos % (Auto) 4.2 % (0.0-4.3) 06/16/20 04:40 Baso % (Auto) 1.3 % (0.0-1.8) 06/16/20 04:40 Lymph # (Auto) 1.1 K/mm3 (1.2-5.4) L 06/16/20 04:40 [place] # (Auto) 0.7 K/mm3 (0.0-0.8) 06/16/20 04:40 Eos # (Auto) 0.2 K/mm3 (0.0-0.4) 06/16/20 04:40 Baso # (Auto) 0.1 K/mm3 (0.0-0.1) 06/16/20 04:40 Add Manual Diff Complete 06/12/20 02:35 Total Counted 100 06/12/20 02:35 Seg Neutrophils % 55.9 % (40.0-70.0) 06/16/20 04:40 Seg Neuts % (Manual) 92.0 % (40.0-70.0) H 06/12/20 02:35 Band Neutrophils % 0 % 06/12/20 02:35 Lymphocytes % (Manual) 6.0 % (13.4-35.0) L 06/12/20 02:35 Reactive Lymphs % (Man) 0 % 06/12/20 02:35 Monocytes % (Manual) 2.0 % (0.0-7.3) 06/12/20 02:35 Eosinophils % (Manual) 0 % (0.0-4.3) 06/12/20 02:35 Basophils % (Manual) 0 % (0.0-1.8) 06/12/20 02:35 Metamyelocytes % 0 % 06/12/20 02:35 Myelocytes % 0 % 06/12/20 02:35 Promyelocytes % 0 % 06/12/20 02:35 Blast Cells % 0 % 06/12/20 02:35 Nucleated RBC % Not Reportable 06/12/20 02:35 Seg Neutrophils # 2.7 K/mm3 (1.8-7.7) 06/16/20 04:40 Seg Neutrophils # Man 4.1 K/mm3 (1.8-7.7) 06/12/20 02:35 Band Neutrophils # 0.0 K/mm3 06/12/20 02:35 Lymphocytes # (Manual) 0.3 K/mm3 (1.2-5.4) L 06/12/20 02:35 Abs React Lymphs (Man) 0.0 K/mm3 06/12/20 02:35 Monocytes # (Manual) 0.1 K/mm3 (0.0-0.8) 06/12/20 02:35 Eosinophils # (Manual) 0.0 K/mm3 (0.0-0.4) 06/12/20 02:35 Basophils # (Manual) 0.0 K/mm3 (0.0-0.1) 06/12/20 02:35 Metamyelocytes # 0.0 K/mm3 06/12/20 02:35 Myelocytes # 0.0 K/mm3 06/12/20 02:35 Promyelocytes # 0.0 K/mm3 06/12/20 02:35 Blast Cells # 0.0 K/mm3 06/12/20 02:35 WBC Morphology Not Reportable 06/12/20 02:35 Hypersegmented Neuts Not Reportable 06/12/20 02:35 Hyposegmented Neuts Not Reportable 06/12/20 02:35 Hypogranular Neuts Not Reportable 06/12/20 02:35 Smudge Cells Not Reportable 06/12/20 02:35 Toxic Granulation Not Reportable 06/12/20 02:35 Toxic Vacuolation Not Reportable 06/12/20 02:35 Dohle Bodies Not Reportable 06/12/20 02:35 Pelger-Huet Anomaly Not Reportable 06/12/20 02:35 Chanda Rods Not Reportable 06/12/20 02:35 Platelet Estimate Consistent w auto 06/12/20 02:35 Clumped Platelets Not Reportable 06/12/20 02:35 Plt Clumps, EDTA Not Reportable 06/12/20 02:35 Large Platelets Not Reportable 06/12/20 02:35 Giant Platelets Not Reportable 06/12/20 02:35 Platelet Satelliting Not Reportable 06/12/20 02:35 Plt Morphology Comment Not Reportable 06/12/20 02:35 RBC Morphology Not Reportable 06/12/20 02:35 Dimorphic RBCs Not Reportable 06/12/20 02:35 Polychromasia Not Reportable 06/12/20 02:35 Hypochromasia Few 06/12/20 02:35 Poikilocytosis Not Reportable 06/12/20 02:35 Anisocytosis 1+ 06/12/20 02:35 Microcytosis Not Reportable 06/12/20 02:35 Macrocytosis Not Reportable 06/12/20 02:35 Spherocytes Not Reportable 06/12/20 02:35 Pappenheimer Bodies Not Reportable 06/12/20 02:35 Sickle Cells Not Reportable 06/12/20 02:35 Target Cells Few 06/12/20 02:35 Tear Drop Cells Not Reportable 06/12/20 02:35 Ovalocytes Not Reportable 06/12/20 02:35 Helmet Cells Not Reportable 06/12/20 02:35 Phipps-[place] Bodies Not Reportable 06/12/20 02:35 Trail Rings Not Reportable 06/12/20 02:35 [place] Cells Not Reportable 06/12/20 02:35 Bite Cells Not Reportable 06/12/20 02:35 Crenated Cell Not Reportable 06/12/20 02:35 Elliptocytes Not Reportable 06/12/20 02:35 Acanthocytes (Spur) Not Reportable 06/12/20 02:35 Rouleaux Not Reportable 06/12/20 02:35 Hemoglobin C Crystals Not Reportable 06/12/20 02:35 Schistocytes Not Reportable 06/12/20 02:35 Malaria parasites Not Reportable 06/12/20 02:35 Sulaiman Bodies Not Reportable 06/12/20 02:35 Hem Pathologist Commnt No 06/12/20 02:35 PT 14.7 Sec. (12.2-14.9) 06/11/20 14:41 INR 1.15 (0.87-1.13) H 06/11/20 14:41 Sodium 142 mmol/L (137-145) 06/20/20 06:31 Potassium 4.2 mmol/L (3.6-5.0) 06/20/20 06:31 Chloride 101.4 mmol/L (98-107) 06/20/20 06:31 Carbon Dioxide 34 mmol/L (22-30) H 06/20/20 06:31 Anion Gap 11 mmol/L 06/20/20 06:31 BUN 86 mg/dL (7-17) H 06/20/20 06:31 Creatinine 4.6 mg/dL (0.6-1.2) H 06/20/20 06:31 Estimated GFR 11 ml/min 06/20/20 06:31 BUN/Creatinine Ratio 19 % 06/20/20 06:31 Glucose 131 mg/dL (65-100) H 06/20/20 06:31 POC Glucose 108 mg/dL (70-105) H 06/20/20 08:10 Hemoglobin A1c 6.0 % (4-6) 06/12/20 02:35 Lactic Acid 0.50 mmol/L (0.7-2.0) L 06/11/20 16:11 Calcium 8.5 mg/dL (8.4-10.2) 06/20/20 06:31 Phosphorus 3.60 mg/dL (2.5-4.5) 06/13/20 05:19 Magnesium 2.20 mg/dL (1.7-2.3) 06/12/20 22:19 Total Bilirubin 0.30 mg/dL (0.1-1.2) 06/12/20 02:35 AST 20 units/L (5-40) 06/12/20 02:35 ALT 9 units/L (7-56) 06/12/20 02:35 Alkaline Phosphatase 97 units/L (35-129) 06/12/20 02:35 Total Creatine Kinase 60 units/L (30-135) 06/11/20 14:41 Troponin T 0.125 ng/mL (0.00-0.029) H* 06/12/20 14:48 NT-Pro-B Natriuret Pep 64366 pg/mL (0-900) H 06/15/20 05:23 Serum Total Protein 7.2 g/dL (6.1-8.1) 06/13/20 09:41 Total Protein 8.3 g/dL (6.3-8.2) H 06/12/20 02:35 Albumin 3.3 g/dL (3.8-4.8) L 06/13/20 09:41 Albumin/Globulin Ratio 0.6 % 06/12/20 02:35 Nkeie-1-Ydjboiygx 0.3 g/dL (0.2-0.3) 06/13/20 09:41 Gpbjl-4-Vqqjscrbj 0.7 g/dL (0.5-0.9) 06/13/20 09:41 Beta Globulins 0.5 g/dL (0.2-0.5) 06/13/20 09:41 Gamma Globulins 2.1 g/dL (0.8-1.7) H 06/13/20 09:41 Abnorm Protein Band 1 see below 06/13/20 09:41 PEP Interpretation see below H 06/13/20 09:41 Triglycerides 89 mg/dL (2-149) 06/11/20 14:41 Cholesterol 157 mg/dL (50-199) 06/11/20 14:41 LDL Cholesterol Direct 71 mg/dL (50-130) 06/11/20 14:41 HDL Cholesterol 75 mg/dL (40-59) H 06/11/20 14:41 Cholesterol/HDL Ratio 2.09 % 06/11/20 14:41 TSH 3.490 mlU/mL (0.270-4.200) 06/12/20 14:48 Urine Color Straw (Yellow) 06/12/20 12:47 Urine Turbidity Clear (Clear) 06/12/20 12:47 Urine pH 6.0 (5.0-7.0) 06/12/20 12:47 Ur Specific [place] 1.009 (1.003-1.030) 06/12/20 12:47 Urine Protein 100 mg/dl mg/dL (Negative) 06/12/20 12:47 Urine Glucose (UA) Neg mg/dL (Negative) 06/12/20 12:47 Urine Ketones Neg mg/dL (Negative) 06/12/20 12:47 Urine Blood Neg (Negative) 06/12/20 12:47 Urine Nitrite Neg (Negative) 06/12/20 12:47 Urine Bilirubin Neg (Negative) 06/12/20 12:47 Urine Urobilinogen < 2.0 mg/dL (<2.0) 06/12/20 12:47 Ur Leukocyte Esterase Neg (Negative) 06/12/20 12:47 Urine WBC (Auto) 3.0 /HPF (0.0-6.0) 06/12/20 12:47 Urine RBC (Auto) 2.0 /HPF (0.0-6.0) 06/12/20 12:47 U Epithel Cells (Auto) 2.0 /HPF (0-13.0) 06/12/20 12:47 Urine Bacteria (Auto) 1+ /HPF (Negative) 06/12/20 12:47 Urine Eosinophils None seen (None Seen) 06/12/20 Unknown Urine Creatinine 22.7 mg/dL (0.1-20.0) H 06/12/20 Unknown Protein/Creatinin Ratio 6.30 06/12/20 Unknown Urine Sodium 121 mmol/L 06/12/20 Unknown Urine Total Protein 143 mg/dL (5-11.8) H 06/12/20 Unknown Coronavirus (PCR) Negative (Negative) 06/12/20 Unknown - Diagnostic Impressions Diagnostic Impressions: Echocardiogram 06/11/20 23:10 Transthoracic Echocardiogram Indication: CHF BP: 165/63 HR: 60 Conclusions *Global left ventricular systolic function is normal. *The estimated ejection fraction is 55-60%. *Mild to moderate concentric left ventricular hypertrophy is observed. *The left and right atria are both moderately dilated. *There is mild to moderate mitral regurgitation. *There is mild tricuspid regurgitation. *There is evidence of moderate pulmonary hypertension. *The right ventricular systolic pressure is calculated at 51 mmHg. *A left pleural effusion is present. *There is no significant pericardial effusion. Findings Left Ventricle: The left ventricular chamber size is normal. Mild to moderate concentric left ventricular hypertrophy is observed. Global left ventricular systolic function is normal. The estimated ejection fraction is 55-60%. Left Atrium: The left atrium is moderately dilated. Right Ventricle: The right ventricle is mildly dilated. The right ventricular global systolic function is mildly reduced. Right Atrium: The right atrium is moderately dilated. Aortic Valve: The aortic valve is trileaflet. The aortic valve leaflets are moderately thickened. There is trace of aortic regurgitation. There is no evidence of aortic stenosis. Mitral Valve: The mitral valve leaflets are moderately thickened. There is mild to moderate mitral regurgitation. There is no evidence of mitral stenosis. Tricuspid Valve: There is mild tricuspid regurgitation. The right ventricular systolic pressure is calculated at 51 mmHg. There is evidence of moderate pulmonary hypertension. Pulmonic Valve: There is trace pulmonic regurgitation. Pericardium: There is no pericardial effusion. A left pleural effusion is present. Aorta: There is no dilatation of the ascending aorta. There is no dilatation of the aortic root. Venous: The inferior vena cava appears normal in size. Measurements Chambers 2D Name Value Normal Range IVSd (2D) 1.07 cm (0.6 - 1.1) LVPWd (2D) 1.19 cm (0.6 - 1.1) LVIDd (2D) 4.34 cm (3.7 - 5.6) LVIDs (2D) 2.93 cm (2 - 3.8) LV FS (2D) 32.56 % - EF Teichholz (2D) 61.19 % - Ao root diameter (2D) 3.19 cm (2 - 3.7) Volumes/Mass Name Value Normal Range LA ESV SP 4CH (A/L) 58.57 ml - LA ESV SP 2CH (A/L) 86.64 ml - LA ESV BP (A/L) 74.92 ml - LA ESV BP (A/L) index 47.42 ml/m2 - LA ESV SP 4CH (MOD) 50.65 ml - LA ESV SP 2CH (MOD) 79.23 ml - LA ESV BP (MOD) 66.45 ml - LA ESV BP (MOD) index 42.06 ml/m2 - Diastolic/Systolic Function Name Value Normal Range MV E-wave Vmax 1.34 m/sec - MV deceleration time 244.33 msec - MV A-wave Vmax 0.98 m/sec - MV E:A ratio 1.36 ratio - Aortic Valve Name Value Normal Range AV Vmax 1.46 m/sec - AV VTI 38.18 cm - AV peak gradient 8.5 mmHg - AV mean gradient 4.47 mmHg - LVOT diameter 1.93 cm - LVOT Vmax 0.97 m/sec - LVOT VTI 27.7 cm - LVOT peak gradient 3.73 mmHg - LVOT mean gradient 2.13 mmHg - SV LVOT 80.99 ml - KENYA (continuity Vmax) 1.94 cm2 - KENYA (continuity VTI) 2.12 cm2 - Ascending Ao 2.04 cm - Tricuspid Valve Name Value Normal Range TR Vmax 3.3 m/sec - TR peak gradient 43 mmHg - RAP 8 mmHg - RVSP 51 mmHg - Pulmonic Valve/Qp:Qs Name Value Normal Range PV Vmax 1.02 m/sec - PV peak gradient 4.14 mmHg - VA end-diastolic Vmax 0.74 m/sec - PV acceleration time 68.51 msec - Lopez/IV: Voiding Method Diaper IV Catheter Type [Right INT / Saline Lock Forearm] Active Medications - Current Medications Current Medications: Generic Name Dose Route Start Last Admin Trade Name Freq PRN Reason Stop Dose Admin Acetaminophen 650 mg 06/11/20 23:07 Tylenol PO Q4H PRN Pain MILD(1-3)/Fever >100.5/MENA Artificial Tears 2 drops 06/11/20 23:06 Isopto Tears 0.5% OU Q4H PRN Dry Eye(s) Aspirin 81 mg 06/12/20 10:00 06/20/20 10:59 Baby Aspirin PO 81 mg QDAY JULIETTE Administration Atorvastatin Calcium 40 mg 06/12/20 22:00 06/19/20 23:38 Lipitor PO 40 mg QHS JULIETTE Administration Clopidogrel Bisulfate 75 mg 06/12/20 10:00 06/20/20 10:59 Plavix PO 75 mg QDAY JULIETTE Administration Dextrose 50 ml 06/13/20 05:23 D50w (25gm) Syringe IV Q30MIN PRN Hypoglycemia Protocol Doxazosin Mesylate 2 mg 06/12/20 12:00 06/20/20 11:00 Cardura PO 2 mg BID [facility] Administration Ergocalciferol 50,000 unit 06/19/20 10:00 06/19/20 09:25 Vitamin D2 PO 50,000 unit Mo [facility] Administration Ferrous Sulfate 325 mg 06/12/20 10:00 06/20/20 10:59 Feosol PO 325 mg QDAY [facility] Administration Hydralazine HCl 100 mg 06/17/20 14:00 06/20/20 06:26 Apresoline PO Not Given Q8HR [facility] Hydromorphone HCl 0.5 mg 06/11/20 23:07 Dilaudid IV Q3H PRN Pain , Severe (7-10) Sodium Chloride 1,000 mls @ 75 mls/hr 06/20/20 11:15 Nacl 0.9% 1000 Ml IV DIRECT [facility] Insulin Human Lispro 0 unit 06/13/20 07:30 06/20/20 09:01 Humalog SUB-Q Not Given ACHS [facility] Protocol Isosorbide Mononitrate 60 mg 06/16/20 12:00 06/20/20 10:59 Imdur PO 60 mg QDAY [facility] Administration Levothyroxine Sodium 25 mcg 06/12/20 06:00 06/20/20 06:25 Synthroid PO 25 mcg QAM@0600 [facility] Administration Minoxidil 2.5 mg 06/17/20 10:00 06/20/20 10:59 Loniten PO 2.5 mg Q12HR [facility] Administration Nifedipine 90 mg 06/14/20 22:00 06/20/20 10:59 Procardia Xl PO 90 mg Q12HR [facility] Administration Nitroglycerin 0.4 mg 06/12/20 04:00 06/12/20 04:39 Nitrostat SL 0.4 mg .Q5MIN PRN Administration Chest Pain Ondansetron HCl 4 mg 06/11/20 23:07 Zofran IV Q8H PRN Nausea And Vomiting Oxycodone/Acetaminophen 1 tab 06/11/20 23:07 06/19/20 23:37 Percocet 5/325 PO 1 tab Q6H PRN Administration Pain, Moderate (4-6) Sertraline HCl 50 mg 06/12/20 10:00 06/20/20 10:59 Zoloft PO 50 mg QDAY [facility] Administration Sodium Chloride 10 ml 06/11/20 23:45 06/20/20 11:00 Sodium Chloride Flush Syringe 10 Ml IV 10 ml BID JULIETTE Administration Sodium Chloride 10 ml 06/11/20 23:07 Sodium Chloride Flush Syringe 10 Ml IV PRN PRN LINE FLUSH Nutrition/Malnutrition Assess - Dietary Evaluation Nutrition/Malnutrition Findings: Nutrition Notes Start: 06/12/20 14:11 Freq: Status: Active Protocol: Document 06/16/20 11:08 (Rec: 06/16/20 11:26 [id number]) Nutrition Notes Initial or Follow up Reassessment Current Diagnosis CKD(stage I-IV),Coronary Artery Disease,Diabetes, Hypertension,Heart Failure, Hyperlipidemia Current Diet Pureed with thin liquids Labs/Tests Reviewed Pertinent Medications Sonia L[place] Height 5 ft Weight 61.4 kg [place] Body Weight (kg) 45.45 BMI 26.4 Weight Status Overweight Subjective/Other Information FU for intakes. Per RN, pt ate 100% of breakfast and ONS. Pt with bilateral pulmonary edema, bilateral 1+ pitting on bilateral LE and stage 3 pressure ulcer on sacrum. Percent of energy/protein needs met: 100%/100% Burn Absent Trauma Absent Difficulty In Swallowing Minimum of two criteria No physical signs of malnutrition Fluid Accumulation Mild (non-severe) #2 Nutrition Diagnosis Increased nutrient needs ( specify in comment below) Comments: protein Etiology wound healing As Evidenced by Signs and Symptoms stage 3 pressure ulcer on sacrum #1 As Evidenced by Signs and Symptoms pt eating 100% of meals Diagnosis Progress(for reassessment Resolved documentation) Is patient on ventilator? No Is Patient Ambulatory and/or Out of Bed No REE-([facility]-confined to bed) 1225.356 Calculation Used for Recommendations [facility] Additional Notes Protein: 55-77g (0.9-1.25g/kg) Fluid: 1 ml/kcal Nutrition Intervention Change Diet Order: Continue pureed Add Supplement/Snack (indicate name/kcal Nepro daily /protein ) Provides kCal: 425 Provides Protein (gm) 19 Goal #1 Meet at least 75% of energy and protein needs Follow-Up By: 06/22/20 Additional Comments FU for PO and ONS intakes
[2020-06-20] MEDS: SODIUM CHLORIDE 0.9% 1000 ML 1,000 ML IV SCH (12:52)
[2020-06-21] MEDS: SODIUM CHLORIDE 0.9% 1000 ML 1,000 ML IV SCH ×2 (01:31→16:10)
[2020-06-21] MEDS: hydrALAZINE 100 MG TAB PO SCH ×3 (05:24→21:13)
[2020-06-21] MEDS: LEVOTHYROXINE 25 MCG TAB PO SCH (05:24)
[2020-06-21 06:54] LABS: Calcium 8.3 mg/dL (8.4-10.2)
--- NOTE | 2020-06-21 10:59 | Progress Note ---
Assessment and Plan Volume overload -resolved Heart failure with a preserved ejection fraction COVID 19 test is negative Echo this presentation: normal left ventricular systolic function with ejection fraction 55 to 60%. There is evidence of cor pulmonale. Intermittent bradycardia seen on telemetry monitoring 06/12 telemetry strips show mostly a sinus rhythm with first-degree AV block and cycles of second-degree Mobitz type I Wenckebach AV block. Carvedilol, Norvasc, Clonidine and Labetalol were discontinued TSH is 3.4 Cor-pulmonale Chronic renal disease Hypertension Prior CVA Continue current medical therapy. Otherwise, conservative cardiac management. Subjective Date of service: 06/21/20 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 Interval history: Patient is resting in bed comfortably. No interval cardiac changes. Sinus rhythm with first degree AV block on telemetry. Objective Vital Signs Temp Pulse Resp BP BP Pulse Ox 06/21/20 05:28 98 F 67 18 131/78 96 06/21/20 04:03 98.2 F 69 16 125/42 98 06/20/20 22:02 97.3 F L 69 18 129/49 98 06/20/20 20:46 97.7 F 16 117/47 06/20/20 16:58 97.5 F L 20 126/52 06/20/20 13:06 97.0 F L 72 18 136/51 97 - Physical Examination General: No Apparent Distress, Cachectic, Other (Frail, elderly, chronically ill-appearing) HEENT: Positive: PERRL Neck: Positive: neck supple Cardiac: Positive: Reg Rate and Rhythm Lungs: Positive: Decreased Breath Sounds Neuro: Positive: Weakness Extremities: Absent: edema - Labs and Meds Comprehensive Metabolic Panel 06/21/20 Range/Units 05:12 Sodium 143 (137-145) mmol/L Potassium 4.4 (3.6-5.0) mmol/L Chloride 102.2 (98-107) mmol/L Carbon Dioxide 31 H (22-30) mmol/L BUN 90 H (7-17) mg/dL Creatinine 4.7 H (0.6-1.2) mg/dL Glucose 100 (65-100) mg/dL Calcium 8.3 L (8.4-10.2) mg/dL
[2020-06-21] MEDS: INSULIN LISPRO 100 UNIT/ML VIAL 3 mL SUB-Q SCH ×4 (11:25→23:37)
[2020-06-21] MEDS: MINOXIDIL 2.5 MG TAB PO SCH ×2 (11:28→21:13)
[2020-06-21] MEDS: FERROUS SULFATE 325 MG TAB PO SCH (11:28)
[2020-06-21] MEDS: NIFEdipine XL 90 MG TAB PO SCH ×2 (11:28→21:13)
[2020-06-21] MEDS: CLOPIDOGREL 75 MG TAB PO SCH (11:28)
[2020-06-21] MEDS: ASPIRIN 81 MG TAB CHEW PO SCH (11:28)
[2020-06-21] MEDS: DOXAZOSIN 1 MG TAB PO SCH ×2 (11:28→21:13)
[2020-06-21] MEDS: SERTRALINE 50 MG TAB PO SCH (11:28)
--- NOTE | 2020-06-21 11:34 | Progress Note ---
Assessment and Plan CKD (chronic kidney disease) -Renal labs reviewed. Serum creatinine 4.7 today, yesterday's was 4.6 -Review of medical records shows baseline serum creatinine in 2018 was 2.2.-2.6. -Rising serum creatinine likely due to diuresis with Lasix and Diovan -Lasix held -Diovan now on hold -On NS@ 75 ml/hr -Renal ultrasound-No obstruction noted -Urine lytes- shows 6 grams of protein -UPEP and SPEP- pending -Obtain daily weights -Monitor I/O's daily -Avoid nephrotoxic agents -Continue to monitor renal function closely -No acute indication for [employer] Acute exacerbation of CHF -S/P IV Lasix -Echocardiogram-EF 55-60% -Cardiology onboard Hypertension -Continue antihypertensives and adjust medications as necessary -Monitor blood pressures Subjective Date of service: 06/21/20 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 More awake and alert today. Objective - Vital Signs Vital signs: Vital Signs - 12hr 06/21/20 06/21/20 04:03 05:28 Temperature 98.2 F 98 F Pulse Rate 69 67 Respiratory 16 18 Rate Blood Pressure 125/42 Blood Pressure 131/78 [Left] O2 Sat by Pulse 98 96 Oximetry - General Appearance General appearance: other (No acute distress, awake) EENT: ATNC Neck: no JVD, supple Respiratory: Present: Decreased Breath Sounds Cardiology: S1S2 Gastrointestinal: normoactive bowel sounds Integumentary: warm and dry Neurologic: other (Awake and alert) Musculoskeletal: other (No edema) - Lab 06/16/20 04:40 06/21/20 05:12 Most recent lab results Calcium 8.3 mg/dL (8.4-10.2) L 06/21/20 05:12 Phosphorus 3.60 mg/dL (2.5-4.5) 06/13/20 05:19 Magnesium 2.20 mg/dL (1.7-2.3) 06/12/20 22:19 Urine Creatinine 22.7 mg/dL (0.1-20.0) H 06/12/20 Unknown Urine Sodium 121 mmol/L 06/12/20 Unknown Urine Total Protein 143 mg/dL (5-11.8) H 06/12/20 Unknown Medications & Allergies - Medications Allergies/Adverse Reactions: Allergies No Known Allergies Allergy (Verified 08/27/14 06:14) Home Medications: Home Medications Medication Instructions Recorded Confirmed Last Taken Type Levothyroxine [Synthroid] 25 mcg PO QAM 08/27/14 06/11/20 03/20/18 History hydrALAZINE [Apresoline TAB] 100 mg PO TID #90 tab 09/01/14 06/11/20 03/20/18 Rx Sertraline [Zoloft] 50 mg PO QDAY 11/05/14 06/11/20 03/20/18 History Terazosin (Nf) [Hytrin (Nf)] 5 mg PO QHS 08/19/17 06/11/20 Unknown History Aspirin [Aspirin BABY CHEW TAB] 81 mg PO QDAY tab.chew 08/21/17 06/11/20 Unknown Rx AtorvaSTATin [Lipitor] 40 mg PO QHS #30 tab 03/27/18 06/11/20 Unknown Rx Clopidogrel [Plavix] 75 mg PO QDAY #30 tablet 03/27/18 06/11/20 Unknown Rx Hypromellose [Isopto Tears 0.5%] 2 drops OU Q4H PRN bottle 03/27/18 06/11/20 Unknown Rx ISOSORBIDE MONOnitrate [Imdur ER] 30 mg PO QDAY #30 tablet 03/27/18 06/11/20 Unknown Rx amLODIPine 10 mg PO DAILY #30 tablet 03/27/18 06/11/20 Unknown Rx Ergocalciferol (Vitamin D2) 50,000 unit PO QDAY 06/11/20 06/11/20 Unknown History [Vitamin D2] Ferrous Sulfate [Feosol] 325 mg PO QDAY 06/11/20 06/11/20 Unknown History carvediloL [Coreg] 6.25 mg PO Q12HR 06/11/20 06/11/20 Unknown History Active Medications: Generic Name Dose Route Start Last Admin Trade Name Freq PRN Reason Stop Dose Admin Acetaminophen 650 mg 06/11/20 23:07 Tylenol PO Q4H PRN Pain MILD(1-3)/Fever >100.5/MENA Artificial Tears 2 drops 06/11/20 23:06 Isopto Tears 0.5% OU Q4H PRN Dry Eye(s) Aspirin 81 mg 06/12/20 10:00 06/21/20 11:28 Baby Aspirin PO 81 mg QDAY JULIETTE Administration Atorvastatin Calcium 40 mg 06/12/20 22:00 06/20/20 21:54 Lipitor PO 40 mg QHS JULIETTE Administration Clopidogrel Bisulfate 75 mg 06/12/20 10:00 06/21/20 11:28 Plavix PO 75 mg QDAY JULIETTE Administration Dextrose 50 ml 06/13/20 05:23 D50w (25gm) Syringe IV Q30MIN PRN Hypoglycemia Protocol Doxazosin Mesylate 2 mg 06/12/20 12:00 06/21/20 11:28 Cardura PO 2 mg BID JULIETTE Administration Ergocalciferol 50,000 unit 06/19/20 10:00 06/19/20 09:25 Vitamin D2 PO 50,000 unit Mo JULIETTE Administration Ferrous Sulfate 325 mg 06/12/20 10:00 06/21/20 11:28 Feosol PO 325 mg QDAY JULIETTE Administration Hydralazine HCl 100 mg 06/17/20 14:00 06/21/20 05:24 Apresoline PO 100 mg Q8HR JULIETTE Administration Hydromorphone HCl 0.5 mg 06/11/20 23:07 Dilaudid IV Q3H PRN Pain , Severe (7-10) Sodium Chloride 1,000 mls @ 75 mls/hr 06/20/20 11:15 06/21/20 01:31 Nacl 0.9% 1000 Ml IV 75 mls/hr DIRECT JULIETTE Administration Insulin Human Lispro 0 unit 06/13/20 07:30 06/21/20 11:25 Humalog SUB-Q Not Given ACHS JULIETTE Protocol Isosorbide Mononitrate 60 mg 06/16/20 12:00 06/21/20 11:28 Imdur PO 60 mg QDAY JULIETTE Administration Levothyroxine Sodium 25 mcg 06/12/20 06:00 06/21/20 05:24 Synthroid PO 25 mcg QAM@0600 JULIETTE Administration Minoxidil 2.5 mg 06/17/20 10:00 06/21/20 11:28 Loniten PO 2.5 mg Q12HR JULIETTE Administration Nifedipine 90 mg 06/14/20 22:00 06/21/20 11:28 Procardia Xl PO 90 mg Q12HR JULIETTE Administration Nitroglycerin 0.4 mg 06/12/20 04:00 06/12/20 04:39 Nitrostat SL 0.4 mg .Q5MIN PRN Administration Chest Pain Ondansetron HCl 4 mg 06/11/20 23:07 Zofran IV Q8H PRN Nausea And Vomiting Oxycodone/Acetaminophen 1 tab 06/11/20 23:07 06/19/20 23:37 Percocet 5/325 PO 1 tab Q6H PRN Administration Pain, Moderate (4-6) Sertraline HCl 50 mg 06/12/20 10:00 06/21/20 11:28 Zoloft PO 50 mg QDAY JULIETTE Administration Sodium Chloride 10 ml 06/11/20 23:45 06/21/20 11:29 Sodium Chloride Flush Syringe 10 Ml IV 10 ml BID JULIETTE Administration Sodium Chloride 10 ml 06/11/20 23:07 Sodium Chloride Flush Syringe 10 Ml IV PRN PRN LINE FLUSH
--- NOTE | 2020-06-21 11:47 | Progress Note ---
Assessment and Plan Assessment and plan: -- Acute on chronic diastolic CHF (congestive heart failure) Bilateral edema on chest x-ray due to acute on chronic diastolic CHF Continue beta-blockers. Hold Lasix due to bump in creatinine Low-sodium diet, fluid restriction Echocardiogram for LV function ejection fraction-EF 55 to 60% Cardiology following. --Nonspecific elevated troponin; Due to NSTEMI type II, in the setting of chronic kidney disease Possible stress test versus heart cath if needed -- HTN (hypertension) Moderate control ,continue current antihypertensives And as needed hydralazine --History of coronary artery disease Continue isosorbide mono nitrate and aspirin Cardiology following Acute kidney injury on CKD 4 (chronic kidney disease) Due to vasomotor nephropathy Hold Lasix and diovan. Gentle IV hydration Nephrology following Monitor renal function, avoid nephrotoxins -- DVT prophylaxis On heparin and GI prophylaxis Closely monitor the patient and adjust management as needed Plan of care reviewed with the patient and the nurse Cardiology consult noted and appreciated 06/14/2020. Echocardiogram revealed EF of 55 to 60%. Continue IV Lasix per nephrology and cardiology. Baseline creatinine in 2018 was 2.22.6. Renal ultrasound revealed no obstruction. UPEP and SPEP pending. Patient still exhibiting accelerated hypertension. Increase Procardia to 90 mg twice daily. 06/15/2020. Patient's blood pressure is better controlled with current medications. Recheck chest x-ray today and follow-up BnP. 06/16/2020. Patient's blood pressure still extremely labile. Patient currently with clonidine, Cardura, Procardia, isosorbide and hydralazine. Increase hydralazine to 75 mg 3 times daily. BNP greater than 13,000 and chest x-ray suggestive of heart failure. Defer to cardiology. Await PT recommendations for placement. 06/17/2020. Patient still with accelerated hypertension. Increase hydralazine to 100 mg 3 times daily. Continue isosorbide, clonidine, Cardura, valsartan and Procardia as well. Serum creatinine remains stable at 2.9. 06/18/2020. Patient's blood pressure much better controlled. Continue current regimen of hydralazine, isosorbide, clonidine, Cardura and Procardia. Diovan held due to increased creatinine. Renal ultrasound revealed no evidence of obstruction. BNP greater than 13,000 and chest x-ray suggestive of heart failure. 06/19/2020. Patient's blood pressure much better controlled. Continue current regimen of hydralazine, isosorbide, clonidine, Cardura and Procardia. Creatinine elevated at 3.5. Continue Lasix 20 mg IV twice daily for heart failure. Follow-up UPEP and SPEP. Continue daily weights, monitor I/O's daily, avoid nephrotoxic agents and follow-up BMP in a.m. 06/20/2020. Renal function continues to worsen. Creatinine 4.6 this morning. Hold Lasix for now. Started on gentle IV hydration. Nephrology is following. Avoid nephrotoxic medications. Cardiology recommendations appreciated 06/21. No complaints. Her renal function is more stable now. Cr is 4.7 today. Continue to hold lasix and diovan. Continue IV hydration. Nephrology is following. History Interval history: No acute issues overnight Hospitalist Physical - Physical exam Narrative exam: VITAL SIGNS: Reviewed. GENERAL: Awake and alert on response to questions intermittently HEAD: No signs of head trauma. EYES: Pupils are equal. Extraocular motions intact. EARS: Hearing grossly intact. MOUTH: Oropharynx is normal. NECK: No adenopathy, no JVD. CHEST: Chest with diminished breath sounds bilaterally. No wheezes, rales, or rhonchi. CARDIAC: Regular rate and rhythm. S1 and S2, without murmurs, gallops, or rubs. VASCULAR: No Edema. Peripheral pulses normal and equal in all extremities. ABDOMEN: Soft, non tender and non distended. No rebound or guarding, and no masses palpated. Bowel Sounds normal. MUSCULOSKELETAL: Good range of motion of all major joints. Extremities without clubbing, cyanosis or edema. NEUROLOGIC EXAM: Alert and oriented in person. No focal neurologic deficits PSYCHIATRIC: Stable mood SKIN: No obvious lesions - Constitutional Vitals: Temp Pulse Resp BP Pulse Ox 98 F 67 18 131/78 96 06/21/20 05:28 06/21/20 05:28 06/21/20 05:28 06/21/20 05:28 06/21/20 05:28 HEART Score - HEART Score Age: > 65 Risk factors: > 3 risk factors or hx of atherosclerotic disease Troponin: Troponin T 0.125 ng/mL (0.00-0.029) H* 06/12/20 14:48 Troponin: < normal limit - Critical Actions Critical Actions: 4-6 pts:12-16.6% risk of adverse cardiac event. Should be admitted Results - Labs CBC & Chem 7: 06/16/20 04:40 06/21/20 05:12 Labs: Laboratory Last Values WBC 4.9 K/mm3 (4.5-11.0) 06/16/20 04:40 RBC 3.34 M/mm3 (3.65-5.03) L 06/16/20 04:40 Hgb 9.4 gm/dl (10.1-14.3) L 06/16/20 04:40 Hct 29.7 % (30.3-42.9) L 06/16/20 04:40 MCV 89 fl (79-97) 06/16/20 04:40 MCH 28 pg (28-32) 06/16/20 04:40 MCHC 32 % (30-34) 06/16/20 04:40 RDW 17.3 % (13.2-15.2) H 06/16/20 04:40 Plt Count 145 K/mm3 (140-440) 06/16/20 04:40 Lymph % (Auto) 23.5 % (13.4-35.0) 06/16/20 04:40 [place] % (Auto) 15.1 % (0.0-7.3) H 06/16/20 04:40 Eos % (Auto) 4.2 % (0.0-4.3) 06/16/20 04:40 Baso % (Auto) 1.3 % (0.0-1.8) 06/16/20 04:40 Lymph # (Auto) 1.1 K/mm3 (1.2-5.4) L 06/16/20 04:40 [place] # (Auto) 0.7 K/mm3 (0.0-0.8) 06/16/20 04:40 Eos # (Auto) 0.2 K/mm3 (0.0-0.4) 06/16/20 04:40 Baso # (Auto) 0.1 K/mm3 (0.0-0.1) 06/16/20 04:40 Add Manual Diff Complete 06/12/20 02:35 Total Counted 100 06/12/20 02:35 Seg Neutrophils % 55.9 % (40.0-70.0) 06/16/20 04:40 Seg Neuts % (Manual) 92.0 % (40.0-70.0) H 06/12/20 02:35 Band Neutrophils % 0 % 06/12/20 02:35 Lymphocytes % (Manual) 6.0 % (13.4-35.0) L 06/12/20 02:35 Reactive Lymphs % (Man) 0 % 06/12/20 02:35 Monocytes % (Manual) 2.0 % (0.0-7.3) 06/12/20 02:35 Eosinophils % (Manual) 0 % (0.0-4.3) 06/12/20 02:35 Basophils % (Manual) 0 % (0.0-1.8) 06/12/20 02:35 Metamyelocytes % 0 % 06/12/20 02:35 Myelocytes % 0 % 06/12/20 02:35 Promyelocytes % 0 % 06/12/20 02:35 Blast Cells % 0 % 06/12/20 02:35 Nucleated RBC % Not Reportable 06/12/20 02:35 Seg Neutrophils # 2.7 K/mm3 (1.8-7.7) 06/16/20 04:40 Seg Neutrophils # Man 4.1 K/mm3 (1.8-7.7) 06/12/20 02:35 Band Neutrophils # 0.0 K/mm3 06/12/20 02:35 Lymphocytes # (Manual) 0.3 K/mm3 (1.2-5.4) L 06/12/20 02:35 Abs React Lymphs (Man) 0.0 K/mm3 06/12/20 02:35 Monocytes # (Manual) 0.1 K/mm3 (0.0-0.8) 06/12/20 02:35 Eosinophils # (Manual) 0.0 K/mm3 (0.0-0.4) 06/12/20 02:35 Basophils # (Manual) 0.0 K/mm3 (0.0-0.1) 06/12/20 02:35 Metamyelocytes # 0.0 K/mm3 06/12/20 02:35 Myelocytes # 0.0 K/mm3 06/12/20 02:35 Promyelocytes # 0.0 K/mm3 06/12/20 02:35 Blast Cells # 0.0 K/mm3 06/12/20 02:35 WBC Morphology Not Reportable 06/12/20 02:35 Hypersegmented Neuts Not Reportable 06/12/20 02:35 Hyposegmented Neuts Not Reportable 06/12/20 02:35 Hypogranular Neuts Not Reportable 06/12/20 02:35 Smudge Cells Not Reportable 06/12/20 02:35 Toxic Granulation Not Reportable 06/12/20 02:35 Toxic Vacuolation Not Reportable 06/12/20 02:35 Dohle Bodies Not Reportable 06/12/20 02:35 Pelger-Huet Anomaly Not Reportable 06/12/20 02:35 Chanda Rods Not Reportable 06/12/20 02:35 Platelet Estimate Consistent w auto 06/12/20 02:35 Clumped Platelets Not Reportable 06/12/20 02:35 Plt Clumps, EDTA Not Reportable 06/12/20 02:35 Large Platelets Not Reportable 06/12/20 02:35 Giant Platelets Not Reportable 06/12/20 02:35 Platelet Satelliting Not Reportable 06/12/20 02:35 Plt Morphology Comment Not Reportable 06/12/20 02:35 RBC Morphology Not Reportable 06/12/20 02:35 Dimorphic RBCs Not Reportable 06/12/20 02:35 Polychromasia Not Reportable 06/12/20 02:35 Hypochromasia Few 06/12/20 02:35 Poikilocytosis Not Reportable 06/12/20 02:35 Anisocytosis 1+ 06/12/20 02:35 Microcytosis Not Reportable 06/12/20 02:35 Macrocytosis Not Reportable 06/12/20 02:35 Spherocytes Not Reportable 06/12/20 02:35 Pappenheimer Bodies Not Reportable 06/12/20 02:35 Sickle Cells Not Reportable 06/12/20 02:35 Target Cells Few 06/12/20 02:35 Tear Drop Cells Not Reportable 06/12/20 02:35 Ovalocytes Not Reportable 06/12/20 02:35 Helmet Cells Not Reportable 06/12/20 02:35 Phipps-[place] Bodies Not Reportable 06/12/20 02:35 [place] Rings Not Reportable 06/12/20 02:35 Bacilio Cells Not Reportable 06/12/20 02:35 Bite Cells Not Reportable 06/12/20 02:35 Crenated Cell Not Reportable 06/12/20 02:35 Elliptocytes Not Reportable 06/12/20 02:35 Acanthocytes (Spur) Not Reportable 06/12/20 02:35 Rouleaux Not Reportable 06/12/20 02:35 Hemoglobin C Crystals Not Reportable 06/12/20 02:35 Schistocytes Not Reportable 06/12/20 02:35 Malaria parasites Not Reportable 06/12/20 02:35 Sulaiman Bodies Not Reportable 06/12/20 02:35 Hem Pathologist Commnt No 06/12/20 02:35 PT 14.7 Sec. (12.2-14.9) 06/11/20 14:41 INR 1.15 (0.87-1.13) H 06/11/20 14:41 Sodium 143 mmol/L (137-145) 06/21/20 05:12 Potassium 4.4 mmol/L (3.6-5.0) 06/21/20 05:12 Chloride 102.2 mmol/L (98-107) 06/21/20 05:12 Carbon Dioxide 31 mmol/L (22-30) H 06/21/20 05:12 Anion Gap 14 mmol/L 06/21/20 05:12 BUN 90 mg/dL (7-17) H 06/21/20 05:12 Creatinine 4.7 mg/dL (0.6-1.2) H 06/21/20 05:12 Estimated GFR 11 ml/min 06/21/20 05:12 BUN/Creatinine Ratio 19 % 06/21/20 05:12 Glucose 100 mg/dL (65-100) 06/21/20 05:12 POC Glucose 89 mg/dL (70-105) 06/21/20 08:01 Hemoglobin A1c 6.0 % (4-6) 06/12/20 02:35 Lactic Acid 0.50 mmol/L (0.7-2.0) L 06/11/20 16:11 Calcium 8.3 mg/dL (8.4-10.2) L 06/21/20 05:12 Phosphorus 3.60 mg/dL (2.5-4.5) 06/13/20 05:19 Magnesium 2.20 mg/dL (1.7-2.3) 06/12/20 22:19 Total Bilirubin 0.30 mg/dL (0.1-1.2) 06/12/20 02:35 AST 20 units/L (5-40) 06/12/20 02:35 ALT 9 units/L (7-56) 06/12/20 02:35 Alkaline Phosphatase 97 units/L (35-129) 06/12/20 02:35 Total Creatine Kinase 60 units/L (30-135) 06/11/20 14:41 Troponin T 0.125 ng/mL (0.00-0.029) H* 06/12/20 14:48 NT-Pro-B Natriuret Pep 79996 pg/mL (0-900) H 06/15/20 05:23 Serum Total Protein 7.2 g/dL (6.1-8.1) 06/13/20 09:41 Total Protein 8.3 g/dL (6.3-8.2) H 06/12/20 02:35 Albumin 3.3 g/dL (3.8-4.8) L 06/13/20 09:41 Albumin/Globulin Ratio 0.6 % 06/12/20 02:35 Hdobg-8-Wrstlxnot 0.3 g/dL (0.2-0.3) 06/13/20 09:41 Xjwza-4-Kesgxhnit 0.7 g/dL (0.5-0.9) 06/13/20 09:41 Beta Globulins 0.5 g/dL (0.2-0.5) 06/13/20 09:41 Gamma Globulins 2.1 g/dL (0.8-1.7) H 06/13/20 09:41 Abnorm Protein Band 1 see below 06/13/20 09:41 PEP Interpretation see below H 06/13/20 09:41 Triglycerides 89 mg/dL (2-149) 06/11/20 14:41 Cholesterol 157 mg/dL (50-199) 06/11/20 14:41 LDL Cholesterol Direct 71 mg/dL (50-130) 06/11/20 14:41 HDL Cholesterol 75 mg/dL (40-59) H 06/11/20 14:41 Cholesterol/HDL Ratio 2.09 % 06/11/20 14:41 TSH 3.490 mlU/mL (0.270-4.200) 06/12/20 14:48 Urine Color Straw (Yellow) 06/12/20 12:47 Urine Turbidity Clear (Clear) 06/12/20 12:47 Urine pH 6.0 (5.0-7.0) 06/12/20 12:47 Ur Specific Alexis 1.009 (1.003-1.030) 06/12/20 12:47 Urine Protein 100 mg/dl mg/dL (Negative) 06/12/20 12:47 Urine Glucose (UA) Neg mg/dL (Negative) 06/12/20 12:47 Urine Ketones Neg mg/dL (Negative) 06/12/20 12:47 Urine Blood Neg (Negative) 06/12/20 12:47 Urine Nitrite Neg (Negative) 06/12/20 12:47 Urine Bilirubin Neg (Negative) 06/12/20 12:47 Urine Urobilinogen < 2.0 mg/dL (<2.0) 06/12/20 12:47 Ur Leukocyte Esterase Neg (Negative) 06/12/20 12:47 Urine WBC (Auto) 3.0 /HPF (0.0-6.0) 06/12/20 12:47 Urine RBC (Auto) 2.0 /HPF (0.0-6.0) 06/12/20 12:47 U Epithel Cells (Auto) 2.0 /HPF (0-13.0) 06/12/20 12:47 Urine Bacteria (Auto) 1+ /HPF (Negative) 06/12/20 12:47 Urine Eosinophils None seen (None Seen) 06/12/20 Unknown Urine Creatinine 22.7 mg/dL (0.1-20.0) H 06/12/20 Unknown Protein/Creatinin Ratio 6.30 06/12/20 Unknown Urine Sodium 121 mmol/L 06/12/20 Unknown Urine Total Protein 143 mg/dL (5-11.8) H 06/12/20 Unknown Coronavirus (PCR) Negative (Negative) 06/12/20 Unknown - Diagnostic Impressions Diagnostic Impressions: Echocardiogram 06/11/20 23:10 Transthoracic Echocardiogram Indication: CHF BP: 165/63 HR: 60 Conclusions *Global left ventricular systolic function is normal. *The estimated ejection fraction is 55-60%. *Mild to moderate concentric left ventricular hypertrophy is observed. *The left and right atria are both moderately dilated. *There is mild to moderate mitral regurgitation. *There is mild tricuspid regurgitation. *There is evidence of moderate pulmonary hypertension. *The right ventricular systolic pressure is calculated at 51 mmHg. *A left pleural effusion is present. *There is no significant pericardial effusion. Findings Left Ventricle: The left ventricular chamber size is normal. Mild to moderate concentric left ventricular hypertrophy is observed. Global left ventricular systolic function is normal. The estimated ejection fraction is 55-60%. Left Atrium: The left atrium is moderately dilated. Right Ventricle: The right ventricle is mildly dilated. The right ventricular global systolic function is mildly reduced. Right Atrium: The right atrium is moderately dilated. Aortic Valve: The aortic valve is trileaflet. The aortic valve leaflets are moderately thickened. There is trace of aortic regurgitation. There is no evidence of aortic stenosis. Mitral Valve: The mitral valve leaflets are moderately thickened. There is mild to moderate mitral regurgitation. There is no evidence of mitral stenosis. Tricuspid Valve: There is mild tricuspid regurgitation. The right ventricular systolic pressure is calculated at 51 mmHg. There is evidence of moderate pulmonary hypertension. Pulmonic Valve: There is trace pulmonic regurgitation. Pericardium: There is no pericardial effusion. A left pleural effusion is present. Aorta: There is no dilatation of the ascending aorta. There is no dilatation of the aortic root. Venous: The inferior vena cava appears normal in size. Measurements Chambers 2D Name Value Normal Range IVSd (2D) 1.07 cm (0.6 - 1.1) LVPWd (2D) 1.19 cm (0.6 - 1.1) LVIDd (2D) 4.34 cm (3.7 - 5.6) LVIDs (2D) 2.93 cm (2 - 3.8) LV FS (2D) 32.56 % - EF Teichholz (2D) 61.19 % - Ao root diameter (2D) 3.19 cm (2 - 3.7) Volumes/Mass Name Value Normal Range LA ESV SP 4CH (A/L) 58.57 ml - LA ESV SP 2CH (A/L) 86.64 ml - LA ESV BP (A/L) 74.92 ml - LA ESV BP (A/L) index 47.42 ml/m2 - LA ESV SP 4CH (MOD) 50.65 ml - LA ESV SP 2CH (MOD) 79.23 ml - LA ESV BP (MOD) 66.45 ml - LA ESV BP (MOD) index 42.06 ml/m2 - Diastolic/Systolic Function Name Value Normal Range MV E-wave Vmax 1.34 m/sec - MV deceleration time 244.33 msec - MV A-wave Vmax 0.98 m/sec - MV E:A ratio 1.36 ratio - Aortic Valve Name Value Normal Range AV Vmax 1.46 m/sec - AV VTI 38.18 cm - AV peak gradient 8.5 mmHg - AV mean gradient 4.47 mmHg - LVOT diameter 1.93 cm - LVOT Vmax 0.97 m/sec - LVOT VTI 27.7 cm - LVOT peak gradient 3.73 mmHg - LVOT mean gradient 2.13 mmHg - SV LVOT 80.99 ml - KENYA (continuity Vmax) 1.94 cm2 - KENYA (continuity VTI) 2.12 cm2 - Ascending Ao 2.04 cm - Tricuspid Valve Name Value Normal Range TR Vmax 3.3 m/sec - TR peak gradient 43 mmHg - RAP 8 mmHg - RVSP 51 mmHg - Pulmonic Valve/Qp:Qs Name Value Normal Range PV Vmax 1.02 m/sec - PV peak gradient 4.14 mmHg - TN end-diastolic Vmax 0.74 m/sec - PV acceleration time 68.51 msec - Lopez/IV: Voiding Method Diaper IV Catheter Type [Right INT / Saline Lock Forearm] Active Medications - Current Medications Current Medications: Generic Name Dose Route Start Last Admin Trade Name Freq PRN Reason Stop Dose Admin Acetaminophen 650 mg 06/11/20 23:07 Tylenol PO Q4H PRN Pain MILD(1-3)/Fever >100.5/MENA Artificial Tears 2 drops 06/11/20 23:06 Isopto Tears 0.5% OU Q4H PRN Dry Eye(s) Aspirin 81 mg 06/12/20 10:00 06/21/20 11:28 Baby Aspirin PO 81 mg QDAY JULIETTE Administration Atorvastatin Calcium 40 mg 06/12/20 22:00 06/20/20 21:54 Lipitor PO 40 mg QHS JULIETTE Administration Clopidogrel Bisulfate 75 mg 06/12/20 10:00 06/21/20 11:28 Plavix PO 75 mg QDAY JULIETTE Administration Dextrose 50 ml 11/24/20 05:23 D50w (25gm) Syringe IV Q30MIN PRN Hypoglycemia Protocol Doxazosin Mesylate 2 mg 06/12/20 12:00 06/21/20 11:28 Cardura PO 2 mg BID JULIETTE Administration Ergocalciferol 50,000 unit 06/19/20 10:00 06/19/20 09:25 Vitamin D2 PO 50,000 unit Mo JULIETTE Administration Ferrous Sulfate 325 mg 06/12/20 10:00 06/21/20 11:28 Feosol PO 325 mg QDAY JULIETTE Administration Hydralazine HCl 100 mg 06/17/20 14:00 06/21/20 05:24 Apresoline PO 100 mg Q8HR JULIETTE Administration Hydromorphone HCl 0.5 mg 06/11/20 23:07 Dilaudid IV Q3H PRN Pain , Severe (7-10) Sodium Chloride 1,000 mls @ 75 mls/hr 06/20/20 11:15 06/21/20 01:31 Nacl 0.9% 1000 Ml IV 75 mls/hr DIRECT JULIETTE Administration Insulin Human Lispro 0 unit 06/13/20 07:30 06/21/20 11:25 Humalog SUB-Q Not Given ACHS [facility] Protocol Isosorbide Mononitrate 60 mg 06/16/20 12:00 06/21/20 11:28 Imdur PO 60 mg QDAY JULIETTE Administration Levothyroxine Sodium 25 mcg 06/12/20 06:00 06/21/20 05:24 Synthroid PO 25 mcg QAM@0600 JULIETTE Administration Minoxidil 2.5 mg 06/17/20 10:00 06/21/20 11:28 Loniten PO 2.5 mg Q12HR JULIETTE Administration Nifedipine 90 mg 06/14/20 22:00 06/21/20 11:28 Procardia Xl PO 90 mg Q12HR JULIETTE Administration Nitroglycerin 0.4 mg 06/12/20 04:00 06/12/20 04:39 Nitrostat SL 0.4 mg .Q5MIN PRN Administration Chest Pain Ondansetron HCl 4 mg 06/11/20 23:07 Zofran IV Q8H PRN Nausea And Vomiting Oxycodone/Acetaminophen 1 tab 06/11/20 23:07 06/19/20 23:37 Percocet 5/325 PO 1 tab Q6H PRN Administration Pain, Moderate (4-6) Sertraline HCl 50 mg 06/12/20 10:00 06/21/20 11:28 Zoloft PO 50 mg QDAY JULIETTE Administration Sodium Chloride 10 ml 06/11/20 23:45 06/21/20 11:29 Sodium Chloride Flush Syringe 10 Ml IV 10 ml BID JULIETTE Administration Sodium Chloride 10 ml 06/11/20 23:07 Sodium Chloride Flush Syringe 10 Ml IV PRN PRN LINE FLUSH Nutrition/Malnutrition Assess - Dietary Evaluation Nutrition/Malnutrition Findings: Nutrition Notes Start: 06/12/20 14:11 Freq: Status: Active Protocol: Document 06/16/20 11:08 (Rec: 06/16/20 11:26 [id number]) Nutrition Notes Initial or Follow up Reassessment Current Diagnosis CKD(stage I-IV),Coronary Artery Disease,Diabetes, Hypertension,Heart Failure, Hyperlipidemia Current Diet Pureed with thin liquids Labs/Tests Reviewed Pertinent Medications Lasix Feosol Height 5 ft Weight 61.4 kg [place] Body Weight (kg) 45.45 BMI 26.4 Weight Status Overweight Subjective/Other Information FU for intakes. Per RN, pt ate 100% of breakfast and ONS. Pt with bilateral pulmonary edema, bilateral 1+ pitting on bilateral LE and stage 3 pressure ulcer on sacrum. Percent of energy/protein needs met: 100%/100% Burn Absent Trauma Absent Difficulty In Swallowing Minimum of two criteria No physical signs of malnutrition Fluid Accumulation Mild (non-severe) #2 Nutrition Diagnosis Increased nutrient needs ( specify in comment below) Comments: protein Etiology wound healing As Evidenced by Signs and Symptoms stage 3 pressure ulcer on sacrum #1 As Evidenced by Signs and Symptoms pt eating 100% of meals Diagnosis Progress(for reassessment Resolved documentation) Is patient on ventilator? No Is Patient Ambulatory and/or Out of Bed No REE-([facility]-confined to bed) 1225.356 Calculation Used for Recommendations [facility] Additional Notes Protein: 55-77g (0.9-1.25g/kg) Fluid: 1 ml/kcal Nutrition Intervention Change Diet Order: Continue pureed Add Supplement/Snack (indicate name/kcal Nepro daily /protein ) Provides kCal: 425 Provides Protein (gm) 19 Goal #1 Meet at least 75% of energy and protein needs Follow-Up By: 06/22/20 Additional Comments FU for PO and ONS intakes
[2020-06-22] MEDS: LEVOTHYROXINE 25 MCG TAB PO SCH (05:40)
[2020-06-22] MEDS: hydrALAZINE 100 MG TAB PO SCH ×2 (05:40→14:41)
[2020-06-22 07:20] LABS: Calcium 8.5 mg/dL (8.4-10.2)
[2020-06-22] MEDS: INSULIN LISPRO 100 UNIT/ML VIAL 3 mL SUB-Q SCH ×4 (08:32→23:10)
--- NOTE | 2020-06-22 09:14 | Progress Note ---
<LILY MANUEL - Last Filed: 06/22/20 09:14> Assessment and Plan Volume overload -resolved Heart failure with a preserved ejection fraction COVID 19 test is negative Echo this presentation: normal left ventricular systolic function with ejection fraction 55 to 60%. There is evidence of cor pulmonale. Intermittent bradycardia seen on telemetry monitoring 06/12 telemetry strips show mostly a sinus rhythm with first-degree AV block and cycles of second-degree Mobitz type I Wenckebach AV block. Carvedilol, Norvasc, Clonidine and Labetalol were discontinued TSH is 3.4 Cor-pulmonale Chronic renal disease Hypertension Prior CVA Continue current medical therapy. Otherwise, conservative cardiac management. Subjective Date of service: 06/22/20 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 Interval history: Patient is resting in bed comfortably. No interval cardiac changes. Blood pressure is controlled. Sinus rhythm with first degree AV block on telemetry. Objective Vital Signs Temp Pulse Resp BP Pulse Ox 06/21/20 23:40 97.5 F L 82 18 147/54 95 06/21/20 16:02 97.8 F 73 16 132/56 94 - Physical Examination General: No Apparent Distress, Cachectic, Other (Frail, elderly, chronically ill-appearing) HEENT: Positive: PERRL Neck: Positive: neck supple Cardiac: Positive: Reg Rate and Rhythm Lungs: Positive: Decreased Breath Sounds Neuro: Positive: Weakness Extremities: Absent: edema - Labs and Meds Comprehensive Metabolic Panel 06/22/20 Range/Units 06:31 Sodium 142 (137-145) mmol/L Potassium 4.3 (3.6-5.0) mmol/L Chloride 102.0 (98-107) mmol/L Carbon Dioxide 25 (22-30) mmol/L BUN 91 H (7-17) mg/dL Creatinine 4.7 H (0.6-1.2) mg/dL Glucose 130 H (65-100) mg/dL Calcium 8.5 (8.4-10.2) mg/dL <MICHAEL VANN - Last Filed: 06/25/20 09:16> Assessment and Plan - Patient Problems (1) CHF (congestive heart failure) Current Visit: Yes Status: Acute (2) Pulmonary hypertension Current Visit: Yes Status: Acute Subjective Interval history: I SAW THIS PT & AGREE WITH THE Dx & Tx PLAN Objective Vital Signs Temp Pulse Resp BP BP Pulse Ox 06/25/20 04:24 97.5 F L 73 20 142/53 95 06/24/20 22:34 78 188/77 06/24/20 21:17 98.6 F 78 20 188/77 99 06/24/20 18:10 98.3 F 65 18 143/54 06/24/20 18:00 63 119/44 06/24/20 17:50 66 143/47 06/24/20 17:40 64 133/55 06/24/20 17:30 69 170/88 06/24/20 17:20 69 139/47 06/24/20 17:10 73 133/60 06/24/20 17:00 65 139/49 06/24/20 16:50 70 140/54 06/24/20 16:40 69 126/53 06/24/20 16:30 69 134/56 06/24/20 16:20 73 126/61 06/24/20 16:10 74 128/60 06/24/20 16:00 72 136/58 06/24/20 15:50 71 127/51 06/24/20 15:40 73 130/63 06/24/20 15:35 72 133/60 06/24/20 15:30 74 110/64 06/24/20 15:20 66 125/57 06/24/20 15:10 70 125/57 06/24/20 15:00 71 144/60 06/24/20 14:45 70 132/56 06/24/20 14:42 72 135/59 06/24/20 14:30 98.6 F 72 18 142/59 06/24/20 10:00 97.4 F L 105 H 18 124/50 - Labs and Meds Comprehensive Metabolic Panel 06/25/20 Range/Units 04:41 Sodium 139 (137-145) mmol/L Potassium 4.4 (3.6-5.0) mmol/L Chloride 100.1 (98-107) mmol/L Carbon Dioxide 27 (22-30) mmol/L BUN 24 H (7-17) mg/dL Creatinine 2.2 H (0.6-1.2) mg/dL Glucose 110 H (65-100) mg/dL Calcium 9.0 (8.4-10.2) mg/dL
[2020-06-22] MEDS: SODIUM CHLORIDE 0.9% 1000 ML 1,000 ML IV SCH (09:32)
[2020-06-22] MEDS: FERROUS SULFATE 325 MG TAB PO SCH (09:33)
[2020-06-22] MEDS: MINOXIDIL 2.5 MG TAB PO SCH (09:33)
[2020-06-22] MEDS: DOXAZOSIN 1 MG TAB PO SCH (09:33)
[2020-06-22] MEDS: CLOPIDOGREL 75 MG TAB PO SCH (09:33)
[2020-06-22] MEDS: SERTRALINE 50 MG TAB PO SCH (09:33)
[2020-06-22] MEDS: ASPIRIN 81 MG TAB CHEW PO SCH (09:33)
--- NOTE | 2020-06-22 09:59 | Progress Note ---
Assessment and Plan CKD (chronic kidney disease) -Cr and BUN are stable but no UOP recorded, will likely need [employer] in the near future but no acute indicatrion -Review of medical records shows baseline serum creatinine in 2018 was 2.2.-2.6. -will d/c IVF -will creatinine clearance -Renal ultrasound-No obstruction noted -Urine lytes- shows 6 grams of protein -UPEP and SPEP- pending -Obtain daily weights -Monitor I/O's daily -Avoid nephrotoxic agents -Continue to monitor renal function closely Acute exacerbation of CHF -S/P IV Lasix -Echocardiogram-EF 55-60% -Cardiology onboard Hypertension -Continue antihypertensives and adjust medications as necessary -Monitor blood pressures Bradley Sanchez MD [phone] Subjective Date of service: 06/22/20 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 Interval history: comfortable, awake and alert Objective - Vital Signs Vital signs: Vital Signs - 12hr 06/21/20 06/22/20 06/22/20 23:40 06:16 09:33 Temperature 97.5 F L 98.0 F Pulse Rate 82 83 Respiratory 18 20 Rate Blood Pressure 147/54 173/62 150/71 O2 Sat by Pulse 95 96 Oximetry - General Appearance General appearance: well-developed, well-nourished EENT: ATNC, PERRL, mucous membranes moist Neck: no JVD, no carotid bruit Respiratory: Present: Clear to Ascultation Cardiology: regular Gastrointestinal: normoactive bowel sounds, no tenderness, no distended, no masses Integumentary: no rash, warm and dry Neurologic: no focal deficit, no asterixis Musculoskeletal: other (no edema in BLE) Psychiatric: cooperative - Lab 06/16/20 04:40 06/22/20 06:31 Most recent lab results Calcium 8.5 mg/dL (8.4-10.2) 06/22/20 06:31 Phosphorus 3.60 mg/dL (2.5-4.5) 06/13/20 05:19 Magnesium 2.20 mg/dL (1.7-2.3) 06/12/20 22:19 Urine Creatinine 22.7 mg/dL (0.1-20.0) H 06/12/20 Unknown Urine Sodium 121 mmol/L 06/12/20 Unknown Urine Total Protein 143 mg/dL (5-11.8) H 06/12/20 Unknown Medications & Allergies - Medications Allergies/Adverse Reactions: Allergies No Known Allergies Allergy (Verified 08/27/14 06:14) Home Medications: Home Medications Medication Instructions Recorded Confirmed Last Taken Type Levothyroxine [Synthroid] 25 mcg PO QAM 08/27/14 06/11/20 03/20/18 History hydrALAZINE [Apresoline TAB] 100 mg PO TID #90 tab 09/01/14 06/11/20 03/20/18 Rx Sertraline [Zoloft] 50 mg PO QDAY 11/05/14 06/11/20 03/20/18 History Terazosin (Nf) [Hytrin (Nf)] 5 mg PO QHS 08/19/17 06/11/20 Unknown History Aspirin [Aspirin BABY CHEW TAB] 81 mg PO QDAY tab.chew 08/21/17 06/11/20 Unknown Rx AtorvaSTATin [Lipitor] 40 mg PO QHS #30 tab 03/27/18 06/11/20 Unknown Rx Clopidogrel [Plavix] 75 mg PO QDAY #30 tablet 03/27/18 06/11/20 Unknown Rx Hypromellose [Isopto Tears 0.5%] 2 drops OU Q4H PRN bottle 03/27/18 06/11/20 Unknown Rx ISOSORBIDE MONOnitrate [Imdur ER] 30 mg PO QDAY #30 tablet 03/27/18 06/11/20 Unknown Rx amLODIPine 10 mg PO DAILY #30 tablet 03/27/18 06/11/20 Unknown Rx Ergocalciferol (Vitamin D2) 50,000 unit PO QDAY 06/11/20 06/11/20 Unknown History [Vitamin D2] Ferrous Sulfate [Feosol] 325 mg PO QDAY 06/11/20 06/11/20 Unknown History carvediloL [Coreg] 6.25 mg PO Q12HR 06/11/20 06/11/20 Unknown History Active Medications: Generic Name Dose Route Start Last Admin Trade Name Freq PRN Reason Stop Dose Admin Acetaminophen 650 mg 06/11/20 23:07 Tylenol PO Q4H PRN Pain MILD(1-3)/Fever >100.5/MENA Artificial Tears 2 drops 06/11/20 23:06 Isopto Tears 0.5% OU Q4H PRN Dry Eye(s) Aspirin 81 mg 06/12/20 10:00 06/22/20 09:33 Baby Aspirin PO 81 mg QDAY JULIETTE Administration Atorvastatin Calcium 40 mg 06/12/20 22:00 06/21/20 21:13 Lipitor PO 40 mg QHS JULIETTE Administration Clopidogrel Bisulfate 75 mg 06/12/20 10:00 06/22/20 09:33 Plavix PO 75 mg QDAY JULIETTE Administration Dextrose 50 ml 06/13/20 05:23 D50w (25gm) Syringe IV Q30MIN PRN Hypoglycemia Protocol Doxazosin Mesylate 2 mg 06/12/20 12:00 06/22/20 09:33 Cardura PO 2 mg BID JULIETTE Administration Ergocalciferol 50,000 unit 06/19/20 10:00 06/19/20 09:25 Vitamin D2 PO 50,000 unit Mo JULIETTE Administration Ferrous Sulfate 325 mg 06/12/20 10:00 06/22/20 09:33 Feosol PO 325 mg QDAY JULIETTE Administration Hydralazine HCl 100 mg 06/17/20 14:00 06/22/20 05:40 Apresoline PO 100 mg Q8HR JULIETTE Administration Hydromorphone HCl 0.5 mg 06/11/20 23:07 Dilaudid IV Q3H PRN Pain , Severe (7-10) Sodium Chloride 1,000 mls @ 75 mls/hr 06/20/20 11:15 06/22/20 09:32 Nacl 0.9% 1000 Ml IV 75 mls/hr DIRECT JULIETTE Administration Insulin Human Lispro 0 unit 06/13/20 07:30 06/22/20 08:32 Humalog SUB-Q Not Given ACHS [facility] Protocol Isosorbide Mononitrate 60 mg 06/16/20 12:00 06/22/20 09:33 Imdur PO 60 mg QDAY JULIETTE Administration Levothyroxine Sodium 25 mcg 06/12/20 06:00 06/22/20 05:40 Synthroid PO 25 mcg QAM@0600 JULIETTE Administration Minoxidil 2.5 mg 06/17/20 10:00 06/22/20 09:33 Loniten PO 2.5 mg Q12HR JULIETTE Administration Nifedipine 90 mg 06/14/20 22:00 06/21/20 21:13 Procardia Xl PO 90 mg Q12HR JULIETTE Administration Nitroglycerin 0.4 mg 06/12/20 04:00 06/12/20 04:39 Nitrostat SL 0.4 mg .Q5MIN PRN Administration Chest Pain Ondansetron HCl 4 mg 06/11/20 23:07 Zofran IV Q8H PRN Nausea And Vomiting Oxycodone/Acetaminophen 1 tab 06/11/20 23:07 06/19/20 23:37 Percocet 5/325 PO 1 tab Q6H PRN Administration Pain, Moderate (4-6) Sertraline HCl 50 mg 06/12/20 10:00 06/22/20 09:33 Zoloft PO 50 mg QDAY JULIETTE Administration Sodium Chloride 10 ml 06/11/20 23:45 06/22/20 09:36 Sodium Chloride Flush Syringe 10 Ml IV 10 ml BID JULIETTE Administration Sodium Chloride 10 ml 06/11/20 23:07 Sodium Chloride Flush Syringe 10 Ml IV PRN PRN LINE FLUSH
[2020-06-22] MEDS: NIFEdipine XL 90 MG TAB PO SCH (10:57)
--- NOTE | 2020-06-22 11:46 | Progress Note ---
Assessment and Plan Assessment and plan: -- Acute on chronic diastolic CHF (congestive heart failure) Bilateral edema on chest x-ray due to acute on chronic diastolic CHF Continue beta-blockers. Hold Lasix due to bump in creatinine Low-sodium diet, fluid restriction Echocardiogram for LV function ejection fraction-EF 55 to 60% Cardiology following. --Nonspecific elevated troponin; Due to NSTEMI type II, in the setting of chronic kidney disease Possible stress test versus heart cath if needed -- HTN (hypertension) Moderate control ,continue current antihypertensives And as needed hydralazine --History of coronary artery disease Continue isosorbide mono nitrate and aspirin Cardiology following Acute kidney injury on CKD 4 (chronic kidney disease) Due to vasomotor nephropathy Hold Lasix and diovan. Trend Cr Nephrology following Monitor renal function, avoid nephrotoxins -- DVT prophylaxis On heparin and GI prophylaxis Closely monitor the patient and adjust management as needed Plan of care reviewed with the patient and the nurse Cardiology consult noted and appreciated 06/14/2020. Echocardiogram revealed EF of 55 to 60%. Continue IV Lasix per nephrology and cardiology. Baseline creatinine in 2018 was 2.22.6. Renal ultrasound revealed no obstruction. UPEP and SPEP pending. Patient still exhibiting accelerated hypertension. Increase Procardia to 90 mg twice daily. 06/15/2020. Patient's blood pressure is better controlled with current medications. Recheck chest x-ray today and follow-up BnP. 06/16/2020. Patient's blood pressure still extremely labile. Patient currently with clonidine, Cardura, Procardia, isosorbide and hydralazine. Increase hydralazine to 75 mg 3 times daily. BNP greater than 13,000 and chest x-ray suggestive of heart failure. Defer to cardiology. Await PT recommendations for placement. 06/17/2020. Patient still with accelerated hypertension. Increase hydralazine to 100 mg 3 times daily. Continue isosorbide, clonidine, Cardura, valsartan and Procardia as well. Serum creatinine remains stable at 2.9. 06/18/2020. Patient's blood pressure much better controlled. Continue current regimen of hydralazine, isosorbide, clonidine, Cardura and Procardia. Diovan held due to increased creatinine. Renal ultrasound revealed no evidence of obstruction. BNP greater than 13,000 and chest x-ray suggestive of heart failure. 06/19/2020. Patient's blood pressure much better controlled. Continue current regimen of hydralazine, isosorbide, clonidine, Cardura and Procardia. Creatinine elevated at 3.5. Continue Lasix 20 mg IV twice daily for heart failure. Follow-up UPEP and SPEP. Continue daily weights, monitor I/O's daily, avoid nephrotoxic agents and follow-up BMP in a.m. 06/20/2020. Renal function continues to worsen. Creatinine 4.6 this morning. Hold Lasix for now. Started on gentle IV hydration. Nephrology is following. Avoid nephrotoxic medications. Cardiology recommendations appreciated 06/21. No complaints. Her renal function is more stable now. Cr is 4.7 today. Continue to hold lasix and diovan. Continue IV hydration. Nephrology is following. 06/22. Labs stable - Cr 4.7. Nephrology on board. History Interval history: No acute issues overnight Hospitalist Physical - Physical exam Narrative exam: VITAL SIGNS: Reviewed. GENERAL: Awake and alert on response to questions intermittently HEAD: No signs of head trauma. EYES: Pupils are equal. Extraocular motions intact. EARS: Hearing grossly intact. MOUTH: Oropharynx is normal. NECK: No adenopathy, no JVD. CHEST: Chest with diminished breath sounds bilaterally. No wheezes, rales, or rhonchi. CARDIAC: Regular rate and rhythm. S1 and S2, without murmurs, gallops, or rubs. VASCULAR: No Edema. Peripheral pulses normal and equal in all extremities. ABDOMEN: Soft, non tender and non distended. No rebound or guarding, and no masses palpated. Bowel Sounds normal. MUSCULOSKELETAL: Good range of motion of all major joints. Extremities without clubbing, cyanosis or edema. NEUROLOGIC EXAM: Alert and oriented in person. No focal neurologic deficits PSYCHIATRIC: Stable mood SKIN: No obvious lesions - Constitutional Vitals: Temp Pulse Resp BP Pulse Ox 98.0 F 83 20 150/71 96 06/22/20 06:16 06/22/20 06:16 06/22/20 06:16 06/22/20 09:33 06/22/20 06:16 HEART Score - HEART Score Age: > 65 Risk factors: > 3 risk factors or hx of atherosclerotic disease Troponin: Troponin T 0.125 ng/mL (0.00-0.029) H* 06/12/20 14:48 Troponin: < normal limit - Critical Actions Critical Actions: 4-6 pts:12-16.6% risk of adverse cardiac event. Should be admitted Results - Labs CBC & Chem 7: 06/16/20 04:40 06/22/20 06:31 Labs: Laboratory Last Values WBC 4.9 K/mm3 (4.5-11.0) 06/16/20 04:40 RBC 3.34 M/mm3 (3.65-5.03) L 06/16/20 04:40 Hgb 9.4 gm/dl (10.1-14.3) L 06/16/20 04:40 Hct 29.7 % (30.3-42.9) L 06/16/20 04:40 MCV 89 fl (79-97) 06/16/20 04:40 MCH 28 pg (28-32) 06/16/20 04:40 MCHC 32 % (30-34) 06/16/20 04:40 RDW 17.3 % (13.2-15.2) H 06/16/20 04:40 Plt Count 145 K/mm3 (140-440) 06/16/20 04:40 Lymph % (Auto) 23.5 % (13.4-35.0) 06/16/20 04:40 [place] % (Auto) 15.1 % (0.0-7.3) H 06/16/20 04:40 Eos % (Auto) 4.2 % (0.0-4.3) 06/16/20 04:40 Baso % (Auto) 1.3 % (0.0-1.8) 06/16/20 04:40 Lymph # (Auto) 1.1 K/mm3 (1.2-5.4) L 06/16/20 04:40 [place] # (Auto) 0.7 K/mm3 (0.0-0.8) 06/16/20 04:40 Eos # (Auto) 0.2 K/mm3 (0.0-0.4) 06/16/20 04:40 Baso # (Auto) 0.1 K/mm3 (0.0-0.1) 06/16/20 04:40 Add Manual Diff Complete 06/12/20 02:35 Total Counted 100 06/12/20 02:35 Seg Neutrophils % 55.9 % (40.0-70.0) 06/16/20 04:40 Seg Neuts % (Manual) 92.0 % (40.0-70.0) H 06/12/20 02:35 Band Neutrophils % 0 % 06/12/20 02:35 Lymphocytes % (Manual) 6.0 % (13.4-35.0) L 06/12/20 02:35 Reactive Lymphs % (Man) 0 % 06/12/20 02:35 Monocytes % (Manual) 2.0 % (0.0-7.3) 06/12/20 02:35 Eosinophils % (Manual) 0 % (0.0-4.3) 06/12/20 02:35 Basophils % (Manual) 0 % (0.0-1.8) 06/12/20 02:35 Metamyelocytes % 0 % 06/12/20 02:35 Myelocytes % 0 % 06/12/20 02:35 Promyelocytes % 0 % 06/12/20 02:35 Blast Cells % 0 % 06/12/20 02:35 Nucleated RBC % Not Reportable 06/12/20 02:35 Seg Neutrophils # 2.7 K/mm3 (1.8-7.7) 06/16/20 04:40 Seg Neutrophils # Man 4.1 K/mm3 (1.8-7.7) 06/12/20 02:35 Band Neutrophils # 0.0 K/mm3 06/12/20 02:35 Lymphocytes # (Manual) 0.3 K/mm3 (1.2-5.4) L 06/12/20 02:35 Abs React Lymphs (Man) 0.0 K/mm3 06/12/20 02:35 Monocytes # (Manual) 0.1 K/mm3 (0.0-0.8) 06/12/20 02:35 Eosinophils # (Manual) 0.0 K/mm3 (0.0-0.4) 06/12/20 02:35 Basophils # (Manual) 0.0 K/mm3 (0.0-0.1) 06/12/20 02:35 Metamyelocytes # 0.0 K/mm3 06/12/20 02:35 Myelocytes # 0.0 K/mm3 06/12/20 02:35 Promyelocytes # 0.0 K/mm3 06/12/20 02:35 Blast Cells # 0.0 K/mm3 06/12/20 02:35 WBC Morphology Not Reportable 06/12/20 02:35 Hypersegmented Neuts Not Reportable 06/12/20 02:35 Hyposegmented Neuts Not Reportable 06/12/20 02:35 Hypogranular Neuts Not Reportable 06/12/20 02:35 Smudge Cells Not Reportable 06/12/20 02:35 Toxic Granulation Not Reportable 06/12/20 02:35 Toxic Vacuolation Not Reportable 06/12/20 02:35 Dohle Bodies Not Reportable 06/12/20 02:35 Pelger-Huet Anomaly Not Reportable 06/12/20 02:35 Chanda Rods Not Reportable 06/12/20 02:35 Platelet Estimate Consistent w auto 06/12/20 02:35 Clumped Platelets Not Reportable 06/12/20 02:35 Plt Clumps, EDTA Not Reportable 06/12/20 02:35 Large Platelets Not Reportable 06/12/20 02:35 Giant Platelets Not Reportable 06/12/20 02:35 Platelet Satelliting Not Reportable 06/12/20 02:35 Plt Morphology Comment Not Reportable 06/12/20 02:35 RBC Morphology Not Reportable 06/12/20 02:35 Dimorphic RBCs Not Reportable 06/12/20 02:35 Polychromasia Not Reportable 06/12/20 02:35 Hypochromasia Few 06/12/20 02:35 Poikilocytosis Not Reportable 06/12/20 02:35 Anisocytosis 1+ 06/12/20 02:35 Microcytosis Not Reportable 06/12/20 02:35 Macrocytosis Not Reportable 06/12/20 02:35 Spherocytes Not Reportable 06/12/20 02:35 Pappenheimer Bodies Not Reportable 06/12/20 02:35 Sickle Cells Not Reportable 06/12/20 02:35 Target Cells Few 06/12/20 02:35 Tear Drop Cells Not Reportable 06/12/20 02:35 Ovalocytes Not Reportable 06/12/20 02:35 Helmet Cells Not Reportable 06/12/20 02:35 Phipps-Cutter Bodies Not Reportable 06/12/20 02:35 [place] Rings Not Reportable 06/12/20 02:35 [place] Cells Not Reportable 06/12/20 02:35 Bite Cells Not Reportable 06/12/20 02:35 Crenated Cell Not Reportable 06/12/20 02:35 Elliptocytes Not Reportable 06/12/20 02:35 Acanthocytes (Spur) Not Reportable 06/12/20 02:35 Rouleaux Not Reportable 06/12/20 02:35 Hemoglobin C Crystals Not Reportable 06/12/20 02:35 Schistocytes Not Reportable 06/12/20 02:35 Malaria parasites Not Reportable 06/12/20 02:35 Sulaiman Bodies Not Reportable 06/12/20 02:35 Hem Pathologist Commnt No 06/12/20 02:35 PT 14.7 Sec. (12.2-14.9) 06/11/20 14:41 INR 1.15 (0.87-1.13) H 06/11/20 14:41 Sodium 142 mmol/L (137-145) 06/22/20 06:31 Potassium 4.3 mmol/L (3.6-5.0) 06/22/20 06:31 Chloride 102.0 mmol/L (98-107) 06/22/20 06:31 Carbon Dioxide 25 mmol/L (22-30) 06/22/20 06:31 Anion Gap 19 mmol/L 06/22/20 06:31 BUN 91 mg/dL (7-17) H 06/22/20 06:31 Creatinine 4.7 mg/dL (0.6-1.2) H 06/22/20 06:31 Estimated GFR 11 ml/min 06/22/20 06:31 BUN/Creatinine Ratio 19 % 06/22/20 06:31 Glucose 130 mg/dL (65-100) H 06/22/20 06:31 POC Glucose 118 mg/dL (70-105) H 06/22/20 08:02 Hemoglobin A1c 6.0 % (4-6) 06/12/20 02:35 Lactic Acid 0.50 mmol/L (0.7-2.0) L 06/11/20 16:11 Calcium 8.5 mg/dL (8.4-10.2) 06/22/20 06:31 Phosphorus 3.60 mg/dL (2.5-4.5) 06/13/20 05:19 Magnesium 2.20 mg/dL (1.7-2.3) 06/12/20 22:19 Total Bilirubin 0.30 mg/dL (0.1-1.2) 06/12/20 02:35 AST 20 units/L (5-40) 06/12/20 02:35 ALT 9 units/L (7-56) 06/12/20 02:35 Alkaline Phosphatase 97 units/L (35-129) 06/12/20 02:35 Total Creatine Kinase 60 units/L (30-135) 06/11/20 14:41 Troponin T 0.125 ng/mL (0.00-0.029) H* 06/12/20 14:48 NT-Pro-B Natriuret Pep 53087 pg/mL (0-900) H 06/15/20 05:23 Serum Total Protein 7.2 g/dL (6.1-8.1) 06/13/20 09:41 Total Protein 8.3 g/dL (6.3-8.2) H 06/12/20 02:35 Albumin 3.3 g/dL (3.8-4.8) L 06/13/20 09:41 Albumin/Globulin Ratio 0.6 % 06/12/20 02:35 Ohkmb-0-Ccwxtvexf 0.3 g/dL (0.2-0.3) 06/13/20 09:41 Uprzk-2-Ignpfanni 0.7 g/dL (0.5-0.9) 06/13/20 09:41 Beta Globulins 0.5 g/dL (0.2-0.5) 06/13/20 09:41 Gamma Globulins 2.1 g/dL (0.8-1.7) H 06/13/20 09:41 Abnorm Protein Band 1 see below 06/13/20 09:41 PEP Interpretation see below H 06/13/20 09:41 Triglycerides 89 mg/dL (2-149) 06/11/20 14:41 Cholesterol 157 mg/dL (50-199) 06/11/20 14:41 LDL Cholesterol Direct 71 mg/dL (50-130) 06/11/20 14:41 HDL Cholesterol 75 mg/dL (40-59) H 06/11/20 14:41 Cholesterol/HDL Ratio 2.09 % 06/11/20 14:41 TSH 3.490 mlU/mL (0.270-4.200) 06/12/20 14:48 Urine Color Straw (Yellow) 06/12/20 12:47 Urine Turbidity Clear (Clear) 06/12/20 12:47 Urine pH 6.0 (5.0-7.0) 06/12/20 12:47 Ur Specific [place] 1.009 (1.003-1.030) 06/12/20 12:47 Urine Protein 100 mg/dl mg/dL (Negative) 06/12/20 12:47 Urine Glucose (UA) Neg mg/dL (Negative) 06/12/20 12:47 Urine Ketones Neg mg/dL (Negative) 06/12/20 12:47 Urine Blood Neg (Negative) 06/12/20 12:47 Urine Nitrite Neg (Negative) 06/12/20 12:47 Urine Bilirubin Neg (Negative) 06/12/20 12:47 Urine Urobilinogen < 2.0 mg/dL (<2.0) 06/12/20 12:47 Ur Leukocyte Esterase Neg (Negative) 06/12/20 12:47 Urine WBC (Auto) 3.0 /HPF (0.0-6.0) 06/12/20 12:47 Urine RBC (Auto) 2.0 /HPF (0.0-6.0) 06/12/20 12:47 U Epithel Cells (Auto) 2.0 /HPF (0-13.0) 06/12/20 12:47 Urine Bacteria (Auto) 1+ /HPF (Negative) 06/12/20 12:47 Urine Eosinophils None seen (None Seen) 06/12/20 Unknown Urine Creatinine 22.7 mg/dL (0.1-20.0) H 06/12/20 Unknown Protein/Creatinin Ratio 6.30 06/12/20 Unknown Urine Sodium 121 mmol/L 06/12/20 Unknown Urine Total Protein 143 mg/dL (5-11.8) H 06/12/20 Unknown Coronavirus (PCR) Negative (Negative) 06/12/20 Unknown - Diagnostic Impressions Diagnostic Impressions: Echocardiogram 06/11/20 23:10 Transthoracic Echocardiogram Indication: CHF BP: 165/63 HR: 60 Conclusions *Global left ventricular systolic function is normal. *The estimated ejection fraction is 55-60%. *Mild to moderate concentric left ventricular hypertrophy is observed. *The left and right atria are both moderately dilated. *There is mild to moderate mitral regurgitation. *There is mild tricuspid regurgitation. *There is evidence of moderate pulmonary hypertension. *The right ventricular systolic pressure is calculated at 51 mmHg. *A left pleural effusion is present. *There is no significant pericardial effusion. Findings Left Ventricle: The left ventricular chamber size is normal. Mild to moderate concentric left ventricular hypertrophy is observed. Global left ventricular systolic function is normal. The estimated ejection fraction is 55-60%. Left Atrium: The left atrium is moderately dilated. Right Ventricle: The right ventricle is mildly dilated. The right ventricular global systolic function is mildly reduced. Right Atrium: The right atrium is moderately dilated. Aortic Valve: The aortic valve is trileaflet. The aortic valve leaflets are moderately thickened. There is trace of aortic regurgitation. There is no evidence of aortic stenosis. Mitral Valve: The mitral valve leaflets are moderately thickened. There is mild to moderate mitral regurgitation. There is no evidence of mitral stenosis. Tricuspid Valve: There is mild tricuspid regurgitation. The right ventricular systolic pressure is calculated at 51 mmHg. There is evidence of moderate pulmonary hypertension. Pulmonic Valve: There is trace pulmonic regurgitation. Pericardium: There is no pericardial effusion. A left pleural effusion is present. Aorta: There is no dilatation of the ascending aorta. There is no dilatation of the aortic root. Venous: The inferior vena cava appears normal in size. Measurements Chambers 2D Name Value Normal Range IVSd (2D) 1.07 cm (0.6 - 1.1) LVPWd (2D) 1.19 cm (0.6 - 1.1) LVIDd (2D) 4.34 cm (3.7 - 5.6) LVIDs (2D) 2.93 cm (2 - 3.8) LV FS (2D) 32.56 % - EF Teichholz (2D) 61.19 % - Ao root diameter (2D) 3.19 cm (2 - 3.7) Volumes/Mass Name Value Normal Range LA ESV SP 4CH (A/L) 58.57 ml - LA ESV SP 2CH (A/L) 86.64 ml - LA ESV BP (A/L) 74.92 ml - LA ESV BP (A/L) index 47.42 ml/m2 - LA ESV SP 4CH (MOD) 50.65 ml - LA ESV SP 2CH (MOD) 79.23 ml - LA ESV BP (MOD) 66.45 ml - LA ESV BP (MOD) index 42.06 ml/m2 - Diastolic/Systolic Function Name Value Normal Range MV E-wave Vmax 1.34 m/sec - MV deceleration time 244.33 msec - MV A-wave Vmax 0.98 m/sec - MV E:A ratio 1.36 ratio - Aortic Valve Name Value Normal Range AV Vmax 1.46 m/sec - AV VTI 38.18 cm - AV peak gradient 8.5 mmHg - AV mean gradient 4.47 mmHg - LVOT diameter 1.93 cm - LVOT Vmax 0.97 m/sec - LVOT VTI 27.7 cm - LVOT peak gradient 3.73 mmHg - LVOT mean gradient 2.13 mmHg - SV LVOT 80.99 ml - KENYA (continuity Vmax) 1.94 cm2 - KENYA (continuity VTI) 2.12 cm2 - Ascending Ao 2.04 cm - Tricuspid Valve Name Value Normal Range TR Vmax 3.3 m/sec - TR peak gradient 43 mmHg - RAP 8 mmHg - RVSP 51 mmHg - Pulmonic Valve/Qp:Qs Name Value Normal Range PV Vmax 1.02 m/sec - PV peak gradient 4.14 mmHg - NM end-diastolic Vmax 0.74 m/sec - PV acceleration time 68.51 msec - Lopez/IV: Voiding Method Diaper IV Catheter Type [Right INT / Saline Lock Forearm] Active Medications - Current Medications Current Medications: Generic Name Dose Route Start Last Admin Trade Name Freq PRN Reason Stop Dose Admin Acetaminophen 650 mg 06/11/20 23:07 Tylenol PO Q4H PRN Pain MILD(1-3)/Fever >100.5/MENA Artificial Tears 2 drops 06/11/20 23:06 Isopto Tears 0.5% OU Q4H PRN Dry Eye(s) Aspirin 81 mg 06/12/20 10:00 06/22/20 09:33 Baby Aspirin PO 81 mg QDAY JULIETTE Administration Atorvastatin Calcium 40 mg 06/12/20 22:00 06/21/20 21:13 Lipitor PO 40 mg QHS JULIETTE Administration Clopidogrel Bisulfate 75 mg 06/12/20 10:00 06/22/20 09:33 Plavix PO 75 mg QDAY JULIETTE Administration Dextrose 50 ml 06/13/20 05:23 D50w (25gm) Syringe IV Q30MIN PRN Hypoglycemia Protocol Doxazosin Mesylate 2 mg 06/12/20 12:00 06/22/20 09:33 Cardura PO 2 mg BID JULIETTE Administration Ergocalciferol 50,000 unit 06/19/20 10:00 06/19/20 09:25 Vitamin D2 PO 50,000 unit Mo JULIETTE Administration Ferrous Sulfate 325 mg 06/12/20 10:00 06/22/20 09:33 Feosol PO 325 mg QDAY [facility] Administration Hydralazine HCl 100 mg 06/17/20 14:00 06/22/20 05:40 Apresoline PO 100 mg Q8HR JULIETTE Administration Hydromorphone HCl 0.5 mg 06/11/20 23:07 Dilaudid IV Q3H PRN Pain , Severe (7-10) Insulin Human Lispro 0 unit 06/13/20 07:30 06/22/20 08:32 Humalog SUB-Q Not Given ACHS [facility] Protocol Isosorbide Mononitrate 60 mg 06/16/20 12:00 06/22/20 09:33 Imdur PO 60 mg QDAY [facility] Administration Levothyroxine Sodium 25 mcg 06/12/20 06:00 06/22/20 05:40 Synthroid PO 25 mcg QAM@0600 [facility] Administration Minoxidil 2.5 mg 06/17/20 10:00 06/22/20 09:33 Loniten PO 2.5 mg Q12HR JULIETTE Administration Nifedipine 90 mg 06/14/20 22:00 06/22/20 10:57 Procardia Xl PO 90 mg Q12HR JULIETTE Administration Nitroglycerin 0.4 mg 06/12/20 04:00 06/12/20 04:39 Nitrostat SL 0.4 mg .Q5MIN PRN Administration Chest Pain Ondansetron HCl 4 mg 06/11/20 23:07 Zofran IV Q8H PRN Nausea And Vomiting Oxycodone/Acetaminophen 1 tab 06/11/20 23:07 06/19/20 23:37 Percocet 5/325 PO 1 tab Q6H PRN Administration Pain, Moderate (4-6) Sertraline HCl 50 mg 06/12/20 10:00 06/22/20 09:33 Zoloft PO 50 mg QDAY JULIETTE Administration Sodium Chloride 10 ml 06/11/20 23:45 06/22/20 09:36 Sodium Chloride Flush Syringe 10 Ml IV 10 ml BID JULIETTE Administration Sodium Chloride 10 ml 06/11/20 23:07 Sodium Chloride Flush Syringe 10 Ml IV PRN PRN LINE FLUSH Nutrition/Malnutrition Assess - Dietary Evaluation Nutrition/Malnutrition Findings: Nutrition Notes Start: 06/12/20 14:11 Freq: Status: Active Protocol: Document 06/22/20 11:32 AB (Rec: 06/22/20 11:41 AB [id number]) Co-Sign 06/22/20 11:32 MK Nutrition Notes Initial or Follow up Reassessment Current Diagnosis CKD(stage I-IV),Coronary Artery Disease,Diabetes, Hypertension,Heart Failure, Hyperlipidemia Current Diet Pureed with thin liquids Labs/Tests BUN 91 Cr 4.7 BG 130 Pertinent Medications Feosol Vit D2 Height 5 ft Weight 57.8 kg [place] Body Weight (kg) 45.45 BMI 24.8 Weight change and time frame wt change noted Weight Status Appropriate Subjective/Other Information F/U for intakes and ONS tolerance. Per tech, pt is eating 100% of her meals ONS is not given to her every day because she has been eating every meal 100%, per tech. Percent of energy/protein needs met: 100%/100% Burn Absent Trauma Absent GI Symptoms None Difficulty In Swallowing Current % PO Good (75-100%) Minimum of two criteria No physical signs of malnutrition #2 Nutrition Diagnosis Increased nutrient needs ( specify in comment below) Comments: protein Diagnosis Progress(for reassessment Continues documentation) Is patient on ventilator? No Is Patient Ambulatory and/or Out of Bed No REE-([facility]-confined to bed) 1182.192 Kcal/Kg value to use for calculation 22 Approximate Energy Requirements Using 1272 kcal/Kg Calculation Used for Recommendations Kcal/kg Additional Notes Protein: 58-72 g (1-1.25 g/kg) Fluid: 1 ml/kcal Nutrition Intervention Change Diet Order: Continue pureed Add Supplement/Snack (indicate name/kcal D/C /protein ) Goal #1 Meet at least 75% of energy and protein needs Anticipated Discharge Needs: Pureed diet Follow-Up By: 06/29/20 Additional Comments F/U for intakes
[2020-06-23] MEDS: DOXAZOSIN 1 MG TAB PO SCH ×2 (00:05→10:30)
[2020-06-23] MEDS: hydrALAZINE 100 MG TAB PO SCH ×3 (00:05→14:28)
[2020-06-23] MEDS: NIFEdipine XL 90 MG TAB PO SCH ×2 (00:06→10:35)
[2020-06-23] MEDS: MINOXIDIL 2.5 MG TAB PO SCH ×2 (00:06→10:30)
[2020-06-23 05:48] LABS: Calcium 8.9 mg/dL (8.4-10.2)
[2020-06-23] MEDS: LEVOTHYROXINE 25 MCG TAB PO SCH (08:18)
--- NOTE | 2020-06-23 08:53 | Progress Note ---
<GLENN MANUELLEONILATRINA - Last Filed: 06/23/20 08:51> Assessment and Plan Volume overload -resolved Heart failure with a preserved ejection fraction COVID 19 test is negative Echo this presentation: normal left ventricular systolic function with ejection fraction 55 to 60%. There is evidence of cor pulmonale. Intermittent bradycardia seen on telemetry monitoring 06/12 telemetry strips show mostly a sinus rhythm with first-degree AV block and cycles of second-degree Mobitz type I Wenckebach AV block. Carvedilol, Norvasc, Clonidine and Labetalol were discontinued TSH is 3.4 Cor-pulmonale Chronic renal disease Hypertension Prior CVA Continue current medical therapy. Otherwise, conservative cardiac management. Subjective Date of service: 06/23/20 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 Interval history: Patient is resting in bed comfortably. No interval cardiac changes. Objective Vital Signs Temp Pulse Resp BP Pulse Ox 06/23/20 06:29 97.4 F L 90 18 147/57 95 06/22/20 23:12 98.5 F 89 20 160/70 98 06/22/20 16:19 97.5 F L 83 16 141/58 95 06/22/20 11:14 98.3 F 79 18 123/55 100 06/22/20 09:33 150/71 - Physical Examination General: No Apparent Distress, Cachectic, Other (Frail, elderly, chronically ill-appearing) HEENT: Positive: PERRL Neck: Positive: neck supple Cardiac: Positive: Reg Rate and Rhythm Lungs: Positive: Decreased Breath Sounds Neuro: Positive: Weakness Extremities: Absent: edema - Labs and Meds Comprehensive Metabolic Panel 06/23/20 Range/Units 04:32 Sodium 142 (137-145) mmol/L Potassium 4.9 (3.6-5.0) mmol/L Chloride 101.6 (98-107) mmol/L Carbon Dioxide 24 (22-30) mmol/L BUN 95 H (7-17) mg/dL Creatinine 5.0 H (0.6-1.2) mg/dL Glucose 117 H (65-100) mg/dL Calcium 8.9 (8.4-10.2) mg/dL <MICHAEL VANN - Last Filed: 06/25/20 09:05> Assessment and Plan - Patient Problems (1) CHF (congestive heart failure) Current Visit: Yes Status: Acute (2) Pulmonary hypertension Current Visit: Yes Status: Acute Subjective Interval history: I SAW THIS PT & AGREE WITH THE Dx & Tx PLAN Objective Vital Signs Temp Pulse Resp BP BP Pulse Ox 06/25/20 04:24 97.5 F L 73 20 142/53 95 06/24/20 22:34 78 188/77 06/24/20 21:17 98.6 F 78 20 188/77 99 06/24/20 18:10 98.3 F 65 18 143/54 06/24/20 18:00 63 119/44 06/24/20 17:50 66 143/47 06/24/20 17:40 64 133/55 06/24/20 17:30 69 170/88 06/24/20 17:20 69 139/47 06/24/20 17:10 73 133/60 06/24/20 17:00 65 139/49 06/24/20 16:50 70 140/54 06/24/20 16:40 69 126/53 06/24/20 16:30 69 134/56 06/24/20 16:20 73 126/61 06/24/20 16:10 74 128/60 06/24/20 16:00 72 136/58 06/24/20 15:50 71 127/51 06/24/20 15:40 73 130/63 06/24/20 15:35 72 133/60 06/24/20 15:30 74 110/64 06/24/20 15:20 66 125/57 06/24/20 15:10 70 125/57 06/24/20 15:00 71 144/60 06/24/20 14:45 70 132/56 06/24/20 14:42 72 135/59 06/24/20 14:30 98.6 F 72 18 142/59 06/24/20 10:00 97.4 F L 105 H 18 124/50 - Labs and Meds Comprehensive Metabolic Panel 06/25/20 Range/Units 04:41 Sodium 139 (137-145) mmol/L Potassium 4.4 (3.6-5.0) mmol/L Chloride 100.1 (98-107) mmol/L Carbon Dioxide 27 (22-30) mmol/L BUN 24 H (7-17) mg/dL Creatinine 2.2 H (0.6-1.2) mg/dL Glucose 110 H (65-100) mg/dL Calcium 9.0 (8.4-10.2) mg/dL
--- NOTE | 2020-06-23 10:22 | Progress Note ---
Assessment and Plan Assessment and plan: -- Acute on chronic diastolic CHF (congestive heart failure) Bilateral edema on chest x-ray due to acute on chronic diastolic CHF Continue beta-blockers. Hold Lasix due to bump in creatinine Low-sodium diet, fluid restriction Echocardiogram for LV function ejection fraction-EF 55 to 60% Cardiology following. --Nonspecific elevated troponin; Due to NSTEMI type II, in the setting of chronic kidney disease Possible stress test versus heart cath if needed -- HTN (hypertension) Moderate control ,continue current antihypertensives And as needed hydralazine --History of coronary artery disease Continue isosorbide mono nitrate and aspirin Cardiology following Acute kidney injury on CKD 4 (chronic kidney disease) Due to vasomotor nephropathy Hold Lasix and diovan. Trend Cr Nephrology following Monitor renal function, avoid nephrotoxins -- DVT prophylaxis On heparin and GI prophylaxis Closely monitor the patient and adjust management as needed Plan of care reviewed with the patient and the nurse Cardiology consult noted and appreciated 06/14/2020. Echocardiogram revealed EF of 55 to 60%. Continue IV Lasix per nephrology and cardiology. Baseline creatinine in 2018 was 2.22.6. Renal ultrasound revealed no obstruction. UPEP and SPEP pending. Patient still exhibiting accelerated hypertension. Increase Procardia to 90 mg twice daily. 06/15/2020. Patient's blood pressure is better controlled with current medications. Recheck chest x-ray today and follow-up BnP. 06/16/2020. Patient's blood pressure still extremely labile. Patient currently with clonidine, Cardura, Procardia, isosorbide and hydralazine. Increase hydralazine to 75 mg 3 times daily. BNP greater than 13,000 and chest x-ray suggestive of heart failure. Defer to cardiology. Await PT recommendations for placement. 06/17/2020. Patient still with accelerated hypertension. Increase hydralazine to 100 mg 3 times daily. Continue isosorbide, clonidine, Cardura, valsartan and Procardia as well. Serum creatinine remains stable at 2.9. 06/18/2020. Patient's blood pressure much better controlled. Continue current regimen of hydralazine, isosorbide, clonidine, Cardura and Procardia. Diovan held due to increased creatinine. Renal ultrasound revealed no evidence of obstruction. BNP greater than 13,000 and chest x-ray suggestive of heart failure. 06/19/2020. Patient's blood pressure much better controlled. Continue current regimen of hydralazine, isosorbide, clonidine, Cardura and Procardia. Creatinine elevated at 3.5. Continue Lasix 20 mg IV twice daily for heart failure. Follow-up UPEP and SPEP. Continue daily weights, monitor I/O's daily, avoid nephrotoxic agents and follow-up BMP in a.m. 06/20/2020. Renal function continues to worsen. Creatinine 4.6 this morning. Hold Lasix for now. Started on gentle IV hydration. Nephrology is following. Avoid nephrotoxic medications. Cardiology recommendations appreciated 06/21. No complaints. Her renal function is more stable now. Cr is 4.7 today. Continue to hold lasix and diovan. Continue IV hydration. Nephrology is following. 06/22. Labs stable - Cr 4.7. Nephrology on board. 06/23. Cr 5.0. May need HD. Nephrology evaluation appreciated History Interval history: No acute issues overnight Cr 5.0 nephrology on board Hospitalist Physical - Physical exam Narrative exam: VITAL SIGNS: Reviewed. GENERAL: Awake and alert on response to questions intermittently HEAD: No signs of head trauma. EYES: Pupils are equal. Extraocular motions intact. EARS: Hearing grossly intact. MOUTH: Oropharynx is normal. NECK: No adenopathy, no JVD. CHEST: Chest with diminished breath sounds bilaterally. No wheezes, rales, or rhonchi. CARDIAC: Regular rate and rhythm. S1 and S2, without murmurs, gallops, or rubs. VASCULAR: No Edema. Peripheral pulses normal and equal in all extremities. ABDOMEN: Soft, non tender and non distended. No rebound or guarding, and no masses palpated. Bowel Sounds normal. MUSCULOSKELETAL: Good range of motion of all major joints. Extremities without clubbing, cyanosis or edema. NEUROLOGIC EXAM: Alert and oriented in person. No focal neurologic deficits PSYCHIATRIC: Stable mood SKIN: No obvious lesions - Constitutional Vitals: Temp Pulse Resp BP Pulse Ox 97.4 F L 90 18 147/57 95 06/23/20 06:29 06/23/20 06:29 06/23/20 06:29 06/23/20 06:29 06/23/20 06:29 HEART Score - HEART Score Age: > 65 Risk factors: > 3 risk factors or hx of atherosclerotic disease Troponin: Troponin T 0.125 ng/mL (0.00-0.029) H* 06/12/20 14:48 Troponin: < normal limit - Critical Actions Critical Actions: 4-6 pts:12-16.6% risk of adverse cardiac event. Should be admitted Results - Labs CBC & Chem 7: 06/16/20 04:40 06/23/20 04:32 Labs: Laboratory Last Values WBC 4.9 K/mm3 (4.5-11.0) 06/16/20 04:40 RBC 3.34 M/mm3 (3.65-5.03) L 06/16/20 04:40 Hgb 9.4 gm/dl (10.1-14.3) L 06/16/20 04:40 Hct 29.7 % (30.3-42.9) L 06/16/20 04:40 MCV 89 fl (79-97) 06/16/20 04:40 MCH 28 pg (28-32) 06/16/20 04:40 MCHC 32 % (30-34) 06/16/20 04:40 RDW 17.3 % (13.2-15.2) H 06/16/20 04:40 Plt Count 145 K/mm3 (140-440) 06/16/20 04:40 Lymph % (Auto) 23.5 % (13.4-35.0) 06/16/20 04:40 Young % (Auto) 15.1 % (0.0-7.3) H 06/16/20 04:40 Eos % (Auto) 4.2 % (0.0-4.3) 06/16/20 04:40 Baso % (Auto) 1.3 % (0.0-1.8) 06/16/20 04:40 Lymph # (Auto) 1.1 K/mm3 (1.2-5.4) L 06/16/20 04:40 Young # (Auto) 0.7 K/mm3 (0.0-0.8) 06/16/20 04:40 Eos # (Auto) 0.2 K/mm3 (0.0-0.4) 06/16/20 04:40 Baso # (Auto) 0.1 K/mm3 (0.0-0.1) 06/16/20 04:40 Add Manual Diff Complete 06/12/20 02:35 Total Counted 100 06/12/20 02:35 Seg Neutrophils % 55.9 % (40.0-70.0) 06/16/20 04:40 Seg Neuts % (Manual) 92.0 % (40.0-70.0) H 06/12/20 02:35 Band Neutrophils % 0 % 06/12/20 02:35 Lymphocytes % (Manual) 6.0 % (13.4-35.0) L 06/12/20 02:35 Reactive Lymphs % (Man) 0 % 06/12/20 02:35 Monocytes % (Manual) 2.0 % (0.0-7.3) 06/12/20 02:35 Eosinophils % (Manual) 0 % (0.0-4.3) 06/12/20 02:35 Basophils % (Manual) 0 % (0.0-1.8) 06/12/20 02:35 Metamyelocytes % 0 % 06/12/20 02:35 Myelocytes % 0 % 06/12/20 02:35 Promyelocytes % 0 % 06/12/20 02:35 Blast Cells % 0 % 06/12/20 02:35 Nucleated RBC % Not Reportable 06/12/20 02:35 Seg Neutrophils # 2.7 K/mm3 (1.8-7.7) 06/16/20 04:40 Seg Neutrophils # Man 4.1 K/mm3 (1.8-7.7) 06/12/20 02:35 Band Neutrophils # 0.0 K/mm3 06/12/20 02:35 Lymphocytes # (Manual) 0.3 K/mm3 (1.2-5.4) L 06/12/20 02:35 Abs React Lymphs (Man) 0.0 K/mm3 06/12/20 02:35 Monocytes # (Manual) 0.1 K/mm3 (0.0-0.8) 06/12/20 02:35 Eosinophils # (Manual) 0.0 K/mm3 (0.0-0.4) 06/12/20 02:35 Basophils # (Manual) 0.0 K/mm3 (0.0-0.1) 06/12/20 02:35 Metamyelocytes # 0.0 K/mm3 06/12/20 02:35 Myelocytes # 0.0 K/mm3 06/12/20 02:35 Promyelocytes # 0.0 K/mm3 06/12/20 02:35 Blast Cells # 0.0 K/mm3 06/12/20 02:35 WBC Morphology Not Reportable 06/12/20 02:35 Hypersegmented Neuts Not Reportable 06/12/20 02:35 Hyposegmented Neuts Not Reportable 06/12/20 02:35 Hypogranular Neuts Not Reportable 06/12/20 02:35 Smudge Cells Not Reportable 06/12/20 02:35 Toxic Granulation Not Reportable 06/12/20 02:35 Toxic Vacuolation Not Reportable 06/12/20 02:35 Dohle Bodies Not Reportable 06/12/20 02:35 Pelger-Huet Anomaly Not Reportable 06/12/20 02:35 Chanda Rods Not Reportable 06/12/20 02:35 Platelet Estimate Consistent w auto 06/12/20 02:35 Clumped Platelets Not Reportable 06/12/20 02:35 Plt Clumps, EDTA Not Reportable 06/12/20 02:35 Large Platelets Not Reportable 06/12/20 02:35 Giant Platelets Not Reportable 06/12/20 02:35 Platelet Satelliting Not Reportable 06/12/20 02:35 Plt Morphology Comment Not Reportable 06/12/20 02:35 RBC Morphology Not Reportable 06/12/20 02:35 Dimorphic RBCs Not Reportable 06/12/20 02:35 Polychromasia Not Reportable 06/12/20 02:35 Hypochromasia Few 06/12/20 02:35 Poikilocytosis Not Reportable 06/12/20 02:35 Anisocytosis 1+ 06/12/20 02:35 Microcytosis Not Reportable 06/12/20 02:35 Macrocytosis Not Reportable 06/12/20 02:35 Spherocytes Not Reportable 06/12/20 02:35 Pappenheimer Bodies Not Reportable 06/12/20 02:35 Sickle Cells Not Reportable 06/12/20 02:35 Target Cells Few 06/12/20 02:35 Tear Drop Cells Not Reportable 06/12/20 02:35 Ovalocytes Not Reportable 06/12/20 02:35 Helmet Cells Not Reportable 06/12/20 02:35 [place] Bodies Not Reportable 06/12/20 02:35 [place] Rings Not Reportable 06/12/20 02:35 [place] Cells Not Reportable 06/12/20 02:35 Bite Cells Not Reportable 06/12/20 02:35 Crenated Cell Not Reportable 06/12/20 02:35 Elliptocytes Not Reportable 06/12/20 02:35 Acanthocytes (Spur) Not Reportable 06/12/20 02:35 Rouleaux Not Reportable 06/12/20 02:35 Hemoglobin C Crystals Not Reportable 06/12/20 02:35 Schistocytes Not Reportable 06/12/20 02:35 Malaria parasites Not Reportable 06/12/20 02:35 Sulaiman Bodies Not Reportable 06/12/20 02:35 Hem Pathologist Commnt No 06/12/20 02:35 PT 14.7 Sec. (12.2-14.9) 06/11/20 14:41 INR 1.15 (0.87-1.13) H 06/11/20 14:41 Sodium 142 mmol/L (137-145) 06/23/20 04:32 Potassium 4.9 mmol/L (3.6-5.0) 06/23/20 04:32 Chloride 101.6 mmol/L (98-107) 06/23/20 04:32 Carbon Dioxide 24 mmol/L (22-30) 06/23/20 04:32 Anion Gap 21 mmol/L 06/23/20 04:32 BUN 95 mg/dL (7-17) H 06/23/20 04:32 Creatinine 5.0 mg/dL (0.6-1.2) H 06/23/20 04:32 Estimated GFR 10 ml/min 06/23/20 04:32 BUN/Creatinine Ratio 19 % 06/23/20 04:32 Glucose 117 mg/dL (65-100) H 06/23/20 04:32 POC Glucose 97 mg/dL (70-105) 06/23/20 08:15 Hemoglobin A1c 6.0 % (4-6) 06/12/20 02:35 Lactic Acid 0.50 mmol/L (0.7-2.0) L 06/11/20 16:11 Calcium 8.9 mg/dL (8.4-10.2) 06/23/20 04:32 Phosphorus 5.80 mg/dL (2.5-4.5) H 06/23/20 04:32 Magnesium 2.20 mg/dL (1.7-2.3) 06/12/20 22:19 Total Bilirubin 0.30 mg/dL (0.1-1.2) 06/12/20 02:35 AST 20 units/L (5-40) 06/12/20 02:35 ALT 9 units/L (7-56) 06/12/20 02:35 Alkaline Phosphatase 97 units/L (35-129) 06/12/20 02:35 Total Creatine Kinase 60 units/L (30-135) 06/11/20 14:41 Troponin T 0.125 ng/mL (0.00-0.029) H* 06/12/20 14:48 NT-Pro-B Natriuret Pep 30692 pg/mL (0-900) H 06/15/20 05:23 Serum Total Protein 7.2 g/dL (6.1-8.1) 06/13/20 09:41 Total Protein 8.3 g/dL (6.3-8.2) H 06/12/20 02:35 Albumin 3.3 g/dL (3.8-4.8) L 06/13/20 09:41 Albumin/Globulin Ratio 0.6 % 06/12/20 02:35 Bnktc-5-Twvqtitph 0.3 g/dL (0.2-0.3) 06/13/20 09:41 Hiozd-2-Yqfpxgciy 0.7 g/dL (0.5-0.9) 06/13/20 09:41 Beta Globulins 0.5 g/dL (0.2-0.5) 06/13/20 09:41 Gamma Globulins 2.1 g/dL (0.8-1.7) H 06/13/20 09:41 Abnorm Protein Band 1 see below 06/13/20 09:41 PEP Interpretation see below H 06/13/20 09:41 Triglycerides 89 mg/dL (2-149) 06/11/20 14:41 Cholesterol 157 mg/dL (50-199) 06/11/20 14:41 LDL Cholesterol Direct 71 mg/dL (50-130) 06/11/20 14:41 HDL Cholesterol 75 mg/dL (40-59) H 06/11/20 14:41 Cholesterol/HDL Ratio 2.09 % 06/11/20 14:41 TSH 3.490 mlU/mL (0.270-4.200) 06/12/20 14:48 Urine Color Straw (Yellow) 06/12/20 12:47 Urine Turbidity Clear (Clear) 06/12/20 12:47 Urine pH 6.0 (5.0-7.0) 06/12/20 12:47 Ur Specific [place] 1.009 (1.003-1.030) 06/12/20 12:47 Urine Protein 100 mg/dl mg/dL (Negative) 06/12/20 12:47 Urine Glucose (UA) Neg mg/dL (Negative) 06/12/20 12:47 Urine Ketones Neg mg/dL (Negative) 06/12/20 12:47 Urine Blood Neg (Negative) 06/12/20 12:47 Urine Nitrite Neg (Negative) 06/12/20 12:47 Urine Bilirubin Neg (Negative) 06/12/20 12:47 Urine Urobilinogen < 2.0 mg/dL (<2.0) 06/12/20 12:47 Ur Leukocyte Esterase Neg (Negative) 06/12/20 12:47 Urine WBC (Auto) 3.0 /HPF (0.0-6.0) 06/12/20 12:47 Urine RBC (Auto) 2.0 /HPF (0.0-6.0) 06/12/20 12:47 U Epithel Cells (Auto) 2.0 /HPF (0-13.0) 06/12/20 12:47 Urine Bacteria (Auto) 1+ /HPF (Negative) 06/12/20 12:47 Urine Eosinophils None seen (None Seen) 06/12/20 Unknown Urine Creatinine 22.7 mg/dL (0.1-20.0) H 06/12/20 Unknown Protein/Creatinin Ratio 6.30 06/12/20 Unknown Urine Sodium 121 mmol/L 06/12/20 Unknown Urine Total Protein 143 mg/dL (5-11.8) H 06/12/20 Unknown Coronavirus (PCR) Negative (Negative) 06/12/20 Unknown - Diagnostic Impressions Diagnostic Impressions: Echocardiogram 06/11/20 23:10 Transthoracic Echocardiogram Indication: CHF BP: 165/63 HR: 60 Conclusions *Global left ventricular systolic function is normal. *The estimated ejection fraction is 55-60%. *Mild to moderate concentric left ventricular hypertrophy is observed. *The left and right atria are both moderately dilated. *There is mild to moderate mitral regurgitation. *There is mild tricuspid regurgitation. *There is evidence of moderate pulmonary hypertension. *The right ventricular systolic pressure is calculated at 51 mmHg. *A left pleural effusion is present. *There is no significant pericardial effusion. Findings Left Ventricle: The left ventricular chamber size is normal. Mild to moderate concentric left ventricular hypertrophy is observed. Global left ventricular systolic function is normal. The estimated ejection fraction is 55-60%. Left Atrium: The left atrium is moderately dilated. Right Ventricle: The right ventricle is mildly dilated. The right ventricular global systolic function is mildly reduced. Right Atrium: The right atrium is moderately dilated. Aortic Valve: The aortic valve is trileaflet. The aortic valve leaflets are moderately thickened. There is trace of aortic regurgitation. There is no evidence of aortic stenosis. Mitral Valve: The mitral valve leaflets are moderately thickened. There is mild to moderate mitral regurgitation. There is no evidence of mitral stenosis. Tricuspid Valve: There is mild tricuspid regurgitation. The right ventricular systolic pressure is calculated at 51 mmHg. There is evidence of moderate pulmonary hypertension. Pulmonic Valve: There is trace pulmonic regurgitation. Pericardium: There is no pericardial effusion. A left pleural effusion is present. Aorta: There is no dilatation of the ascending aorta. There is no dilatation of the aortic root. Venous: The inferior vena cava appears normal in size. Measurements Chambers 2D Name Value Normal Range IVSd (2D) 1.07 cm (0.6 - 1.1) LVPWd (2D) 1.19 cm (0.6 - 1.1) LVIDd (2D) 4.34 cm (3.7 - 5.6) LVIDs (2D) 2.93 cm (2 - 3.8) LV FS (2D) 32.56 % - EF Teichholz (2D) 61.19 % - Ao root diameter (2D) 3.19 cm (2 - 3.7) Volumes/Mass Name Value Normal Range LA ESV SP 4CH (A/L) 58.57 ml - LA ESV SP 2CH (A/L) 86.64 ml - LA ESV BP (A/L) 74.92 ml - LA ESV BP (A/L) index 47.42 ml/m2 - LA ESV SP 4CH (MOD) 50.65 ml - LA ESV SP 2CH (MOD) 79.23 ml - LA ESV BP (MOD) 66.45 ml - LA ESV BP (MOD) index 42.06 ml/m2 - Diastolic/Systolic Function Name Value Normal Range MV E-wave Vmax 1.34 m/sec - MV deceleration time 244.33 msec - MV A-wave Vmax 0.98 m/sec - MV E:A ratio 1.36 ratio - Aortic Valve Name Value Normal Range AV Vmax 1.46 m/sec - AV VTI 38.18 cm - AV peak gradient 8.5 mmHg - AV mean gradient 4.47 mmHg - LVOT diameter 1.93 cm - LVOT Vmax 0.97 m/sec - LVOT VTI 27.7 cm - LVOT peak gradient 3.73 mmHg - LVOT mean gradient 2.13 mmHg - SV LVOT 80.99 ml - KENYA (continuity Vmax) 1.94 cm2 - KENYA (continuity VTI) 2.12 cm2 - Ascending Ao 2.04 cm - Tricuspid Valve Name Value Normal Range TR Vmax 3.3 m/sec - TR peak gradient 43 mmHg - RAP 8 mmHg - RVSP 51 mmHg - Pulmonic Valve/Qp:Qs Name Value Normal Range PV Vmax 1.02 m/sec - PV peak gradient 4.14 mmHg - MA end-diastolic Vmax 0.74 m/sec - PV acceleration time 68.51 msec - Lopez/IV: Voiding Method Indwelling Catheter IV Catheter Type [Right INT / Saline Lock Forearm] Active Medications - Current Medications Current Medications: Generic Name Dose Route Start Last Admin Trade Name Freq PRN Reason Stop Dose Admin Acetaminophen 650 mg 06/11/20 23:07 Tylenol PO Q4H PRN Pain MILD(1-3)/Fever >100.5/MENA Artificial Tears 2 drops 06/11/20 23:06 Isopto Tears 0.5% OU Q4H PRN Dry Eye(s) Aspirin 81 mg 06/12/20 10:00 06/22/20 09:33 Baby Aspirin PO 81 mg QDAY JULIETTE Administration Atorvastatin Calcium 40 mg 06/12/20 22:00 06/23/20 00:05 Lipitor PO 40 mg QHS JULIETTE Administration Clopidogrel Bisulfate 75 mg 06/12/20 10:00 06/22/20 09:33 Plavix PO 75 mg QDAY JULIETTE Administration Dextrose 50 ml 06/13/20 05:23 D50w (25gm) Syringe IV Q30MIN PRN Hypoglycemia Protocol Doxazosin Mesylate 2 mg 06/12/20 12:00 06/23/20 00:05 Cardura PO 2 mg BID JULIETTE Administration Ergocalciferol 50,000 unit 06/19/20 10:00 06/19/20 09:25 Vitamin D2 PO 50,000 unit Mo JULIETTE Administration Ferrous Sulfate 325 mg 06/12/20 10:00 06/22/20 09:33 Feosol PO 325 mg QDAY JULIETTE Administration Hydralazine HCl 100 mg 06/17/20 14:00 06/23/20 08:18 Apresoline PO 100 mg Q8HR JULIETTE Administration Hydromorphone HCl 0.5 mg 06/11/20 23:07 Dilaudid IV Q3H PRN Pain , Severe (7-10) Insulin Human Lispro 0 unit 06/13/20 07:30 06/22/20 23:10 Humalog SUB-Q Not Given ACHS [facility] Protocol Isosorbide Mononitrate 60 mg 06/16/20 12:00 06/22/20 09:33 Imdur PO 60 mg QDAY JULIETTE Administration Levothyroxine Sodium 25 mcg 06/12/20 06:00 06/23/20 08:18 Synthroid PO 25 mcg QAM@0600 [facility] Administration Minoxidil 2.5 mg 06/17/20 10:00 06/23/20 00:06 Loniten PO 2.5 mg Q12HR JULIETTE Administration Nifedipine 90 mg 06/14/20 22:00 06/23/20 00:06 Procardia Xl PO 90 mg Q12HR JULIETTE Administration Nitroglycerin 0.4 mg 06/12/20 04:00 06/12/20 04:39 Nitrostat SL 0.4 mg .Q5MIN PRN Administration Chest Pain Ondansetron HCl 4 mg 06/11/20 23:07 Zofran IV Q8H PRN Nausea And Vomiting Oxycodone/Acetaminophen 1 tab 06/11/20 23:07 06/19/20 23:37 Percocet 5/325 PO 1 tab Q6H PRN Administration Pain, Moderate (4-6) Sertraline HCl 50 mg 06/12/20 10:00 06/22/20 09:33 Zoloft PO 50 mg QDAY JULIETTE Administration Sodium Chloride 10 ml 06/11/20 23:45 06/23/20 00:06 Sodium Chloride Flush Syringe 10 Ml IV 10 ml BID JULIETTE Administration Sodium Chloride 10 ml 06/11/20 23:07 Sodium Chloride Flush Syringe 10 Ml IV PRN PRN LINE FLUSH Nutrition/Malnutrition Assess - Dietary Evaluation Nutrition/Malnutrition Findings: Nutrition Notes Start: 06/12/20 14:11 Freq: Status: Active Protocol: Document 06/22/20 11:32 AB (Rec: 06/22/20 11:41 AB [id number]) Co-Sign 06/22/20 11:32 MK Nutrition Notes Initial or Follow up Reassessment Current Diagnosis CKD(stage I-IV),Coronary Artery Disease,Diabetes, Hypertension,Heart Failure, Hyperlipidemia Current Diet Pureed with thin liquids Labs/Tests BUN 91 Cr 4.7 BG 130 Pertinent Medications Feosol Vit D2 Height 5 ft Weight 57.8 kg [place] Body Weight (kg) 45.45 BMI 24.8 Weight change and time frame wt change noted Weight Status Appropriate Subjective/Other Information F/U for intakes and ONS tolerance. Per tech, pt is eating 100% of her meals ONS is not given to her every day because she has been eating every meal 100%. Percent of energy/protein needs met: 100%/100% Burn Absent Trauma Absent GI Symptoms None Difficulty In Swallowing Current % PO Good (75-100%) Minimum of two criteria No physical signs of malnutrition #2 Nutrition Diagnosis Increased nutrient needs ( specify in comment below) Comments: protein Diagnosis Progress(for reassessment Continues documentation) Is patient on ventilator? No Is Patient Ambulatory and/or Out of Bed No REE-([facility]-confined to bed) 1182.192 Kcal/Kg value to use for calculation 22 Approximate Energy Requirements Using 1272 kcal/Kg Calculation Used for Recommendations Kcal/kg Additional Notes Protein: 58-72 g (1-1.25 g/kg) Fluid: 1 ml/kcal Nutrition Intervention Change Diet Order: Continue pureed Add Supplement/Snack (indicate name/kcal D/C /protein ) Goal #1 Meet at least 75% of energy and protein needs Anticipated Discharge Needs: Pureed diet Follow-Up By: 06/29/20 Additional Comments F/U for intakes
[2020-06-23] MEDS: INSULIN LISPRO 100 UNIT/ML VIAL 3 mL SUB-Q SCH ×2 (10:29→12:16)
[2020-06-23] MEDS: ASPIRIN 81 MG TAB CHEW PO SCH (10:30)
[2020-06-23] MEDS: FERROUS SULFATE 325 MG TAB PO SCH (10:30)
[2020-06-23] MEDS: SERTRALINE 50 MG TAB PO SCH (10:31)
[2020-06-23] MEDS: CLOPIDOGREL 75 MG TAB PO SCH (10:31)
--- NOTE | 2020-06-23 11:03 | Progress Note ---
Assessment and Plan CKD (chronic kidney disease) -now with severe renal failure, anuric -discussed with daughter and I explained the risk and benefit of dialysis including low blood pressure, stroke and infection, all questions answered, she agreeable to pursue HD -conult placed for vascular surgery to place permcath, discussed with RN - HD today after permcath and again tomorrow -Renal ultrasound-No obstruction noted -Urine lytes- shows 6 grams of protein -UPEP and SPEP- pending -Obtain daily weights -Monitor I/O's daily -Avoid nephrotoxic agents -Continue to monitor renal function closely Acute exacerbation of CHF -S/P IV Lasix -Echocardiogram-EF 55-60% -Cardiology onboard Hypertension -Continue antihypertensives and adjust medications as necessary -Monitor blood pressures Bradley Sanchez MD [phone] Subjective Date of service: 06/23/20 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 Interval history: awake, no family at bedside Objective - Vital Signs Vital signs: Vital Signs - 12hr 06/22/20 06/23/20 06/23/20 23:12 06:29 10:30 Temperature 98.5 F 97.4 F L Pulse Rate 89 90 Respiratory 20 18 Rate Blood Pressure 160/70 147/57 140/56 O2 Sat by Pulse 98 95 Oximetry - General Appearance General appearance: appears stated age, cachectic EENT: ATNC, PERRL, mucous membranes dry Neck: no JVD, no carotid bruit Respiratory: Present: Clear to Ascultation Cardiology: regular, S1S2 Gastrointestinal: normoactive bowel sounds, no tenderness, no distended Integumentary: no rash, warm and dry Neurologic: other (does not follow commands) Musculoskeletal: other (trace pitting edema in BLE) Psychiatric: other (does not answer questions) - Lab 06/16/20 04:40 06/23/20 04:32 Most recent lab results Calcium 8.9 mg/dL (8.4-10.2) 06/23/20 04:32 Phosphorus 5.80 mg/dL (2.5-4.5) H 06/23/20 04:32 Magnesium 2.20 mg/dL (1.7-2.3) 06/12/20 22:19 Urine Creatinine 22.7 mg/dL (0.1-20.0) H 06/12/20 Unknown Urine Sodium 121 mmol/L 06/12/20 Unknown Urine Total Protein 143 mg/dL (5-11.8) H 06/12/20 Unknown Medications & Allergies - Medications Allergies/Adverse Reactions: Allergies No Known Allergies Allergy (Verified 08/27/14 06:14) Home Medications: Home Medications Medication Instructions Recorded Confirmed Last Taken Type Levothyroxine [Synthroid] 25 mcg PO QAM 08/27/14 06/11/20 03/20/18 History hydrALAZINE [Apresoline TAB] 100 mg PO TID #90 tab 09/01/14 06/11/20 03/20/18 Rx Sertraline [Zoloft] 50 mg PO QDAY 11/05/14 06/11/20 03/20/18 History Terazosin (Nf) [Hytrin (Nf)] 5 mg PO QHS 08/19/17 06/11/20 Unknown History Aspirin [Aspirin BABY CHEW TAB] 81 mg PO QDAY tab.chew 08/21/17 06/11/20 Unknown Rx AtorvaSTATin [Lipitor] 40 mg PO QHS #30 tab 03/27/18 06/11/20 Unknown Rx Clopidogrel [Plavix] 75 mg PO QDAY #30 tablet 03/27/18 06/11/20 Unknown Rx Hypromellose [Isopto Tears 0.5%] 2 drops OU Q4H PRN bottle 03/27/18 06/11/20 Unknown Rx ISOSORBIDE MONOnitrate [Imdur ER] 30 mg PO QDAY #30 tablet 03/27/18 06/11/20 U nknown Rx amLODIPine 10 mg PO DAILY #30 tablet 03/27/18 06/11/20 Unknown Rx Ergocalciferol (Vitamin D2) 50,000 unit PO QDAY 06/11/20 06/11/20 Unknown History [Vitamin D2] Ferrous Sulfate [Feosol] 325 mg PO QDAY 06/11/20 06/11/20 Unknown History carvediloL [Coreg] 6.25 mg PO Q12HR 06/11/20 06/11/20 Unknown History Active Medications: Generic Name Dose Route Start Last Admin Trade Name Freq PRN Reason Stop Dose Admin Acetaminophen 650 mg 06/11/20 23:07 Tylenol PO Q4H PRN Pain MILD(1-3)/Fever >100.5/MENA Artificial Tears 2 drops 06/11/20 23:06 Isopto Tears 0.5% OU Q4H PRN Dry Eye(s) Aspirin 81 mg 06/12/20 10:00 06/23/20 10:30 Baby Aspirin PO 81 mg QDAY JULIETTE Administration Atorvastatin Calcium 40 mg 06/12/20 22:00 06/23/20 00:05 Lipitor PO 40 mg QHS JULIETTE Administration Clopidogrel Bisulfate 75 mg 06/12/20 10:00 06/23/20 10:31 Plavix PO 75 mg QDAY JULIETTE Administration Dextrose 50 ml 06/13/20 05:23 D50w (25gm) Syringe IV Q30MIN PRN Hypoglycemia Protocol Doxazosin Mesylate 2 mg 06/12/20 12:00 06/23/20 10:30 Cardura PO 2 mg BID JULIETTE Administration Ergocalciferol 50,000 unit 06/19/20 10:00 06/19/20 09:25 Vitamin D2 PO 50,000 unit Mo JULIETTE Administration Ferrous Sulfate 325 mg 06/12/20 10:00 06/23/20 10:30 Feosol PO 325 mg QDAY JULIETTE Administration Hydralazine HCl 100 mg 06/17/20 14:00 06/23/20 08:18 Apresoline PO 100 mg Q8HR JULIETTE Administration Hydromorphone HCl 0.5 mg 06/11/20 23:07 Dilaudid IV Q3H PRN Pain , Severe (7-10) Insulin Human Lispro 0 unit 06/13/20 07:30 06/23/20 10:29 Humalog SUB-Q Not Given ACHS JULIETTE Protocol Isosorbide Mononitrate 60 mg 06/16/20 12:00 06/23/20 10:30 Imdur PO 60 mg QDAY JULIETTE Administration Levothyroxine Sodium 25 mcg 06/12/20 06:00 06/23/20 08:18 Synthroid PO 25 mcg QAM@0600 JULIETTE Administration Minoxidil 2.5 mg 06/17/20 10:00 06/23/20 10:30 Loniten PO 2.5 mg Q12HR JULIETTE Administration Nifedipine 90 mg 06/14/20 22:00 06/23/20 10:35 Procardia Xl PO 90 mg Q12HR JULIETTE Administration Nitroglycerin 0.4 mg 06/12/20 04:00 06/12/20 04:39 Nitrostat SL 0.4 mg .Q5MIN PRN Administration Chest Pain Ondansetron HCl 4 mg 06/11/20 23:07 Zofran IV Q8H PRN Nausea And Vomiting Oxycodone/Acetaminophen 1 tab 06/11/20 23:07 06/19/20 23:37 Percocet 5/325 PO 1 tab Q6H PRN Administration Pain, Moderate (4-6) Sertraline HCl 50 mg 06/12/20 10:00 06/23/20 10:31 Zoloft PO 50 mg QDAY JULIETTE Administration Sodium Chloride 10 ml 06/11/20 23:45 06/23/20 10:35 Sodium Chloride Flush Syringe 10 Ml IV 10 ml BID JULIETTE Administration Sodium Chloride 10 ml 06/11/20 23:07 Sodium Chloride Flush Syringe 10 Ml IV PRN PRN LINE FLUSH
[2020-06-23 12:16] LABS: Hepatitis B Surface Antigen Non-Reactive (Negative); Hepatitis C Virus Antibody Non-Reactive (NonReactive)
[2020-06-23] MEDS ORDERED: D5W/0.9% NACL 1,000 ML IV SCH (14:00)
[2020-06-23] MEDS ORDERED: fentaNYL 100 MCG/2 ML INJ ONE (14:34)
[2020-06-23] MEDS ORDERED: HEPARIN 10,000 UNITS/10 ML VIAL ONE (14:34)
[2020-06-23] MEDS ORDERED: HEPARIN/NS 5000 UNIT/500ML 500 ML IR ONE (14:34)
[2020-06-23] MEDS ORDERED: MIDAZOLAM 2 MG/2 ML INJ ONE (14:35)
[2020-06-23] MEDS: LIDOCAINE (2%) 20 MG/1 ML VIAL 20 ML MDV INFILTRATI ONE ×3 (15:58→16:07)
[2020-06-23 16:19] LABS: Creatinine,Urine 86.6 mg/dL (0.1-20.0)
[2020-06-23 16:20] LABS: Creatinine 24 Hour,Urine 0.2 (0.8-2.8)
--- NOTE | 2020-06-23 17:26 | Consultation ---
History of Present Illness - Reason for Consult Consult date: 06/23/20 Permacath Insertion Requesting physician: SHERMAN DIAS - History of Present Illness The patient is a 71-year-old female with a history of multiple medical problems including chronic renal sufficiency and congestive heart failure who was brought to the hospital by her daughter secondary to complaints of cough, shortness of breath, and generalized edema. She was initially medically managed however her renal insufficiency worsened and she has now progressed to the need of hemodialysis. She is unable to verbally communicate so I am not able to elicit any complaints. Past History Past Medical History: heart failure, hypertension, renal failure, stroke Medications and Allergies Allergies Allergy/AdvReac Type Severity Reaction Status Date / Time No Known Allergies Allergy Verified 08/27/14 06:14 Home Medications Medication Instructions Recorded Confirmed Last Taken Type Levothyroxine [Synthroid] 25 mcg PO QAM 08/27/14 06/11/20 03/20/18 History hydrALAZINE [Apresoline TAB] 100 mg PO TID #90 tab 09/01/14 06/11/20 03/20/18 Rx Sertraline [Zoloft] 50 mg PO QDAY 11/05/14 06/11/20 03/20/18 History Terazosin (Nf) [Hytrin (Nf)] 5 mg PO QHS 08/19/17 06/11/20 Unknown History Aspirin [Aspirin BABY CHEW TAB] 81 mg PO QDAY tab.chew 08/21/17 06/11/20 Unknown Rx AtorvaSTATin [Lipitor] 40 mg PO QHS #30 tab 03/27/18 06/11/20 Unknown Rx Clopidogrel [Plavix] 75 mg PO QDAY #30 tablet 03/27/18 06/11/20 Unknown Rx Hypromellose [Isopto Tears 0.5%] 2 drops OU Q4H PRN bottle 03/27/18 06/11/20 Unknown Rx ISOSORBIDE MONOnitrate [Imdur ER] 30 mg PO QDAY #30 tablet 03/27/18 06/11/20 Unknown Rx amLODIPine 10 mg PO DAILY #30 tablet 03/27/18 06/11/20 Unknown Rx Ergocalciferol (Vitamin D2) 50,000 unit PO QDAY 06/11/20 06/11/20 Unknown History [Vitamin D2] Ferrous Sulfate [Feosol] 325 mg PO QDAY 06/11/20 06/11/20 Unknown History carvediloL [Coreg] 6.25 mg PO Q12HR 06/11/20 06/11/20 Unknown History Active Meds: Active Medications Acetaminophen (Tylenol) 650 mg PO Q4H PRN PRN Reason: Pain MILD(1-3)/Fever >100.5/MENA Artificial Tears (Isopto Tears 0.5%) 2 drops OU Q4H PRN PRN Reason: Dry Eye(s) Aspirin (Baby Aspirin) 81 mg PO QDAY [facility] Last Admin: 06/23/20 10:30 Dose: 81 mg Documented by: Atorvastatin Calcium (Lipitor) 40 mg PO QHS [facility] Last Admin: 06/23/20 00:05 Dose: 40 mg Documented by: Clopidogrel Bisulfate (Plavix) 75 mg PO QDAY [facility] Last Admin: 06/23/20 10:31 Dose: 75 mg Documented by: Dextrose (D50w (25gm) Syringe) 50 ml IV Q30MIN PRN; Protocol PRN Reason: Hypoglycemia Doxazosin Mesylate (Cardura) 2 mg PO BID [facility] Last Admin: 06/23/20 10:30 Dose: 2 mg Documented by: Ergocalciferol (Vitamin D2) 50,000 unit PO Mo [facility] Last Admin: 06/19/20 09:25 Dose: 50,000 unit Documented by: Ferrous Sulfate (Feosol) 325 mg PO QDAY [facility] Last Admin: 06/23/20 10:30 Dose: 325 mg Documented by: Hydralazine HCl (Apresoline) 100 mg PO Q8HR [facility] Last Admin: 06/23/20 14:28 Dose: Not Given Documented by: Hydromorphone HCl (Dilaudid) 0.5 mg IV Q3H PRN PRN Reason: Pain , Severe (7-10) Dextrose/Sodium Chloride (D5ns) 1,000 mls @ 75 mls/hr IV DIRECT [facility] Stop: 06/24/20 00:00 Last Admin: 06/23/20 13:18 Dose: 75 mls/hr Documented by: Insulin Human Lispro (Humalog) 0 unit SUB-Q ACHS [facility]; Protocol Last Admin: 06/23/20 12:16 Dose: Not Given Documented by: Isosorbide Mononitrate (Imdur) 60 mg PO QDAY [facility] Last Admin: 06/23/20 10:30 Dose: 60 mg Documented by: Levothyroxine Sodium (Synthroid) 25 mcg PO QAM@0600 [facility] Last Admin: 06/23/20 08:18 Dose: 25 mcg Documented by: Minoxidil (Loniten) 2.5 mg PO Q12HR [facility] Last Admin: 06/23/20 10:30 Dose: 2.5 mg Documented by: Nifedipine (Procardia Xl) 90 mg PO Q12HR [facility] Last Admin: 06/23/20 10:35 Dose: 90 mg Documented by: Nitroglycerin (Nitrostat) 0.4 mg SL .Q5MIN PRN PRN Reason: Chest Pain Last Admin: 06/12/20 04:39 Dose: 0.4 mg Documented by: Ondansetron HCl (Zofran) 4 mg IV Q8H PRN PRN Reason: Nausea And Vomiting Oxycodone/Acetaminophen (Percocet 5/325) 1 tab PO Q6H PRN PRN Reason: Pain, Moderate (4-6) Last Admin: 06/19/20 23:37 Dose: 1 tab Documented by: Sertraline HCl (Zoloft) 50 mg PO QDAY [facility] Last Admin: 06/23/20 10:31 Dose: 50 mg Documented by: Sodium Chloride (Sodium Chloride Flush Syringe 10 Ml) 10 ml IV BID [facility] Last Admin: 06/23/20 10:35 Dose: 10 ml Documented by: Sodium Chloride (Sodium Chloride Flush Syringe 10 Ml) 10 ml IV PRN PRN PRN Reason: LINE FLUSH Review of Systems ROS unobtainable: due to mental status Exam - Constitutional Vitals: Temp Pulse Resp BP Pulse Ox 98.4 F 84 18 125/49 96 06/23/20 13:23 06/23/20 13:23 06/23/20 13:23 06/23/20 13:23 06/23/20 13:23 General appearance: Present: no acute distress - Respiratory Respiratory effort: normal - Extremities Extremities: no ischemia, normal temperature Extremity abnormal: edema - Abdominal General gastrointestinal: Present: soft - Rectal Rectal Exam: deferred - Integumentary Integumentary: Present: clear Results - Labs CBC & Chem 7: 06/16/20 04:40 06/23/20 04:32 Labs: Abnormal lab results 12/10/0706/23/20 06/23/20 Range/Units 23:08 04:32 15:02 BUN 95 H (7-17) mg/dL Creatinine 5.0 H (0.6-1.2) mg/dL Glucose 117 H (65-100) mg/dL POC Glucose 117 H (70-105) mg/dL Phosphorus 5.80 H (2.5-4.5) mg/dL Urine Creatinine 86.6 H (0.1-20.0) mg/dL Ur Creatinine 24 Hour 0.2 L (0.8-2.8) Assessment and Plan The patient is a 79-year-old female with a history of acute on chronic renal sufficiency who is in need of permacath insertion for urgent hemodialysis. Her daughter was given the risk, benefits, and alternative procedures and consented to the procedure.
--- NOTE | 2020-06-23 17:30 | Operative Report ---
Operative Report Operative Report: Date of procedure: 06/23/2020 Pre-operative diagnosis: Acute on Chronic Renal Failure Post-operative diagnosis: Same Procedure(s): 1. Ultrasound-Guided Access Right Internal Vein 2. Placement of 23 cm GlidePath Permacath 3. Radiologic Supervision with Interpretation Surgeon: Darius Pinto MD Brick Catcher: None Anesthesia: Local EBL: Minimal Counts: Correct Complications: None Condition: Stable Findings: Successful placement of right IJ permacath with the distal tip in the right atrium and no evidence of pneumothorax at the completion of the case. Specimen: None Indication: The patient is a 79-year-old female with a history of acute on chronic renal insufficiency who is in need of a permacath for urgent dialysis. Her daughter was given the risk, benefits, and alternative procedures and consented to the procedure. Description of Procedure: The patient was brought to the photographic laboratory supervisor and laid in supine position and the right neck and chest were prepped and draped in normal sterile fashion. Ultrasound was used to identify the right internal jugular vein and the overlyin g skin and soft tissue was anesthetized with lidocaine. An 11 blade was used to make a small stab incision and a 21-gauge micropuncture needle was used with ultrasound guidance to enter the right internal jugular vein. A 0.018 micropuncture wire was advanced into the inferior vena cava under fluoroscopy and after removing the needle the micropuncture sheath was advanced into the internal jugular vein by Seldinger technique. The wire and inner cannula were removed and a 0.035 J-wire was advanced into the inferior vena cava under direct fluoroscopic visualization. The tract was serially dilated up to a 16 Divehi peel-away safety sheath. An exit site on the chest was then chosen and the presumed tunnel was anesthetized with lidocaine. A small stab incision was made on the chest and then the permacath was connected to the tunneler and pulled antegrade through the tunnel. The J-wire and inner cannula from the SafeSheath were removed and the catheter was inserted into the safe sheath. The safe sheath was then peeled away while advancing the catheter. The catheter was positioned under fluoroscopy with the distal tip in the right atrium. Once in adequate position, both ports were aspirated, flushed, and primed with the appropriate amount of heparin. The neck incision was then closed with 4-0 Monocryl in interrupted subcuticular fashion and dressed with Dermabond. The permacath was secured in place with a 2-0 Ethilon in interrupted fashion and dressed with a sterile dressing. Final fluoroscopy demonstrated the catheter was in adequate position with the distal tip in the right atrium and no evidence of pneumothorax. The patient tolerated the procedure well. All sponge, needle, and instrument counts were correct. The patient was taken to recovery in stable condition.
[2020-06-24] MEDS: DOXAZOSIN 1 MG TAB PO SCH ×3 (00:17→22:34)
[2020-06-24] MEDS: MINOXIDIL 2.5 MG TAB PO SCH ×3 (00:18→22:34)
[2020-06-24] MEDS: hydrALAZINE 100 MG TAB PO SCH ×4 (00:18→22:33)
[2020-06-24] MEDS: NIFEdipine XL 90 MG TAB PO SCH ×3 (00:20→22:34)
[2020-06-24] MEDS: INSULIN LISPRO 100 UNIT/ML VIAL 3 mL SUB-Q SCH ×5 (00:21→22:35)
[2020-06-24] MEDS: LEVOTHYROXINE 25 MCG TAB PO SCH (06:52)
[2020-06-24 06:53] LABS: Calcium 8.5 mg/dL (8.4-10.2)
--- NOTE | 2020-06-24 10:36 | Progress Note ---
Assessment and Plan - Patient Problems (1) CHF (congestive heart failure) Current Visit: Yes Status: Acute (2) Pulmonary hypertension Current Visit: Yes Status: Acute Subjective Date of service: 06/24/20 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 Interval history: no c/o offered Objective Vital Signs Temp Pulse Resp BP Pulse Ox 06/24/20 04:08 98.7 F 81 18 142/59 96 06/24/20 00:17 81 79/50 06/23/20 22:50 98.2 F 84 18 122/61 97 06/23/20 19:32 98.2 F 72 18 121/57 06/23/20 19:15 82 133/65 06/23/20 19:00 79 115/54 06/23/20 18:45 73 113/55 06/23/20 18:30 72 101/51 06/23/20 18:15 75 128/52 06/23/20 18:00 75 95/47 06/23/20 17:45 70 98/52 06/23/20 17:30 70 99/49 06/23/20 17:15 69 86/33 06/23/20 17:00 71 101/44 06/23/20 16:45 77 120/52 06/23/20 16:40 97.2 F L 72 12 117/57 06/23/20 13:23 98.4 F 84 18 125/49 96 06/23/20 12:11 98.9 F 81 18 95/38 96 06/23/20 12:09 98.9 F 82 18 103/35 97 - Physical Examination General: No Apparent Distress, Cachectic, Other (Frail, elderly, chronically ill-appearing) HEENT: Positive: PERRL Neck: Positive: neck supple, JVD/HJR Cardiac: Positive: Regular Rate Lungs: Positive: clear to auscultation Neuro: Positive: Weakness Abdomen: Positive: Soft Extremities: Absent: edema (TR) - Labs and Meds Comprehensive Metabolic Panel 06/24/20 Range/Units 05:51 Sodium 140 (137-145) mmol/L Potassium 4.8 (3.6-5.0) mmol/L Chloride 102.6 (98-107) mmol/L Carbon Dioxide 27 (22-30) mmol/L BUN 52 H (7-17) mg/dL Creatinine 3.5 H (0.6-1.2) mg/dL Glucose 130 H (65-100) mg/dL Calcium 8.5 (8.4-10.2) mg/dL - Imaging and Cardiology EKG: report reviewed (Sinus rhythm no acute ST-T wave changes)
--- NOTE | 2020-06-24 11:03 | Progress Note ---
Assessment and Plan Assessment and plan: -- Acute on chronic diastolic CHF (congestive heart failure) Bilateral edema on chest x-ray due to acute on chronic diastolic CHF Continue beta-blockers. Hold Lasix due to bump in creatinine Low-sodium diet, fluid restriction Echocardiogram for LV function ejection fraction-EF 55 to 60% Cardiology following. --Nonspecific elevated troponin; Due to NSTEMI type II, in the setting of chronic kidney disease Possible stress test versus heart cath if needed -- HTN (hypertension) Moderate control ,continue current antihypertensives And as needed hydralazine --History of coronary artery disease Continue isosorbide mono nitrate and aspirin Cardiology following Acute kidney injury on CKD 4 (chronic kidney disease) Due to vasomotor nephropathy Permacath placed on 06/23. HD initiated on 06/23. Nephrology on board Needs HD chair -- DVT prophylaxis On heparin and GI prophylaxis Closely monitor the patient and adjust management as needed Plan of care reviewed with the patient and the nurse 06/14/2020. Echocardiogram revealed EF of 55 to 60%. Continue IV Lasix per nephrology and cardiology. Baseline creatinine in 2018 was 2.22.6. Renal u ltrasound revealed no obstruction. UPEP and SPEP pending. Patient still exhibiting accelerated hypertension. Increase Procardia to 90 mg twice daily. 06/15/2020. Patient's blood pressure is better controlled with current medications. Recheck chest x-ray today and follow-up BnP. 06/16/2020. Patient's blood pressure still extremely labile. Patient currently with clonidine, Cardura, Procardia, isosorbide and hydralazine. Increase hydralazine to 75 mg 3 times daily. BNP greater than 13,000 and chest x-ray suggestive of heart failure. Defer to cardiology. Await PT recommendations for placement. 06/17/2020. Patient still with accelerated hypertension. Increase hydralazine to 100 mg 3 times daily. Continue isosorbide, clonidine, Cardura, valsartan and Procardia as well. Serum creatinine remains stable at 2.9. 06/18/2020. Patient's blood pressure much better controlled. Continue current regimen of hydralazine, isosorbide, clonidine, Cardura and Procardia. Diovan held due to increased creatinine. Renal ultrasound revealed no evidence of obstruction. BNP greater than 13,000 and chest x-ray suggestive of heart failure. 06/19/2020. Patient's blood pressure much better controlled. Continue current regimen of hydralazine, isosorbide, clonidine, Cardura and Procardia. Creatinine elevated at 3.5. Continue Lasix 20 mg IV twice daily for heart failure. Follow-up UPEP and SPEP. Continue daily weights, monitor I/O's daily, avoid nephrotoxic agents and follow-up BMP in a.m. 06/20/2020. Renal function continues to worsen. Creatinine 4.6 this morning. Hold Lasix for now. Started on gentle IV hydration. Nephrology is following. Avoid nephrotoxic medications. Cardiology recommendations appreciated 06/21. No complaints. Her renal function is more stable now. Cr is 4.7 today. Continue to hold lasix and diovan. Continue IV hydration. Nephrology is following. 06/22. Labs stable - Cr 4.7. Nephrology on board. 06/23. Cr 5.0. May need HD. Nephrology evaluation appreciated 06/24. Had permacath placement and then HD afterwards on 06/23. CM to arrange OP HD chair History Interval history: Had permacath placement 06/23 with HD afterwards Nephrology on board Needs to have HD chair set up Hospitalist Physical - Physical exam Narrative exam: VITAL SIGNS: Reviewed. GENERAL: Awake and alert on response to questions intermittently HEAD: No signs of head trauma. EYES: Pupils are equal. Extraocular motions intact. EARS: Hearing grossly intact. MOUTH: Oropharynx is normal. NECK: No adenopathy, no JVD. CHEST: Chest with diminished breath sounds bilaterally. No wheezes, rales, or rhonchi. CARDIAC: Regular rate and rhythm. S1 and S2, without murmurs, gallops, or rubs. VASCULAR: No Edema. Peripheral pulses normal and equal in all extremities. ABDOMEN: Soft, non tender and non distended. No rebound or guarding, and no masses palpated. Bowel Sounds normal. MUSCULOSKELETAL: Good range of motion of all major joints. Extremities without clubbing, cyanosis or edema. NEUROLOGIC EXAM: Alert and oriented in person. No focal neurologic deficits PSYCHIATRIC: Stable mood SKIN: No obvious lesions - Constitutional Vitals: Temp Pulse Resp BP Pulse Ox 98.7 F 81 18 142/59 96 06/24/20 04:08 06/24/20 04:08 06/24/20 04:08 06/24/20 04:08 06/24/20 04:08 HEART Score - HEART Score Age: > 65 Risk factors: > 3 risk factors or hx of atherosclerotic disease Troponin: Troponin T 0.125 ng/mL (0.00-0.029) H* 06/12/20 14:48 Troponin: < normal limit - Critical Actions Critical Actions: 4-6 pts:12-16.6% risk of adverse cardiac event. Should be admitted Results - Labs CBC & Chem 7: 06/16/20 04:40 06/24/20 05:51 Labs: Laboratory Last Values WBC 4.9 K/mm3 (4.5-11.0) 06/16/20 04:40 RBC 3.34 M/mm3 (3.65-5.03) L 06/16/20 04:40 Hgb 9.4 gm/dl (10.1-14.3) L 06/16/20 04:40 Hct 29.7 % (30.3-42.9) L 06/16/20 04:40 MCV 89 fl (79-97) 06/16/20 04:40 MCH 28 pg (28-32) 06/16/20 04:40 MCHC 32 % (30-34) 06/16/20 04:40 RDW 17.3 % (13.2-15.2) H 06/16/20 04:40 Plt Count 145 K/mm3 (140-440) 06/16/20 04:40 Lymph % (Auto) 23.5 % (13.4-35.0) 06/16/20 04:40 [place] % (Auto) 15.1 % (0.0-7.3) H 06/16/20 04:40 Eos % (Auto) 4.2 % (0.0-4.3) 06/16/20 04:40 Baso % (Auto) 1.3 % (0.0-1.8) 06/16/20 04:40 Lymph # (Auto) 1.1 K/mm3 (1.2-5.4) L 06/16/20 04:40 [place] # (Auto) 0.7 K/mm3 (0.0-0.8) 06/16/20 04:40 Eos # (Auto) 0.2 K/mm3 (0.0-0.4) 06/16/20 04:40 Baso # (Auto) 0.1 K/mm3 (0.0-0.1) 06/16/20 04:40 Add Manual Diff Complete 06/12/20 02:35 Total Counted 100 06/12/20 02:35 Seg Neutrophils % 55.9 % (40.0-70.0) 06/16/20 04:40 Seg Neuts % (Manual) 92.0 % (40.0-70.0) H 06/12/20 02:35 Band Neutrophils % 0 % 06/12/20 02:35 Lymphocytes % (Manual) 6.0 % (13.4-35.0) L 06/12/20 02:35 Reactive Lymphs % (Man) 0 % 06/12/20 02:35 Monocytes % (Manual) 2.0 % (0.0-7.3) 06/12/20 02:35 Eosinophils % (Manual) 0 % (0.0-4.3) 06/12/20 02:35 Basophils % (Manual) 0 % (0.0-1.8) 06/12/20 02:35 Metamyelocytes % 0 % 06/12/20 02:35 Myelocytes % 0 % 06/12/20 02:35 Promyelocytes % 0 % 06/12/20 02:35 Blast Cells % 0 % 06/12/20 02:35 Nucleated RBC % Not Reportable 06/12/20 02:35 Seg Neutrophils # 2.7 K/mm3 (1.8-7.7) 06/16/20 04:40 Seg Neutrophils # Man 4.1 K/mm3 (1.8-7.7) 06/12/20 02:35 Band Neutrophils # 0.0 K/mm3 06/12/20 02:35 Lymphocytes # (Manual) 0.3 K/mm3 (1.2-5.4) L 06/12/20 02:35 Abs React Lymphs (Man) 0.0 K/mm3 06/12/20 02:35 Monocytes # (Manual) 0.1 K/mm3 (0.0-0.8) 06/12/20 02:35 Eosinophils # (Manual) 0.0 K/mm3 (0.0-0.4) 06/12/20 02:35 Basophils # (Manual) 0.0 K/mm3 (0.0-0.1) 06/12/20 02:35 Metamyelocytes # 0.0 K/mm3 06/12/20 02:35 Myelocytes # 0.0 K/mm3 06/12/20 02:35 Promyelocytes # 0.0 K/mm3 06/12/20 02:35 Blast Cells # 0.0 K/mm3 06/12/20 02:35 WBC Morphology Not Reportable 06/12/20 02:35 Hypersegmented Neuts Not Reportable 06/12/20 02:35 Hyposegmented Neuts Not Reportable 06/12/20 02:35 Hypogranular Neuts Not Reportable 06/12/20 02:35 Smudge Cells Not Reportable 06/12/20 02:35 Toxic Granulation Not Reportable 06/12/20 02:35 Toxic Vacuolation Not Reportable 06/12/20 02:35 Dohle Bodies Not Reportable 06/12/20 02:35 Pelger-Huet Anomaly Not Reportable 06/12/20 02:35 Chanda Rods Not Reportable 06/12/20 02:35 Platelet Estimate Consistent w auto 06/12/20 02:35 Clumped Platelets Not Reportable 06/12/20 02:35 Plt Clumps, EDTA Not Reportable 06/12/20 02:35 Large Platelets Not Reportable 06/12/20 02:35 Giant Platelets Not Reportable 06/12/20 02:35 Platelet Satelliting Not Reportable 06/12/20 02:35 Plt Morphology Comment Not Reportable 06/12/20 02:35 RBC Morphology Not Reportable 06/12/20 02:35 Dimorphic RBCs Not Reportable 06/12/20 02:35 Polychromasia Not Reportable 06/12/20 02:35 Hypochromasia Few 06/12/20 02:35 Poikilocytosis Not Reportable 06/12/20 02:35 Anisocytosis 1+ 06/12/20 02:35 Microcytosis Not Reportable 06/12/20 02:35 Macrocytosis Not Reportable 06/12/20 02:35 Spherocytes Not Reportable 06/12/20 02:35 Pappenheimer Bodies Not Reportable 06/12/20 02:35 Sickle Cells Not Reportable 06/12/20 02:35 Target Cells Few 06/12/20 02:35 Tear Drop Cells Not Reportable 06/12/20 02:35 Ovalocytes Not Reportable 06/12/20 02:35 Helmet Cells Not Reportable 06/12/20 02:35 [place] Bodies Not Reportable 06/12/20 02:35 [place] Rings Not Reportable 06/12/20 02:35 [place] Cells Not Reportable 06/12/20 02:35 Bite Cells Not Reportable 06/12/20 02:35 Crenated Cell Not Reportable 06/12/20 02:35 Elliptocytes Not Reportable 06/12/20 02:35 Acanthocytes (Spur) Not Reportable 06/12/20 02:35 Rouleaux Not Reportable 06/12/20 02:35 Hemoglobin C Crystals Not Reportable 06/12/20 02:35 Schistocytes Not Reportable 06/12/20 02:35 Malaria parasites Not Reportable 06/12/20 02:35 [place] Bodies Not Reportable 06/12/20 02:35 Hem Pathologist Commnt No 06/12/20 02:35 PT 14.7 Sec. (12.2-14.9) 06/11/20 14:41 INR 1.15 (0.87-1.13) H 06/11/20 14:41 Sodium 140 mmol/L (137-145) 06/24/20 05:51 Potassium 4.8 mmol/L (3.6-5.0) 06/24/20 05:51 Chloride 102.6 mmol/L (98-107) 06/24/20 05:51 Carbon Dioxide 27 mmol/L (22-30) 06/24/20 05:51 Anion Gap 15 mmol/L 06/24/20 05:51 BUN 52 mg/dL (7-17) H 06/24/20 05:51 Creatinine 3.5 mg/dL (0.6-1.2) H 06/24/20 05:51 Estimated GFR 15 ml/min 06/24/20 05:51 BUN/Creatinine Ratio 15 % 06/24/20 05:51 Glucose 130 mg/dL (65-100) H 06/24/20 05:51 POC Glucose 129 mg/dL (70-105) H 06/24/20 08:33 Hemoglobin A1c 6.0 % (4-6) 06/12/20 02:35 Lactic Acid 0.50 mmol/L (0.7-2.0) L 06/11/20 16:11 Calcium 8.5 mg/dL (8.4-10.2) 06/24/20 05:51 Phosphorus 4.00 mg/dL (2.5-4.5) D 06/24/20 05:51 Magnesium 2.20 mg/dL (1.7-2.3) 06/12/20 22:19 Total Bilirubin 0.30 mg/dL (0.1-1.2) 06/12/20 02:35 AST 20 units/L (5-40) 06/12/20 02:35 ALT 9 units/L (7-56) 06/12/20 02:35 Alkaline Phosphatase 97 units/L (35-129) 06/12/20 02:35 Total Creatine Kinase 60 units/L (30-135) 06/11/20 14:41 Troponin T 0.125 ng/mL (0.00-0.029) H* 06/12/20 14:48 NT-Pro-B Natriuret Pep 91120 pg/mL (0-900) H 06/15/20 05:23 Serum Total Protein 7.2 g/dL (6.1-8.1) 06/13/20 09:41 Total Protein 8.3 g/dL (6.3-8.2) H 06/12/20 02:35 Albumin 3.3 g/dL (3.8-4.8) L 06/13/20 09:41 Albumin/Globulin Ratio 0.6 % 06/12/20 02:35 Pjjza-5-Agaofhhff 0.3 g/dL (0.2-0.3) 06/13/20 09:41 Uuwuh-4-Ysbndbxnj 0.7 g/dL (0.5-0.9) 06/13/20 09:41 Beta Globulins 0.5 g/dL (0.2-0.5) 06/13/20 09:41 Gamma Globulins 2.1 g/dL (0.8-1.7) H 06/13/20 09:41 Abnorm Protein Band 1 see below 06/13/20 09:41 PEP Interpretation see below H 06/13/20 09:41 Triglycerides 89 mg/dL (2-149) 06/11/20 14:41 Cholesterol 157 mg/dL (50-199) 06/11/20 14:41 LDL Cholesterol Direct 71 mg/dL (50-130) 06/11/20 14:41 HDL Cholesterol 75 mg/dL (40-59) H 06/11/20 14:41 Cholesterol/HDL Ratio 2.09 % 06/11/20 14:41 TSH 3.490 mlU/mL (0.270-4.200) 06/12/20 14:48 Urine Color Straw (Yellow) 06/12/20 12:47 Urine Turbidity Clear (Clear) 06/12/20 12:47 Urine pH 6.0 (5.0-7.0) 06/12/20 12:47 Ur Specific [place] 1.009 (1.003-1.030) 06/12/20 12:47 Urine Protein 100 mg/dl mg/dL (Negative) 06/12/20 12:47 Urine Glucose (UA) Neg mg/dL (Negative) 06/12/20 12:47 Urine Ketones Neg mg/dL (Negative) 06/12/20 12:47 Urine Blood Neg (Negative) 06/12/20 12:47 Urine Nitrite Neg (Negative) 06/12/20 12:47 Urine Bilirubin Neg (Negative) 06/12/20 12:47 Urine Urobilinogen < 2.0 mg/dL (<2.0) 06/12/20 12:47 Ur Leukocyte Esterase Neg (Negative) 06/12/20 12:47 Urine WBC (Auto) 3.0 /HPF (0.0-6.0) 06/12/20 12:47 Urine RBC (Auto) 2.0 /HPF (0.0-6.0) 06/12/20 12:47 U Epithel Cells (Auto) 2.0 /HPF (0-13.0) 06/12/20 12:47 Urine Bacteria (Auto) 1+ /HPF (Negative) 06/12/20 12:47 Urine Eosinophils None seen (None Seen) 06/12/20 Unknown Urine Total Volume 215 ml 06/23/20 15:02 Urine Creatinine 86.6 mg/dL (0.1-20.0) H 06/23/20 15:02 Ur Creatinine 24 Hour 0.2 (0.8-2.8) L 06/23/20 15:02 Protein/Creatinin Ratio 6.30 06/12/20 Unknown Urine Sodium 121 mmol/L 06/12/20 Unknown Urine Total Protein 143 mg/dL (5-11.8) H 06/12/20 Unknown Coronavirus (PCR) Negative (Negative) 06/12/20 Unknown Hepatitis A IgM Ab Non-reactive (NonReactive) 06/23/20 10:55 Hep Bs Antigen Non-reactive (Negative) 06/23/20 10:55 Hep B Core IgM Ab Non-reactive (NonReactive) 06/23/20 10:55 Hepatitis C Antibody Non-reactive (NonReactive) 06/23/20 10:55 - Diagnostic Impressions Diagnostic Impressions: Echocardiogram 06/11/20 23:10 Transthoracic Echocardiogram Indication: CHF BP: 165/63 HR: 60 Conclusions *Global left ventricular systolic function is normal. *The estimated ejection fraction is 55-60%. *Mild to moderate concentric left ventricular hypertrophy is observed. *The left and right atria are both moderately dilated. *There is mild to moderate mitral regurgitation. *There is mild tricuspid regurgitation. *There is evidence of moderate pulmonary hypertension. *The right ventricular systolic pressure is calculated at 51 mmHg. *A left pleural effusion is present. *There is no significant pericardial effusion. Findings Left Ventricle: The left ventricular chamber size is normal. Mild to moderate concentric left ventricular hypertrophy is observed. Global left ventricular systolic function is normal. The estimated ejection fraction is 55-60%. Left Atrium: The left atrium is moderately dilated. Right Ventricle: The right ventricle is mildly dilated. The right ventricular global systolic function is mildly reduced. Right Atrium: The right atrium is moderately dilated. Aortic Valve: The aortic valve is trileaflet. The aortic valve leaflets are moderately thickened. There is trace of aortic regurgitation. There is no evidence of aortic stenosis. Mitral Valve: The mitral valve leaflets are moderately thickened. There is mild to moderate mitral regurgitation. There is no evidence of mitral stenosis. Tricuspid Valve: There is mild tricuspid regurgitation. The right ventricular systolic pressure is calculated at 51 mmHg. There is evidence of moderate pulmonary hypertension. Pulmonic Valve: There is trace pulmonic regurgitation. Pericardium: There is no pericardial effusion. A left pleural effusion is present. Aorta: There is no dilatation of the ascending aorta. There is no dilatation of the aortic root. Venous: The inferior vena cava appears normal in size. Measurements Chambers 2D Name Value Normal Range IVSd (2D) 1.07 cm (0.6 - 1.1) LVPWd (2D) 1.19 cm (0.6 - 1.1) LVIDd (2D) 4.34 cm (3.7 - 5.6) LVIDs (2D) 2.93 cm (2 - 3.8) LV FS (2D) 32.56 % - EF Teichholz (2D) 61.19 % - Ao root diameter (2D) 3.19 cm (2 - 3.7) Volumes/Mass Name Value Normal Range LA ESV SP 4CH (A/L) 58.57 ml - LA ESV SP 2CH (A/L) 86.64 ml - LA ESV BP (A/L) 74.92 ml - LA ESV BP (A/L) index 47.42 ml/m2 - LA ESV SP 4CH (MOD) 50.65 ml - LA ESV SP 2CH (MOD) 79.23 ml - LA ESV BP (MOD) 66.45 ml - LA ESV BP (MOD) index 42.06 ml/m2 - Diastolic/Systolic Function Name Value Normal Range MV E-wave Vmax 1.34 m/sec - MV deceleration time 244.33 msec - MV A-wave Vmax 0.98 m/sec - MV E:A ratio 1.36 ratio - Aortic Valve Name Value Normal Range AV Vmax 1.46 m/sec - AV VTI 38.18 cm - AV peak gradient 8.5 mmHg - AV mean gradient 4.47 mmHg - LVOT diameter 1.93 cm - LVOT Vmax 0.97 m/sec - LVOT VTI 27.7 cm - LVOT peak gradient 3.73 mmHg - LVOT mean gradient 2.13 mmHg - SV LVOT 80.99 ml - KENYA (continuity Vmax) 1.94 cm2 - KENYA (continuity VTI) 2.12 cm2 - Ascending Ao 2.04 cm - Tricuspid Valve Name Value Normal Range TR Vmax 3.3 m/sec - TR peak gradient 43 mmHg - RAP 8 mmHg - RVSP 51 mmHg - Pulmonic Valve/Qp:Qs Name Value Normal Range PV Vmax 1.02 m/sec - PV peak gradient 4.14 mmHg - LA end-diastolic Vmax 0.74 m/sec - PV acceleration time 68.51 msec - Lopez/IV: Voiding Method Indwelling Catheter IV Catheter Type [Right perma cath Subclavian] IV Catheter Type [Right INT / Saline Lock Forearm] Active Medications - Current Medications Current Medications: Generic Name Dose Route Start Last Admin Trade Name Freq PRN Reason Stop Dose Admin Acetaminophen 650 mg 06/11/20 23:07 Tylenol PO Q4H PRN Pain MILD(1-3)/Fever >100.5/MENA Artificial Tears 2 drops 06/11/20 23:06 Isopto Tears 0.5% OU Q4H PRN Dry Eye(s) Aspirin 81 mg 06/12/20 10:00 06/23/20 10:30 Baby Aspirin PO 81 mg QDAY JULIETTE Administration Atorvastatin Calcium 40 mg 06/12/20 22:00 06/24/20 00:16 Lipitor PO 40 mg QHS JULIETTE Administration Clopidogrel Bisulfate 75 mg 06/12/20 10:00 06/23/20 10:31 Plavix PO 75 mg QDAY JULIETTE Administration Dextrose 50 ml 06/13/20 05:23 D50w (25gm) Syringe IV Q30MIN PRN Hypoglycemia Protocol Doxazosin Mesylate 2 mg 06/12/20 12:00 06/24/20 00:17 Cardura PO Not Given BID JULIETTE Ergocalciferol 50,000 unit 06/19/20 10:00 06/19/20 09:25 Vitamin D2 PO 50,000 unit Mo JULIETTE Administration Ferrous Sulfate 325 mg 06/12/20 10:00 06/23/20 10:30 Feosol PO 325 mg QDAY JULIETTE Administration Hydralazine HCl 100 mg 06/17/20 14:00 06/24/20 06:52 Apresoline PO 100 mg Q8HR JULIETTE Administration Hydromorphone HCl 0.5 mg 06/11/20 23:07 Dilaudid IV Q3H PRN Pain , Severe (7-10) Insulin Human Lispro 0 unit 06/13/20 07:30 06/24/20 00:21 Humalog SUB-Q Not Given ACHS [facility] Protocol Isosorbide Mononitrate 60 mg 06/16/20 12:00 06/23/20 10:30 Imdur PO 60 mg QDAY JULIETTE Administration Levothyroxine Sodium 25 mcg 06/12/20 06:00 06/24/20 06:52 Synthroid PO 25 mcg QAM@0600 JULIETTE Administration Minoxidil 2.5 mg 06/17/20 10:00 06/24/20 00:18 Loniten PO Not Given Q12HR JULIETTE Nifedipine 90 mg 06/14/20 22:00 06/24/20 00:20 Procardia Xl PO Not Given Q12HR JULIETTE Nitroglycerin 0.4 mg 06/12/20 04:00 06/12/20 04:39 Nitrostat SL 0.4 mg .Q5MIN PRN Administration Chest Pain Ondansetron HCl 4 mg 06/11/20 23:07 Zofran IV Q8H PRN Nausea And Vomiting Oxycodone/Acetaminophen 1 tab 06/11/20 23:07 06/19/20 23:37 Percocet 5/325 PO 1 tab Q6H PRN Administration Pain, Moderate (4-6) Sertraline HCl 50 mg 06/12/20 10:00 06/23/20 10:31 Zoloft PO 50 mg QDAY JULIETTE Administration Sodium Chloride 10 ml 06/11/20 23:45 06/24/20 00:20 Sodium Chloride Flush Syringe 10 Ml IV 10 ml BID JULIETTE Administration Sodium Chloride 10 ml 06/11/20 23:07 Sodium Chloride Flush Syringe 10 Ml IV PRN PRN LINE FLUSH Nutrition/Malnutrition Assess - Dietary Evaluation Nutrition/Malnutrition Findings: Nutrition Notes Start: 06/12/20 14:11 Freq: Status: Active Protocol: Document 06/22/20 11:32 AB (Rec: 06/22/20 11:41 AB [id number]) Co-Sign 06/22/20 11:32 MK Nutrition Notes Initial or Follow up Reassessment Current Diagnosis CKD(stage I-IV),Coronary Artery Disease,Diabetes, Hypertension,Heart Failure, Hyperlipidemia Current Diet Pureed with thin liquids Labs/Tests BUN 91 Cr 4.7 BG 130 Pertinent Medications Feosol Vit D2 Height 5 ft Weight 57.8 kg [place] Body Weight (kg) 45.45 BMI 24.8 Weight change and time frame wt change noted Weight Status Appropriate Subjective/Other Information F/U for intakes and ONS tolerance. Per tech, pt is eating 100% of her meals ONS is not given to her every day because she has been eating every meal 100%. Percent of energy/protein needs met: 100%/100% Burn Absent Trauma Absent GI Symptoms None Difficulty In Swallowing Current % PO Good (75-100%) Minimum of two criteria No physical signs of malnutrition #2 Nutrition Diagnosis Increased nutrient needs ( specify in comment below) Comments: protein Diagnosis Progress(for reassessment Continues documentation) Is patient on ventilator? No Is Patient Ambulatory and/or Out of Bed No REE-([place] Jeor-confined to bed) 1182.192 Kcal/Kg value to use for calculation 22 Approximate Energy Requirements Using 1272 kcal/Kg Calculation Used for Recommendations Kcal/kg Additional Notes Protein: 58-72 g (1-1.25 g/kg) Fluid: 1 ml/kcal Nutrition Intervention Change Diet Order: Continue pureed Add Supplement/Snack (indicate name/kcal D/C /protein ) Goal #1 Meet at least 75% of energy and protein needs Anticipated Discharge Needs: Pureed diet Follow-Up By: 06/29/20 Additional Comments F/U for intakes
--- NOTE | 2020-06-24 11:30 | Progress Note ---
Assessment and Plan CKD (chronic kidney disease) -s/p permcath and first HD 06/23 - HD today for clearance and volume removal -can be discharged from [facility] when outpatient dialysis in [facility] is secured -Renal ultrasound-No obstruction noted -Urine lytes- shows 6 grams of protein -UPEP and SPEP- pending -Obtain daily weights -Monitor I/O's daily -Avoid nephrotoxic agents -Continue to monitor renal function closely Acute exacerbation of CHF -S/P IV Lasix -Echocardiogram-EF 55-60% -Cardiology onboard Hypertension -Continue antihypertensives and adjust medications as necessary -Monitor blood pressures Bradley Sanchez MD [phone] Subjective Date of service: 06/24/20 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 Interval history: tolerated HD yesterday Objective - Vital Signs Vital signs: Vital Signs - 12hr 06/24/20 06/24/20 00:17 04:08 Temperature 98.7 F Pulse Rate 81 81 Respiratory 18 Rate Blood Pressure 79/50 142/59 O2 Sat by Pulse 96 Oximetry - General Appearance General appearance: appears stated age, cachectic EENT: ATNC, PERRL, mucous membranes dry Neck: no JVD, no carotid bruit Respiratory: Present: Clear to Ascultation. Absent: Rales, Ronchi Cardiology: regular, S1S2 Gastrointestinal: normoactive bowel sounds, no tenderness, no distended Integumentary: no rash, warm and dry Neurologic: other (follows simple commands) Musculoskeletal: other (trace pitting edema in BLE) Psychiatric: other (follows simple commands) - Lab 06/16/20 04:40 06/24/20 05:51 Most recent lab results Calcium 8.5 mg/dL (8.4-10.2) 06/24/20 05:51 Phosphorus 4.00 mg/dL (2.5-4.5) D 06/24/20 05:51 Magnesium 2.20 mg/dL (1.7-2.3) 06/12/20 22:19 Urine Creatinine 86.6 mg/dL (0.1-20.0) H 06/23/20 15:02 Urine Sodium 121 mmol/L 06/12/20 Unknown Urine Total Protein 143 mg/dL (5-11.8) H 06/12/20 Unknown Medications & Allergies - Medications Allergies/Adverse Reactions: Allergies No Known Allergies Allergy (Verified 08/27/14 06:14) Home Medications: Home Medications Medication Instructions Recorded Confirmed Last Taken Type Levothyroxine [Synthroid] 25 mcg PO QAM 08/27/14 06/11/20 03/20/18 History hydrALAZINE [Apresoline TAB] 100 mg PO TID #90 tab 09/01/14 06/11/20 03/20/18 Rx Sertraline [Zoloft] 50 mg PO QDAY 11/05/14 06/11/20 03/20/18 History Terazosin (Nf) [Hytrin (Nf)] 5 mg PO QHS 08/19/17 06/11/20 Unknown History Aspirin [Aspirin BABY CHEW TAB] 81 mg PO QDAY tab.chew 08/21/17 06/11/20 Unknown Rx AtorvaSTATin [Lipitor] 40 mg PO QHS #30 tab 03/27/18 06/11/20 Unknown Rx Clopidogrel [Plavix] 75 mg PO QDAY #30 tablet 03/27/18 06/11/20 Unknown Rx Hypromellose [Isopto Tears 0.5%] 2 drops OU Q4H PRN bottle 03/27/18 06/11/20 Unknown Rx ISOSORBIDE MONOnitrate [Imdur ER] 30 mg PO QDAY #30 tablet 03/27/18 06/11/20 Unknown Rx amLODIPine 10 mg PO DAILY #30 tablet 03/27/18 06/11/20 Unknown Rx Ergocalciferol (Vitamin D2) 50,000 unit PO QDAY 06/11/20 06/11/20 Unknown History [Vitamin D2] Ferrous Sulfate [Feosol] 325 mg PO QDAY 06/11/20 06/11/20 Unknown History carvediloL [Coreg] 6.25 mg PO Q12HR 06/11/20 06/11/20 Unknown History Active Medications: Generic Name Dose Route Start Last Admin Trade Name Freq PRN Reason Stop Dose Admin Acetaminophen 650 mg 06/11/20 23:07 Tylenol PO Q4H PRN Pain MILD(1-3)/Fever >100.5/MENA Artificial Tears 2 drops 06/11/20 23:06 Isopto Tears 0.5% OU Q4H PRN Dry Eye(s) Aspirin 81 mg 06/12/20 10:00 06/23/20 10:30 Baby Aspirin PO 81 mg QDAY JULIETTE Administration Atorvastatin Calcium 40 mg 06/12/20 22:00 06/24/20 00:16 Lipitor PO 40 mg QHS [facility] Administration Clopidogrel Bisulfate 75 mg 06/12/20 10:00 06/23/20 10:31 Plavix PO 75 mg QDAY [facility] Administration Dextrose 50 ml 06/13/20 05:23 D50w (25gm) Syringe IV Q30MIN PRN Hypoglycemia Protocol Doxazosin Mesylate 2 mg 06/12/20 12:00 06/24/20 00:17 Cardura PO Not Given BID [facility] Ergocalciferol 50,000 unit 06/19/20 10:00 06/19/20 09:25 Vitamin D2 PO 50,000 unit Mo [facility] Administration Ferrous Sulfate 325 mg 06/12/20 10:00 06/23/20 10:30 Feosol PO 325 mg QDAY [facility] Administration Hydralazine HCl 100 mg 06/17/20 14:00 06/24/20 06:52 Apresoline PO 100 mg Q8HR [facility] Administration Hydromorphone HCl 0.5 mg 06/11/20 23:07 Dilaudid IV Q3H PRN Pain , Severe (7-10) Insulin Human Lispro 0 unit 06/13/20 07:30 06/24/20 11:22 Humalog SUB-Q Not Given ACHS [facility] Protocol Isosorbide Mononitrate 60 mg 06/16/20 12:00 06/23/20 10:30 Imdur PO 60 mg QDAY [facility] Administration Levothyroxine Sodium 25 mcg 06/12/20 06:00 06/24/20 06:52 Synthroid PO 25 mcg QAM@0600 [facility] Administration Minoxidil 2.5 mg 06/17/20 10:00 06/24/20 00:18 Loniten PO Not Given Q12HR [facility] Nifedipine 90 mg 06/14/20 22:00 06/24/20 00:20 Procardia Xl PO Not Given Q12HR [facility] Nitroglycerin 0.4 mg 06/12/20 04:00 06/12/20 04:39 Nitrostat SL 0.4 mg .Q5MIN PRN Administration Chest Pain Ondansetron HCl 4 mg 06/11/20 23:07 Zofran IV Q8H PRN Nausea And Vomiting Oxycodone/Acetaminophen 1 tab 06/11/20 23:07 06/19/20 23:37 Percocet 5/325 PO 1 tab Q6H PRN Administration Pain, Moderate (4-6) Sertraline HCl 50 mg 06/12/20 10:00 06/23/20 10:31 Zoloft PO 50 mg QDAY JULIETTE Administration Sodium Chloride 10 ml 06/11/20 23:45 06/24/20 00:20 Sodium Chloride Flush Syringe 10 Ml IV 10 ml BID JULIETTE Administration Sodium Chloride 10 ml 06/11/20 23:07 Sodium Chloride Flush Syringe 10 Ml IV PRN PRN LINE FLUSH
[2020-06-24] MEDS: SERTRALINE 50 MG TAB PO SCH (11:33)
[2020-06-24] MEDS: ASPIRIN 81 MG TAB CHEW PO SCH (11:33)
[2020-06-24] MEDS: FERROUS SULFATE 325 MG TAB PO SCH (11:34)
[2020-06-24] MEDS: CLOPIDOGREL 75 MG TAB PO SCH (11:34)
[2020-06-25] MEDS: hydrALAZINE 100 MG TAB PO SCH ×3 (05:59→22:31)
[2020-06-25] MEDS: LEVOTHYROXINE 25 MCG TAB PO SCH (05:59)
--- NOTE | 2020-06-25 08:28 | Progress Note ---
Assessment and Plan CKD (chronic kidney disease) -s/p permcath and first HD 06/23 - no indication for HD today -can be discharged from [facility] when outpatient dialysis in [facility] is secured -Renal ultrasound-No obstruction noted -Urine lytes- shows 6 grams of protein -UPEP and SPEP- pending -Obtain daily weights -Monitor I/O's daily -Avoid nephrotoxic agents -Continue to monitor renal function closely Acute exacerbation of CHF -S/P IV Lasix -Echocardiogram-EF 55-60% -Cardiology onboard Hypertension -Continue antihypertensives and adjust medications as necessary -Monitor blood pressures Bradley Sanchez MD [phone] Subjective Date of service: 06/25/20 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 Interval history: no overnight events, tolerated HD yesterday Objective - Vital Signs Vital signs: Vital Signs - 12hr 06/24/20 06/24/20 06/25/20 21:17 22:34 04:24 Temperature 98.6 F 97.5 F L Pulse Rate 78 78 73 Respiratory 20 20 Rate Blood Pressure 188/77 188/77 142/53 O2 Sat by Pulse 99 95 Oximetry - General Appearance General appearance: appears stated age, cachectic EENT: ATNC, PERRL, mucous membranes dry Neck: no JVD, no carotid bruit Respiratory: Present: Clear to Ascultation. Absent: Rales, Ronchi, Wheezes Cardiology: regular, S1S2 Gastrointestinal: normoactive bowel sounds, no absent bowel sounds, no tenderness, no distended Integumentary: no rash, warm and dry Neurologic: other (follows ismple commands) Musculoskeletal: other (no edema in BLE) - Lab 06/16/20 04:40 06/25/20 04:41 Most recent lab results Calcium 9.0 mg/dL (8.4-10.2) 06/25/20 04:41 Phosphorus 2.40 mg/dL (2.5-4.5) L D 06/25/20 04:41 Magnesium 2.20 mg/dL (1.7-2.3) 06/12/20 22:19 Urine Creatinine 86.6 mg/dL (0.1-20.0) H 06/23/20 15:02 Urine Sodium 121 mmol/L 06/12/20 Unknown Urine Total Protein 143 mg/dL (5-11.8) H 06/12/20 Unknown Medications & Allergies - Medications Allergies/Adverse Reactions: Allergies No Known Allergies Allergy (Verified 08/27/14 06:14) Home Medications: Home Medications Medication Instructions Recorded Confirmed Last Taken Type Levothyroxine [Synthroid] 25 mcg PO QAM 08/27/14 06/11/20 03/20/18 History hydrALAZINE [Apresoline TAB] 100 mg PO TID #90 tab 09/01/14 06/11/20 03/20/18 Rx Sertraline [Zoloft] 50 mg PO QDAY 11/05/14 06/11/20 03/20/18 History Terazosin (Nf) [Hytrin (Nf)] 5 mg PO QHS 08/19/17 06/11/20 Unknown History Aspirin [Aspirin BABY CHEW TAB] 81 mg PO QDAY tab.chew 08/21/17 06/11/20 Unknown Rx AtorvaSTATin [Lipitor] 40 mg PO QHS #30 tab 03/27/18 06/11/20 Unknown Rx Clopidogrel [Plavix] 75 mg PO QDAY #30 tablet 03/27/18 06/11/20 Unknown Rx Hypromellose [Isopto Tears 0.5%] 2 drops OU Q4H PRN bottle 03/27/18 06/11/20 Unknown Rx ISOSORBIDE MONOnitrate [Imdur ER] 30 mg PO QDAY #30 tablet 03/27/18 06/11/20 Unknown Rx amLODIPine 10 mg PO DAILY #30 tablet 03/27/18 06/11/20 Unknown Rx Ergocalciferol (Vitamin D2) 50,000 unit PO QDAY 06/11/20 06/11/20 Unknown History [Vitamin D2] Ferrous Sulfate [Feosol] 325 mg PO QDAY 06/11/20 06/11/20 Unknown History carvediloL [Coreg] 6.25 mg PO Q12HR 06/11/20 06/11/20 Unknown History Active Medications: Generic Name Dose Route Start Last Admin Trade Name Freq PRN Reason Stop Dose Admin Acetaminophen 650 mg 06/11/20 23:07 Tylenol PO Q4H PRN Pain MILD(1-3)/Fever >100.5/MENA Artificial Tears 2 drops 06/11/20 23:06 Isopto Tears 0.5% OU Q4H PRN Dry Eye(s) Aspirin 81 mg 06/12/20 10:00 06/24/20 11:33 Baby Aspirin PO 81 mg QDAY JULIETTE Administration Atorvastatin Calcium 40 mg 06/12/20 22:00 06/24/20 22:34 Lipitor PO 40 mg QHS JULIETTE Administration Clopidogrel Bisulfate 75 mg 06/12/20 10:00 06/24/20 11:34 Plavix PO 75 mg QDAY JULIETTE Administration Dextrose 50 ml 06/13/20 05:23 D50w (25gm) Syringe IV Q30MIN PRN Hypoglycemia Protocol Doxazosin Mesylate 2 mg 06/12/20 12:00 06/24/20 22:34 Cardura PO 2 mg BID JULIETTE Administration Ergocalciferol 50,000 unit 06/19/20 10:00 06/19/20 09:25 Vitamin D2 PO 50,000 unit Mo [facility] Administration Ferrous Sulfate 325 mg 06/12/20 10:00 06/24/20 11:34 Feosol PO 325 mg QDAY JULIETTE Administration Hydralazine HCl 100 mg 06/17/20 14:00 06/25/20 05:59 Apresoline PO 100 mg Q8HR JULIETTE Administration Hydromorphone HCl 0.5 mg 06/11/20 23:07 Dilaudid IV Q3H PRN Pain , Severe (7-10) Insulin Human Lispro 0 unit 06/13/20 07:30 06/24/20 22:35 Humalog SUB-Q Not Given ACHS [facility] Protocol Isosorbide Mononitrate 60 mg 06/16/20 12:00 06/24/20 13:57 Imdur PO Not Given QDAY [facility] Levothyroxine Sodium 25 mcg 06/12/20 06:00 06/25/20 05:59 Synthroid PO 25 mcg QAM@0600 [facility] Administration Minoxidil 2.5 mg 06/17/20 10:00 06/24/20 22:34 Loniten PO 2.5 mg Q12HR JULIETTE Administration Nifedipine 90 mg 06/14/20 22:00 06/24/20 22:34 Procardia Xl PO 90 mg Q12HR JULIETTE Administration Nitroglycerin 0.4 mg 06/12/20 04:00 06/12/20 04:39 Nitrostat SL 0.4 mg .Q5MIN PRN Administration Chest Pain Ondansetron HCl 4 mg 11/22/20 23:07 Zofran IV Q8H PRN Nausea And Vomiting Oxycodone/Acetaminophen 1 tab 06/11/20 23:07 06/19/20 23:37 Percocet 5/325 PO 1 tab Q6H PRN Administration Pain, Moderate (4-6) Sertraline HCl 50 mg 06/12/20 10:00 06/24/20 11:33 Zoloft PO 50 mg QDAY JULIETTE Administration Sodium Chloride 10 ml 06/11/20 23:45 06/24/20 22:35 Sodium Chloride Flush Syringe 10 Ml IV 10 ml BID JULIETTE Administration Sodium Chloride 10 ml 06/11/20 23:07 Sodium Chloride Flush Syringe 10 Ml IV PRN PRN LINE FLUSH
[2020-06-25] MEDS: NIFEdipine XL 90 MG TAB PO SCH ×3 (09:36→22:31)
[2020-06-25] MEDS: CLOPIDOGREL 75 MG TAB PO SCH (09:36)
[2020-06-25] MEDS: SERTRALINE 50 MG TAB PO SCH (09:36)
[2020-06-25] MEDS: MINOXIDIL 2.5 MG TAB PO SCH ×2 (09:37→22:30)
[2020-06-25] MEDS: DOXAZOSIN 1 MG TAB PO SCH ×2 (09:37→22:30)
[2020-06-25] MEDS: ASPIRIN 81 MG TAB CHEW PO SCH (09:37)
[2020-06-25] MEDS: FERROUS SULFATE 325 MG TAB PO SCH (09:37)
[2020-06-25] MEDS: INSULIN LISPRO 100 UNIT/ML VIAL 3 mL SUB-Q SCH ×4 (09:38→22:24)
--- NOTE | 2020-06-25 11:49 | Progress Note ---
Assessment and Plan - Patient Problems (1) CHF (congestive heart failure) Current Visit: Yes Status: Acute (2) Pulmonary hypertension Current Visit: Yes Status: Acute Subjective Date of service: 06/25/20 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 Interval history: no c/o Objective Vital Signs Temp Pulse Resp BP Pulse Ox 06/25/20 09:36 133/68 06/25/20 04:24 97.5 F L 73 20 142/53 95 06/24/20 22:34 78 188/77 06/24/20 21:17 98.6 F 78 20 188/77 99 06/24/20 18:10 98.3 F 65 18 143/54 06/24/20 18:00 63 119/44 06/24/20 17:50 66 143/47 06/24/20 17:40 64 133/55 06/24/20 17:30 69 170/88 06/24/20 17:20 69 139/47 06/24/20 17:10 73 133/60 06/24/20 17:00 65 139/49 06/24/20 16:50 70 140/54 06/24/20 16:40 69 126/53 06/24/20 16:30 69 134/56 06/24/20 16:20 73 126/61 06/24/20 16:10 74 128/60 06/24/20 16:00 72 136/58 06/24/20 15:50 71 127/51 06/24/20 15:40 73 130/63 06/24/20 15:35 72 133/60 06/24/20 15:30 74 110/64 06/24/20 15:20 66 125/57 06/24/20 15:10 70 125/57 06/24/20 15:00 71 144/60 06/24/20 14:45 70 132/56 06/24/20 14:42 72 135/59 06/24/20 14:30 98.6 F 72 18 142/59 - Physical Examination General: No Apparent Distress, Cachectic, Other (Frail, elderly, chronically ill-appearing) HEENT: Positive: PERRL Neck: Positive: neck supple, JVD/HJR Cardiac: Positive: Reg Rate and Rhythm Lungs: Positive: clear to auscultation Neuro: Positive: Weakness Abdomen: Positive: Soft Extremities: Absent: edema (TR) - Labs and Meds Comprehensive Metabolic Panel 06/25/20 Range/Units 04:41 Sodium 139 (137-145) mmol/L Potassium 4.4 (3.6-5.0) mmol/L Chloride 100.1 (98-107) mmol/L Carbon Dioxide 27 (22-30) mmol/L BUN 24 H (7-17) mg/dL Creatinine 2.2 H (0.6-1.2) mg/dL Glucose 110 H (65-100) mg/dL Calcium 9.0 (8.4-10.2) mg/dL - Imaging and Cardiology EKG: report reviewed (Sinus rhythm no acute ST-T wave changes)
--- NOTE | 2020-06-25 12:19 | Progress Note ---
Assessment and Plan Assessment and plan: -- Acute on chronic diastolic CHF (congestive heart failure) Bilateral edema on chest x-ray due to acute on chronic diastolic CHF Continue beta-blockers. Hold Lasix due to bump in creatinine Low-sodium diet, fluid restriction Echocardiogram for LV function ejection fraction-EF 55 to 60% Cardiology following. --Nonspecific elevated troponin; Due to NSTEMI type II, in the setting of chronic kidney disease Possible stress test versus heart cath if needed -- HTN (hypertension) Moderate control ,continue current antihypertensives And as needed hydralazine --History of coronary artery disease Continue isosorbide mono nitrate and aspirin Cardiology following Acute kidney injury on CKD 4 (chronic kidney disease) Due to vasomotor nephropathy Permacath placed on 06/23. HD initiated on 06/23. Nephrology on board Needs HD chair -- DVT prophylaxis On heparin and GI prophylaxis Closely monitor the patient and adjust management as needed Plan of care reviewed with the patient and the nurse 06/14/2020. Echocardiogram revealed EF of 55 to 60%. Continue IV Lasix per nephrology and cardiology. Baseline creatinine in 2018 was 2.22.6. Renal u ltrasound revealed no obstruction. UPEP and SPEP pending. Patient still exhibiting accelerated hypertension. Increase Procardia to 90 mg twice daily. 06/15/2020. Patient's blood pressure is better controlled with current medications. Recheck chest x-ray today and follow-up BnP. 06/16/2020. Patient's blood pressure still extremely labile. Patient currently with clonidine, Cardura, Procardia, isosorbide and hydralazine. Increase hydralazine to 75 mg 3 times daily. BNP greater than 13,000 and chest x-ray suggestive of heart failure. Defer to cardiology. Await PT recommendations for placement. 06/17/2020. Patient still with accelerated hypertension. Increase hydralazine to 100 mg 3 times daily. Continue isosorbide, clonidine, Cardura, valsartan and Procardia as well. Serum creatinine remains stable at 2.9. 06/18/2020. Patient's blood pressure much better controlled. Continue current regimen of hydralazine, isosorbide, clonidine, Cardura and Procardia. Diovan held due to increased creatinine. Renal ultrasound revealed no evidence of obstruction. BNP greater than 13,000 and chest x-ray suggestive of heart failure. 06/19/2020. Patient's blood pressure much better controlled. Continue current regimen of hydralazine, isosorbide, clonidine, Cardura and Procardia. Creatinine elevated at 3.5. Continue Lasix 20 mg IV twice daily for heart failure. Follow-up UPEP and SPEP. Continue daily weights, monitor I/O's daily, avoid nephrotoxic agents and follow-up BMP in a.m. 06/20/2020. Renal function continues to worsen. Creatinine 4.6 this morning. Hold Lasix for now. Started on gentle IV hydration. Nephrology is following. Avoid nephrotoxic medications. Cardiology recommendations appreciated 06/21. No complaints. Her renal function is more stable now. Cr is 4.7 today. Continue to hold lasix and diovan. Continue IV hydration. Nephrology is following. 06/22. Labs stable - Cr 4.7. Nephrology on board. 06/23. Cr 5.0. May need HD. Nephrology evaluation appreciated 06/24. Had permacath placement and then HD afterwards on 06/23. RYLEY to arrange OP HD chair 06/25. HD chair being set up by RYLEY History Interval history: Had permacath placement 06/23 with HD afterwards Nephrology on board Needs to have HD chair set up Hospitalist Physical - Physical exam Narrative exam: VITAL SIGNS: Reviewed. GENERAL: Awake and alert on response to questions intermittently HEAD: No signs of head trauma. EYES: Pupils are equal. Extraocular motions intact. EARS: Hearing grossly intact. MOUTH: Oropharynx is normal. NECK: No adenopathy, no JVD. CHEST: Chest with diminished breath sounds bilaterally. No wheezes, rales, or rhonchi. CARDIAC: Regular rate and rhythm. S1 and S2, without murmurs, gallops, or rubs. VASCULAR: No Edema. Peripheral pulses normal and equal in all extremities. ABDOMEN: Soft, non tender and non distended. No rebound or guarding, and no masses palpated. Bowel Sounds normal. MUSCULOSKELETAL: Good range of motion of all major joints. Extremities without clubbing, cyanosis or edema. NEUROLOGIC EXAM: Alert and oriented in person. No focal neurologic deficits PSYCHIATRIC: Stable mood SKIN: No obvious lesions - Constitutional Vitals: Temp Pulse Resp BP Pulse Ox 97.5 F L 73 20 133/68 95 06/25/20 04:24 06/25/20 04:24 06/25/20 04:24 06/25/20 09:36 06/25/20 04:24 HEART Score - HEART Score Age: > 65 Risk factors: > 3 risk factors or hx of atherosclerotic disease Troponin: Troponin T 0.125 ng/mL (0.00-0.029) H* 06/12/20 14:48 Troponin: < normal limit - Critical Actions Critical Actions: 4-6 pts:12-16.6% risk of adverse cardiac event. Should be admitted Results - Labs CBC & Chem 7: 06/16/20 04:40 06/25/20 04:41 Labs: Laboratory Last Values WBC 4.9 K/mm3 (4.5-11.0) 06/16/20 04:40 RBC 3.34 M/mm3 (3.65-5.03) L 06/16/20 04:40 Hgb 9.4 gm/dl (10.1-14.3) L 06/16/20 04:40 Hct 29.7 % (30.3-42.9) L 06/16/20 04:40 MCV 89 fl (79-97) 06/16/20 04:40 MCH 28 pg (28-32) 06/16/20 04:40 MCHC 32 % (30-34) 06/16/20 04:40 RDW 17.3 % (13.2-15.2) H 06/16/20 04:40 Plt Count 145 K/mm3 (140-440) 06/16/20 04:40 Lymph % (Auto) 23.5 % (13.4-35.0) 06/16/20 04:40 Gaines % (Auto) 15.1 % (0.0-7.3) H 06/16/20 04:40 Eos % (Auto) 4.2 % (0.0-4.3) 06/16/20 04:40 Baso % (Auto) 1.3 % (0.0-1.8) 06/16/20 04:40 Lymph # (Auto) 1.1 K/mm3 (1.2-5.4) L 06/16/20 04:40 Gaines # (Auto) 0.7 K/mm3 (0.0-0.8) 06/16/20 04:40 Eos # (Auto) 0.2 K/mm3 (0.0-0.4) 06/16/20 04:40 Baso # (Auto) 0.1 K/mm3 (0.0-0.1) 06/16/20 04:40 Add Manual Diff Complete 06/12/20 02:35 Total Counted 100 06/12/20 02:35 Seg Neutrophils % 55.9 % (40.0-70.0) 06/16/20 04:40 Seg Neuts % (Manual) 92.0 % (40.0-70.0) H 06/12/20 02:35 Band Neutrophils % 0 % 06/12/20 02:35 Lymphocytes % (Manual) 6.0 % (13.4-35.0) L 06/12/20 02:35 Reactive Lymphs % (Man) 0 % 06/12/20 02:35 Monocytes % (Manual) 2.0 % (0.0-7.3) 06/12/20 02:35 Eosinophils % (Manual) 0 % (0.0-4.3) 06/12/20 02:35 Basophils % (Manual) 0 % (0.0-1.8) 06/12/20 02:35 Metamyelocytes % 0 % 06/12/20 02:35 Myelocytes % 0 % 06/12/20 02:35 Promyelocytes % 0 % 06/12/20 02:35 Blast Cells % 0 % 06/12/20 02:35 Nucleated RBC % Not Reportable 06/12/20 02:35 Seg Neutrophils # 2.7 K/mm3 (1.8-7.7) 06/16/20 04:40 Seg Neutrophils # Man 4.1 K/mm3 (1.8-7.7) 06/12/20 02:35 Band Neutrophils # 0.0 K/mm3 06/12/20 02:35 Lymphocytes # (Manual) 0.3 K/mm3 (1.2-5.4) L 06/12/20 02:35 Abs React Lymphs (Man) 0.0 K/mm3 06/12/20 02:35 Monocytes # (Manual) 0.1 K/mm3 (0.0-0.8) 06/12/20 02:35 Eosinophils # (Manual) 0.0 K/mm3 (0.0-0.4) 06/12/20 02:35 Basophils # (Manual) 0.0 K/mm3 (0.0-0.1) 06/12/20 02:35 Metamyelocytes # 0.0 K/mm3 06/12/20 02:35 Myelocytes # 0.0 K/mm3 06/12/20 02:35 Promyelocytes # 0.0 K/mm3 06/12/20 02:35 Blast Cells # 0.0 K/mm3 06/12/20 02:35 WBC Morphology Not Reportable 06/12/20 02:35 Hypersegmented Neuts Not Reportable 06/12/20 02:35 Hyposegmented Neuts Not Reportable 06/12/20 02:35 Hypogranular Neuts Not Reportable 06/12/20 02:35 Smudge Cells Not Reportable 06/12/20 02:35 Toxic Granulation Not Reportable 06/12/20 02:35 Toxic Vacuolation Not Reportable 06/12/20 02:35 Dohle Bodies Not Reportable 06/12/20 02:35 Pelger-Huet Anomaly Not Reportable 06/12/20 02:35 Chanda Rods Not Reportable 06/12/20 02:35 Platelet Estimate Consistent w auto 06/12/20 02:35 Clumped Platelets Not Reportable 06/12/20 02:35 Plt Clumps, EDTA Not Reportable 06/12/20 02:35 Large Platelets Not Reportable 06/12/20 02:35 Giant Platelets Not Reportable 06/12/20 02:35 Platelet Satelliting Not Reportable 06/12/20 02:35 Plt Morphology Comment Not Reportable 06/12/20 02:35 RBC Morphology Not Reportable 06/12/20 02:35 Dimorphic RBCs Not Reportable 06/12/20 02:35 Polychromasia Not Reportable 06/12/20 02:35 Hypochromasia Few 06/12/20 02:35 Poikilocytosis Not Reportable 06/12/20 02:35 Anisocytosis 1+ 06/12/20 02:35 Microcytosis Not Reportable 06/12/20 02:35 Macrocytosis Not Reportable 06/12/20 02:35 Spherocytes Not Reportable 06/12/20 02:35 Pappenheimer Bodies Not Reportable 06/12/20 02:35 Sickle Cells Not Reportable 06/12/20 02:35 Target Cells Few 06/12/20 02:35 Tear Drop Cells Not Reportable 06/12/20 02:35 Ovalocytes Not Reportable 06/12/20 02:35 Helmet Cells Not Reportable 06/12/20 02:35 Phipps-Dooms Bodies Not Reportable 06/12/20 02:35 Given Rings Not Reportable 06/12/20 02:35 [place] Cells Not Reportable 06/12/20 02:35 Bite Cells Not Reportable 06/12/20 02:35 Crenated Cell Not Reportable 06/12/20 02:35 Elliptocytes Not Reportable 06/12/20 02:35 Acanthocytes (Spur) Not Reportable 06/12/20 02:35 Rouleaux Not Reportable 06/12/20 02:35 Hemoglobin C Crystals Not Reportable 06/12/20 02:35 Schistocytes Not Reportable 06/12/20 02:35 Malaria parasites Not Reportable 06/12/20 02:35 Sulaiman Bodies Not Reportable 06/12/20 02:35 Hem Pathologist Commnt No 06/12/20 02:35 PT 14.7 Sec. (12.2-14.9) 06/11/20 14:41 INR 1.15 (0.87-1.13) H 06/11/20 14:41 Sodium 139 mmol/L (137-145) 06/25/20 04:41 Potassium 4.4 mmol/L (3.6-5.0) 06/25/20 04:41 Chloride 100.1 mmol/L (98-107) 06/25/20 04:41 Carbon Dioxide 27 mmol/L (22-30) 06/25/20 04:41 Anion Gap 16 mmol/L 06/25/20 04:41 BUN 24 mg/dL (7-17) H 06/25/20 04:41 Creatinine 2.2 mg/dL (0.6-1.2) H 06/25/20 04:41 Estimated GFR 26 ml/min 06/25/20 04:41 BUN/Creatinine Ratio 11 % 06/25/20 04:41 Glucose 110 mg/dL (65-100) H 06/25/20 04:41 POC Glucose 127 mg/dL (70-105) H 06/25/20 10:57 Hemoglobin A1c 6.0 % (4-6) 06/12/20 02:35 Lactic Acid 0.50 mmol/L (0.7-2.0) L 06/11/20 16:11 Calcium 9.0 mg/dL (8.4-10.2) 06/25/20 04:41 Phosphorus 2.40 mg/dL (2.5-4.5) L D 06/25/20 04:41 Magnesium 2.20 mg/dL (1.7-2.3) 06/12/20 22:19 Total Bilirubin 0.30 mg/dL (0.1-1.2) 06/12/20 02:35 AST 20 units/L (5-40) 06/12/20 02:35 ALT 9 units/L (7-56) 06/12/20 02:35 Alkaline Phosphatase 97 units/L (35-129) 06/12/20 02:35 Total Creatine Kinase 60 units/L (30-135) 06/11/20 14:41 Troponin T 0.125 ng/mL (0.00-0.029) H* 06/12/20 14:48 NT-Pro-B Natriuret Pep 33327 pg/mL (0-900) H 06/15/20 05:23 Serum Total Protein 7.2 g/dL (6.1-8.1) 06/13/20 09:41 Total Protein 8.3 g/dL (6.3-8.2) H 06/12/20 02:35 Albumin 3.3 g/dL (3.8-4.8) L 06/13/20 09:41 Albumin/Globulin Ratio 0.6 % 06/12/20 02:35 Ffvso-6-Txymxmruh 0.3 g/dL (0.2-0.3) 06/13/20 09:41 Ynlgh-5-Haocarqom 0.7 g/dL (0.5-0.9) 06/13/20 09:41 Beta Globulins 0.5 g/dL (0.2-0.5) 06/13/20 09:41 Gamma Globulins 2.1 g/dL (0.8-1.7) H 06/13/20 09:41 Abnorm Protein Band 1 see below 06/13/20 09:41 PEP Interpretation see below H 06/13/20 09:41 Triglycerides 89 mg/dL (2-149) 06/11/20 14:41 Cholesterol 157 mg/dL (50-199) 06/11/20 14:41 LDL Cholesterol Direct 71 mg/dL (50-130) 06/11/20 14:41 HDL Cholesterol 75 mg/dL (40-59) H 06/11/20 14:41 Cholesterol/HDL Ratio 2.09 % 06/11/20 14:41 TSH 3.490 mlU/mL (0.270-4.200) 06/12/20 14:48 Urine Color Straw (Yellow) 06/12/20 12:47 Urine Turbidity Clear (Clear) 06/12/20 12:47 Urine pH 6.0 (5.0-7.0) 06/12/20 12:47 Ur Specific [place] 1.009 (1.003-1.030) 06/12/20 12:47 Urine Protein 100 mg/dl mg/dL (Negative) 06/12/20 12:47 Urine Glucose (UA) Neg mg/dL (Negative) 06/12/20 12:47 Urine Ketones Neg mg/dL (Negative) 06/12/20 12:47 Urine Blood Neg (Negative) 06/12/20 12:47 Urine Nitrite Neg (Negative) 06/12/20 12:47 Urine Bilirubin Neg (Negative) 06/12/20 12:47 Urine Urobilinogen < 2.0 mg/dL (<2.0) 06/12/20 12:47 Ur Leukocyte Esterase Neg (Negative) 06/12/20 12:47 Urine WBC (Auto) 3.0 /HPF (0.0-6.0) 06/12/20 12:47 Urine RBC (Auto) 2.0 /HPF (0.0-6.0) 06/12/20 12:47 U Epithel Cells (Auto) 2.0 /HPF (0-13.0) 06/12/20 12:47 Urine Bacteria (Auto) 1+ /HPF (Negative) 06/12/20 12:47 Urine Eosinophils None seen (None Seen) 06/12/20 Unknown Urine Total Volume 215 ml 06/23/20 15:02 Urine Creatinine 86.6 mg/dL (0.1-20.0) H 06/23/20 15:02 Ur Creatinine 24 Hour 0.2 (0.8-2.8) L 06/23/20 15:02 Protein/Creatinin Ratio 6.30 06/12/20 Unknown Urine Sodium 121 mmol/L 06/12/20 Unknown Urine Total Protein 143 mg/dL (5-11.8) H 06/12/20 Unknown Coronavirus (PCR) Negative (Negative) 06/12/20 Unknown Hepatitis A IgM Ab Non-reactive (NonReactive) 06/23/20 10:55 Hep Bs Antigen Non-reactive (Negative) 06/23/20 10:55 Hep B Core IgM Ab Non-reactive (NonReactive) 06/23/20 10:55 Hepatitis C Antibody Non-reactive (NonReactive) 06/23/20 10:55 - Diagnostic Impressions Diagnostic Impressions: Echocardiogram 06/11/20 23:10 Transthoracic Echocardiogram Indication: CHF BP: 165/63 HR: 60 Conclusions *Global left ventricular systolic function is normal. *The estimated ejection fraction is 55-60%. *Mild to moderate concentric left ventricular hypertrophy is observed. *The left and right atria are both moderately dilated. *There is mild to moderate mitral regurgitation. *There is mild tricuspid regurgitation. *There is evidence of moderate pulmonary hypertension. *The right ventricular systolic pressure is calculated at 51 mmHg. *A left pleural effusion is present. *There is no significant pericardial effusion. Findings Left Ventricle: The left ventricular chamber size is normal. Mild to moderate concentric left ventricular hypertrophy is observed. Global left ventricular systolic function is normal. The estimated ejection fraction is 55-60%. Left Atrium: The left atrium is moderately dilated. Right Ventricle: The right ventricle is mildly dilated. The right ventricular global systolic function is mildly reduced. Right Atrium: The right atrium is moderately dilated. Aortic Valve: The aortic valve is trileaflet. The aortic valve leaflets are moderately thickened. There is trace of aortic regurgitation. There is no evidence of aortic stenosis. Mitral Valve: The mitral valve leaflets are moderately thickened. There is mild to moderate mitral regurgitation. There is no evidence of mitral stenosis. Tricuspid Valve: There is mild tricuspid regurgitation. The right ventricular systolic pressure is calculated at 51 mmHg. There is evidence of moderate pulmonary hypertension. Pulmonic Valve: There is trace pulmonic regurgitation. Pericardium: There is no pericardial effusion. A left pleural effusion is present. Aorta: There is no dilatation of the ascending aorta. There is no dilatation of the aortic root. Venous: The inferior vena cava appears normal in size. Measurements Chambers 2D Name Value Normal Range IVSd (2D) 1.07 cm (0.6 - 1.1) LVPWd (2D) 1.19 cm (0.6 - 1.1) LVIDd (2D) 4.34 cm (3.7 - 5.6) LVIDs (2D) 2.93 cm (2 - 3.8) LV FS (2D) 32.56 % - EF Teichholz (2D) 61.19 % - Ao root diameter (2D) 3.19 cm (2 - 3.7) Volumes/Mass Name Value Normal Range LA ESV SP 4CH (A/L) 58.57 ml - LA ESV SP 2CH (A/L) 86.64 ml - LA ESV BP (A/L) 74.92 ml - LA ESV BP (A/L) index 47.42 ml/m2 - LA ESV SP 4CH (MOD) 50.65 ml - LA ESV SP 2CH (MOD) 79.23 ml - LA ESV BP (MOD) 66.45 ml - LA ESV BP (MOD) index 42.06 ml/m2 - Diastolic/Systolic Function Name Value Normal Range MV E-wave Vmax 1.34 m/sec - MV deceleration time 244.33 msec - MV A-wave Vmax 0.98 m/sec - MV E:A ratio 1.36 ratio - Aortic Valve Name Value Normal Range AV Vmax 1.46 m/sec - AV VTI 38.18 cm - AV peak gradient 8.5 mmHg - AV mean gradient 4.47 mmHg - LVOT diameter 1.93 cm - LVOT Vmax 0.97 m/sec - LVOT VTI 27.7 cm - LVOT peak gradient 3.73 mmHg - LVOT mean gradient 2.13 mmHg - SV LVOT 80.99 ml - KENYA (continuity Vmax) 1.94 cm2 - KENYA (continuity VTI) 2.12 cm2 - Ascending Ao 2.04 cm - Tricuspid Valve Name Value Normal Range TR Vmax 3.3 m/sec - TR peak gradient 43 mmHg - RAP 8 mmHg - RVSP 51 mmHg - Pulmonic Valve/Qp:Qs Name Value Normal Range PV Vmax 1.02 m/sec - PV peak gradient 4.14 mmHg - AK end-diastolic Vmax 0.74 m/sec - PV acceleration time 68.51 msec - Lopez/IV: Voiding Method Indwelling Catheter IV Catheter Type [Right perma cath Subclavian] IV Catheter Type [Right INT / Saline Lock Forearm] Active Medications - Current Medications Current Medications: Generic Name Dose Route Start Last Admin Trade Name Freq PRN Reason Stop Dose Admin Acetaminophen 650 mg 06/11/20 23:07 Tylenol PO Q4H PRN Pain MILD(1-3)/Fever >100.5/MENA Artificial Tears 2 drops 06/11/20 23:06 Isopto Tears 0.5% OU Q4H PRN Dry Eye(s) Aspirin 81 mg 06/12/20 10:00 06/25/20 09:37 Baby Aspirin PO 81 mg QDAY JULIETTE Administration Atorvastatin Calcium 40 mg 06/12/20 22:00 06/24/20 22:34 Lipitor PO 40 mg QHS JULIETTE Administration Clopidogrel Bisulfate 75 mg 06/12/20 10:00 06/25/20 09:36 Plavix PO 75 mg QDAY JULIETTE Administration Dextrose 50 ml 06/13/20 05:23 D50w (25gm) Syringe IV Q30MIN PRN Hypoglycemia Protocol Doxazosin Mesylate 2 mg 06/12/20 12:00 06/25/20 09:37 Cardura PO 2 mg BID JULIETTE Administration Ergocalciferol 50,000 unit 06/19/20 10:00 06/19/20 09:25 Vitamin D2 PO 50,000 unit Mo JULIETTE Administration Ferrous Sulfate 325 mg 06/12/20 10:00 06/25/20 09:37 Feosol PO 325 mg QDAY JULIETTE Administration Hydralazine HCl 100 mg 06/17/20 14:00 06/25/20 05:59 Apresoline PO 100 mg Q8HR JULIETTE Administration Hydromorphone HCl 0.5 mg 06/11/20 23:07 Dilaudid IV Q3H PRN Pain , Severe (7-10) Insulin Human Lispro 0 unit 06/13/20 07:30 06/25/20 12:15 Humalog SUB-Q Not Given ACHS JULIETTE Protocol Isosorbide Mononitrate 60 mg 06/16/20 12:00 06/25/20 09:36 Imdur PO 60 mg QDAY JULIETTE Administration Levothyroxine Sodium 25 mcg 06/12/20 06:00 06/25/20 05:59 Synthroid PO 25 mcg QAM@0600 JULIETTE Administration Minoxidil 2.5 mg 06/17/20 10:00 06/25/20 09:37 Loniten PO 2.5 mg Q12HR JULIETTE Administration Nifedipine 90 mg 06/14/20 22:00 06/25/20 12:16 Procardia Xl PO Not Given Q12HR JULIETTE Nitroglycerin 0.4 mg 06/12/20 04:00 06/12/20 04:39 Nitrostat SL 0.4 mg .Q5MIN PRN Administration Chest Pain Ondansetron HCl 4 mg 06/11/20 23:07 Zofran IV Q8H PRN Nausea And Vomiting Oxycodone/Acetaminophen 1 tab 06/11/20 23:07 06/19/20 23:37 Percocet 5/325 PO 1 tab Q6H PRN Administration Pain, Moderate (4-6) Sertraline HCl 50 mg 06/12/20 10:00 06/25/20 09:36 Zoloft PO 50 mg QDAY JULIETTE Administration Sodium Chloride 10 ml 06/11/20 23:45 06/25/20 09:37 Sodium Chloride Flush Syringe 10 Ml IV 10 ml BID JULIETTE Administration Sodium Chloride 10 ml 06/11/20 23:07 Sodium Chloride Flush Syringe 10 Ml IV PRN PRN LINE FLUSH Nutrition/Malnutrition Assess - Dietary Evaluation Nutrition/Malnutrition Findings: Nutrition Notes Start: 06/12/20 14:11 Freq: Status: Active Protocol: Document 06/22/20 11:32 AB (Rec: 06/22/20 11:41 AB [id number]) Co-Sign 06/22/20 11:32 MK Nutrition Notes Initial or Follow up Reassessment Current Diagnosis CKD(stage I-IV),Coronary Artery Disease,Diabetes, Hypertension,Heart Failure, Hyperlipidemia Current Diet Pureed with thin liquids Labs/Tests BUN 91 Cr 4.7 BG 130 Pertinent Medications Feosol Vit D2 Height 5 ft Weight 57.8 kg [place] Body Weight (kg) 45.45 BMI 24.8 Weight change and time frame wt change noted Weight Status Appropriate Subjective/Other Information F/U for intakes and ONS tolerance. Per tech, pt is eating 100% of her meals ONS is not given to her every day because she has been eating every meal 100%. Percent of energy/protein needs met: 100%/100% Burn Absent Trauma Absent GI Symptoms None Difficulty In Swallowing Current % PO Good (75-100%) Minimum of two criteria No physical signs of malnutrition #2 Nutrition Diagnosis Increased nutrient needs ( specify in comment below) Comments: protein Diagnosis Progress(for reassessment Continues documentation) Is patient on ventilator? No Is Patient Ambulatory and/or Out of Bed No REE-([place]confined to bed) 1182.192 Kcal/Kg value to use for calculation 22 Approximate Energy Requirements Using 1272 kcal/Kg Calculation Used for Recommendations Kcal/kg Additional Notes Protein: 58-72 g (1-1.25 g/kg) Fluid: 1 ml/kcal Nutrition Intervention Change Diet Order: Continue pureed Add Supplement/Snack (indicate name/kcal D/C /protein ) Goal #1 Meet at least 75% of energy and protein needs Anticipated Discharge Needs: Pureed diet Follow-Up By: 06/29/20 Additional Comments F/U for intakes
[2020-06-26] MEDS: hydrALAZINE 100 MG TAB PO SCH ×3 (05:43→22:45)
[2020-06-26] MEDS: LEVOTHYROXINE 25 MCG TAB PO SCH (05:44)
[2020-06-26 07:08] LABS: Calcium 8.6 mg/dL (8.4-10.2)
[2020-06-26] MEDS: INSULIN LISPRO 100 UNIT/ML VIAL 3 mL SUB-Q SCH ×4 (08:03→22:45)
--- NOTE | 2020-06-26 08:51 | Progress Note ---
<LILY MANUEL - Last Filed: 06/26/20 08:48> Assessment and Plan Volume overload -resolved Heart failure with a preserved ejection fraction COVID 19 test is negative Echo this presentation: normal left ventricular systolic function with ejection fraction 55 to 60%. There is evidence of cor pulmonale. Intermittent bradycardia seen on telemetry monitoring 06/12 telemetry strips show mostly a sinus rhythm with first-degree AV block and cycles of second-degree Mobitz type I Wenckebach AV block. Carvedilol, Norvasc, Clonidine and Labetalol were discontinued TSH is 3.4 Cor-pulmonale Chronic renal disease initiated on dialysis Hypertension Prior CVA Conservative cardiac management. Subjective Date of service: 06/26/20 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 Interval history: Patient appears comfortable, has no cardiac complaints. Objective Vital Signs Temp Pulse Resp BP Pulse Ox 06/26/20 06:04 98.6 F 77 18 169/66 97 06/25/20 22:30 89 141/48 06/25/20 19:47 97.8 F 89 18 141/48 97 06/25/20 17:23 98.0 F 89 19 149/48 99 06/25/20 11:00 98.2 F 79 18 140/43 99 06/25/20 09:36 133/68 - Physical Examination General: No Apparent Distress, Cachectic, Other (Frail, elderly, chronically ill-appearing) HEENT: Positive: PERRL Neck: Positive: trachea midline Cardiac: Positive: Reg Rate and Rhythm Neuro: Positive: Weakness Abdomen: Positive: Soft - Labs and Meds Comprehensive Metabolic Panel 06/26/20 Range/Units 04:42 Sodium 140 (137-145) mmol/L Potassium 4.9 (3.6-5.0) mmol/L Chloride 101.9 (98-107) mmol/L Carbon Dioxide 31 H (22-30) mmol/L BUN 35 H (7-17) mg/dL Creatinine 2.9 H (0.6-1.2) mg/dL Glucose 116 H (65-100) mg/dL Calcium 8.6 (8.4-10.2) mg/dL <MICHAEL VANN - Last Filed: 06/27/20 07:53> Assessment and Plan - Patient Problems (1) CHF (congestive heart failure) Current Visit: Yes Status: Acute (2) Pulmonary hypertension Current Visit: Yes Status: Acute Subjective Interval history: I SAW THIS PT & AGREE WITH THE Dx & Tx PLAN. Objective Vital Signs Temp Pulse Resp BP BP Pulse Ox 06/27/20 06:05 97.8 F 94 H 18 152/63 96 06/26/20 22:49 97.6 F 96 H 18 159/52 95 06/26/20 11:41 97.2 F L 86 18 134/48 99 - Labs and Meds Comprehensive Metabolic Panel 06/27/20 Range/Units 04:46 Sodium 137 (137-145) mmol/L Potassium 5.0 (3.6-5.0) mmol/L Chloride 99.4 (98-107) mmol/L Carbon Dioxide 28 (22-30) mmol/L BUN 41 H (7-17) mg/dL Creatinine 3.3 H (0.6-1.2) mg/dL Glucose 136 H (65-100) mg/dL Calcium 8.7 (8.4-10.2) mg/dL
[2020-06-26] MEDS: MINOXIDIL 2.5 MG TAB PO SCH ×2 (09:20→22:44)
[2020-06-26] MEDS: DOXAZOSIN 1 MG TAB PO SCH ×2 (09:20→22:45)
[2020-06-26] MEDS: NIFEdipine XL 90 MG TAB PO SCH ×2 (09:21→22:45)
[2020-06-26] MEDS: SERTRALINE 50 MG TAB PO SCH (09:21)
[2020-06-26] MEDS: CLOPIDOGREL 75 MG TAB PO SCH (09:21)
[2020-06-26] MEDS: ASPIRIN 81 MG TAB CHEW PO SCH (09:21)
[2020-06-26] MEDS: ERGOCALCIFEROL (VIT D2) 50,000 UNIT CAP PO SCH (09:21)
[2020-06-26] MEDS: FERROUS SULFATE 325 MG TAB PO SCH (09:21)
--- NOTE | 2020-06-26 09:49 | Progress Note ---
Assessment and Plan Assessment and plan: -- Acute on chronic diastolic CHF (congestive heart failure) Bilateral edema on chest x-ray due to acute on chronic diastolic CHF Continue beta-blockers. Hold Lasix due to bump in creatinine Low-sodium diet, fluid restriction Echocardiogram for LV function ejection fraction-EF 55 to 60% Cardiology following. --Nonspecific elevated troponin; Due to NSTEMI type II, in the setting of chronic kidney disease Possible stress test versus heart cath if needed -- HTN (hypertension) Moderate control ,continue current antihypertensives And as needed hydralazine --History of coronary artery disease Continue isosorbide mono nitrate and aspirin Cardiology following Acute kidney injury on CKD 4 (chronic kidney disease) Due to vasomotor nephropathy Permacath placed on 06/23. HD initiated on 06/23. Nephrology on board Needs HD chair -- DVT prophylaxis On heparin and GI prophylaxis Closely monitor the patient and adjust management as needed Plan of care reviewed with the patient and the nurse 06/14/2020. Echocardiogram revealed EF of 55 to 60%. Continue IV Lasix per nephrology and cardiology. Baseline creatinine in 2018 was 2.22.6. Renal u ltrasound revealed no obstruction. UPEP and SPEP pending. Patient still exhibiting accelerated hypertension. Increase Procardia to 90 mg twice daily. 06/15/2020. Patient's blood pressure is better controlled with current medications. Recheck chest x-ray today and follow-up BnP. 06/16/2020. Patient's blood pressure still extremely labile. Patient currently with clonidine, Cardura, Procardia, isosorbide and hydralazine. Increase hydralazine to 75 mg 3 times daily. BNP greater than 13,000 and chest x-ray suggestive of heart failure. Defer to cardiology. Await PT recommendations for placement. 06/17/2020. Patient still with accelerated hypertension. Increase hydralazine to 100 mg 3 times daily. Continue isosorbide, clonidine, Cardura, valsartan and Procardia as well. Serum creatinine remains stable at 2.9. 06/18/2020. Patient's blood pressure much better controlled. Continue current regimen of hydralazine, isosorbide, clonidine, Cardura and Procardia. Diovan held due to increased creatinine. Renal ultrasound revealed no evidence of obstruction. BNP greater than 13,000 and chest x-ray suggestive of heart failure. 06/19/2020. Patient's blood pressure much better controlled. Continue current regimen of hydralazine, isosorbide, clonidine, Cardura and Procardia. Creatinine elevated at 3.5. Continue Lasix 20 mg IV twice daily for heart failure. Follow-up UPEP and SPEP. Continue daily weights, monitor I/O's daily, avoid nephrotoxic agents and follow-up BMP in a.m. 06/20/2020. Renal function continues to worsen. Creatinine 4.6 this morning. Hold Lasix for now. Started on gentle IV hydration. Nephrology is following. Avoid nephrotoxic medications. Cardiology recommendations appreciated 06/21. No complaints. Her renal function is more stable now. Cr is 4.7 today. Continue to hold lasix and diovan. Continue IV hydration. Nephrology is following. 06/22. Labs stable - Cr 4.7. Nephrology on board. 06/23. Cr 5.0. May need HD. Nephrology evaluation appreciated 06/24. Had permacath placement and then HD afterwards on 06/23. RYLEY to arrange OP HD chair 06/25. HD chair being set up by RYLEY 06/26. Awaiting HD chair History Interval history: Had permacath placement 06/23 with HD afterwards Nephrology on board Needs to have HD chair set up Hospitalist Physical - Physical exam Narrative exam: VITAL SIGNS: Reviewed. GENERAL: Awake and alert on response to questions intermittently HEAD: No signs of head trauma. EYES: Pupils are equal. Extraocular motions intact. EARS: Hearing grossly intact. MOUTH: Oropharynx is normal. NECK: No adenopathy, no JVD. CHEST: Chest with diminished breath sounds bilaterally. No wheezes, rales, or rhonchi. CARDIAC: Regular rate and rhythm. S1 and S2, without murmurs, gallops, or rubs. VASCULAR: No Edema. Peripheral pulses normal and equal in all extremities. ABDOMEN: Soft, non tender and non distended. No rebound or guarding, and no masses palpated. Bowel Sounds normal. MUSCULOSKELETAL: Good range of motion of all major joints. Extremities without clubbing, cyanosis or edema. NEUROLOGIC EXAM: Alert and oriented in person. No focal neurologic deficits PSYCHIATRIC: Stable mood SKIN: No obvious lesions - Constitutional Vitals: Temp Pulse Resp BP Pulse Ox 98.6 F 77 18 169/66 97 06/26/20 06:04 06/26/20 06:04 06/26/20 06:04 06/26/20 06:04 06/26/20 06:04 HEART Score - HEART Score Age: > 65 Risk factors: > 3 risk factors or hx of atherosclerotic disease Troponin: Troponin T 0.125 ng/mL (0.00-0.029) H* 06/12/20 14:48 Troponin: < normal limit - Critical Actions Critical Actions: 4-6 pts:12-16.6% risk of adverse cardiac event. Should be admitted Results - Labs CBC & Chem 7: 06/16/20 04:40 06/26/20 04:42 Labs: Laboratory Last Values WBC 4.9 K/mm3 (4.5-11.0) 06/16/20 04:40 RBC 3.34 M/mm3 (3.65-5.03) L 06/16/20 04:40 Hgb 9.4 gm/dl (10.1-14.3) L 06/16/20 04:40 Hct 29.7 % (30.3-42.9) L 06/16/20 04:40 MCV 89 fl (79-97) 06/16/20 04:40 MCH 28 pg (28-32) 06/16/20 04:40 MCHC 32 % (30-34) 06/16/20 04:40 RDW 17.3 % (13.2-15.2) H 06/16/20 04:40 Plt Count 145 K/mm3 (140-440) 06/16/20 04:40 Lymph % (Auto) 23.5 % (13.4-35.0) 06/16/20 04:40 [place] % (Auto) 15.1 % (0.0-7.3) H 06/16/20 04:40 Eos % (Auto) 4.2 % (0.0-4.3) 06/16/20 04:40 Baso % (Auto) 1.3 % (0.0-1.8) 06/16/20 04:40 Lymph # (Auto) 1.1 K/mm3 (1.2-5.4) L 06/16/20 04:40 [place] # (Auto) 0.7 K/mm3 (0.0-0.8) 06/16/20 04:40 Eos # (Auto) 0.2 K/mm3 (0.0-0.4) 06/16/20 04:40 Baso # (Auto) 0.1 K/mm3 (0.0-0.1) 06/16/20 04:40 Add Manual Diff Complete 06/12/20 02:35 Total Counted 100 06/12/20 02:35 Seg Neutrophils % 55.9 % (40.0-70.0) 06/16/20 04:40 Seg Neuts % (Manual) 92.0 % (40.0-70.0) H 06/12/20 02:35 Band Neutrophils % 0 % 06/12/20 02:35 Lymphocytes % (Manual) 6.0 % (13.4-35.0) L 06/12/20 02:35 Reactive Lymphs % (Man) 0 % 06/12/20 02:35 Monocytes % (Manual) 2.0 % (0.0-7.3) 06/12/20 02:35 Eosinophils % (Manual) 0 % (0.0-4.3) 06/12/20 02:35 Basophils % (Manual) 0 % (0.0-1.8) 06/12/20 02:35 Metamyelocytes % 0 % 06/12/20 02:35 Myelocytes % 0 % 06/12/20 02:35 Promyelocytes % 0 % 06/12/20 02:35 Blast Cells % 0 % 06/12/20 02:35 Nucleated RBC % Not Reportable 06/12/20 02:35 Seg Neutrophils # 2.7 K/mm3 (1.8-7.7) 06/16/20 04:40 Seg Neutrophils # Man 4.1 K/mm3 (1.8-7.7) 06/12/20 02:35 Band Neutrophils # 0.0 K/mm3 06/12/20 02:35 Lymphocytes # (Manual) 0.3 K/mm3 (1.2-5.4) L 06/12/20 02:35 Abs React Lymphs (Man) 0.0 K/mm3 06/12/20 02:35 Monocytes # (Manual) 0.1 K/mm3 (0.0-0.8) 06/12/20 02:35 Eosinophils # (Manual) 0.0 K/mm3 (0.0-0.4) 06/12/20 02:35 Basophils # (Manual) 0.0 K/mm3 (0.0-0.1) 06/12/20 02:35 Metamyelocytes # 0.0 K/mm3 06/12/20 02:35 Myelocytes # 0.0 K/mm3 06/12/20 02:35 Promyelocytes # 0.0 K/mm3 06/12/20 02:35 Blast Cells # 0.0 K/mm3 06/12/20 02:35 WBC Morphology Not Reportable 06/12/20 02:35 Hypersegmented Neuts Not Reportable 06/12/20 02:35 Hyposegmented Neuts Not Reportable 06/12/20 02:35 Hypogranular Neuts Not Reportable 06/12/20 02:35 Smudge Cells Not Reportable 06/12/20 02:35 Toxic Granulation Not Reportable 06/12/20 02:35 Toxic Vacuolation Not Reportable 06/12/20 02:35 Dohle Bodies Not Reportable 06/12/20 02:35 Pelger-Huet Anomaly Not Reportable 06/12/20 02:35 Chanda Rods Not Reportable 06/12/20 02:35 Platelet Estimate Consistent w auto 06/12/20 02:35 Clumped Platelets Not Reportable 06/12/20 02:35 Plt Clumps, EDTA Not Reportable 06/12/20 02:35 Large Platelets Not Reportable 06/12/20 02:35 Giant Platelets Not Reportable 06/12/20 02:35 Platelet Satelliting Not Reportable 06/12/20 02:35 Plt Morphology Comment Not Reportable 06/12/20 02:35 RBC Morphology Not Reportable 06/12/20 02:35 Dimorphic RBCs Not Reportable 06/12/20 02:35 Polychromasia Not Reportable 06/12/20 02:35 Hypochromasia Few 06/12/20 02:35 Poikilocytosis Not Reportable 06/12/20 02:35 Anisocytosis 1+ 06/12/20 02:35 Microcytosis Not Reportable 06/12/20 02:35 Macrocytosis Not Reportable 06/12/20 02:35 Spherocytes Not Reportable 06/12/20 02:35 Pappenheimer Bodies Not Reportable 06/12/20 02:35 Sickle Cells Not Reportable 06/12/20 02:35 Target Cells Few 06/12/20 02:35 Tear Drop Cells Not Reportable 06/12/20 02:35 Ovalocytes Not Reportable 06/12/20 02:35 Helmet Cells Not Reportable 06/12/20 02:35 [place] Bodies Not Reportable 06/12/20 02:35 [place] Rings Not Reportable 06/12/20 02:35 [place] Cells Not Reportable 06/12/20 02:35 Bite Cells Not Reportable 06/12/20 02:35 Crenated Cell Not Reportable 06/12/20 02:35 Elliptocytes Not Reportable 06/12/20 02:35 Acanthocytes (Spur) Not Reportable 06/12/20 02:35 Rouleaux Not Reportable 06/12/20 02:35 Hemoglobin C Crystals Not Reportable 06/12/20 02:35 Schistocytes Not Reportable 06/12/20 02:35 Malaria parasites Not Reportable 06/12/20 02:35 [place] Bodies Not Reportable 06/12/20 02:35 Hem Pathologist Commnt No 06/12/20 02:35 PT 14.7 Sec. (12.2-14.9) 06/11/20 14:41 INR 1.15 (0.87-1.13) H 06/11/20 14:41 Sodium 140 mmol/L (137-145) 06/26/20 04:42 Potassium 4.9 mmol/L (3.6-5.0) 06/26/20 04:42 Chloride 101.9 mmol/L (98-107) 06/26/20 04:42 Carbon Dioxide 31 mmol/L (22-30) H 06/26/20 04:42 Anion Gap 12 mmol/L 06/26/20 04:42 BUN 35 mg/dL (7-17) H 06/26/20 04:42 Creatinine 2.9 mg/dL (0.6-1.2) H 06/26/20 04:42 Estimated GFR 19 ml/min 06/26/20 04:42 BUN/Creatinine Ratio 12 % 06/26/20 04:42 Glucose 116 mg/dL (65-100) H 06/26/20 04:42 POC Glucose 96 mg/dL (70-105) 06/26/20 07:42 Hemoglobin A1c 6.0 % (4-6) 06/12/20 02:35 Lactic Acid 0.50 mmol/L (0.7-2.0) L 06/11/20 16:11 Calcium 8.6 mg/dL (8.4-10.2) 06/26/20 04:42 Phosphorus 3.70 mg/dL (2.5-4.5) D 06/26/20 04:42 Magnesium 2.20 mg/dL (1.7-2.3) 06/12/20 22:19 Total Bilirubin 0.30 mg/dL (0.1-1.2) 06/12/20 02:35 AST 20 units/L (5-40) 06/12/20 02:35 ALT 9 units/L (7-56) 06/12/20 02:35 Alkaline Phosphatase 97 units/L (35-129) 06/12/20 02:35 Total Creatine Kinase 60 units/L (30-135) 06/11/20 14:41 Troponin T 0.125 ng/mL (0.00-0.029) H* 06/12/20 14:48 NT-Pro-B Natriuret Pep 35804 pg/mL (0-900) H 06/15/20 05:23 Serum Total Protein 7.2 g/dL (6.1-8.1) 06/13/20 09:41 Total Protein 8.3 g/dL (6.3-8.2) H 06/12/20 02:35 Albumin 3.3 g/dL (3.8-4.8) L 06/13/20 09:41 Albumin/Globulin Ratio 0.6 % 06/12/20 02:35 Cvuir-6-Brtoetoxg 0.3 g/dL (0.2-0.3) 06/13/20 09:41 Uqabz-9-Kxcrspgvj 0.7 g/dL (0.5-0.9) 06/13/20 09:41 Beta Globulins 0.5 g/dL (0.2-0.5) 06/13/20 09:41 Gamma Globulins 2.1 g/dL (0.8-1.7) H 06/13/20 09:41 Abnorm Protein Band 1 see below 06/13/20 09:41 PEP Interpretation see below H 06/13/20 09:41 Triglycerides 89 mg/dL (2-149) 06/11/20 14:41 Cholesterol 157 mg/dL (50-199) 06/11/20 14:41 LDL Cholesterol Direct 71 mg/dL (50-130) 06/11/20 14:41 HDL Cholesterol 75 mg/dL (40-59) H 06/11/20 14:41 Cholesterol/HDL Ratio 2.09 % 06/11/20 14:41 TSH 3.490 mlU/mL (0.270-4.200) 06/12/20 14:48 Urine Color Straw (Yellow) 06/12/20 12:47 Urine Turbidity Clear (Clear) 06/12/20 12:47 Urine pH 6.0 (5.0-7.0) 06/12/20 12:47 Ur Specific [place] 1.009 (1.003-1.030) 06/12/20 12:47 Urine Protein 100 mg/dl mg/dL (Negative) 06/12/20 12:47 Urine Glucose (UA) Neg mg/dL (Negative) 06/12/20 12:47 Urine Ketones Neg mg/dL (Negative) 06/12/20 12:47 Urine Blood Neg (Negative) 06/12/20 12:47 Urine Nitrite Neg (Negative) 06/12/20 12:47 Urine Bilirubin Neg (Negative) 06/12/20 12:47 Urine Urobilinogen < 2.0 mg/dL (<2.0) 06/12/20 12:47 Ur Leukocyte Esterase Neg (Negative) 06/12/20 12:47 Urine WBC (Auto) 3.0 /HPF (0.0-6.0) 06/12/20 12:47 Urine RBC (Auto) 2.0 /HPF (0.0-6.0) 06/12/20 12:47 U Epithel Cells (Auto) 2.0 /HPF (0-13.0) 06/12/20 12:47 Urine Bacteria (Auto) 1+ /HPF (Negative) 06/12/20 12:47 Urine Eosinophils None seen (None Seen) 06/12/20 Unknown Urine Total Volume 215 ml 06/23/20 15:02 Urine Creatinine 86.6 mg/dL (0.1-20.0) H 06/23/20 15:02 Ur Creatinine 24 Hour 0.2 (0.8-2.8) L 06/23/20 15:02 Protein/Creatinin Ratio 6.30 06/12/20 Unknown Urine Sodium 121 mmol/L 06/12/20 Unknown Urine Total Protein 143 mg/dL (5-11.8) H 06/12/20 Unknown Coronavirus (PCR) Negative (Negative) 06/12/20 Unknown Hepatitis A IgM Ab Non-reactive (NonReactive) 06/23/20 10:55 Hep Bs Antigen Non-reactive (Negative) 06/23/20 10:55 Hep B Core IgM Ab Non-reactive (NonReactive) 06/23/20 10:55 Hepatitis C Antibody Non-reactive (NonReactive) 06/23/20 10:55 - Diagnostic Impressions Diagnostic Impressions: Echocardiogram 06/11/20 23:10 Transthoracic Echocardiogram Indication: CHF BP: 165/63 HR: 60 Conclusions *Global left ventricular systolic function is normal. *The estimated ejection fraction is 55-60%. *Mild to moderate concentric left ventricular hypertrophy is observed. *The left and right atria are both moderately dilated. *There is mild to moderate mitral regurgitation. *There is mild tricuspid regurgitation. *There is evidence of moderate pulmonary hypertension. *The right ventricular systolic pressure is calculated at 51 mmHg. *A left pleural effusion is present. *There is no significant pericardial effusion. Findings Left Ventricle: The left ventricular chamber size is normal. Mild to moderate concentric left ventricular hypertrophy is observed. Global left ventricular systolic function is normal. The estimated ejection fraction is 55-60%. Left Atrium: The left atrium is moderately dilated. Right Ventricle: The right ventricle is mildly dilated. The right ventricular global systolic function is mildly reduced. Right Atrium: The right atrium is moderately dilated. Aortic Valve: The aortic valve is trileaflet. The aortic valve leaflets are moderately thickened. There is trace of aortic regurgitation. There is no evidence of aortic stenosis. Mitral Valve: The mitral valve leaflets are moderately thickened. There is mild to moderate mitral regurgitation. There is no evidence of mitral stenosis. Tricuspid Valve: There is mild tricuspid regurgitation. The right ventricular systolic pressure is calculated at 51 mmHg. There is evidence of moderate pulmonary hypertension. Pulmonic Valve: There is trace pulmonic regurgitation. Pericardium: There is no pericardial effusion. A left pleural effusion is present. Aorta: There is no dilatation of the ascending aorta. There is no dilatation of the aortic root. Venous: The inferior vena cava appears normal in size. Measurements Chambers 2D Name Value Normal Range IVSd (2D) 1.07 cm (0.6 - 1.1) LVPWd (2D) 1.19 cm (0.6 - 1.1) LVIDd (2D) 4.34 cm (3.7 - 5.6) LVIDs (2D) 2.93 cm (2 - 3.8) LV FS (2D) 32.56 % - EF Teichholz (2D) 61.19 % - Ao root diameter (2D) 3.19 cm (2 - 3.7) Volumes/Mass Name Value Normal Range LA ESV SP 4CH (A/L) 58.57 ml - LA ESV SP 2CH (A/L) 86.64 ml - LA ESV BP (A/L) 74.92 ml - LA ESV BP (A/L) index 47.42 ml/m2 - LA ESV SP 4CH (MOD) 50.65 ml - LA ESV SP 2CH (MOD) 79.23 ml - LA ESV BP (MOD) 66.45 ml - LA ESV BP (MOD) index 42.06 ml/m2 - Diastolic/Systolic Function Name Value Normal Range MV E-wave Vmax 1.34 m/sec - MV deceleration time 244.33 msec - MV A-wave Vmax 0.98 m/sec - MV E:A ratio 1.36 ratio - Aortic Valve Name Value Normal Range AV Vmax 1.46 m/sec - AV VTI 38.18 cm - AV peak gradient 8.5 mmHg - AV mean gradient 4.47 mmHg - LVOT diameter 1.93 cm - LVOT Vmax 0.97 m/sec - LVOT VTI 27.7 cm - LVOT peak gradient 3.73 mmHg - LVOT mean gradient 2.13 mmHg - SV LVOT 80.99 ml - KENYA (continuity Vmax) 1.94 cm2 - EKNYA (continuity VTI) 2.12 cm2 - Ascending Ao 2.04 cm - Tricuspid Valve Name Value Normal Range TR Vmax 3.3 m/sec - TR peak gradient 43 mmHg - RAP 8 mmHg - RVSP 51 mmHg - Pulmonic Valve/Qp:Qs Name Value Normal Range PV Vmax 1.02 m/sec - PV peak gradient 4.14 mmHg - UT end-diastolic Vmax 0.74 m/sec - PV acceleration time 68.51 msec - Lopez/IV: Voiding Method Incontinent IV Catheter Type [Right perma cath Subclavian] IV Catheter Type [Right INT / Saline Lock Forearm] Active Medications - Current Medications Current Medications: Generic Name Dose Route Start Last Admin Trade Name Freq PRN Reason Stop Dose Admin Acetaminophen 650 mg 06/11/20 23:07 Tylenol PO Q4H PRN Pain MILD(1-3)/Fever >100.5/MENA Artificial Tears 2 drops 06/11/20 23:06 Isopto Tears 0.5% OU Q4H PRN Dry Eye(s) Aspirin 81 mg 06/12/20 10:00 06/26/20 09:21 Baby Aspirin PO 81 mg QDAY JULIETTE Administration Atorvastatin Calcium 40 mg 06/12/20 22:00 06/25/20 22:31 Lipitor PO 40 mg QHS JULIETTE Administration Clopidogrel Bisulfate 75 mg 06/12/20 10:00 06/26/20 09:21 Plavix PO 75 mg QDAY JULIETTE Administration Dextrose 50 ml 06/13/20 05:23 D50w (25gm) Syringe IV Q30MIN PRN Hypoglycemia Protocol Doxazosin Mesylate 2 mg 06/12/20 12:00 06/26/20 09:20 Cardura PO 2 mg BID JULIETTE Administration Ergocalciferol 50,000 unit 06/19/20 10:00 06/26/20 09:21 Vitamin D2 PO 50,000 unit Mo JULIETTE Administration Ferrous Sulfate 325 mg 06/12/20 10:00 06/26/20 09:21 Feosol PO 325 mg QDAY JULIETTE Administration Hydralazine HCl 100 mg 06/17/20 14:00 06/26/20 05:43 Apresoline PO 100 mg Q8HR JULIETTE Administration Hydromorphone HCl 0.5 mg 06/11/20 23:07 Dilaudid IV Q3H PRN Pain , Severe (7-10) Insulin Human Lispro 0 unit 06/13/20 07:30 06/26/20 08:03 Humalog SUB-Q Not Given ACHS JULITETE Protocol Isosorbide Mononitrate 60 mg 06/16/20 12:00 06/26/20 09:21 Imdur PO 60 mg QDAY JULIETTE Administration Levothyroxine Sodium 25 mcg 06/12/20 06:00 06/26/20 05:44 Synthroid PO 25 mcg QAM@0600 JULIETTE Administration Minoxidil 2.5 mg 06/17/20 10:00 06/26/20 09:20 Loniten PO 2.5 mg Q12HR JULIETTE Administration Nifedipine 90 mg 06/14/20 22:00 06/26/20 09:21 Procardia Xl PO 90 mg Q12HR JULIETTE Administration Nitroglycerin 0.4 mg 06/12/20 04:00 06/12/20 04:39 Nitrostat SL 0.4 mg .Q5MIN PRN Administration Chest Pain Ondansetron HCl 4 mg 06/11/20 23:07 Zofran IV Q8H PRN Nausea And Vomiting Oxycodone/Acetaminophen 1 tab 06/11/20 23:07 06/19/20 23:37 Percocet 5/325 PO 1 tab Q6H PRN Administration Pain, Moderate (4-6) Sertraline HCl 50 mg 06/12/20 10:00 06/26/20 09:21 Zoloft PO 50 mg QDAY JULIETTE Administration Sodium Chloride 10 ml 06/11/20 23:45 06/26/20 09:21 Sodium Chloride Flush Syringe 10 Ml IV 10 ml BID JULIETTE Administration Sodium Chloride 10 ml 06/11/20 23:07 Sodium Chloride Flush Syringe 10 Ml IV PRN PRN LINE FLUSH Nutrition/Malnutrition Assess - Dietary Evaluation Nutrition/Malnutrition Findings: Nutrition Notes Start: 06/12/20 14:11 Freq: Status: Active Protocol: Document 06/22/20 11:32 AB (Rec: 06/22/20 11:41 AB [id number]) Co-Sign 06/22/20 11:32 MK Nutrition Notes Initial or Follow up Reassessment Current Diagnosis CKD(stage I-IV),Coronary Artery Disease,Diabetes, Hypertension,Heart Failure, Hyperlipidemia Current Diet Pureed with thin liquids Labs/Tests BUN 91 Cr 4.7 BG 130 Pertinent Medications Feosol Vit D2 Height 5 ft Weight 57.8 kg [place] Body Weight (kg) 45.45 BMI 24.8 Weight change and time frame wt change noted Weight Status Appropriate Subjective/Other Information F/U for intakes and ONS tolerance. Per tech, pt is eating 100% of her meals ONS is not given to her every day because she has been eating every meal 100%. Percent of energy/protein needs met: 100%/100% Burn Absent Trauma Absent GI Symptoms None Difficulty In Swallowing Current % PO Good (75-100%) Minimum of two criteria No physical signs of malnutrition #2 Nutrition Diagnosis Increased nutrient needs ( specify in comment below) Comments: protein Diagnosis Progress(for reassessment Continues documentation) Is patient on ventilator? No Is Patient Ambulatory and/or Out of Bed No REE-([place]-confined to bed) 1182.192 Kcal/Kg value to use for calculation 22 Approximate Energy Requirements Using 1272 kcal/Kg Calculation Used for Recommendations Kcal/kg Additional Notes Protein: 58-72 g (1-1.25 g/kg) Fluid: 1 ml/kcal Nutrition Intervention Change Diet Order: Continue pureed Add Supplement/Snack (indicate name/kcal D/C /protein ) Goal #1 Meet at least 75% of energy and protein needs Anticipated Discharge Needs: Pureed diet Follow-Up By: 06/29/20 Additional Comments F/U for intakes
--- NOTE | 2020-06-26 10:33 | Progress Note ---
Assessment and Plan CKD (chronic kidney disease) -Renal labs reviewed. Serum creatinine 2.9 today, yesterday's was 2.2 -Patient underwent perm-cath placement on 06/23/20 -S/P HD on 06/23/20 and 06/24/20 -Next HD will be tomorrow -Renal ultrasound-No obstruction noted -Urine lytes- shows 6 grams of protein -UPEP and SPEP- pending -Obtain daily weights -Monitor I/O's daily -Avoid nephrotoxic agents -Awaiting placement to [facility] Acute exacerbation of CHF -S/P IV Lasix -Echocardiogram-EF 55-60% -Cardiology onboard Hypertension -Continue antihypertensives and adjust medications as necessary -Monitor blood pressures Subjective Date of service: 06/26/20 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 Awake. No family at bedside. Objective - Vital Signs Vital signs: Vital Signs - 12hr 06/25/20 06/26/20 22:30 06:04 Temperature 98.6 F Pulse Rate 89 77 Respiratory 18 Rate Blood Pressure 141/48 169/66 O2 Sat by Pulse 97 Oximetry - General Appearance General appearance: chronically ill, fatigue, other EENT: ATNC Neck: no JVD, supple Respiratory: Present: Decreased Breath Sounds Cardiology: S1S2 Gastrointestinal: normoactive bowel sounds Integumentary: warm and dry Neurologic: other ( Awake but not oriented to time or place) Musculoskeletal: other (No edema) - Lab 06/16/20 04:40 06/26/20 04:42 Most recent lab results Calcium 8.6 mg/dL (8.4-10.2) 06/26/20 04:42 Phosphorus 3.70 mg/dL (2.5-4.5) D 06/26/20 04:42 Magnesium 2.20 mg/dL (1.7-2.3) 06/12/20 22:19 Urine Creatinine 86.6 mg/dL (0.1-20.0) H 06/23/20 15:02 Urine Sodium 121 mmol/L 06/12/20 Unknown Urine Total Protein 143 mg/dL (5-11.8) H 06/12/20 Unknown Medications & Allergies - Medications Allergies/Adverse Reactions: Allergies No Known Allergies Allergy (Verified 08/27/14 06:14) Home Medications: Home Medications Medication Instructions Recorded Confirmed Last Taken Type Levothyroxine [Synthroid] 25 mcg PO QAM 08/27/14 06/11/20 03/20/18 History hydrALAZINE [Apresoline TAB] 100 mg PO TID #90 tab 09/01/14 06/11/20 03/20/18 Rx Sertraline [Zoloft] 50 mg PO QDAY 11/05/14 06/11/20 03/20/18 History Terazosin (Nf) [Hytrin (Nf)] 5 mg PO QHS 08/19/17 06/11/20 Unknown History Aspirin [Aspirin BABY CHEW TAB] 81 mg PO QDAY tab.chew 08/21/17 06/11/20 Unknown Rx AtorvaSTATin [Lipitor] 40 mg PO QHS #30 tab 03/27/18 06/11/20 Unknown Rx Clopidogrel [Plavix] 75 mg PO QDAY #30 tablet 03/27/18 06/11/20 Unknown Rx Hypromellose [Isopto Tears 0.5%] 2 drops OU Q4H PRN bottle 03/27/18 06/11/20 Unknown Rx ISOSORBIDE MONOnitrate [Imdur ER] 30 mg PO QDAY #30 tablet 03/27/18 06/11/20 Unknown Rx amLODIPine 10 mg PO DAILY #30 tablet 03/27/18 06/11/20 Unknown Rx Ergocalciferol (Vitamin D2) 50,000 unit PO QDAY 06/11/20 06/11/20 Unknown History [Vitamin D2] Ferrous Sulfate [Feosol] 325 mg PO QDAY 06/11/20 06/11/20 Unknown History carvediloL [Coreg] 6.25 mg PO Q12HR 06/11/20 06/11/20 Unknown History Active Medications: Generic Name Dose Route Start Last Admin Trade Name Freq PRN Reason Stop Dose Admin Acetaminophen 650 mg 06/11/20 23:07 Tylenol PO Q4H PRN Pain MILD(1-3)/Fever >100.5/MENA Artificial Tears 2 drops 06/11/20 23:06 Isopto Tears 0.5% OU Q4H PRN Dry Eye(s) Aspirin 81 mg 06/12/20 10:00 06/26/20 09:21 Baby Aspirin PO 81 mg QDAY JULIETTE Administration Atorvastatin Calcium 40 mg 06/12/20 22:00 06/25/20 22:31 Lipitor PO 40 mg QHS JULIETTE Administration Clopidogrel Bisulfate 75 mg 06/12/20 10:00 06/26/20 09:21 Plavix PO 75 mg QDAY JULIETTE Administration Dextrose 50 ml 06/13/20 05:23 D50w (25gm) Syringe IV Q30MIN PRN Hypoglycemia Protocol Doxazosin Mesylate 2 mg 06/12/20 12:00 06/26/20 09:20 Cardura PO 2 mg BID JULIETTE Administration Ergocalciferol 50,000 unit 06/19/20 10:00 06/26/20 09:21 Vitamin D2 PO 50,000 unit Mo JULIETTE Administration Ferrous Sulfate 325 mg 06/12/20 10:00 06/26/20 09:21 Feosol PO 325 mg QDAY [facility] Administration Hydralazine HCl 100 mg 06/17/20 14:00 06/26/20 05:43 Apresoline PO 100 mg Q8HR JULIETTE Administration Hydromorphone HCl 0.5 mg 06/11/20 23:07 Dilaudid IV Q3H PRN Pain , Severe (7-10) Insulin Human Lispro 0 unit 06/13/20 07:30 06/26/20 08:03 Humalog SUB-Q Not Given ACHS [facility] Protocol Isosorbide Mononitrate 60 mg 06/16/20 12:00 06/26/20 09:21 Imdur PO 60 mg QDAY [facility] Administration Levothyroxine Sodium 25 mcg 06/12/20 06:00 06/26/20 05:44 Synthroid PO 25 mcg QAM@0600 [facility] Administration Minoxidil 2.5 mg 06/17/20 10:00 06/26/20 09:20 Loniten PO 2.5 mg Q12HR JULIETTE Administration Nifedipine 90 mg 06/14/20 22:00 06/26/20 09:21 Procardia Xl PO 90 mg Q12HR [facility] Administration Nitroglycerin 0.4 mg 06/12/20 04:00 06/12/20 04:39 Nitrostat SL 0.4 mg .Q5MIN PRN Administration Chest Pain Ondansetron HCl 4 mg 06/11/20 23:07 Zofran IV Q8H PRN Nausea And Vomiting Oxycodone/Acetaminophen 1 tab 06/11/20 23:07 06/19/20 23:37 Percocet 5/325 PO 1 tab Q6H PRN Administration Pain, Moderate (4-6) Sertraline HCl 50 mg 06/12/20 10:00 06/26/20 09:21 Zoloft PO 50 mg QDAY JULIETTE Administration Sodium Chloride 10 ml 06/11/20 23:45 06/26/20 09:21 Sodium Chloride Flush Syringe 10 Ml IV 10 ml BID JULIETTE Administration Sodium Chloride 10 ml 06/11/20 23:07 Sodium Chloride Flush Syringe 10 Ml IV PRN PRN LINE FLUSH
[2020-06-26] MEDS: oxyCODONE /ACETAMINOPHEN 5-325MG TAB PO PRN (22:44)
[2020-06-27] MEDS: hydrALAZINE 100 MG TAB PO SCH ×3 (06:27→21:09)
[2020-06-27] MEDS: LEVOTHYROXINE 25 MCG TAB PO SCH (06:27)
[2020-06-27 07:08] LABS: Calcium 8.7 mg/dL (8.4-10.2)
[2020-06-27] MEDS: INSULIN LISPRO 100 UNIT/ML VIAL 3 mL SUB-Q SCH ×4 (07:30→22:46)
--- NOTE | 2020-06-27 07:37 | Progress Note ---
Assessment and Plan Assessment and plan: -- Acute on chronic diastolic CHF (congestive heart failure) Bilateral edema on chest x-ray due to acute on chronic diastolic CHF Continue beta-blockers. Hold Lasix due to bump in creatinine Low-sodium diet, fluid restriction Echocardiogram for LV function ejection fraction-EF 55 to 60% Cardiology following. --Nonspecific elevated troponin; Due to NSTEMI type II, in the setting of chronic kidney disease Possible stress test versus heart cath if needed -- HTN (hypertension) Moderate control ,continue current antihypertensives And as needed hydralazine --History of coronary artery disease Continue isosorbide mono nitrate and aspirin Cardiology following Acute kidney injury on CKD 4 (chronic kidney disease) Due to vasomotor nephropathy Permacath placed on 06/23. HD initiated on 06/23. Nephrology on board Needs HD chair -- DVT prophylaxis On heparin and GI prophylaxis Closely monitor the patient and adjust management as needed Plan of care reviewed with the patient and the nurse 06/14/2020. Echocardiogram revealed EF of 55 to 60%. Continue IV Lasix per nephrology and cardiology. Baseline creatinine in 2018 was 2.22.6. Renal u ltrasound revealed no obstruction. UPEP and SPEP pending. Patient still exhibiting accelerated hypertension. Increase Procardia to 90 mg twice daily. 06/15/2020. Patient's blood pressure is better controlled with current medications. Recheck chest x-ray today and follow-up BnP. 06/16/2020. Patient's blood pressure still extremely labile. Patient currently with clonidine, Cardura, Procardia, isosorbide and hydralazine. Increase hydralazine to 75 mg 3 times daily. BNP greater than 13,000 and chest x-ray suggestive of heart failure. Defer to cardiology. Await PT recommendations for placement. 06/17/2020. Patient still with accelerated hypertension. Increase hydralazine to 100 mg 3 times daily. Continue isosorbide, clonidine, Cardura, valsartan and Procardia as well. Serum creatinine remains stable at 2.9. 06/18/2020. Patient's blood pressure much better controlled. Continue current regimen of hydralazine, isosorbide, clonidine, Cardura and Procardia. Diovan held due to increased creatinine. Renal ultrasound revealed no evidence of obstruction. BNP greater than 13,000 and chest x-ray suggestive of heart failure. 06/19/2020. Patient's blood pressure much better controlled. Continue current regimen of hydralazine, isosorbide, clonidine, Cardura and Procardia. Creatinine elevated at 3.5. Continue Lasix 20 mg IV twice daily for heart failure. Follow-up UPEP and SPEP. Continue daily weights, monitor I/O's daily, avoid nephrotoxic agents and follow-up BMP in a.m. 06/20/2020. Renal function continues to worsen. Creatinine 4.6 this morning. Hold Lasix for now. Started on gentle IV hydration. Nephrology is following. Avoid nephrotoxic medications. Cardiology recommendations appreciated 06/21. No complaints. Her renal function is more stable now. Cr is 4.7 today. Continue to hold lasix and diovan. Continue IV hydration. Nephrology is following. 06/22. Labs stable - Cr 4.7. Nephrology on board. 06/23. Cr 5.0. May need HD. Nephrology evaluation appreciated 06/24. Had permacath placement and then HD afterwards on 06/23. CM to arrange OP HD chair 06/25. HD chair being set up by [facility] 06/26. Awaiting HD chair 06/27/2020; awaiting for outpatient hemodialysis chair. COVID-19 test is pending. History Interval history: Patient was seen and evaluated during morning rounds Patient did not have any complaints No Nursing issues overnight Hospitalist Physical - Physical exam Narrative exam: Not in cardiopulmonary distress. The patient appeared well nourished and normally developed. Vital signs as documented. Head exam is unremarkable. No scleral icterus . Neck is without jugular venous distension, thyromegaly, or carotid bruits. Lungs are clear to auscultation. Cardiac exam reveals regular rate and Rhythm. Abdominal exam reveals normal bowel sounds, nontender, no organomegaly. Extremities are nonedematous and both femoral and pedal pulses are normal. [employer]: Alert and oriented . No focal weakness. - Constitutional Vitals: Temp Pulse Resp BP Pulse Ox 97.8 F 94 H 18 152/63 96 06/27/20 06:05 06/27/20 06:05 06/27/20 06:05 06/27/20 06:05 06/27/20 06:05 General appearance: Present: no acute distress HEART Score - HEART Score Age: > 65 Risk factors: > 3 risk factors or hx of atherosclerotic disease Troponin: Troponin T 0.125 ng/mL (0.00-0.029) H* 06/12/20 14:48 Troponin: < normal limit - Critical Actions Critical Actions: 4-6 pts:12-16.6% risk of adverse cardiac event. Should be admitted Results - Labs CBC & Chem 7: 06/16/20 04:40 06/27/20 04:46 Labs: Laboratory Last Values WBC 4.9 K/mm3 (4.5-11.0) 06/16/20 04:40 RBC 3.34 M/mm3 (3.65-5.03) L 06/16/20 04:40 Hgb 9.4 gm/dl (10.1-14.3) L 06/16/20 04:40 Hct 29.7 % (30.3-42.9) L 06/16/20 04:40 MCV 89 fl (79-97) 06/16/20 04:40 MCH 28 pg (28-32) 06/16/20 04:40 MCHC 32 % (30-34) 06/16/20 04:40 RDW 17.3 % (13.2-15.2) H 06/16/20 04:40 Plt Count 145 K/mm3 (140-440) 06/16/20 04:40 Lymph % (Auto) 23.5 % (13.4-35.0) 06/16/20 04:40 [place] % (Auto) 15.1 % (0.0-7.3) H 06/16/20 04:40 Eos % (Auto) 4.2 % (0.0-4.3) 06/16/20 04:40 Baso % (Auto) 1.3 % (0.0-1.8) 06/16/20 04:40 Lymph # (Auto) 1.1 K/mm3 (1.2-5.4) L 06/16/20 04:40 [place] # (Auto) 0.7 K/mm3 (0.0-0.8) 06/16/20 04:40 Eos # (Auto) 0.2 K/mm3 (0.0-0.4) 06/16/20 04:40 Baso # (Auto) 0.1 K/mm3 (0.0-0.1) 06/16/20 04:40 Add Manual Diff Complete 06/12/20 02:35 Total Counted 100 06/12/20 02:35 Seg Neutrophils % 55.9 % (40.0-70.0) 06/16/20 04:40 Seg Neuts % (Manual) 92.0 % (40.0-70.0) H 06/12/20 02:35 Band Neutrophils % 0 % 06/12/20 02:35 Lymphocytes % (Manual) 6.0 % (13.4-35.0) L 06/12/20 02:35 Reactive Lymphs % (Man) 0 % 06/12/20 02:35 Monocytes % (Manual) 2.0 % (0.0-7.3) 06/12/20 02:35 Eosinophils % (Manual) 0 % (0.0-4.3) 06/12/20 02:35 Basophils % (Manual) 0 % (0.0-1.8) 06/12/20 02:35 Metamyelocytes % 0 % 06/12/20 02:35 Myelocytes % 0 % 06/12/20 02:35 Promyelocytes % 0 % 06/12/20 02:35 Blast Cells % 0 % 06/12/20 02:35 Nucleated RBC % Not Reportable 06/12/20 02:35 Seg Neutrophils # 2.7 K/mm3 (1.8-7.7) 06/16/20 04:40 Seg Neutrophils # Man 4.1 K/mm3 (1.8-7.7) 06/12/20 02:35 Band Neutrophils # 0.0 K/mm3 06/12/20 02:35 Lymphocytes # (Manual) 0.3 K/mm3 (1.2-5.4) L 06/12/20 02:35 Abs React Lymphs (Man) 0.0 K/mm3 06/12/20 02:35 Monocytes # (Manual) 0.1 K/mm3 (0.0-0.8) 06/12/20 02:35 Eosinophils # (Manual) 0.0 K/mm3 (0.0-0.4) 06/12/20 02:35 Basophils # (Manual) 0.0 K/mm3 (0.0-0.1) 06/12/20 02:35 Metamyelocytes # 0.0 K/mm3 06/12/20 02:35 Myelocytes # 0.0 K/mm3 06/12/20 02:35 Promyelocytes # 0.0 K/mm3 06/12/20 02:35 Blast Cells # 0.0 K/mm3 06/12/20 02:35 WBC Morphology Not Reportable 06/12/20 02:35 Hypersegmented Neuts Not Reportable 06/12/20 02:35 Hyposegmented Neuts Not Reportable 06/12/20 02:35 Hypogranular Neuts Not Reportable 06/12/20 02:35 Smudge Cells Not Reportable 06/12/20 02:35 Toxic Granulation Not Reportable 06/12/20 02:35 Toxic Vacuolation Not Reportable 06/12/20 02:35 Dohle Bodies Not Reportable 06/12/20 02:35 Pelger-Huet Anomaly Not Reportable 06/12/20 02:35 Chanda Rods Not Reportable 06/12/20 02:35 Platelet Estimate Consistent w auto 06/12/20 02:35 Clumped Platelets Not Reportable 06/12/20 02:35 Plt Clumps, EDTA Not Reportable 06/12/20 02:35 Large Platelets Not Reportable 06/12/20 02:35 Giant Platelets Not Reportable 06/12/20 02:35 Platelet Satelliting Not Reportable 06/12/20 02:35 Plt Morphology Comment Not Reportable 06/12/20 02:35 RBC Morphology Not Reportable 06/12/20 02:35 Dimorphic RBCs Not Reportable 06/12/20 02:35 Polychromasia Not Reportable 06/12/20 02:35 Hypochromasia Few 06/12/20 02:35 Poikilocytosis Not Reportable 06/12/20 02:35 Anisocytosis 1+ 06/12/20 02:35 Microcytosis Not Reportable 06/12/20 02:35 Macrocytosis Not Reportable 06/12/20 02:35 Spherocytes Not Reportable 06/12/20 02:35 Pappenheimer Bodies Not Reportable 06/12/20 02:35 Sickle Cells Not Reportable 06/12/20 02:35 Target Cells Few 06/12/20 02:35 Tear Drop Cells Not Reportable 06/12/20 02:35 Ovalocytes Not Reportable 06/12/20 02:35 Helmet Cells Not Reportable 06/12/20 02:35 [place] Bodies Not Reportable 06/12/20 02:35 [place] Rings Not Reportable 06/12/20 02:35 Bac[place] Cells Not Reportable 06/12/20 02:35 Bite Cells Not Reportable 06/12/20 02:35 Crenated Cell Not Reportable 06/12/20 02:35 Elliptocytes Not Reportable 06/12/20 02:35 Acanthocytes (Spur) Not Reportable 06/12/20 02:35 Rouleaux Not Reportable 06/12/20 02:35 Hemoglobin C Crystals Not Reportable 06/12/20 02:35 Schistocytes Not Reportable 06/12/20 02:35 Malaria parasites Not Reportable 06/12/20 02:35 Sulaiman Bodies Not Reportable 06/12/20 02:35 Hem Pathologist Commnt No 06/12/20 02:35 PT 14.7 Sec. (12.2-14.9) 06/11/20 14:41 INR 1.15 (0.87-1.13) H 06/11/20 14:41 Sodium 137 mmol/L (137-145) 06/27/20 04:46 Potassium 5.0 mmol/L (3.6-5.0) 06/27/20 04:46 Chloride 99.4 mmol/L (98-107) 06/27/20 04:46 Carbon Dioxide 28 mmol/L (22-30) 06/27/20 04:46 Anion Gap 15 mmol/L 06/27/20 04:46 BUN 41 mg/dL (7-17) H 06/27/20 04:46 Creatinine 3.3 mg/dL (0.6-1.2) H 06/27/20 04:46 Estimated GFR 16 ml/min 06/27/20 04:46 BUN/Creatinine Ratio 12 % 06/27/20 04:46 Glucose 136 mg/dL (65-100) H 06/27/20 04:46 POC Glucose 147 mg/dL (70-105) H 06/26/20 22:44 Hemoglobin A1c 6.0 % (4-6) 06/12/20 02:35 Lactic Acid 0.50 mmol/L (0.7-2.0) L 06/11/20 16:11 Calcium 8.7 mg/dL (8.4-10.2) 06/27/20 04:46 Phosphorus 4.00 mg/dL (2.5-4.5) 06/27/20 04:46 Magnesium 2.20 mg/dL (1.7-2.3) 06/12/20 22:19 Total Bilirubin 0.30 mg/dL (0.1-1.2) 06/12/20 02:35 AST 20 units/L (5-40) 06/12/20 02:35 ALT 9 units/L (7-56) 06/12/20 02:35 Alkaline Phosphatase 97 units/L (35-129) 06/12/20 02:35 Total Creatine Kinase 60 units/L (30-135) 06/11/20 14:41 Troponin T 0.125 ng/mL (0.00-0.029) H* 06/12/20 14:48 NT-Pro-B Natriuret Pep 86555 pg/mL (0-900) H 06/15/20 05:23 Serum Total Protein 7.2 g/dL (6.1-8.1) 06/13/20 09:41 Total Protein 8.3 g/dL (6.3-8.2) H 06/12/20 02:35 Albumin 3.3 g/dL (3.8-4.8) L 06/13/20 09:41 Albumin/Globulin Ratio 0.6 % 06/12/20 02:35 Ypnpy-9-Gxyycdnot 0.3 g/dL (0.2-0.3) 06/13/20 09:41 Unqgd-2-Lvhxgdqlv 0.7 g/dL (0.5-0.9) 06/13/20 09:41 Beta Globulins 0.5 g/dL (0.2-0.5) 06/13/20 09:41 Gamma Globulins 2.1 g/dL (0.8-1.7) H 06/13/20 09:41 Abnorm Protein Band 1 see below 06/13/20 09:41 PEP Interpretation see below H 06/13/20 09:41 Triglycerides 89 mg/dL (2-149) 06/11/20 14:41 Cholesterol 157 mg/dL (50-199) 06/11/20 14:41 LDL Cholesterol Direct 71 mg/dL (50-130) 06/11/20 14:41 HDL Cholesterol 75 mg/dL (40-59) H 06/11/20 14:41 Cholesterol/HDL Ratio 2.09 % 06/11/20 14:41 TSH 3.490 mlU/mL (0.270-4.200) 06/12/20 14:48 Urine Color Straw (Yellow) 06/12/20 12:47 Urine Turbidity Clear (Clear) 06/12/20 12:47 Urine pH 6.0 (5.0-7.0) 06/12/20 12:47 Ur Specific [place] 1.009 (1.003-1.030) 06/12/20 12:47 Urine Protein 100 mg/dl mg/dL (Negative) 06/12/20 12:47 Urine Glucose (UA) Neg mg/dL (Negative) 06/12/20 12:47 Urine Ketones Neg mg/dL (Negative) 06/12/20 12:47 Urine Blood Neg (Negative) 06/12/20 12:47 Urine Nitrite Neg (Negative) 06/12/20 12:47 Urine Bilirubin Neg (Negative) 06/12/20 12:47 Urine Urobilinogen < 2.0 mg/dL (<2.0) 06/12/20 12:47 Ur Leukocyte Esterase Neg (Negative) 06/12/20 12:47 Urine WBC (Auto) 3.0 /HPF (0.0-6.0) 06/12/20 12:47 Urine RBC (Auto) 2.0 /HPF (0.0-6.0) 06/12/20 12:47 U Epithel Cells (Auto) 2.0 /HPF (0-13.0) 06/12/20 12:47 Urine Bacteria (Auto) 1+ /HPF (Negative) 06/12/20 12:47 Urine Eosinophils None seen (None Seen) 06/12/20 Unknown Urine Total Volume 215 ml 06/23/20 15:02 Urine Creatinine 86.6 mg/dL (0.1-20.0) H 06/23/20 15:02 Ur Creatinine 24 Hour 0.2 (0.8-2.8) L 06/23/20 15:02 Protein/Creatinin Ratio 6.30 06/12/20 Unknown Urine Sodium 121 mmol/L 06/12/20 Unknown Urine Total Protein 143 mg/dL (5-11.8) H 06/12/20 Unknown Coronavirus (PCR) Negative (Negative) 06/12/20 Unknown Hepatitis A IgM Ab Non-reactive (NonReactive) 06/23/20 10:55 Hep Bs Antigen Non-reactive (Negative) 06/23/20 10:55 Hep B Core IgM Ab Non-reactive (NonReactive) 06/23/20 10:55 Hepatitis C Antibody Non-reactive (NonReactive) 06/23/20 10:55 - Diagnostic Impressions Diagnostic Impressions: Echocardiogram 06/11/20 23:10 Transthoracic Echocardiogram Indication: CHF BP: 165/63 HR: 60 Conclusions *Global left ventricular systolic function is normal. *The estimated ejection fraction is 55-60%. *Mild to moderate concentric left ventricular hypertrophy is observed. *The left and right atria are both moderately dilated. *There is mild to moderate mitral regurgitation. *There is mild tricuspid regurgitation. *There is evidence of moderate pulmonary hypertension. *The right ventricular systolic pressure is calculated at 51 mmHg. *A left pleural effusion is present. *There is no significant pericardial effusion. Findings Left Ventricle: The left ventricular chamber size is normal. Mild to moderate concentric left ventricular hypertrophy is observed. Global left ventricular systolic function is normal. The estimated ejection fraction is 55-60%. Left Atrium: The left atrium is moderately dilated. Right Ventricle: The right ventricle is mildly dilated. The right ventricular global systolic function is mildly reduced. Right Atrium: The right atrium is moderately dilated. Aortic Valve: The aortic valve is trileaflet. The aortic valve leaflets are moderately thickened. There is trace of aortic regurgitation. There is no evidence of aortic stenosis. Mitral Valve: The mitral valve leaflets are moderately thickened. There is mild to moderate mitral regurgitation. There is no evidence of mitral stenosis. Tricuspid Valve: There is mild tricuspid regurgitation. The right ventricular systolic pressure is calculated at 51 mmHg. There is evidence of moderate pulmonary hypertension. Pulmonic Valve: There is trace pulmonic regurgitation. Pericardium: There is no pericardial effusion. A left pleural effusion is present. Aorta: There is no dilatation of the ascending aorta. There is no dilatation of the aortic root. Venous: The inferior vena cava appears normal in size. Measurements Chambers 2D Name Value Normal Range IVSd (2D) 1.07 cm (0.6 - 1.1) LVPWd (2D) 1.19 cm (0.6 - 1.1) LVIDd (2D) 4.34 cm (3.7 - 5.6) LVIDs (2D) 2.93 cm (2 - 3.8) LV FS (2D) 32.56 % - EF Teichholz (2D) 61.19 % - Ao root diameter (2D) 3.19 cm (2 - 3.7) Volumes/Mass Name Value Normal Range LA ESV SP 4CH (A/L) 58.57 ml - LA ESV SP 2CH (A/L) 86.64 ml - LA ESV BP (A/L) 74.92 ml - LA ESV BP (A/L) index 47.42 ml/m2 - LA ESV SP 4CH (MOD) 50.65 ml - LA ESV SP 2CH (MOD) 79.23 ml - LA ESV BP (MOD) 66.45 ml - LA ESV BP (MOD) index 42.06 ml/m2 - Diastolic/Systolic Function Name Value Normal Range MV E-wave Vmax 1.34 m/sec - MV deceleration time 244.33 msec - MV A-wave Vmax 0.98 m/sec - MV E:A ratio 1.36 ratio - Aortic Valve Name Value Normal Range AV Vmax 1.46 m/sec - AV VTI 38.18 cm - AV peak gradient 8.5 mmHg - AV mean gradient 4.47 mmHg - LVOT diameter 1.93 cm - LVOT Vmax 0.97 m/sec - LVOT VTI 27.7 cm - LVOT peak gradient 3.73 mmHg - LVOT mean gradient 2.13 mmHg - SV LVOT 80.99 ml - KENYA (continuity Vmax) 1.94 cm2 - KENYA (continuity VTI) 2.12 cm2 - Ascending Ao 2.04 cm - Tricuspid Valve Name Value Normal Range TR Vmax 3.3 m/sec - TR peak gradient 43 mmHg - RAP 8 mmHg - RVSP 51 mmHg - Pulmonic Valve/Qp:Qs Name Value Normal Range PV Vmax 1.02 m/sec - PV peak gradient 4.14 mmHg - SD end-diastolic Vmax 0.74 m/sec - PV acceleration time 68.51 msec - Lopez/IV: Voiding Method External Female Catheter IV Catheter Type [Right perma cath Subclavian] IV Catheter Type [Right INT / Saline Lock Forearm] Active Medications - Current Medications Current Medications: Generic Name Dose Route Start Last Admin Trade Name Freq PRN Reason Stop Dose Admin Acetaminophen 650 mg 06/11/20 23:07 Tylenol PO Q4H PRN Pain MILD(1-3)/Fever >100.5/MENA Artificial Tears 2 drops 06/11/20 23:06 Isopto Tears 0.5% OU Q4H PRN Dry Eye(s) Aspirin 81 mg 06/12/20 10:00 06/26/20 09:21 Baby Aspirin PO 81 mg QDAY JULIETTE Administration Atorvastatin Calcium 40 mg 06/12/20 22:00 06/26/20 22:45 Lipitor PO 40 mg QHS JULIETTE Administration Clopidogrel Bisulfate 75 mg 06/12/20 10:00 06/26/20 09:21 Plavix PO 75 mg QDAY JULIETTE Administration Dextrose 50 ml 06/13/20 05:23 D50w (25gm) Syringe IV Q30MIN PRN Hypoglycemia Protocol Doxazosin Mesylate 2 mg 06/12/20 12:00 06/26/20 22:45 Cardura PO 2 mg BID JULIETTE Administration Ergocalciferol 50,000 unit 06/19/20 10:00 06/26/20 09:21 Vitamin D2 PO 50,000 unit Mo JULIETTE Administration Ferrous Sulfate 325 mg 06/12/20 10:00 06/26/20 09:21 Feosol PO 325 mg QDAY JULIETTE Administration Hydralazine HCl 100 mg 06/17/20 14:00 06/27/20 06:27 Apresoline PO 100 mg Q8HR JULIETTE Administration Hydromorphone HCl 0.5 mg 06/11/20 23:07 Dilaudid IV Q3H PRN Pain , Severe (7-10) Insulin Human Lispro 0 unit 06/13/20 07:30 06/26/20 22:45 Humalog SUB-Q Not Given ACHS [facility] Protocol Isosorbide Mononitrate 60 mg 06/16/20 12:00 06/26/20 09:21 Imdur PO 60 mg QDAY JULIETTE Administration Levothyroxine Sodium 25 mcg 06/12/20 06:00 06/27/20 06:27 Synthroid PO 25 mcg QAM@0600 JULIETTE Administration Minoxidil 2.5 mg 06/17/20 10:00 06/26/20 22:44 Loniten PO 2.5 mg Q12HR JULIETTE Administration Nifedipine 90 mg 06/14/20 22:00 06/26/20 22:45 Procardia Xl PO 90 mg Q12HR JULIETTE Administration Nitroglycerin 0.4 mg 06/12/20 04:00 06/12/20 04:39 Nitrostat SL 0.4 mg .Q5MIN PRN Administration Chest Pain Ondansetron HCl 4 mg 06/11/20 23:07 Zofran IV Q8H PRN Nausea And Vomiting Oxycodone/Acetaminophen 1 tab 06/11/20 23:07 06/26/20 22:44 Percocet 5/325 PO 1 tab Q6H PRN Administration Pain, Moderate (4-6) Sertraline HCl 50 mg 06/12/20 10:00 06/26/20 09:21 Zoloft PO 50 mg QDAY JULIETTE Administration Sodium Chloride 10 ml 06/11/20 23:45 06/26/20 22:45 Sodium Chloride Flush Syringe 10 Ml IV 10 ml BID JULIETTE Administration Sodium Chloride 10 ml 06/11/20 23:07 Sodium Chloride Flush Syringe 10 Ml IV PRN PRN LINE FLUSH Nutrition/Malnutrition Assess - Dietary Evaluation Nutrition/Malnutrition Findings: Nutrition Notes Start: 06/12/20 14:11 Freq: Status: Active Protocol: Document 06/22/20 11:32 AB (Rec: 06/22/20 11:41 AB [id number]) Co-Sign 06/22/20 11:32 MK Nutrition Notes Initial or Follow up Reassessment Current Diagnosis CKD(stage I-IV),Coronary Artery Disease,Diabetes, Hypertension,Heart Failure, Hyperlipidemia Current Diet Pureed with thin liquids Labs/Tests BUN 91 Cr 4.7 BG 130 Pertinent Medications Feosol Vit D2 Height 5 ft Weight 57.8 kg [place] Body Weight (kg) 45.45 BMI 24.8 Weight change and time frame wt change noted Weight Status Appropriate Subjective/Other Information F/U for intakes and ONS tolerance. Per tech, pt is eating 100% of her meals ONS is not given to her every day because she has been eating every meal 100%. Percent of energy/protein needs met: 100%/100% Burn Absent Trauma Absent GI Symptoms None Difficulty In Swallowing Current % PO Good (75-100%) Minimum of two criteria No physical signs of malnutrition #2 Nutrition Diagnosis Increased nutrient needs ( specify in comment below) Comments: protein Diagnosis Progress(for reassessment Continues documentation) Is patient on ventilator? No Is Patient Ambulatory and/or Out of Bed No REE-([facility]-confined to bed) 1182.192 Kcal/Kg value to use for calculation 22 Approximate Energy Requirements Using 1272 kcal/Kg Calculation Used for Recommendations Kcal/kg Additional Notes Protein: 58-72 g (1-1.25 g/kg) Fluid: 1 ml/kcal Nutrition Intervention Change Diet Order: Continue pureed Add Supplement/Snack (indicate name/kcal D/C /protein ) Goal #1 Meet at least 75% of energy and protein needs Anticipated Discharge Needs: Pureed diet Follow-Up By: 06/29/20 Additional Comments F/U for intakes
--- NOTE | 2020-06-27 08:22 | Progress Note ---
Assessment and Plan CKD (chronic kidney disease) -Renal labs reviewed. Serum creatinine 2.9 today, yesterday's was 2.2 -Patient underwent perm-cath placement on 06/23/20 -S/P HD on 06/23/20 and 06/24/20 -HD today for clearance and volume removal -Renal ultrasound-No obstruction noted -Urine lytes- shows 6 grams of protein -UPEP and SPEP- pending -Obtain daily weights -Monitor I/O's daily -Avoid nephrotoxic agents -Awaiting placement to [facility] Acute exacerbation of CHF -S/P IV Lasix -Echocardiogram-EF 55-60% -Cardiology onboard Hypertension -Continue antihypertensives and adjust medications as necessary -Monitor blood pressures Subjective Date of service: 06/27/20 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 Interval history: no overnight events Objective - Vital Signs Vital signs: Vital Signs - 12hr 06/26/20 06/27/20 22:49 06:05 Temperature 97.6 F 97.8 F Pulse Rate 96 H 94 H Respiratory 18 18 Rate Blood Pressure 159/52 152/63 O2 Sat by Pulse 95 96 Oximetry - General Appearance General appearance: well-developed, cachectic EENT: ATNC, PERRL, mucous membranes dry Neck: no JVD, no carotid bruit Respiratory: Present: Decreased Breath Sounds. Absent: Rales, Ronchi Cardiology: regular, S1S2 Gastrointestinal: normoactive bowel sounds, no tenderness, no distended Integumentary: no rash, warm and dry Neurologic: other (follows simple commands) Musculoskeletal: other (no edema in BLE) Psychiatric: mood/affect appropriate, cooperative - Lab 06/16/20 04:40 06/27/20 04:46 Most recent lab results Calcium 8.7 mg/dL (8.4-10.2) 06/27/20 04:46 Phosphorus 4.00 mg/dL (2.5-4.5) 06/27/20 04:46 Magnesium 2.20 mg/dL (1.7-2.3) 06/12/20 22:19 Urine Creatinine 86.6 mg/dL (0.1-20.0) H 06/23/20 15:02 Urine Sodium 121 mmol/L 06/12/20 Unknown Urine Total Protein 143 mg/dL (5-11.8) H 06/12/20 Unknown Medications & Allergies - Medications Allergies/Adverse Reactions: Allergies No Known Allergies Allergy (Verified 08/27/14 06:14) Home Medications: Home Medications Medication Instructions Recorded Confirmed Last Taken Type Levothyroxine [Synthroid] 25 mcg PO QAM 08/27/14 06/11/20 03/20/18 History hydrALAZINE [Apresoline TAB] 100 mg PO TID #90 tab 09/01/14 06/11/20 03/20/18 Rx Sertraline [Zoloft] 50 mg PO QDAY 11/05/14 06/11/20 03/20/18 History Terazosin (Nf) [Hytrin (Nf)] 5 mg PO QHS 08/19/17 06/11/20 Unknown History Aspirin [Aspirin BABY CHEW TAB] 81 mg PO QDAY tab.chew 08/21/17 06/11/20 Unknown Rx AtorvaSTATin [Lipitor] 40 mg PO QHS #30 tab 03/27/18 06/11/20 Unknown Rx Clopidogrel [Plavix] 75 mg PO QDAY #30 tablet 03/27/18 06/11/20 Unknown Rx Hypromellose [Isopto Tears 0.5%] 2 drops OU Q4H PRN bottle 03/27/18 06/11/20 Unknown Rx ISOSORBIDE MONOnitrate [Imdur ER] 30 mg PO QDAY #30 tablet 03/27/18 06/11/20 Unknown Rx amLODIPine 10 mg PO DAILY #30 tablet 03/27/18 06/11/20 Unknown Rx Ergocalciferol (Vitamin D2) 50,000 unit PO QDAY 06/11/20 06/11/20 Unknown History [Vitamin D2] Ferrous Sulfate [Feosol] 325 mg PO QDAY 06/11/20 06/11/20 Unknown History carvediloL [Coreg] 6.25 mg PO Q12HR 06/11/20 06/11/20 Unknown History Active Medications: Generic Name Dose Route Start Last Admin Trade Name Freq PRN Reason Stop Dose Admin Acetaminophen 650 mg 06/11/20 23:07 Tylenol PO Q4H PRN Pain MILD(1-3)/Fever >100.5/MENA Artificial Tears 2 drops 06/11/20 23:06 Isopto Tears 0.5% OU Q4H PRN Dry Eye(s) Aspirin 81 mg 06/12/20 10:00 06/26/20 09:21 Baby Aspirin PO 81 mg QDAY JULIETTE Administration Atorvastatin Calcium 40 mg 06/12/20 22:00 06/26/20 22:45 Lipitor PO 40 mg QHS JULIETTE Administration Clopidogrel Bisulfate 75 mg 06/12/20 10:00 06/26/20 09:21 Plavix PO 75 mg QDAY JULIETTE Administration Dextrose 50 ml 06/13/20 05:23 D50w (25gm) Syringe IV Q30MIN PRN Hypoglycemia Protocol Doxazosin Mesylate 2 mg 06/12/20 12:00 06/26/20 22:45 Cardura PO 2 mg BID JULIETTE Administration Ergocalciferol 50,000 unit 06/19/20 10:00 06/26/20 09:21 Vitamin D2 PO 50,000 unit Mo [facility] Administration Ferrous Sulfate 325 mg 06/12/20 10:00 06/26/20 09:21 Feosol PO 325 mg QDAY JULIETTE Administration Hydralazine HCl 100 mg 06/17/20 14:00 06/27/20 06:27 Apresoline PO 100 mg Q8HR JULIETTE Administration Hydromorphone HCl 0.5 mg 06/11/20 23:07 Dilaudid IV Q3H PRN Pain , Severe (7-10) Insulin Human Lispro 0 unit 06/13/20 07:30 06/26/20 22:45 Humalog SUB-Q Not Given ACHS [facility] Protocol Isosorbide Mononitrate 60 mg 06/16/20 12:00 06/26/20 09:21 Imdur PO 60 mg QDAY [facility] Administration Levothyroxine Sodium 25 mcg 06/12/20 06:00 06/27/20 06:27 Synthroid PO 25 mcg QAM@0600 [facility] Administration Minoxidil 2.5 mg 06/17/20 10:00 06/26/20 22:44 Loniten PO 2.5 mg Q12HR JULIETTE Administration Nifedipine 90 mg 06/14/20 22:00 06/26/20 22:45 Procardia Xl PO 90 mg Q12HR JULIETTE Administration Nitroglycerin 0.4 mg 06/12/20 04:00 06/12/20 04:39 Nitrostat SL 0.4 mg .Q5MIN PRN Administration Chest Pain Ondansetron HCl 4 mg 06/11/20 23:07 Zofran IV Q8H PRN Nausea And Vomiting Oxycodone/Acetaminophen 1 tab 06/11/20 23:07 06/26/20 22:44 Percocet 5/325 PO 1 tab Q6H PRN Administration Pain, Moderate (4-6) Sertraline HCl 50 mg 06/12/20 10:00 06/26/20 09:21 Zoloft PO 50 mg QDAY JULIETTE Administration Sodium Chloride 10 ml 06/11/20 23:45 06/26/20 22:45 Sodium Chloride Flush Syringe 10 Ml IV 10 ml BID JULIETTE Administration Sodium Chloride 10 ml 06/11/20 23:07 Sodium Chloride Flush Syringe 10 Ml IV PRN PRN LINE FLUSH
--- NOTE | 2020-06-27 09:38 | Progress Note ---
<LILY MANUEL - Last Filed: 06/27/20 09:37> Assessment and Plan Volume overload -resolved Heart failure with a preserved ejection fraction COVID 19 test is negative Echo this presentation: normal left ventricular systolic function with ejection fraction 55 to 60%. There is evidence of cor pulmonale. Intermittent bradycardia seen on telemetry monitoring 06/12 telemetry strips show mostly a sinus rhythm with first-degree AV block and cycles of second-degree Mobitz type I Wenckebach AV block. Carvedilol, Norvasc, Clonidine and Labetalol were discontinued TSH is 3.4 Cor-pulmonale Chronic renal disease initiated on dialysis Hypertension Prior CVA Conservative cardiac management. Subjective Date of service: 06/27/20 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 Interval history: Seen in dialysis. Patient is resting in bed comfortably. Objective Vital Signs Temp Pulse Resp BP BP Pulse Ox 06/27/20 06:05 97.8 F 94 H 18 152/63 96 06/26/20 22:49 97.6 F 96 H 18 159/52 95 06/26/20 11:41 97.2 F L 86 18 134/48 99 - Physical Examination General: No Apparent Distress, Cachectic, Other (Frail, elderly, chronically ill-appearing) HEENT: Positive: PERRL Neck: Positive: trachea midline Cardiac: Positive: Reg Rate and Rhythm Lungs: Positive: Decreased Breath Sounds Neuro: Positive: Weakness Abdomen: Positive: Soft Extremities: Absent: edema - Labs and Meds Comprehensive Metabolic Panel 06/27/20 Range/Units 04:46 Sodium 137 (137-145) mmol/L Potassium 5.0 (3.6-5.0) mmol/L Chloride 99.4 (98-107) mmol/L Carbon Dioxide 28 (22-30) mmol/L BUN 41 H (7-17) mg/dL Creatinine 3.3 H (0.6-1.2) mg/dL Glucose 136 H (65-100) mg/dL Calcium 8.7 (8.4-10.2) mg/dL <MICHAEL VANN - Last Filed: 06/29/20 07:22> Assessment and Plan - Patient Problems (1) CHF (congestive heart failure) Status: Acute (2) Pulmonary hypertension Status: Acute Subjective Interval history: I saw this pt & agree with the Dx & Tx plan. Objective Vital Signs Temp Pulse Pulse Pulse Resp BP Pulse Ox 06/28/20 11:52 98.7 F 95 H 22 104/40 90 06/28/20 09:59 86 86 16 06/28/20 09:15 83 116/55 - Labs and Meds Comprehensive Metabolic Panel 06/28/20 Range/Units 07:24 Sodium 138 (137-145) mmol/L Potassium 4.4 (3.6-5.0) mmol/L Chloride 99.2 (98-107) mmol/L Carbon Dioxide 32 H (22-30) mmol/L BUN 22 H (7-17) mg/dL Creatinine 2.3 H (0.6-1.2) mg/dL Glucose 118 H (65-100) mg/dL Calcium 8.8 (8.4-10.2) mg/dL
[2020-06-27] MEDS: FERROUS SULFATE 325 MG TAB PO SCH (17:11)
[2020-06-27] MEDS: SERTRALINE 50 MG TAB PO SCH (17:11)
[2020-06-27] MEDS: MINOXIDIL 2.5 MG TAB PO SCH ×2 (17:12→21:09)
[2020-06-27] MEDS: NIFEdipine XL 90 MG TAB PO SCH ×2 (17:12→21:09)
[2020-06-27] MEDS: ASPIRIN 81 MG TAB CHEW PO SCH (17:13)
[2020-06-27] MEDS: CLOPIDOGREL 75 MG TAB PO SCH (17:13)
[2020-06-27] MEDS: DOXAZOSIN 1 MG TAB PO SCH ×2 (17:14→21:08)
[2020-06-28] MEDS: LEVOTHYROXINE 25 MCG TAB PO SCH (05:59)
[2020-06-28] MEDS: hydrALAZINE 100 MG TAB PO SCH ×2 (06:19→15:19)
[2020-06-28 08:15] LABS: Calcium 8.8 mg/dL (8.4-10.2)
--- NOTE | 2020-06-28 09:10 | Progress Note ---
<LILY MANUEL - Last Filed: 06/28/20 09:09> Assessment and Plan Volume overload -resolved Heart failure with a preserved ejection fraction COVID 19 test is negative Echo this presentation: normal left ventricular systolic function with ejection fraction 55 to 60%. There is evidence of cor pulmonale. Intermittent bradycardia seen on telemetry monitoring 06/12 telemetry strips show mostly a sinus rhythm with first-degree AV block and cycles of second-degree Mobitz type I Wenckebach AV block. Carvedilol, Norvasc, Clonidine and Labetalol were discontinued TSH is 3.4 Cor-pulmonale Chronic renal disease initiated on dialysis this presentation Hypertension Prior CVA Conservative cardiac management. Subjective Date of service: 06/28/20 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 Interval history: Patient is resting in bed comfortably. She has no complaints. Wants to go home. Awaits arrangement for outpatient HD chair. Objective Vital Signs Temp Pulse Resp BP Pulse Ox 06/28/20 06:19 97.6 F 89 18 128/54 88 06/27/20 22:05 97.8 F 89 18 136/51 91 06/27/20 21:08 92 H 140/60 06/27/20 17:12 130/50 06/27/20 15:33 98.0 F 60 19 146/59 97 06/27/20 12:30 98.8 F 73 18 118/46 06/27/20 12:15 84 123/50 06/27/20 12:00 70 138/43 06/27/20 11:45 81 114/54 06/27/20 11:30 73 111/48 06/27/20 11:15 75 102/51 06/27/20 11:00 69 104/42 06/27/20 10:45 78 112/45 06/27/20 10:30 77 105/42 06/27/20 10:15 73 115/54 06/27/20 10:00 90 140/61 06/27/20 09:45 93 H 145/68 06/27/20 09:30 84 145/68 06/27/20 09:15 84 150/75 06/27/20 09:10 93 H 145/65 - Physical Examination General: No Apparent Distress, Cachectic, Other (Frail, elderly, chronically ill-appearing) HEENT: Positive: PERRL Neck: Positive: trachea midline Cardiac: Positive: Reg Rate and Rhythm Lungs: Positive: Decreased Breath Sounds Neuro: Positive: Weakness Extremities: Absent: edema - Labs and Meds Comprehensive Metabolic Panel 06/28/20 Range/Units 07:24 Sodium 138 (137-145) mmol/L Potassium 4.4 (3.6-5.0) mmol/L Chloride 99.2 (98-107) mmol/L Carbon Dioxide 32 H (22-30) mmol/L BUN 22 H (7-17) mg/dL Creatinine 2.3 H (0.6-1.2) mg/dL Glucose 118 H (65-100) mg/dL Calcium 8.8 (8.4-10.2) mg/dL <MICHAEL VANN - Last Filed: 06/29/20 07:08> Assessment and Plan - Patient Problems (1) CHF (congestive heart failure) Status: Acute (2) Pulmonary hypertension Status: Acute Subjective Interval history: I saw this pt & agree with the Dx & Tx plan. Objective Vital Signs Temp Pulse Pulse Pulse Resp BP Pulse Ox 06/28/20 11:52 98.7 F 95 H 22 104/40 90 06/28/20 09:59 86 86 16 06/28/20 09:15 83 116/55 - Labs and Meds Comprehensive Metabolic Panel 06/28/20 Range/Units 07:24 Sodium 138 (137-145) mmol/L Potassium 4.4 (3.6-5.0) mmol/L Chloride 99.2 (98-107) mmol/L Carbon Dioxide 32 H (22-30) mmol/L BUN 22 H (7-17) mg/dL Creatinine 2.3 H (0.6-1.2) mg/dL Glucose 118 H (65-100) mg/dL Calcium 8.8 (8.4-10.2) mg/dL
[2020-06-28] MEDS: NIFEdipine XL 90 MG TAB PO SCH (09:15)
[2020-06-28] MEDS: ASPIRIN 81 MG TAB CHEW PO SCH (09:16)
[2020-06-28] MEDS: FERROUS SULFATE 325 MG TAB PO SCH (09:16)
[2020-06-28] MEDS: CLOPIDOGREL 75 MG TAB PO SCH (09:16)
[2020-06-28] MEDS: INSULIN LISPRO 100 UNIT/ML VIAL 3 mL SUB-Q SCH ×3 (09:16→16:57)
[2020-06-28] MEDS: SERTRALINE 50 MG TAB PO SCH (09:16)
[2020-06-28] MEDS: MINOXIDIL 2.5 MG TAB PO SCH (09:16)
--- NOTE | 2020-06-28 10:30 | Progress Note ---
Assessment and Plan CKD (chronic kidney disease) -Renal labs reviewed. Serum creatinine 2.3 today, yesterday's was 3.3 -S/P hemodialysis yesterday, next HD treatment will be tomorrow -Patient underwent perm-cath placement on 06/23/20 -Renal ultrasound-No obstruction noted -Urine lytes- shows 6 grams of protein -UPEP- pending -Obtain daily weights -Monitor I/O's daily -Avoid nephrotoxic agents -Patient accepted to [facility] on schedule at 10:15 a.m. -Disposition-awaiting home delivery of hospital bed per CM Acute exacerbation of CHF -S/P IV Lasix -Echocardiogram-EF 55-60% -Cardiology onboard Hypertension -Continue antihypertensives and adjust medications as necessary -Monitor blood pressures Subjective Date of service: 06/28/20 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 No family at bedside. Objective - Vital Signs Vital signs: Vital Signs - 12hr 06/28/20 06/28/20 06:19 09:15 Temperature 97.6 F Pulse Rate 89 83 Respiratory 18 Rate Blood Pressure 128/54 116/55 O2 Sat by Pulse 88 Oximetry - General Appearance General appearance: chronically ill, fatigue EENT: ATNC Neck: no JVD Respiratory: Present: Decreased Breath Sounds Cardiology: S1S2 Gastrointestinal: normoactive bowel sounds Integumentary: warm and dry Neurologic: confused Musculoskeletal: decreased ROM - Lab 06/16/20 04:40 06/28/20 07:24 Most recent lab results Calcium 8.8 mg/dL (8.4-10.2) 06/28/20 07:24 Phosphorus 2.90 mg/dL (2.5-4.5) D 06/28/20 07:24 Magnesium 2.20 mg/dL (1.7-2.3) 06/12/20 22:19 Urine Creatinine 86.6 mg/dL (0.1-20.0) H 06/23/20 15:02 Urine Sodium 121 mmol/L 06/12/20 Unknown Urine Total Protein 143 mg/dL (5-11.8) H 06/12/20 Unknown Medications & Allergies - Medications Allergies/Adverse Reactions: Allergies No Known Allergies Allergy (Verified 08/27/14 06:14) Home Medications: Home Medications Medication Instructions Recorded Confirmed Last Taken Type Levothyroxine [Synthroid] 25 mcg PO QAM 08/27/14 06/11/20 03/20/18 History hydrALAZINE [Apresoline TAB] 100 mg PO TID #90 tab 09/01/14 06/11/20 03/20/18 Rx Sertraline [Zoloft] 50 mg PO QDAY 11/05/14 06/11/20 03/20/18 History Terazosin (Nf) [Hytrin (Nf)] 5 mg PO QHS 08/19/17 06/11/20 Unknown History Aspirin [Aspirin BABY CHEW TAB] 81 mg PO QDAY tab.chew 08/21/17 06/11/20 Unknown Rx AtorvaSTATin [Lipitor] 40 mg PO QHS #30 tab 03/27/18 06/11/20 Unknown Rx Clopidogrel [Plavix] 75 mg PO QDAY #30 tablet 03/27/18 06/11/20 Unknown Rx Hypromellose [Isopto Tears 0.5%] 2 drops OU Q4H PRN bottle 03/27/18 06/11/20 Unknown Rx ISOSORBIDE MONOnitrate [Imdur ER] 30 mg PO QDAY #30 tablet 03/27/18 06/11/20 Unknown Rx Ergocalciferol (Vitamin D2) 50,000 unit PO QDAY 06/11/20 06/11/20 Unknown History [Vitamin D2] Ferrous Sulfate [Feosol 325 MG tab] 325 mg PO QDAY 06/11/20 06/11/20 Unknown History carvediloL [Coreg] 6.25 mg PO Q12HR 06/11/20 06/11/20 Unknown History NIFEdipine XL [Procardia Xl] 90 mg PO Q12HR #60 tablet 06/28/20 Unknown Rx hydrALAZINE [Apresoline TAB] 100 mg PO Q8HR #90 tab 06/28/20 Unknown Rx minoxidiL [Loniten] 2.5 mg PO Q12HR #60 tablet 06/28/20 Unknown Rx oxyCODONE /ACETAMINOPHEN [Percocet 1 tab PO Q6H PRN #12 tablet 06/28/20 Unknown Rx 5/325 mg] Active Medications: Generic Name Dose Route Start Last Admin Trade Name Freq PRN Reason Stop Dose Admin Acetaminophen 650 mg 06/11/20 23:07 Tylenol PO Q4H PRN Pain MILD(1-3)/Fever >100.5/MENA Artificial Tears 2 drops 06/11/20 23:06 Isopto Tears 0.5% OU Q4H PRN Dry Eye(s) Aspirin 81 mg 06/12/20 10:00 06/28/20 09:16 Baby Aspirin PO 81 mg QDAY JULIETTE Administration Atorvastatin Calcium 40 mg 06/12/20 22:00 06/27/20 21:09 Lipitor PO 40 mg QHS JULIETTE Administration Clopidogrel Bisulfate 75 mg 06/12/20 10:00 06/28/20 09:16 Plavix PO 75 mg QDAY JULIETTE Administration Dextrose 50 ml 06/13/20 05:23 D50w (25gm) Syringe IV Q30MIN PRN Hypoglycemia Protocol Doxazosin Mesylate 2 mg 06/12/20 12:00 06/27/20 21:08 Cardura PO 2 mg BID JULIETTE Administration Ergocalciferol 50,000 unit 06/19/20 10:00 06/26/20 09:21 Vitamin D2 PO 50,000 unit Mo [facility] Administration Ferrous Sulfate 325 mg 06/12/20 10:00 06/28/20 09:16 Feosol PO 325 mg QDAY [facility] Administration Hydralazine HCl 100 mg 06/17/20 14:00 06/28/20 06:19 Apresoline PO Not Given Q8HR [facility] Hydromorphone HCl 0.5 mg 06/11/20 23:07 Dilaudid IV Q3H PRN Pain , Severe (7-10) Insulin Human Lispro 0 unit 06/13/20 07:30 06/28/20 09:16 Humalog SUB-Q Not Given ACHS [facility] Protocol Isosorbide Mononitrate 60 mg 06/16/20 12:00 06/28/20 09:15 Imdur PO 60 mg QDAY [facility] Administration Levothyroxine Sodium 25 mcg 06/12/20 06:00 06/28/20 05:59 Synthroid PO 25 mcg QAM@0600 [facility] Administration Minoxidil 2.5 mg 06/17/20 10:00 06/28/20 09:16 Loniten PO 2.5 mg Q12HR JULIETTE Administration Nifedipine 90 mg 06/14/20 22:00 06/28/20 09:15 Procardia Xl PO 90 mg Q12HR [facility] Administration Nitroglycerin 0.4 mg 06/12/20 04:00 06/12/20 04:39 Nitrostat SL 0.4 mg .Q5MIN PRN Administration Chest Pain Ondansetron HCl 4 mg 06/11/20 23:07 Zofran IV Q8H PRN Nausea And Vomiting Oxycodone/Acetaminophen 1 tab 06/11/20 23:07 06/26/20 22:44 Percocet 5/325 PO 1 tab Q6H PRN Administration Pain, Moderate (4-6) Sertraline HCl 50 mg 06/12/20 10:00 06/28/20 09:16 Zoloft PO 50 mg QDAY JULIETTE Administration Sodium Chloride 10 ml 06/11/20 23:45 06/28/20 09:16 Sodium Chloride Flush Syringe 10 Ml IV 10 ml BID JULIETTE Administration Sodium Chloride 10 ml 06/11/20 23:07 Sodium Chloride Flush Syringe 10 Ml IV PRN PRN LINE FLUSH
--- NOTE | 2020-06-28 11:02 | Discharge Summary ---
Providers - Providers Date of Admission: 06/11/20 16:55 Date of discharge: 06/28/20 Attending physician: JACINTA SUAREZ MD 06/11/20 16:10 Consult to Physician [CONS] Urgent Comment: Consulting Provider: CHERELLE ROMERO Physician Instructions: Reason For Exam: CHF with cardiorenal syndrome 06/12/20 03:55 Consult to Dietitian/Nutrition [CONS] Routine Physician Instructions: Reason For Exam: Reason for Consult: Malnutrition 06/12/20 07:31 Speech Therapy Evaluation and Treat [CONS] Routine Reason For Exam: swallow test 06/12/20 07:32 Occupational Therapy Evaluate and Treat [CONS] Routine Comment: Reason For Exam: weakness Physical Therapy Evaluation and Treat [CONS] Routine Comment: Reason For Exam: weakness 06/12/20 08:25 Consult to Physician [CONS] Routine Comment: Consulting Provider: RHONDA HARRELL Physician Instructions: Reason For Exam: CKD 06/12/20 14:35 Consult to Wound/ET Nurse [CONS] Routine Reason For Exam: wound eval 06/23/20 10:11 Consult to Case Management [CONS] Routine Services Needed at Discharge: Other Notified:: CM Additional Physician Instructions: Address: [address] [place] [address] Consult to Physician [CONS] Routine Comment: Consulting Provider: DM ECHEVERRIA Physician Instructions: Reason For Exam: permcath placement 06/24/20 10:58 Consult to Case Management [CONS] Routine Services Needed at Discharge: Other Notified:: Case management Primary care physician: PERSONAL INJURY LEGAL ASSISTANT Hospitalization Reason for admission: Acute on chronic diastolic CHF, CKD on dialysis, uncontrolled hypertension Condition: Fair Hospital course: 79-year-old -[place] female with history of hypertension, hyperlipidemia, coronary artery disease and congestive heart failure brought in by the heart daughter for increasing shortness of breath and orthopnea for 1 week. Daughter provides most of the history. Patient has shortness of breath on minimal exertion and orthopnea. Patient follows with [facility] for cardiology problems. No chest pain. Exacerbated by exertion and relieved with rest. No fever or chills. No exposure to Covid virus. -- Acute on chronic diastolic CHF (congestive heart failure) Bilateral edema on chest x-ray due to acute on chronic diastolic CHF Continue beta-blockers. Hold Lasix due to bump in creatinine Low-sodium diet, fluid restriction Echocardiogram for LV function ejection fraction-EF 55 to 60% Cardiology following. --Nonspecific elevated troponin; Due to NSTEMI type II, in the setting of chronic kidney disease Possible stress test versus heart cath if needed -- HTN (hypertension) Moderate control ,continue current antihypertensives And as needed hydralazine --History of coronary artery disease Continue isosorbide mono nitrate and aspirin Cardiology following Acute kidney injury on CKD 4 (chronic kidney disease) Due to vasomotor nephropathy Permacath placed on 06/23. HD initiated on 06/23. Nephrology on board Needs HD chair -- DVT prophylaxis On heparin and GI prophylaxis Closely monitor the patient and adjust management as needed Plan of care reviewed with the patient and the nurse 06/14/2020. Echocardiogram revealed EF of 55 to 60%. Continue IV Lasix per nephrology and cardiology. Baseline creatinine in 2018 was 2.22.6. Renal ultrasound revealed no obstruction. UPEP and SPEP pending. Patient still exhibiting accelerated hypertension. Increase Procardia to 90 mg twice daily. 06/15/2020. Patient's blood pressure is better controlled with current medications. Recheck chest x-ray today and follow-up BnP. 06/16/2020. Patient's blood pressure still extremely labile. Patient currently with clonidine, Cardura, Procardia, isosorbide and hydralazine. Increase hydralazine to 75 mg 3 times daily. BNP greater than 13,000 and chest x-ray sanders ggestive of heart failure. Defer to cardiology. Await PT recommendations for placement. 06/17/2020. Patient still with accelerated hypertension. Increase hydralazine to 100 mg 3 times daily. Continue isosorbide, clonidine, Cardura, valsartan and Procardia as well. Serum creatinine remains stable at 2.9. 06/18/2020. Patient's blood pressure much better controlled. Continue current regimen of hydralazine, isosorbide, clonidine, Cardura and Procardia. Diovan held due to increased creatinine. Renal ultrasound revealed no evidence of obstruction. BNP greater than 13,000 and chest x-ray suggestive of heart failure. 06/19/2020. Patient's blood pressure much better controlled. Continue current regimen of hydralazine, isosorbide, clonidine, Cardura and Procardia. Creatinine elevated at 3.5. Continue Lasix 20 mg IV twice daily for heart failure. Follow-up UPEP and SPEP. Continue daily weights, monitor I/O's daily, avoid nephrotoxic agents and follow-up BMP in a.m. 06/20/2020. Renal function continues to worsen. Creatinine 4.6 this morning. Hold Lasix for now. Started on gentle IV hydration. Nephrology is following. Avoid nephrotoxic medications. Cardiology recommendations appreciated 06/21. No complaints. Her renal function is more stable now. Cr is 4.7 today. Continue to hold lasix and diovan. Continue IV hydration. Nephrology is following. 06/22. Labs stable - Cr 4.7. Nephrology on board. 06/23. Cr 5.0. May need HD. Nephrology evaluation appreciated 06/24. Had permacath placement and then HD afterwards on 06/23. to arrange OP HD chair 06/25. HD chair being set up by 06/26. Awaiting HD chair 06/27/2020; awaiting for outpatient hemodialysis chair. COVID-19 test is pending. 06/28/2020; outpatient hemodialysis chair arranged, Covid test is negative. Patient discharged home with home health. Patient was hemodynamically stable at the time of discharge. Appropriate medication scripts were given at the time of discharge. Disposition: [id number] HOME UNDER HOME [facility] Time spent for discharge: 34 minutes - Discharge Diagnoses (1) Acute on chronic renal insufficiency Status: Acute (2) Uncontrolled hypertension Status: Acute (3) Diabetes mellitus, type 2 Status: Acute (4) Elevated troponin Status: Acute (5) Heart failure with preserved ejection fraction Status: Acute (6) Hyperlipidemia Status: Acute (7) Hypothyroidism Status: Acute (8) Insulin dependent diabetes mellitus Status: Acute Core Measure Documentation - Palliative Care Palliative Care/ Comfort Measures: Not Applicable - Core Measures Any of the following diagnoses?: none Exam - Physical Exam Narrative exam: Not in cardiopulmonary distress. The patient appeared well nourished and normally developed. Vital signs as documented. Head exam is unremarkable. No scleral icterus . Neck is without jugular venous distension, thyromegaly, or carotid bruits. Lungs are clear to auscultation. Cardiac exam reveals regular rate and Rhythm. Abdominal exam reveals normal bowel sounds, nontender, no organomegaly. Extremities are nonedematous and both femoral and pedal pulses are normal. PROMOTIONS SPECIALIST: Alert . No focal weakness. - Constitutional Vitals: Temp Pulse Resp BP Pulse Ox 97.6 F 86 16 116/55 88 06/28/20 06:19 06/28/20 09:59 06/28/20 09:59 06/28/20 09:15 06/28/20 06:19 Plan Activity: advance as tolerated Weight Bearing Status: Weight Bear as Tolerated Diet: low salt, renal Follow up with: PRIMARY CARE, [Primary Care Provider] - 3-5 Days Prescriptions: minoxidiL [Loniten] 2.5 mg PO BID #60 tablet oxyCODONE /ACETAMINOPHEN [Percocet 5/325] 1 tab PO Q6HR PRN #14 tablet PRN Reason: Pain NIFEdipine XL [Procardia Xl] 90 mg PO Q12H #60 tablet
[2020-06-28] MEDS: DOXAZOSIN 1 MG TAB PO SCH (12:01)
[2020-06-28 12:47] VITALS: BP 104/40
== END 2020-06-28 18:13 | disposition home health service (06) | DRG 673 ==
LOC: ED 13:10 → 4A 16:55 → 3A 18:05
PROVIDERS: ADMIT Internal Medicine; ATTEND Internal Medicine
PROC: 02H633Z Insertion of Infusion Device into Right Atrium, Percutaneous Approach (ICD-10-PCS; principal; 2020-06-23)
PROC: B5181ZA Fluoroscopy of Superior Vena Cava using Low Osmolar Contrast, Guidance (ICD-10-PCS; 2020-06-23)
PROC: 5A1D70Z Performance of Urinary Filtration, Intermittent, Less than 6 Hours Per Day (ICD-10-PCS; 2020-06-23)
PROC: 0JH63XZ Insertion of Tunneled Vascular Access Device into Chest Subcutaneous Tissue and Fascia, Percutaneous Approach (ICD-10-PCS; 2020-06-23)
PROC: 5A1D70Z Performance of Urinary Filtration, Intermittent, Less than 6 Hours Per Day (ICD-10-PCS; 2020-06-24)
PROC: 5A1D70Z Performance of Urinary Filtration, Intermittent, Less than 6 Hours Per Day (ICD-10-PCS; 2020-06-27)
DX: N17.0 Acute kidney failure with tubular necrosis (principal); I21.A1 Myocardial infarction type 2; I50.43 Acute on chronic combined systolic (congestive) and diastolic (congestive) heart failure; J81.0 Acute pulmonary edema; I13.0 Hypertensive heart and chronic kidney disease with heart failure and stage 1 through stage 4 chronic kidney disease, or unspecified chronic kidney disease; N18.4 Chronic kidney disease, stage 4 (severe); Z20.828 Contact with and (suspected) exposure to other viral communicable diseases; I27.20 Pulmonary hypertension, unspecified; E78.5 Hyperlipidemia, unspecified; I25.10 Atherosclerotic heart disease of native coronary artery without angina pectoris; E11.22 Type 2 diabetes mellitus with diabetic chronic kidney disease; E87.70 Fluid overload, unspecified; D64.9 Anemia, unspecified; Z82.49 Family history of ischemic heart disease and other diseases of the circulatory system; Z79.899 Other long term (current) drug therapy; Z79.891 Long term (current) use of opiate analgesic; Z79.01 Long term (current) use of anticoagulants; Z79.82 Long term (current) use of aspirin; Z86.73 Personal history of transient ischemic attack (TIA), and cerebral infarction without residual deficits; Z79.84 Long term (current) use of oral hypoglycemic drugs
CPT/HCPCS: 36415; 36558; 71045; 76770; 76937; 77001; 80048; 80053; 80061; 80074; 81001; 82140; 82550; 82570; 82962; 83036; 83735; 83880; 84100; 84132; 84156; 84165; 84166; 84300; 84443; 84484; 85007; 85025; 85610; 87040; 87086; 89050; 93005; 93306; 96374; 96375; G0378; A9270-GY; C1750; J0456; J0696; J1100; J1644; J1940; J2250; J3010; J7030; J7042; J7050; U0003